=== PATIENT | female | born 1950 | race Caucasian/White ===

== ENCOUNTER 2016-11-28 19:47 | Emergency (ER) | payer MEDICARE, MEDICAID ==
[2016-11-28 20:58] VITALS: BP 163/77
--- NOTE | 2016-11-28 21:12 | ED ---
Throat Pain/Nasal Congestion - HPI Summary HPI Summary: 66 F presents with sore throat 3 days. She said this past month she had been diagnosed with bronchitis and sinusitis and just finished her last course of antibiotics three days ago. She states since then she develop a sore throat. She has been able to eat and drink okay. She denies any fever. She also admits to some chest pain but denies any SOB. She also admits to a chronic cough that is unchanged. She states the chest pain is a squeezing sensation. She says she also ran out of tramadol and is requesting one here for her sciatica. - History of Current Complaint Chief Complaint: EDThroatPain Time Seen by Provider: 11/28/16 21:04 - Allergies/Home Medications Allergies/Adverse Reactions: Allergies Allergy/AdvReac Type Severity Reaction Status Date / Time Ciprofloxacin [From Cipro] Allergy Mild Itching Verified 10/14/16 13:33 Sulfa Drugs Allergy Mild Itching Verified 10/14/16 13:33 PMH/Surg Hx/FS Hx/Imm Hx Endocrine/Hematology History: Reports: Hx Anemia - b12 shots Denies: Hx Diabetes, Hx Thyroid Disease Cardiovascular History: Reports: Hx Hypertension, Other Cardiovascular Problems/ Disorders - PT.STATES STROKE 2011 Denies: Hx Congestive Heart Failure, Hx Deep Vein Thrombosis, Hx Myocardial Infarction, Hx Pacemaker/ICD Respiratory History: Reports: Hx Asthma, Hx Chronic Obstructive Pulmonary Disease (COPD), Other Respiratory Problems/Disorders - COPD Denies: Hx Lung Cancer GI History: Reports: Other GI Disorders - DIVERTICULITIS Denies: Hx Gall Bladder Disease, Hx Gastrointestinal Bleed, Hx Ulcer, Hx Urosepsis History: Denies: Hx Kidney Stones, Hx Renal Disease Musculoskeletal History: Reports: Hx Arthritis, Hx Back Problems, Other Musculoskeletal History - L SHLDR REPAIR 12/2013 Sensory History: Reports: Hx Contacts or Glasses Opthamlomology History: Reports: Hx Contacts or Glasses Neurological History: Reports: Hx Seizures Psychiatric History: Reports: Hx Anxiety, Hx Depression, Hx Panic Disorder, Hx Inpatient Treatment, Hx Community Mental Health Tx, Hx Bipolar Disorder, Hx Suicide Attempt, Hx of Violent Episodes Against Others, Hx Substance Abuse - Cancer History Hx Chemotherapy: No Hx Radiation Therapy: No - Surgical History Surgery Procedure, Year, and Place: LT SHOULDER REPLACEMENT 12/2013, ABD EXPLORATORY SURGERY, APPENDECTOMY Hx Anesthesia Reactions: No - Immunization History Date of Tetanus Vaccine: 12/03/13 Date of Influenza Vaccine: 2012 Infectious Disease History: No Infectious Disease History: Denies: Hx Hepatitis, Hx Human Immunodeficiency Virus (HIV), History Other Infectious Disease, Traveled Outside the [place] in Last 30 Days - Family History Known Family History: Positive: Hypertension, Respiratory Disease Negative: Cardiac Disease, Diabetes - Social History Alcohol Use: None 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 Substance Use Type: Reports: None Substance Use Comment - Amount & Last Used: opiates Hx Tobacco Use: Yes Smoking Status (MU): Heavy Every Day Tobacco Smoker Type: Cigarettes Amount Used/How Often: 1 PPD Length of Time of Smoking/Using Tobacco: 30 years Have You Smoked in the Last Year: Yes Review of Systems Negative: Fever Positive: Sore Throat, Nasal Discharge. Negative: Ear Ache Positive: Chest Pain Positive: Cough - chronic cough. Negative: Shortness Of Breath All Other Systems Reviewed And Are Negative: Yes Physical Exam Triage Information Reviewed: Yes Vital Signs On Initial Exam: Initial Vitals Temp Pulse Resp BP Pulse Ox 98.3 F 87 18 163/77 98 11/28/16 20:56 11/28/16 20:56 11/28/16 20:56 11/28/16 20:56 11/28/16 20:56 Vital Signs Reviewed: Yes Appearance: Positive: Well-Appearing Skin: Positive: Warm, Dry Head/Face: Positive: Normal Head/Face Inspection Eyes: Positive: Normal, Conjunctiva Clear ENT: Positive: Normal ENT inspection, Pharyngeal erythema, TMs normal. Negative : Tonsillar swelling, Tonsillar exudate, Trismus, Muffled/hoarse voice Neck: Positive: Supple, Nontender, No Lymphadenopathy Respiratory/Lung Sounds: Positive: Clear to Auscultation, Breath Sounds Present , Other - reproducible chest pain on palpation Cardiovascular: Positive: Normal, RRR Diagnostics - Vital Signs Vital Signs Temp Pulse Resp BP Pulse Ox 11/28/16 20:56 98.3 F 87 18 163/77 98 - Laboratory Lab Statement: Any lab studies that have been ordered have been reviewed, and results considered in the medical decision making process. EENT Course/Dx - Course Course Of Treatment: 66 F presents with sore throat for 3 days. Recently finished over antibiotic three days ago and developed sore throat. on exam holding secretions well, uvula midline, no trismus or hot potato voice, She states she also has chest pain, this pain is reproducible, she states she would only like throat swap and some tramadol ask repeatedly and refused any lab work , chest xray or EKG or any evalation for chest pain or cough, patient then became agitated and stated that would like to leave before strept swap came back , stated would call if came back postivie, strept swap negative, will treat symptomatically patient agrees with plan. - Differential Diagnoses Differential Diagnoses: Pharyngitis, Sinusitis, Other - strept throat, chest pain - Diagnoses Provider Diagnoses: Pharyngitis Discharge - Discharge Plan Condition: Good Disposition: HOME Patient Education Materials: Pharyngitis (ED) Referrals: Aston Pierre NP [Primary Care Provider] - Additional Instructions: Take Tylenol or ibuprofen for pain Use saline spray in nose as much as needed Use humidifier in room or can use warm water in bowls Can gargle salt water Can use cough drops or products such as cloraseptic spray Follow up with primary Return to ED if develop fever does not respond to Tylenol or ibuprofen, inability to swallow, or difficulty breathing or any new or worsening symptoms
== END 2016-11-28 22:04 | disposition home or self-care (01) ==
LOC: ED 19:47
DX: J02.9 Acute pharyngitis, unspecified (principal); F17.210 Nicotine dependence, cigarettes, uncomplicated
CPT/HCPCS: 87651; 99282

== ENCOUNTER 2016-12-10 21:31 | Emergency (ER) | payer MEDICARE, MEDICAID ==
[2016-12-10 21:38] VITALS: BP 125/65
[2016-12-10 22:07] LABS: Hematocrit 44 % (35-47); Mean Corpuscular HGB Conc 34 g/dl (31-36); Mean Corpuscular Hemoglobin 31 pg (27-31); Mean Corpuscular Volume 91 fL (80-97); Mean Platelet Volume 7 um3 (7.4-10.4); Red Blood Count 4.87 10^6/ul (4.0-5.4); Red Cell Distribution Width 14 % (10.5-15); White Blood Count 14.7 10^3/ul (3.5-10.8)
[2016-12-10 22:21] LABS: ALT 15 U/L (7-52); AST 17 U/L (13-39); Albumin 4.4 g/dL (3.2-5.2); Alkaline Phosphatase 89 U/L (34-104); Anion Gap 12 mmol/L (2-11); BUN/Creatinine Ratio 19.7 (8-20); Blood Urea Nitrogen 14 mg/dL (6-24); CO2 Carbon Dioxide 20 mmol/L (22-32); Calcium 9.4 mg/dL (8.6-10.3); Chloride 103 mmol/L (101-111); EGFR African American 106.6 (>60); EGFR Non-African American 82.9 (>60); Globulin 3.1 g/dL (2-4); Glucose 90 mg/dL (70-100); Potassium 3.8 mmol/L (3.5-5.0); Sodium 135 mmol/L (133-145); Total Protein 7.5 g/dL (6.4-8.9)
[2016-12-10 22:37] LABS: Acetaminophen < 15 mcg/mL; Alcohol 179 mg/dL (<10); Salicylate < 2.50 mg/dL (<30)
[2016-12-10 22:48] LABS: TSH (Thyroid Stimulating Horm) 1.14 mcIU/mL (0.34-5.60)
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
== END 2016-12-11 07:51 | disposition home or self-care (01) ==
LOC: ED 21:31
DX: F10.20 Alcohol dependence, uncomplicated (principal); F32.9 Major depressive disorder, single episode, unspecified; R10.12 Left upper quadrant pain; F17.210 Nicotine dependence, cigarettes, uncomplicated; Y90.6 Blood alcohol level of 120-199 mg/100 ml
CPT/HCPCS: 36415; 80053; 80320; 80329; 84443; 85025; 99283; G0480

== ENCOUNTER 2016-12-12 18:40 | Emergency (ER) | payer MEDICARE, MEDICAID ==
[2016-12-12 18:50] VITALS: BP 168/75
[2016-12-12] MEDS ORDERED: Acetaminophen TAB* 325 MG PO ONE (19:19)
[2016-12-12 19:28] LABS: Urine Bacteria 1+ (Absent); Urine Bilirubin Negative (Negative); Urine Glucose Negative (Negative); Urine Nitrite Positive (Negative)
[2016-12-12] MEDS ORDERED: Nitrofurantoin Macrocrystals* 100 MG CAP PO ONE (19:29)
--- NOTE | 2016-12-12 19:45 | RAD ---
INDICATION: Knee pain COMPARISON: 10/05/2016 TECHNIQUE: AP, lateral, tunnel, and sunrise were obtained. FINDINGS: There is minor medial joint space narrowing. The bony structures, joint spaces, and soft tissues are otherwise unremarkable. IMPRESSION: MINOR MEDIAL JOINT SPACE NARROWING, OTHERWISE NEGATIVE.
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
--- NOTE | 2016-12-14 07:33 | PN ---
Progress Note - Progress Note Note: Preliminary shows E. coli. Patient placed on macrobid. Appropriate treatment. Nothing further is needed at this time.
== END 2016-12-12 20:42 | disposition home or self-care (01) ==
LOC: ED 18:40
DX: M25.561 Pain in right knee (principal); N39.0 Urinary tract infection, site not specified; W01.0XXA Fall on same level from slipping, tripping and stumbling without subsequent striking against object, initial encounter; Y92.9 Unspecified place or not applicable; F17.210 Nicotine dependence, cigarettes, uncomplicated; J44.9 Chronic obstructive pulmonary disease, unspecified; J45.909 Unspecified asthma, uncomplicated; Z86.73 Personal history of transient ischemic attack (TIA), and cerebral infarction without residual deficits; F41.9 Anxiety disorder, unspecified; F32.9 Major depressive disorder, single episode, unspecified; D64.9 Anemia, unspecified; I10 Essential (primary) hypertension; Z88.2 Allergy status to sulfonamides; Z88.1 Allergy status to other antibiotic agents
CPT/HCPCS: 81003; 81015; 87077; 87086; 87186; 99282; A9270-GY

== ENCOUNTER 2016-12-17 15:56 | Observation (INO) | payer MEDICARE, MEDICAID ==
[2016-12-17 16:22] LABS: Hematocrit 41 % (35-47); Mean Corpuscular HGB Conc 34 g/dl (31-36); Mean Corpuscular Hemoglobin 31 pg (27-31); Mean Corpuscular Volume 91 fL (80-97); Mean Platelet Volume 7 um3 (7.4-10.4); Red Blood Count 4.52 10^6/ul (4.0-5.4); Red Cell Distribution Width 14 % (10.5-15); White Blood Count 10.6 10^3/ul (3.5-10.8)
--- NOTE | 2016-12-17 16:31 | RAD ---
INDICATION: Slurred speech. CVA. COMPARISON: CT brain August 15, 2016 TECHNIQUE: Noncontrast axial source images were acquired from the skull base to the vertex. FINDINGS: Ventricles/sulci: There is cortical atrophy with compensatory dilatation of the CSF spaces. Brain parenchyma: There is periventricular and subcortical white matter change compatible with chronic ischemia. Intracranial hemorrhage:None. Extra-axial spaces: There are no abnormal extra axial fluid collections or evidence of extra-axial mass. Calvarium: There is no calvarial fracture or other calvarial abnormality. Scalp: There is no evidence of scalp or extracalvarial soft tissue abnormality. Paranasal sinuses/mastoid: The paranasal sinuses and mastoid air cells are clear. Other: None. IMPRESSION: CORTICAL ATROPHY WITH CHRONIC MICROVASCULAR ISCHEMIC CHANGES. NO ACUTE FINDINGS. Findings called to emergency department at 1623 hours
[2016-12-17 16:40] LABS: ALT 16 U/L (7-52); Albumin 4.1 g/dL (3.2-5.2); Alkaline Phosphatase 80 U/L (34-104); BUN/Creatinine Ratio 14.5 (8-20); Blood Urea Nitrogen 12 mg/dL (6-24); CO2 Carbon Dioxide 22 mmol/L (22-32); Calcium 9.2 mg/dL (8.6-10.3); Chloride 107 mmol/L (101-111); Cholesterol 206 mg/dL; EGFR Non-African American 69.2 (>60); Globulin 3.1 g/dL (2-4); Glucose 147 mg/dL (70-100); HDL Cholesterol 44.2 mg/dL; LDL Cholesterol 113 mg/dL; Sodium 138 mmol/L (133-145); Total Protein 7.2 g/dL (6.4-8.9); Triglycerides 243 mg/dL
[2016-12-17] MEDS ORDERED: Iohexol 350* (CONTRAST) 500 ML MDV IV ONE (16:51)
--- NOTE | 2016-12-17 17:00 | RAD ---
INDICATION: Code [place]. COMPARISON: Comparison is made with a prior chest x-ray study from August 06, 2016. TECHNIQUE: A portable view of the chest was obtained. FINDINGS: Cardiac and mediastinal contours appear to be within normal limits. The lungs are clear. No pleural effusion is seen. The patient is status post total left shoulder arthroplasty. IMPRESSION: NO EVIDENCE FOR ACUTE DISEASE.
[2016-12-17 17:19] LABS: Urine Bilirubin Negative (Negative); Urine Glucose Negative (Negative); Urine Nitrite Negative (Negative)
[2016-12-17 17:29] LABS: Benzodiazepine Urine Screen None Detected (None Detect)
[2016-12-17 18:08] LABS: Acetaminophen < 15 mcg/mL; Alcohol < 10 mg/dL (<10); Salicylate < 2.50 mg/dL (<30)
--- NOTE | 2016-12-17 18:14 | RAD ---
INDICATION: Acute onset speech abnormality. History of CVA with RIGHT-sided arm and leg deficits. COMPARISON: Noncontrast CT brain of the same date. December 27, 2015 CT angiogram TECHNIQUE: Multidetector CT images were obtained from the aortic arch to the vertex of the head with 80 mL Omnipaque 350 IV contrast. Arterial phase of enhancement. Multiplanar reformation including maximum intensity projection. 3-D arterial volume rendering. Stenosis estimations based on denominator of distal arterial diameter. NECK ANGIOGRAM REPORT: Motion artifact degrades image quality. Normal configuration of the branch vessels at the aortic arch. Mild atherosclerotic plaque without suggestion of branch vessel ostial stenosis. Mild calcific and noncalcific plaque at the RIGHT carotid bulb and proximal internal carotid artery with approximate 20% resulting stenosis. Calcific and noncalcific plaque at the LEFT proximal internal carotid artery results in approximate 50% short segment stenosis. Patent grossly codominant vertebral arteries both contribute to the basilar artery. NECK ANGIOGRAM IMPRESSION: Approximate 20% RIGHT internal carotid artery stenosis and 50% short segment LEFT internal carotid artery stenosis. HEAD ANGIOGRAM REPORT: Calcific plaque at the bilateral carotid siphons without suggestion of hemodynamic significant stenosis. Patent M1 and M2 middle cerebral artery segments. Patent bilateral A2 anterior cerebral artery segments are primarily supplied by a dominant LEFT A1 segment and patent anterior communicating artery. Hypoplastic RIGHT A1 segment. Unremarkable basilar artery and cerebellar artery origins. Patent RIGHT posterior cerebral artery supplied by the anterior circulation via a dominant posterior communicating artery. Patent LEFT posterior cerebral artery supplied by the posterior circulation P1 segment with hypoplastic LEFT posterior communicating artery. No intracranial aneurysms or vascular malformations evident. Encephalomalacia at the LEFT superior parietal lobule consistent with previous infarct. HEAD ANGIOGRAM IMPRESSION: Negative for central intracranial arterial stenosis or occlusion. CPT II: CPT II Codes: 3100F
--- NOTE | 2016-12-17 18:55 | ED ---
Reid Coyne Karl, scribed for Delvis Ramirez MD on 12/17/16 at 1611 . Neurological HPI - HPI Summary HPI Summary: Pt is a 66 y/o female BIBA that presents to the ED c/o what she believes to be a stroke since 13:30. Pt reported that she was walking home from a friend's house at approx 13:30 today when she began to feel right sided weakness in her arm/leg/face, difficulty seeing, difficulty speaking, and mild SOB. Pt also reported feeling dizziness, nausea, and mild abd and back pain for approx 1 month. Pt stated that she has recently been on abx for a URI. Hx: CVA (2010) - History of Current Complaint Stated Complaint: WEAKNESS Last Known Well Date: 12/17/16 at 13:00 Hx Obtained From: Patient Hx Last Menstrual Period: pt states age 30-40 yrs old Onset/Duration: Sudden Onset, Started hours ago, Still Present Timing: Constant Onset Severity: Moderate Current Severity: Moderate Neurological Deficit Location: Facial - right side, RUE, RLE - Additional Pertinent History Primary Care Physician: [id number] - Allergy/Home Medications Allergies/Adverse Reactions: Allergies Allergy/AdvReac Type Severity Reaction Status Date / Time Ciprofloxacin [From Cipro] Allergy Mild Itching Verified 12/10/16 21:35 Sulfa Drugs Allergy Mild Itching Verified 12/10/16 21:35 Home Medications: Home Medications Fluticasone Furoate-Vilanterol [Breo Ellipta 200-25 Mcg/INH] 1 inh INH DAILY [History Confirmed 12/17/16] Gabapentin TAB(NF) [Neurontin 600 mg TAB(NF)] 600 mg PO QID 12/17/16 [History Confirmed 12/17/16] QUEtiapine TAB* [SEROquel TAB*] 200 mg PO BEDTIME 12/17/16 [History Confirmed ] traMADol TAB* [Ultram*] 50 mg PO BID PRN MDD 100 mg 12/17/16 [History Confirmed 12/17/16] PMH/Surg Hx/FS Hx/Imm Hx Endocrine/Hematology History: Reports: Hx Anemia - b12 shots Denies: Hx Diabetes, Hx Thyroid Disease Cardiovascular History: Reports: Hx Hypertension, Other Cardiovascular Problems/ Disorders - PT.STATES STROKE 2011 Denies: Hx Congestive Heart Failure, Hx Deep Vein Thrombosis, Hx Myocardial Infarction, Hx Pacemaker/ICD Respiratory History: Reports: Hx Asthma, Hx Chronic Obstructive Pulmonary Disease (COPD), Other Respiratory Problems/Disorders - COPD Denies: Hx Lung Cancer GI History: Reports: Other GI Disorders - DIVERTICULITIS Denies: Hx Gall Bladder Disease, Hx Gastrointestinal Bleed, Hx Ulcer, Hx Urosepsis History: Denies: Hx Kidney Stones, Hx Renal Disease Musculoskeletal History: Reports: Hx Arthritis, Hx Back Problems, Other Musculoskeletal History - L SHLDR REPAIR 12/2013 Sensory History: Reports: Hx Contacts or Glasses Opthamlomology History: Reports: Hx Contacts or Glasses Neurological History: Reports: Hx CVA, Hx Seizures Psychiatric History: Reports: Hx Anxiety, Hx Depression, Hx Panic Disorder, Hx Inpatient Treatment, Hx Community Mental Health Tx, Hx Bipolar Disorder, Hx Suicide Attempt, Hx of Violent Episodes Against Others, Hx Substance Abuse - Cancer History Hx Chemotherapy: No Hx Radiation Therapy: No - Surgical History Surgery Procedure, Year, and Place: LT SHOULDER REPLACEMENT 12/2013, ABD EXPLORATORY SURGERY, APPENDECTOMY Hx Anesthesia Reactions: No - Immunization History Date of Tetanus Vaccine: 12/03/13 Date of Influenza Vaccine: 2012 Infectious Disease History: Denies: Hx Hepatitis, Hx Human Immunodeficiency Virus (HIV), History Other Infectious Disease - Family History Known Family History: Positive: Hypertension, Respiratory Disease, Other - bipolar disorder, depression, alcohol abuse Negative: Cardiac Disease, Diabetes - Social History Alcohol Use: Occasionally 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 Substance Use Type: Reports: None Substance Use Comment - Amount & Last Used: opiates Hx Tobacco Use: Yes Smoking Status (MU): Heavy Every Day Tobacco Smoker Type: Cigarettes Amount Used/How Often: 1 PPD Length of Time of Smoking/Using Tobacco: 30 years Have You Smoked in the Last Year: Yes Review of Systems Constitutional: Negative Positive: Blurred Vision ENT: Negative Cardiovascular: Negative Positive: Shortness Of Breath Positive: Abdominal Pain, Nausea Genitourinary: Negative Positive: Arthralgia - back pain Skin: Negative Neurological: Other - dizziness Positive: Weakness - right side arm/leg/face, Slurred Speech Psychological: Normal All Other Systems Reviewed And Are Negative: Yes Physical Exam Triage Information Reviewed: Yes Vital Signs On Initial Exam: Temp Pulse Resp BP Pulse Ox 98.1 F 98 16 139/74 98 12/17/16 16:35 12/17/16 16:35 12/17/16 16:35 12/17/16 16:35 12/17/16 16:35 Vital Signs Reviewed: Yes Appearance: Positive: Well-Appearing, No Pain Distress Skin: Positive: Warm, Skin Color Reflects Adequate Perfusion, Dry Head/Face: Positive: Normal Head/Face Inspection Eyes: Positive: EOMI, ISADORA ENT: Positive: Normal ENT inspection Neck: Positive: Supple, Nontender Respiratory/Lung Sounds: Positive: Breath Sounds Present, Rhonchi - bilaterally Cardiovascular: Positive: Tachycardia Abdomen Description: Positive: Nontender, Soft Bowel Sounds: Positive: Present Musculoskeletal: Positive: Normal, Strength/ROM Intact Neurological: Positive: Facial Droop - right sided, Slurred Speech, Other - right arm weakness, confusion. Negative: Speech Normal Psychiatric: Positive: Normal, Affect/Mood Appropriate Diagnostics - Vital Signs Vital Signs Temp Pulse Resp BP Pulse Ox 12/17/16 17:00 18 131/113 12/17/16 16:35 98.1 F 98 16 139/74 98 12/17/16 16:30 108 20 139/74 98 12/17/16 16:23 97 12/17/16 16:14 97.9 F 99 16 143/76 93 12/17/16 16:03 108 20 96 12/17/16 16:02 127/69 - Laboratory Lab Results: Lab Results 12/17/16 12/17/16 12/17/16 Range/Units 16:00 16:00 16:00 WBC 10.6 (3.5-10.8) 10^3/ul RBC 4.52 (4.0-5.4) 10^6/ul Hgb 14.0 (12.0-16.0) g/dl Hct 41 (35-47) % MCV 91 (80-97) fL MCH 31 (27-31) pg MCHC 34 (31-36) g/dl RDW 14 (10.5-15) % Plt Count 250 (150-450) 10^3/ul MPV 7 L (7.4-10.4) um3 Neut % (Auto) 65.1 (38-83) % Lymph % (Auto) 26.2 (25-47) % [place] % (Auto) 5.1 (1-9) % Eos % (Auto) 2.6 (0-6) % Baso % (Auto) 1.0 (0-2) % Absolute Neuts (auto) 6.9 (1.5-7.7) 10^3/ul Absolute Lymphs (auto) 2.8 (1.0-4.8) 10^3/ul Absolute Monos (auto) 0.5 (0-0.8) 10^3/ul Absolute Eos (auto) 0.3 (0-0.6) 10^3/ul Absolute Basos (auto) 0.1 (0-0.2) 10^3/ul Absolute Nucleated RBC 0 10^3/ul Nucleated RBC % 0 INR (Anticoag Therapy) 0.90 (0.89-1.11) APTT 28.2 (26.0-36.3) seconds Sodium 138 (133-145) mmol/L Potassium TNP Chloride 107 (101-111) mmol/L Carbon Dioxide 22 (22-32) mmol/L Anion Gap TNP BUN 12 (6-24) mg/dL Creatinine 0.83 (0.51-0.95) mg/dL Est GFR ( Amer) 89.0 (>60) Est GFR (Non-Af Amer) 69.2 (>60) BUN/Creatinine Ratio 14.5 (8-20) Glucose 147 H (70-100) mg/dL POC Glucose (mg/dL) (74-106) mg/dL Lactic Acid (0.5-2.0) mmol/L Calcium 9.2 (8.6-10.3) mg/dL Total Bilirubin 0.40 (0.2-1.0) mg/dL AST TNP ALT 16 (7-52) U/L Alkaline Phosphatase 80 (34-104) U/L Troponin I 0.00 (<0.04) ng/mL Total Protein 7.2 (6.4-8.9) g/dL Albumin 4.1 (3.2-5.2) g/dL Globulin 3.1 (2-4) g/dL Albumin/Globulin Ratio 1.3 (1-3) Triglycerides 243 mg/dL Cholesterol 206 mg/dL LDL Cholesterol 113 mg/dL HDL Cholesterol 44.2 mg/dL Urine Color Urine Appearance Urine pH (5-9) Ur Specific [place] (1.010-1.030) Urine Protein (Negative) Urine Ketones (Negative) Urine Blood (Negative) Urine Nitrate (Negative) Urine Bilirubin (Negative) Urine Urobilinogen (Negative) Ur Leukocyte Esterase (Negative) Urine Glucose (Negative) Salicylates Cancelled Urine Opiates Screen (None Detect) Acetaminophen Cancelled Ur Barbiturates Screen (None Detect) Ur Phencyclidine Scrn (None Detect) Ur Amphetamines Screen (None Detect) U Benzodiazepines Scrn (None Detect) Urine Cocaine Screen (None Detect) U Cannabinoids Screen (None Detect) Serum Alcohol Cancelled 12/17/16 12/17/16 12/17/16 Range/Units 16:00 16:11 17:00 WBC (3.5-10.8) 10^3/ul RBC (4.0-5.4) 10^6/ul Hgb (12.0-16.0) g/dl Hct (35-47) % MCV (80-97) fL MCH (27-31) pg MCHC (31-36) g/dl RDW (10.5-15) % Plt Count (150-450) 10^3/ul MPV (7.4-10.4) um3 Neut % (Auto) (38-83) % Lymph % (Auto) (25-47) % [place] % (Auto) (1-9) % Eos % (Auto) (0-6) % Baso % (Auto) (0-2) % Absolute Neuts (auto) (1.5-7.7) 10^3/ul Absolute Lymphs (auto) (1.0-4.8) 10^3/ul Absolute Monos (auto) (0-0.8) 10^3/ul Absolute Eos (auto) (0-0.6) 10^3/ul Absolute Basos (auto) (0-0.2) 10^3/ul Absolute Nucleated RBC 10^3/ul Nucleated RBC % INR (Anticoag Therapy) (0.89-1.11) APTT (26.0-36.3) seconds Sodium (133-145) mmol/L Potassium Chloride (101-111) mmol/L Carbon Dioxide (22-32) mmol/L Anion Gap BUN (6-24) mg/dL Creatinine (0.51-0.95) mg/dL Est GFR ( Amer) (>60) Est GFR (Non-Af Amer) (>60) BUN/Creatinine Ratio (8-20) Glucose (70-100) mg/dL POC Glucose (mg/dL) 147 H (74-106) mg/dL Lactic Acid 1.8 (0.5-2.0) mmol/L Calcium (8.6-10.3) mg/dL Total Bilirubin (0.2-1.0) mg/dL AST ALT (7-52) U/L Alkaline Phosphatase (34-104) U/L Troponin I (<0.04) ng/mL Total Protein (6.4-8.9) g/dL Albumin (3.2-5.2) g/dL Globulin (2-4) g/dL Albumin/Globulin Ratio (1-3) Triglycerides mg/dL Cholesterol mg/dL LDL Cholesterol mg/dL HDL Cholesterol mg/dL Urine Color Yellow Urine Appearance Clear Urine pH 6.0 (5-9) Ur Specific [place] 1.005 L (1.010-1.030) Urine Protein Negative (Negative) Urine Ketones Negative (Negative) Urine Blood Negative (Negative) Urine Nitrate Negative (Negative) Urine Bilirubin Negative (Negative) Urine Urobilinogen Negative (Negative) Ur Leukocyte Esterase Negative (Negative) Urine Glucose Negative (Negative) Salicylates Urine Opiates Screen (None Detect) Acetaminophen Ur Barbiturates Screen (None Detect) Ur Phencyclidine Scrn (None Detect) Ur Amphetamines Screen (None Detect) U Benzodiazepines Scrn (None Detect) Urine Cocaine Screen (None Detect) U Cannabinoids Screen (None Detect) Serum Alcohol 12/17/16 12/17/16 Range/Units 17:00 17:25 WBC (3.5-10.8) 10^3/ul RBC (4.0-5.4) 10^6/ul Hgb (12.0-16.0) g/dl Hct (35-47) % MCV (80-97) fL MCH (27-31) pg MCHC (31-36) g/dl RDW (10.5-15) % Plt Count (150-450) 10^3/ul MPV (7.4-10.4) um3 Neut % (Auto) (38-83) % Lymph % (Auto) (25-47) % [place] % (Auto) (1-9) % Eos % (Auto) (0-6) % Baso % (Auto) (0-2) % Absolute Neuts (auto) (1.5-7.7) 10^3/ul Absolute Lymphs (auto) (1.0-4.8) 10^3/ul Absolute Monos (auto) (0-0.8) 10^3/ul Absolute Eos (auto) (0-0.6) 10^3/ul Absolute Basos (auto) (0-0.2) 10^3/ul Absolute Nucleated RBC 10^3/ul Nucleated RBC % INR (Anticoag Therapy) (0.89-1.11) APTT (26.0-36.3) seconds Sodium (133-145) mmol/L Potassium 3.4 L Chloride (101-111) mmol/L Carbon Dioxide (22-32) mmol/L Anion Gap BUN (6-24) mg/dL Creatinine (0.51-0.95) mg/dL Est GFR ( Amer) (>60) Est GFR (Non-Af Amer) (>60) BUN/Creatinine Ratio (8-20) Glucose (70-100) mg/dL POC Glucose (mg/dL) (74-106) mg/dL Lactic Acid (0.5-2.0) mmol/L Calcium (8.6-10.3) mg/dL Total Bilirubin (0.2-1.0) mg/dL AST 14 ALT (7-52) U/L Alkaline Phosphatase (34-104) U/L Troponin I (<0.04) ng/mL Total Protein (6.4-8.9) g/dL Albumin (3.2-5.2) g/dL Globulin (2-4) g/dL Albumin/Globulin Ratio (1-3) Triglycerides mg/dL Cholesterol mg/dL LDL Cholesterol mg/dL HDL Cholesterol mg/dL Urine Color Urine Appearance Urine pH (5-9) Ur Specific [place] (1.010-1.030) Urine Protein (Negative) Urine Ketones (Negative) Urine Blood (Negative) Urine Nitrate (Negative) Urine Bilirubin (Negative) Urine Urobilinogen (Negative) Ur Leukocyte Esterase (Negative) Urine Glucose (Negative) Salicylates < 2.50 Urine Opiates Screen None detected (None Detect) Acetaminophen < 15 Ur Barbiturates Screen None detected (None Detect) Ur Phencyclidine Scrn None detected (None Detect) Ur Amphetamines Screen None detected (None Detect) U Benzodiazepines Scrn None detected (None Detect) Urine Cocaine Screen None detected (None Detect) U Cannabinoids Screen None detected (None Detect) Serum Alcohol < 10 Result Diagrams: 12/17/16 16:00 12/17/16 17:25 Lab Statement: Any lab studies that have been ordered have been reviewed, and results considered in the medical decision making process. - Radiology CXR Xray Interpretation: No Acute Changes Radiology Interpretation Completed By: Radiologist - IMPRESSION: NO EVIDENCE FOR ACUTE DISEASE. - CT CT Brain CT Interpretation: Positive (See Comments) CT Interpretation Completed By: Radiologist - IMPRESSION: CORTICAL ATROPHY WITH CHRONIC MICROVASCULAR ISCHEMIC CHANGES. NO ACUTE FINDINGS. Head CTA CT Interpretation: Positive (See Comments) CT Interpretation Completed By: Radiologist - NECK ANGIOGRAM IMPRESSION: Approximate 20% RIGHT internal carotid artery stenosis and 50% short segment LEFT internal carotid artery stenosis. HEAD ANGIOGRAM IMPRESSION: Negative for central intracranial arterial stenosis or occlusion. - EKG 16:17 Cardiac Rate: Tachycardia EKG Rhythm: Sinus Tachycardia - at [address] Segment: Normal Ectopy: PVCs Course/Dx - Course Course Of Treatment: Mila Morrissey called at 16:09. Assessment/Plan: DR RODGERS SAW PATIENT IN ED. ADMIT HOSPITALIST STABLE. - Diagnoses Provider Diagnoses: Altered mental status - Physician Notifications Discussed Care of Patient With: Dr. Rodgers (Neurologist) at 16:28 who came to see the pt. Dr. Sahni (Hospitalist) at 18:25 who agreed to admit the pt. Discharge - Discharge Plan Condition: Stable Disposition: ADMITTED TO [facility] Referrals: Aston Pierre NP [Primary Care Provider] - The documentation as recorded by the Reid plunkett Karl accurately reflects the service I personally performed and the decisions made by me, Delvis Ramirez MD.
[2016-12-17] MEDS ORDERED: Acetaminophen TAB* 325 MG PO PRN (19:16)
[2016-12-17] MEDS ORDERED: Naproxen TAB* 250 MG PO PRN (19:21)
--- NOTE | 2016-12-17 19:24 | CONS ---
NEUROLOGY CONSULTATION: DATE OF CONSULT: 12/17/16 LOCATION: The patient is in the emergency department. REASON FOR CONSULT: Code Morrissey. HISTORY OF PRESENT ILLNESS: Julia Dewey is a 66-year-old woman with a history of previous left frontoparietal stroke, resulting in some residual right -sided weakness, chronic low back pain, history of polysubstance abuse according to records as well as hypertension, hyperlipidemia, and psychiatric illness, who presented via EMS with weakness and altered mental status. The patient is not a reliable informant and is very sleepy throughout the interview. 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 She also mentions that she was at a friend's house earlier and was discussing some "bad things" that have happened to her before these symptoms began. She cannot provide an accurate time of onset and initially stated she thought she began having symptoms around 12:30, then later stated that it may have been 2:30, and says that there is no one else to call that could verify the last time she was known to be normal. She was questioned as to why she was appearing so tired and stated that it may have been from her gabapentin or possibly from her buspirone, but that she has never had a reaction like this to those medications before. She denies taking any opiates or other sedating medications today and states that she typically takes tramadol for pain, but is out of that medication. She denies using alcohol today. PAST MEDICAL HISTORY: 1. Small left MCA stroke. 2. Hypertension. 3. Chronic back pain. 4. Hyperlipidemia. 5. Bipolar disorder. 6. History of alcohol dependence, unclear if active. 7. History of benzodiazepine abuse, unclear if active. 8. History of opiate abuse, unclear if active. 9. COPD. MEDICATIONS: Home medications: 1. Tramadol 50 mg b.i.d. p.r.n. 2. BuSpar 30 mg p.o. b.i.d. 3. Amlodipine 5 mg daily. 4. Seroquel 10 mg at bedtime. 5. Macrodantin 100 mg twice daily. 6. Naproxen 250 mg q.8 p.r.n. 7. Gabapentin 600 mg 4 times daily. 8. Breo Ellipta 1 inhalation daily. 9. Zyrtec 10 mg daily. 10. Atorvastatin 20 mg daily. 11. Ventolin inhaler p.r.n. ALLERGIES: CIPROFLOXACIN causes itching. SULFA drugs cause itching. FAMILY HISTORY: She denies a history of stroke in the family. SOCIAL HISTORY: She reported that her son is schizophrenic and she has been afraid to sleep at home as a result of this. She also offered that as a possible reason why she may be so sleepy today. REVIEW OF SYSTEMS: She reports back pain. She also reports some foot pain due to a callus. Otherwise, as per HPI. PHYSICAL EXAM: Temperature 98.1, blood pressure 139/74, heart rate of 98, oxygen saturation 98% on 2 L. On general examination, she is in no acute distress. She appears lethargic. Heart is tachycardic, but there are no obvious murmurs. Lungs are clear. On neurologic examination, she requires repeated verbal stimuli in order to maintain wakefulness. She is oriented to place and time. Her speech is severely dysarthric and she is edentulous. There is no apparent aphasia. Her pupils are 3 mm and equally reactive to 2 mm bilaterally. Versions are full without nystagmus. Visual crawford are full to confrontation. There is no obvious facial asymmetry. There is no significant drift in her left arm or left leg or her right arm. She was unable to voluntarily lift the right leg off the bed, but later when the ER staff was trying to remove her pants, she was noted to boost herself up with the right leg and was able to mostly remove her own pants. Sensation was intact to light touch in the upper and lower extremities, though she endorsed that it was slightly decreased in the right arm and leg. [id number] is intact without ataxia and [id number] was intact on the left. She was not stood up in this acute setting. DIAGNOSTIC STUDIES/LAB DATA: Her CBC was largely unremarkable. CMP was notable for a nonfasting glucose of 147. Total cholesterol of 206, LDL of 113, HDL of 44.2, and triglycerides of 243. Urinalysis is pending. Urine drug screen and alcohol level are also pending. A noncontrast head CT was obtained and personally reviewed and this showed evidence of the old left MCA infarct as well as chronic microvascular ischemic changes, but no acute findings. IMPRESSION: Julia Dewey is a 66-year-old woman with a history of past stroke as well as past polysubstance abuse, who presents as a Code Morrissey for weakness and altered mental status. Her exam is overall nonfocal aside from deficits which could be attributed to her old stroke, but her exam is notable for lethargy and significant flaccid dysarthria. I question whether she is intoxicated on either medications or alcohol, but this could also be the presentation of a posterior circulation event. She cannot establish a clear time of onset of her symptoms and there is no one available to help establish last time known normal, so she is not a candidate for IV tPA. I have asked Dr. Ramirez to obtain a CT angiogram of the head and neck in order to evaluate the posterior circulation. If this shows any large vessel occlusion, then she should be most likely transferred to another center such as [facility]. Otherwise, she will be admitted to the hospitalist service and Dr. Stanford has received sign-out on the patient. Thank for you for this consultation. [id number]/[facility] #: [id number] JAMES
[2016-12-17] MEDS ORDERED: NS 0.9% 1000 ML* 1,000 ML IV SCH (19:30)
[2016-12-17] MEDS ORDERED: Aspirin SUPP* 300 MG PR ONE (19:51)
[2016-12-17] MEDS ORDERED: Aspirin EC Low Dose* 81 MG TAB.EC PO SCH (20:00)
[2016-12-17 20:07] LABS: TSH (Thyroid Stimulating Horm) 0.86 mcIU/mL (0.34-5.60)
[2016-12-17] MEDS ORDERED: Nitrofurantoin Macrocrystals* 100 MG CAP PO SCH (21:00)
--- NOTE | 2016-12-17 21:05 | HP ---
CC: Aston Pierre NP HISTORY AND PHYSICAL: DATE OF ADMISSION: 12/17/16 PRIMARY CARE PHYSICIAN: Aston Pierre NP CHIEF COMPLAINT: Weakness, dysarthria. HISTORY OF PRESENT ILLNESS: Ms. Dewey is a 66-year-old female with a past medical history of hypertension, hyperlipidemia, COPD, bipolar disorder, depression, chronic pain, previous stroke who presents to the hospital with dysarthria, lethargy, and reported weakness. History is unreliable at this time as the patient is frequently falling asleep and seemed aggravated when I ask her questions about why she presented to the hospital. What can be pieced together, the patient reports she noticed sometimes around 1 or 2 o'clock in the afternoon today where she felt lightheaded and dizzy. She was walking around the [facility] area. After she felt this way, she leaned against the wall outside of a gas station and then went inside. She states she felt some weakness in her right leg and right arm which is where she is still symptomatic from her previous stroke. When she went to the gas station, she asked to sit down and noticed that she was having some difficulty speaking at that time. Apparently at that point, the gas station called the EMS and she was taken to the hospital. She states that she also feels very fatigued and cannot keep her eyes open. She denies any illicit drug use, denies taking any extra medications, although the nursing note states that she took extra BuSpar, Neurontin because she is under a lot of stress. However, the patient denies this to me. She also denies being on any pain medications and narcotics. She denies any chest pain, has chronic shortness of breath that she feels like may be worse lately. She states that she saw her PCP, Dr. Pierre, about a week ago for an upper respiratory infection. He felt that it was viral at that time, did not prescribe any antibiotics, recommended that she quit smoking which she has not done. No fever or chills. She states that she has been having some incontinence lately. PAST MEDICAL HISTORY: COPD, hypertension, hyperlipidemia, depression, bipolar disorder, chronic back pain, CVA in 2012. PAST SURGICAL HISTORY: The patient cannot recall any surgeries, although I have noted that she has a left shoulder scar. HOME MEDICATIONS: 1. Tramadol 50 mg by mouth 2 times daily as needed for pain. 2. BuSpar 30 mg by mouth 2 times daily. 3. Amlodipine 5 mg by mouth daily. 4. Quetiapine 200 mg by mouth at bedtime. 5. Nitrofurantoin 100 mg by mouth 2 times daily. 6. Seroquel 200 mg by mouth nightly. 7. Gabapentin 600 mg by mouth 4 times daily. 8. Breo 1 inhalation daily. 9. Norvasc 5 mg by mouth daily. 10. Albuterol 2 puffs inhaled every 4 hours as needed for shortness of breath or wheezing. 11. Cetirizine 10 mg by mouth daily. 12. Naproxen 250 mg by mouth every 8 hours as needed for pain. 13. Atorvastatin 20 mg by mouth daily. SOCIAL HISTORY: The patient reports 1 pack per day smoking history since she was 15 years old. Denies any alcohol or illicit drug use. FAMILY HISTORY: Mother of blood clot. Father of a broken neck. REVIEW OF SYSTEMS: Difficult to obtain, but seemingly negative aside from the HPI. PHYSICAL EXAMINATION GENERAL: The patient is a middle-aged female, lying in bed, in no apparent distress; however, quite lethargic. VITAL SIGNS: On admission, temperature 97.9, heart rate of 99, respiratory rate of 16, O2 saturation 93% on 2 L, blood pressure 143/76. HEENT: Pupils equal, round and reactive to light and accommodation. Anicteric sclerae. Dry mucous membranes. NECK: No cervical adenopathy. LUNGS: Clear to auscultation bilaterally. No wheezes, rales or rhonchi. CARDIOVASCULAR: Regular rate and rhythm. S1, S2 present. No murmurs, gallops or rubs. ABDOMEN: Soft, nontender, nondistended. Bowel sounds positive. EXTREMITIES: No cyanosis, clubbing or edema. NEURO: The patient is lethargic, awakens to voice, is oriented to self, place, year and day of the week. However, felt that it was August. On cranial nerve exam, perhaps some left facial droop, although the patient is not entirely cooperative with exam. Sensation seems intact and symmetric bilaterally. 5/5 strength throughout bilateral upper extremities. The patient is unable to lift her right lower extremity from the bed. Good strength in the left lower extremity. She has notable dysarthria. DIAGNOSTICS AND IMAGING: White blood cell count of 10.6, hemoglobin of 14, hematocrit of 41, platelets of 250, INR 0.9. Sodium of 138, potassium 3.4, chloride of 107, carbon dioxide of 22, BUN of 12, creatinine 0.83, glucose of 147. LFTs within normal limits. Troponin of 0.00, LDL of 113. UA negative for signs of infection. U-tox negative. IMAGING: Chest x-ray, personally reviewed, shows no acute disease. EKG, personally reviewed, shows normal sinus rhythm. No ischemic changes. CT of the head shows chronic microvascular ischemic changes, but no acute findings. CTA of the head and neck shows a 20% right ICA lesion and a 50% left ICA lesion. No abnormalities within the circulation of the head. ASSESSMENT AND PLAN: Lethargy, possible worsening of the patient's chronic right- sided weakness, dysarthria in a 66-year-old female with a past medical history of hypertension, hyperlipidemia, chronic obstructive pulmonary disease, depression, bipolar disorder, chronic pain and stroke. 1. Lethargy, dysarthria, and right-sided weakness. I appreciate Neurology assistance. Unclear if this is transient ischemic attack or stroke, seems unlikely. The patient's CT head and CTA of the head and neck are relatively unremarkable. The patient states she is unable to get an MRI because she has an earring in her left ear that is unable to be taken out. This was noted on the previous admission as well. We will start the patient on aspirin and continue her home statin for now. I will obtain an ABG, also check a TSH and ammonia and a B12. For now, I will hold the patient's centrally acting medications as there is some concern this could be polypharmacy. As noted above , the patient's U-tox is negative. We will keep her n.p.o. for now until she wakes up more. 2. Chronic obstructive pulmonary disease. As noted above, we will check a gas. Continue the patient on 2 L oxygen for now. We will write for Dulera in place of the patient's home Breo and continue albuterol p.r.n. 3. Hypertension. Continue the patient's home amlodipine. 4. Hyperlipidemia. Continue home atorvastatin. 5. Chronic pain. We will hold the patient's tramadol for now. She can have Tylenol and home naproxen. 6. Depression and bipolar disorder. We will hold the patient's Seroquel, BuSpar for now. Can restart it tomorrow if she is more alert. 7. Urinary tract infection. The patient's UA here is clean, can stop the home nitrofurantoin. 8. DVT prophylaxis. Lovenox subcu. 9. Code status. The patient is a full code. 10. The patient designates healthcare proxy as her son, Elroy Dewey, whose phone number is [phone]. TIME SPENT: Total time spent on this admission 45 minutes with over half the time spent [id number] with the patient, counseling, and coordinating care. [id number]/CPS #: [id number] MTDD
[2016-12-17] MEDS ORDERED: Enoxaparin(*) 40 MG/0.4 ML SYR SUBCUT SCH (21:30)
[2016-12-18] MEDS: Mometasone/Formoter 200/5 MDI INH SCH ×2 (04:07→08:01)
[2016-12-18] MEDS: Albuterol HFA INHALER* 8 gm MDI INH PRN ×2 (06:47→11:02)
[2016-12-18 07:17] LABS: Hematocrit 37 % (35-47); Hemoglobin 12.5 g/dl (12.0-16.0); Mean Corpuscular HGB Conc 34 g/dl (31-36); Mean Corpuscular Hemoglobin 31 pg (27-31); Mean Corpuscular Volume 91 fL (80-97); Mean Platelet Volume 7 um3 (7.4-10.4); Red Blood Count 4.09 10^6/ul (4.0-5.4); Red Cell Distribution Width 14 % (10.5-15); White Blood Count 7.7 10^3/ul (3.5-10.8)
[2016-12-18 07:29] LABS: BUN/Creatinine Ratio 18.5 (8-20); Calcium 8.6 mg/dL (8.6-10.3); EGFR African American 91.6 (>60); EGFR Non-African American 71.2 (>60)
[2016-12-18 07:55] VITALS: BP 149/62
[2016-12-18] MEDS ORDERED: amLODIPine TAB* 5 MG PO SCH (09:00)
[2016-12-18] MEDS ORDERED: Aspirin EC Low Dose* 81 MG TAB.EC PO SCH (09:00)
[2016-12-18] MEDS ORDERED: Atorvastatin* 20 MG TAB PO SCH (09:00)
[2016-12-18] MEDS ORDERED: Atorvastatin* 20 MG TAB PO ONE (11:35)
[2016-12-18] MEDS ORDERED: traMADol TAB* 50 MG PO PRN (12:47)
--- NOTE | 2016-12-18 12:50 | DCNOTE ---
Patient seen this morning. Awake and alert. Says she feels back to baseline aside from an upset stomach. Has been on current medication regimen for a long time without changes. On exam, RRR, s1 and s2 present, no m/g/r, abd soft, NTND, BS+, AOX3, mild RLE deficits, otherwise strength 5/5 throughout ?polypharmacy vs stress vs additional medications at home. Seems to be back to baseline. Will increase statin. Patient states she is currently taking ASA 81 mg daily at home. Will continue. F/U with PCP.
[2016-12-18] MEDS ORDERED: Gabapentin TAB(NF) 600 MG PO SCH (13:00)
[2016-12-18] MEDS ORDERED: Gabapentin CAP(*) 300 MG PO SCH (13:00)
[2016-12-18] MEDS: busPIRone TAB* 30 MG PO SCH ×2 (13:50→13:58)
[2016-12-18] MEDS ORDERED: QUEtiapine TAB* 100 MG PO SCH (21:00)
--- NOTE | 2016-12-18 21:08 | CONS ---
NEUROLOGY FOLLOWUP NOTE: DATE OF FOLLOWUP: 12/18/16. LOCATION: She is an inpatient room 445. HOSPITALIST: Rylan Sahni MD. PRIMARY CARE PROVIDER: TESSY Muro. CHIEF COMPLAINT: Lethargy, right-sided weakness. INTERVAL HISTORY: Since yesterday, Mrs. Dewey feels that she is pretty much back to normal and want s to go home. She has a dull headache, which she states she usually does not get headaches very oft en, but feels that her symptoms are chronic and stable. She has chronic right-sided weakness, which she said since her stroke that she had a couple of years ago. She was left with right-sided weakne ss and used a cane since and her right leg gives out on her at times. She was at rehabilitation in a long term for about 6 months and ultimately was able to be discharged home and currently lives with her son. She recalls yesterday heading to the library and not feeling well and then valentine ng extremely tired. She remembers being in the emergency to some extent, but it is foggy and vague in her mind. I reviewed Dr. Rodarte's consultation note. MEDICATIONS: Reviewed and she is on: 1. Lipitor 40 mg p.o. daily. 2. Aspirin 81 mg p.o. daily. 3. Amlodipine 5 mg p.o. daily. 4. Lovenox 40 mg subcutaneous q.24 hours. 5. Several inhalers. PHYSICAL EXAMINATION: She is well nourished, well hydrated, eating lunch. She has been afebrile th roughout her hospital stay, last temperature 97.9 temporally. Blood pressure 142/76, heart rate 90 t o 100 and regular, respirations 18 to 20 and regular. Oxygen saturation is 98% on 2 L nasal cannul a. Lungs reveal a few scattered wheezes. Heart seems to be in regular rhythm and I do not hear mur murs. Neck is supple. Neurologically, pupils are equal and eye movements are normal. Visual crawford are full to confrontat ion. Facial musculature symmetric. Facial sensation diminished on the right cheek. Speech is armando r. Tongue protrudes in the midline. Motor exam reveals a mild right pronator drift. She has some break away weakness in the right leg p roximally and distally, but at least resistive strength in all limbs. She has intermittent tremor in the right hand, which goes away with distraction. Finger taps are slower and clumsy in the right hand than the left. Reflexes are brisk in the right arm relative to the left. The right plantar is equivocal and left is flexor. I did not attempt to ambulate her. She is alert and oriented and ab le to provide a reasonable history other than for certain hours from yesterday around the time of he r admission. Language is fluent. LABORATORY DATA: Other laboratory data reviewed includes a negative toxicology screen, negative alc ohol level, chemistry profile notable for glucose 147 yesterday, normal TSH, B12 level 288. Her cho lesterol 12/17/16 is 206, LDL 113. INR and PTT are within normal limits as is CBC. Additional studies include a CT of the brain from yesterday, which I reviewed and I agree with Dr. 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 A CT angiogram of the brain and neck does not reveal any significant stenotic disease. IMPRESSION: Episode of lethargy, which has resolved. There is no evident infection or acute metabo lic process. There was some thought that it might be related to medication misuse or overdose, but at this point, there is no clear evidence that is the case. There is no evidence of any ongoing inf ectious or metabolic process and no evidence that she has had a cerebral vascular event. So, I thin k she could be discharged home on her usual medications. [id number]/[facility] #: [id number]
--- NOTE | 2016-12-18 22:57 | DS ---
CC: Dr. Pierre DISCHARGE SUMMARY: DATE OF ADMISSION: 12/17/16 DATE OF DISCHARGE: 12/18/16 PRIMARY CARE PHYSICIAN: Dr. Pierre. PRINCIPAL DISCHARGE DIAGNOSES: 1. Altered mental status. 2. Lethargy. 3. Dysarthria. SECONDARY DIAGNOSES: 1. Hypertension. 2. Hyperlipidemia. 3. Chronic obstructive pulmonary disease. 4. Depression. 5. Bipolar disorder. 6. Chronic back pain. 7. Previous cerebrovascular accident. STUDIES DONE DURING HOSPITALIZATION: CT of the brain without contrast. Impression: Cortical atroph y with chronic microvascular ischemic changes. No acute findings. Chest x-ray. Impression: No evidence for acute disease. CTA of the head and neck, neck angiogram. Impression: Approximate 20% right internal carotid arter y stenosis and 50% short segment left internal carotid artery stenosis. Head angiogram. Impression: Negative for central intracranial arterial stenosis or occlusion. DISCHARGE MEDICATION REGIMEN: 1. Aspirin 81 mg by mouth daily. 2. Atorvastatin 40 mg by mouth daily. 3. BuSpar 30 mg by mouth 2 times daily. 4. Seroquel 200 mg by mouth at bedtime. 5. Gabapentin 600 mg by mouth 4 times daily. 6. Tramadol 50 mg by mouth 2 times daily as needed for pain. 7. Breo Ellipta 1 inhalation daily. 8. Amlodipine 5 mg by mouth daily. 9. Albuterol 2 puffs inhaled every 4 hours as needed for shortness of breath or wheezing. 10. Cetirizine 10 mg by mouth daily. 11. Naproxen 250 mg by mouth every 8 hours as needed for pain. CONSULTATION DURING HOSPITALIZATION: Ilene Rodarte MD, Neurology. HISTORY OF PRESENT ILLNESS AND HOSPITAL SUMMARY: Please see my full history and physical for full d etails. Briefly, Ms. Dewey is a 66-year-old female with past medical history as above who presented to the hospital with lethargy, altered mental status, and reported dizziness and weakness. The pat vladimirnt's symptoms occurred when she was downtown. She went to a gas station and sat down and apparent ly was having difficulty speaking, so she was brought to the hospital further evaluation. The patie nt was very lethargic in the emergency department and I was unable to obtain a very accurate history from her. She was seen by Neurology and imaging was done that was relatively unremarkable. The daniel potter is unable to get an MRI due to an earring that she is unable to remove. The patient underwent an extensive blood work that was largely unremarkable. An ABG was ordered; ho wever, the patient refused to have that done. The patient's central-acting medications were held ov ernight. There was a nursing note that stated the patient had reportedly taken an extra dose of BuS par and Neurontin; however, the patient did not admit to this later. The following day, the patient seemed to be back at her baseline. Dr. Stanford evaluated the patient again, did not feel that any further testing was needed. The patient will be discharged home on he r current medications; however, she has been instructed that if she feels overly sedated or lethargi c, to contact her PCP about possibly decreasing her medications; however, she states that she has be en on these doses for quite a long time. TIME SPENT: Total time spent on this discharge, 45 minutes. This is just a summary of the hospitalization. Please see the full medical record for further detai . [id number]/CPS #: [id number]
[2016-12-19] MEDS ORDERED: Atorvastatin* 40 MG TAB PO SCH (09:00)
== END 2016-12-18 15:00 | disposition home or self-care (01) ==
LOC: ED 15:56 → MEDTELE 19:22
PROVIDERS: ADMIT Hospitalist; ATTEND Hospitalist
DX: R53.83 Other fatigue (principal); R53.1 Weakness; R47.1 Dysarthria and anarthria; R41.82 Altered mental status, unspecified; I10 Essential (primary) hypertension; E78.5 Hyperlipidemia, unspecified; J44.9 Chronic obstructive pulmonary disease, unspecified; F31.9 Bipolar disorder, unspecified; M54.9 Dorsalgia, unspecified; G89.29 Other chronic pain; N39.0 Urinary tract infection, site not specified; R00.0 Tachycardia, unspecified; Z86.73 Personal history of transient ischemic attack (TIA), and cerebral infarction without residual deficits; Z79.899 Other long term (current) drug therapy; Z88.1 Allergy status to other antibiotic agents; Z88.2 Allergy status to sulfonamides; F17.210 Nicotine dependence, cigarettes, uncomplicated; F19.10 Other psychoactive substance abuse, uncomplicated; R42 Dizziness and giddiness; R06.02 Shortness of breath
CPT/HCPCS: 36415; 70450; 70496; 70498; 71010; 80048; 80053; 80061; 80307; 80320; 80329; 81003; 82140; 82607; 83605; 84443; 84484; 85025; 85610; 85730; 93005; 94640; 94760; 96360; 96361; 96372; 99283; 99406; A9270-GY; G0378; G0480; G8978-GP-CJ; G8979-GP-CI; J1650; Q9967

== ENCOUNTER 2016-12-20 20:52 | Emergency (ER) | payer MEDICARE, MEDICAID ==
[2016-12-20] MEDS ORDERED: Ibuprofen TAB* 600 MG PO ONE (21:17)
[2016-12-20 21:23] LABS: Hematocrit 42 % (35-47); Hemoglobin 14.4 g/dl (12.0-16.0); Mean Corpuscular HGB Conc 34 g/dl (31-36); Mean Corpuscular Hemoglobin 31 pg (27-31); Mean Corpuscular Volume 91 fL (80-97); Mean Platelet Volume 7 um3 (7.4-10.4); Red Blood Count 4.67 10^6/ul (4.0-5.4); Red Cell Distribution Width 14 % (10.5-15); White Blood Count 9.5 10^3/ul (3.5-10.8)
[2016-12-20 21:38] LABS: ALT 18 U/L (7-52); AST 17 U/L (13-39); Albumin 4.6 g/dL (3.2-5.2); Alkaline Phosphatase 100 U/L (34-104); Anion Gap 10 mmol/L (2-11); BUN/Creatinine Ratio 10.5 (8-20); Blood Urea Nitrogen 8 mg/dL (6-24); CO2 Carbon Dioxide 23 mmol/L (22-32); Calcium 9.3 mg/dL (8.6-10.3); Chloride 105 mmol/L (101-111); EGFR African American 98.5 (>60); EGFR Non-African American 76.6 (>60); Glucose 91 mg/dL (70-100); Potassium 3.8 mmol/L (3.5-5.0); Sodium 138 mmol/L (133-145); Total Protein 7.6 g/dL (6.4-8.9)
[2016-12-20 22:00] LABS: Acetaminophen < 15 mcg/mL; Alcohol 163 mg/dL (<10); Salicylate < 2.50 mg/dL (<30)
--- NOTE | 2016-12-20 22:05 | RAD ---
INDICATION: Left shoulder pain COMPARISON: Left shoulder March 17, 2016 TECHNIQUE: Portable AP and lateral views were obtained. FINDINGS: There is left shoulder arthroplasty. There is no evidence of hardware failure. There is no dislocation. The soft tissues are normal. IMPRESSION: LEFT SHOULDER ARTHROPLASTY. NO ACUTE FINDINGS.
[2016-12-20 22:09] LABS: TSH (Thyroid Stimulating Horm) 3.49 mcIU/mL (0.34-5.60)
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
[2016-12-21] MEDS ORDERED: traMADol TAB* 50 MG ONE (05:20)
[2016-12-21] MEDS ORDERED: traMADol TAB* 50 MG PO ONE (05:21)
[2016-12-21] MEDS ORDERED: amLODIPine TAB* 5 MG PO ONE (07:44)
[2016-12-21] MEDS ORDERED: Mouth Piece, Nicotine* 1 EACH CARTRIDGE ONE (09:52)
[2016-12-21] MEDS ORDERED: Nicotine Inhaler* 10 MG AMP ONE (09:52)
[2016-12-21 15:54] VITALS: BP 140/74
== END 2016-12-21 15:51 | disposition home or self-care (01) ==
LOC: ED 20:52
DX: F32.9 Major depressive disorder, single episode, unspecified (principal); F10.129 Alcohol abuse with intoxication, unspecified; R45.851 Suicidal ideations
CPT/HCPCS: 36415; 80053; 80320; 80329; 84443; 85025; 99285; A9270-GY; G0480

== ENCOUNTER 2017-01-16 16:01 | Emergency (ER) | payer MEDICARE, MEDICAID ==
[2017-01-16 16:16] VITALS: BP 147/70
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
[2017-01-16] MEDS ORDERED: Ketorolac INJ* 60 MG/2 ML VIAL IM ONE (16:33)
== END 2017-01-16 17:14 | disposition home or self-care (01) ==
LOC: UCEAST 16:01
DX: M25.512 Pain in left shoulder (principal); Z88.1 Allergy status to other antibiotic agents; Z88.2 Allergy status to sulfonamides; Z96.612 Presence of left artificial shoulder joint; F17.210 Nicotine dependence, cigarettes, uncomplicated
CPT/HCPCS: 99212; G0463; J1885

== ENCOUNTER 2017-01-20 23:53 | Emergency (ER) | payer MEDICARE, MEDICAID ==
[2017-01-21] MEDS ORDERED: LORazepam INJ* 2 MG/ML 1 ML VIAL IV PUSH ONE (00:59)
[2017-01-21] MEDS ORDERED: Ketorolac INJ* 30 MG/ML 1 ML VIAL IV PUSH ONE (00:59)
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
[2017-01-21 02:05] LABS: Hematocrit 41 % (35-47); Hemoglobin 13.8 g/dl (12.0-16.0); Mean Corpuscular HGB Conc 34 g/dl (31-36); Mean Corpuscular Hemoglobin 31 pg (27-31); Mean Corpuscular Volume 92 fL (80-97); Mean Platelet Volume 7 um3 (7.4-10.4); Red Blood Count 4.48 10^6/ul (4.0-5.4); Red Cell Distribution Width 14 % (10.5-15); White Blood Count 9.9 10^3/ul (3.5-10.8)
[2017-01-21 02:21] LABS: ALT 16 U/L (7-52); AST 17 U/L (13-39); Albumin 4.3 g/dL (3.2-5.2); Alkaline Phosphatase 114 U/L (34-104); Anion Gap 11 mmol/L (2-11); BUN/Creatinine Ratio 8.1 (8-20); Blood Urea Nitrogen 6 mg/dL (6-24); CO2 Carbon Dioxide 22 mmol/L (22-32); Calcium 9.4 mg/dL (8.6-10.3); Chloride 107 mmol/L (101-111); EGFR African American 101.6 (>60); Globulin 3.1 g/dL (2-4); Glucose 96 mg/dL (70-100); Potassium 3.5 mmol/L (3.5-5.0); Sodium 140 mmol/L (133-145); Total Protein 7.4 g/dL (6.4-8.9)
[2017-01-21 02:41] LABS: Acetaminophen < 15 mcg/mL; Alcohol 107 mg/dL (<10); Salicylate < 2.50 mg/dL (<30)
[2017-01-21 02:50] LABS: TSH (Thyroid Stimulating Horm) 0.72 mcIU/mL (0.34-5.60)
--- NOTE | 2017-01-21 06:12 | ED ---
Demetria Coyne Rebecca, scribed for Gio Crystal on 01/21/17 at 0601 . Progress - Results/Orders Results/Orders: Pt was signed out from Lydia Matamoros. Dx of alcohol intoxication and depression. Pt has been sleeping, awaiting MHE. Course/Dx - Diagnoses Provider Diagnoses: Alcohol intoxication, Depression The documentation as recorded by the enderibDemetria faustin Rebecca accurately reflects the service I personally performed and the decisions made by , Gio Crystal.
[2017-01-21] MEDS ORDERED: traMADol TAB* 50 MG PO ONE (11:10)
[2017-01-21] MEDS ORDERED: Nicotine Inhaler* 10 MG AMP INH ONE (11:10)
[2017-01-21] MEDS ORDERED: Mouth Piece, Nicotine* 1 EACH CARTRIDGE ONE (11:35)
[2017-01-21 11:57] VITALS: BP 140/70
== END 2017-01-21 11:56 | disposition home or self-care (01) ==
LOC: ED 23:53
DX: F10.129 Alcohol abuse with intoxication, unspecified (principal); F32.9 Major depressive disorder, single episode, unspecified
CPT/HCPCS: 36415; 80053; 80320; 80329; 84443; 85025; 96374; 96375; 99283; A9270-GY; G0480; J1885; J2060

== ENCOUNTER 2017-03-03 00:02 | Emergency (ER) | payer MEDICARE, MEDICAID ==
[2017-03-03 00:08] VITALS: BP 148/66
[2017-03-03] MEDS ORDERED: Ibuprofen TAB* 400 MG PO ONE (00:24)
[2017-03-03] MEDS ORDERED: oxyCODONE/Acetamin 5/325 MG* TAB PO ONE (00:47)
--- NOTE | 2017-03-03 00:55 | ED ---
Lower Extremity - HPI Summary HPI Summary: Patient presents with right great toe pain after "having something drop on it" three days ago. She has been walking on the foot and uses a cane at baseline to ambulate. She comes in tonight because her pain is unbearable and the toe is bruised and swollen. She denies previous injury to this toe or foot. She has tried over the counter medication with minimal relief. - History of Current Complaint Chief Complaint: EDExtremityLower Stated Complaint: RIGHT BIG TOE INJURY Time Seen by Provider: 03/03/17 00:12 Hx Obtained From: Patient Hx Last Menstrual Period: pt states age 30-42 yrs old Mechanism Of Injury: Blunt Trauma Onset of Pain: Immediate Onset/Duration: Still Present Severity Initially: Mild Severity Currently: Severe Pain Intensity: 9 Timing: Constant Location: Is Discrete @ - right great toe Character Of Pain: Sharp, Aching Associated Signs And Symptoms: Positive: Swelling, Bruising Aggravating Factor(s): Standing, Movement Alleviating Factor(s): Nothing Able to Bear Weight: Yes - Allergies/Home Medications Allergies/Adverse Reactions: Allergies Allergy/AdvReac Type Severity Reaction Status Date / Time Ciprofloxacin [From Cipro] Allergy Mild Itching Verified 01/21/17 00:24 Sulfa Drugs Allergy Mild Itching Verified 01/21/17 00:24 PMH/Surg Hx/FS Hx/Imm Hx Endocrine/Hematology History: Reports: Hx Anemia - b12 shots Denies: Hx Diabetes, Hx Thyroid Disease Cardiovascular History: Reports: Hx Hypertension, Other Cardiovascular Problems/ Disorders - PT.STATES STROKE 2011 Denies: Hx Congestive Heart Failure, Hx Deep Vein Thrombosis, Hx Myocardial Infarction, Hx Pacemaker/ICD Respiratory History: Reports: Hx Asthma, Hx Chronic Obstructive Pulmonary Disease (COPD), Other Respiratory Problems/Disorders - COPD Denies: Hx Lung Cancer GI History: Reports: Other GI Disorders - DIVERTICULITIS Denies: Hx Gall Bladder Disease, Hx Gastrointestinal Bleed, Hx Ulcer, Hx Urosepsis History: Denies: Hx Kidney Stones, Hx Renal Disease Musculoskeletal History: Reports: Hx Arthritis, Hx Back Problems, Other Musculoskeletal History - L SHLDR REPAIR 12/2013 Sensory History: Reports: Hx Contacts or Glasses Opthamlomology History: Reports: Hx Contacts or Glasses Neurological History: Reports: Hx CVA, Hx Seizures Psychiatric History: Reports: Hx Anxiety, Hx Depression, Hx Panic Disorder, Hx Inpatient Treatment, Hx Community Mental Health Tx, Hx Bipolar Disorder, Hx Suicide Attempt, Hx of Violent Episodes Against Others, Hx Substance Abuse Denies: Hx Eating Disorder - Cancer History Hx Chemotherapy: No Hx Radiation Therapy: No - Surgical History Surgery Procedure, Year, and Place: LT SHOULDER REPLACEMENT 12/2013, ABD EXPLORATORY SURGERY, APPENDECTOMY Hx Anesthesia Reactions: No - Immunization History Date of Tetanus Vaccine: 12/03/13 Date of Influenza Vaccine: 2012 Infectious Disease History: No Infectious Disease History: Denies: Hx Hepatitis, Hx Human Immunodeficiency Virus (HIV), History Other Infectious Disease, Traveled Outside the [place] in Last 30 Days - Family History Known Family History: Positive: Hypertension, Respiratory Disease, Other - bipolar disorder, depression, alcohol abuse Negative: Cardiac Disease, Diabetes - Social History Occupation: Unemployed Lives: With Family Alcohol Use: Weekly 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, replaced Hx Substance Use: Yes Substance Use Type: Reports: None Substance Use Comment - Amount & Last Used: opiates Hx Tobacco Use: Yes Smoking Status (MU): Current Every Day Smoker Type: Cigarettes Amount Used/How Often: 1 PPD Length of Time of Smoking/Using Tobacco: 30 years Have You Smoked in the Last Year: Yes Cessation Counseling: Patient Advised to Stop Review of Systems Positive: Myalgia, Decreased ROM, Edema Positive: Bruising All Other Systems Reviewed And Are Negative: Yes Physical Exam Triage Information Reviewed: Yes Vital Signs On Initial Exam: Initial Vitals Temp Pulse Resp BP Pulse Ox 97.6 F 100 18 148/66 98 03/03/17 00:06 03/03/17 00:06 03/03/17 00:06 03/03/17 00:06 03/03/17 00:06 Vital Signs Reviewed: Yes Appearance: Positive: Well-Appearing, Well-Nourished, Pain Distress Skin: Positive: Warm, Skin Color Reflects Adequate Perfusion, Dry, Soft Head/Face: Positive: Normal Head/Face Inspection Eyes: Positive: EOMI, ISADORA, Conjunctiva Clear ENT: Positive: Hearing grossly normal Respiratory/Lung Sounds: Positive: Breath Sounds Present Cardiovascular: Positive: RRR Musculoskeletal: Positive: Limited @ - any movement of 1-3 digits is painful, Pain @ - TTP right 1,2 and 3 digits and distal 1th metatarsal, Edema Right - great toe and distal metatarsal Neurological: Positive: Sensory/Motor Intact, Alert, Oriented to Person Place, Time, NV Bundle Intact Distally, Abnormal Gait Psychiatric: Positive: Affect/Mood Appropriate AVPU Assessment: Alert Diagnostics - Vital Signs Vital Signs Temp Pulse Resp BP Pulse Ox 03/03/17 00:26 97.6 F 95 18 148/66 98 03/03/17 00:06 97.6 F 100 18 148/66 98 - Laboratory Lab Statement: Any lab studies that have been ordered have been reviewed, and results considered in the medical decision making process. - Radiology No standard instances Xray Interpretation: Positive (See Comments) Radiology Interpretation Completed By: ED Physician - Comminuted fracture of the distal portion of the right 1st proximal phalanx. Lower Extremity Course/Dx - Course Course Of Treatment: Patient will be placed in a Cam walking boot and be NWB with her walker. She will be referred to an orthopedist for evaluation and treatment. - Diagnoses Differential Diagnosis/HQI/PQRI: Positive: Arthritis, Bursitis, Compartment Syndrome, Contusion, Fracture (Closed), Infection, Phlebitis, Sprain, Strain Provider Diagnoses: Displaced fracture of right great toe Discharge - Discharge Plan Condition: Stable Disposition: HOME Prescriptions: oxyCODONE/Acetamin 5/325 MG* [Percocet 5/325 TAB*] 1 tab PO Q4H PRN #20 tab MDD 6 PRN Reason: Pain Patient Education Materials: Toe Fracture (ED) Referrals: Ignacio CASPER,Salvador Arevalo [Primary Care Provider] - Justin Kam MD [Medical Doctor] - Additional Instructions: Please wear the shoe you have been given at all times to protect your broken toe. Elevate your foot above your heart and apply ice to decrease swelling and pain. Keep weight off the foot with your walker. Take 600mg of ibuprofen three times daily with meals and use Percocet for pain management. Call Dr. Kam's office today for an appointment for evaluation.
--- NOTE | 2017-03-03 07:36 | RAD ---
INDICATION: Right foot injury COMPARISON: March 21, 2016 TECHNIQUE: AP, lateral, and oblique views were obtained. FINDINGS: There is mild osteopenia. There is mild first MTP joint osteoarthritis with a hallux valgus deformity. There are hammertoe deformities mildly limiting evaluation of the toes. There is a plantar calcaneal spur. No acute fracture is seen. The bony structures and joint spaces are otherwise unremarkable IMPRESSION: DEGENERATIVE CHANGES. NO ACUTE FINDINGS.
== END 2017-03-03 01:38 | disposition home or self-care (01) ==
LOC: ED 00:02
DX: S92.401A Displaced unspecified fracture of right great toe, initial encounter for closed fracture (principal); M79.674 Pain in right toe(s); F17.210 Nicotine dependence, cigarettes, uncomplicated; X58.XXXA Exposure to other specified factors, initial encounter; Y93.9 Activity, unspecified; Y92.9 Unspecified place or not applicable
CPT/HCPCS: 99282; A9270-GY

== ENCOUNTER 2017-03-25 16:06 | Emergency (ER) | payer MEDICARE, MEDICAID ==
[2017-03-25 17:18] VITALS: BP 123/61
[2017-03-25] MEDS ORDERED: traMADol TAB* 50 MG PO ONE (17:40)
[2017-03-25] MEDS ORDERED: traMADol TAB* 50 MG PO SCH (18:00)
--- NOTE | 2017-03-25 21:06 | ED ---
Antoine Coyne Aidan, scribed for Michael Connors MD on 03/25/17 at 1745 . Back Pain - HPI Summary HPI Summary: 67 y/o female presents to the ED with a complaint of acute, constant, moderate- to-severe (8/10) back pain that began after a fall yesterday. Today, she had some SOB and chose to call EMS as a result. She is unable to bend over as a result of her back pain. Hx of sciatica for which she takes tramadol. Hx of COPD , asthma, and bronchitis. - History of Current Complaint Chief Complaint: EDShortnessOfBreath Stated Complaint: SOB Time Seen by Provider: 03/25/17 16:11 Hx Obtained From: Patient Hx Last Menstrual Period: pt states age 30-40 yrs old Onset/Duration: Sudden Onset, Lasting Days, Still Present Onset/Duration: Started Days Ago, Traumatic, Still Present Timing: Constant, Lasting Days Back Pain Location: Is Diffuse - back Severity Initially: Moderate Severity Currently: Moderate Pain Intensity: 8 Pain Scale Used: 0-10 Numeric Character: Sharp Aggravating Symptom(s): Bending - pt cannot bend over due to the pain Alleviating Symptom(s): Nothing Associated Signs And Symptoms: Positive: Other - SOB Related History: Similar Episode Dx As - sciatica - Risk Factors AAA Risk Factors: Smoking TAD Risk Factors: Smoking - Allergies/Home Medications Allergies/Adverse Reactions: Allergies Allergy/AdvReac Type Severity Reaction Status Date / Time Ciprofloxacin [From Cipro] Allergy Mild Itching Verified 01/21/17 00:24 Sulfa Drugs Allergy Mild Itching Verified 01/21/17 00:24 PMH/Surg Hx/FS Hx/Imm Hx Endocrine/Hematology History: Reports: Hx Anemia - b12 shots Denies: Hx Diabetes, Hx Thyroid Disease Cardiovascular History: Reports: Hx Hypertension, Other Cardiovascular Problems/ Disorders - PT.STATES STROKE 2011 Denies: Hx Congestive Heart Failure, Hx Deep Vein Thrombosis, Hx Myocardial Infarction, Hx Pacemaker/ICD Respiratory History: Reports: Hx Asthma, Hx Chronic Obstructive Pulmonary Disease (COPD), Other Respiratory Problems/Disorders - COPD Denies: Hx Lung Cancer GI History: Reports: Other GI Disorders - DIVERTICULITIS Denies: Hx Gall Bladder Disease, Hx Gastrointestinal Bleed, Hx Ulcer, Hx Urosepsis History: Denies: Hx Kidney Stones, Hx Renal Disease Musculoskeletal History: Reports: Hx Arthritis, Hx Back Problems, Other Musculoskeletal History - L SHLDR REPAIR 12/2013 Sensory History: Reports: Hx Contacts or Glasses Opthamlomology History: Reports: Hx Contacts or Glasses Neurological History: Reports: Hx CVA, Hx Seizures Psychiatric History: Reports: Hx Anxiety, Hx Depression, Hx Panic Disorder, Hx Inpatient Treatment, Hx Community Mental Health Tx, Hx Bipolar Disorder, Hx Suicide Attempt, Hx of Violent Episodes Against Others, Hx Substance Abuse Denies: Hx Eating Disorder - Cancer History Hx Chemotherapy: No Hx Radiation Therapy: No - Surgical History Surgery Procedure, Year, and Place: LT SHOULDER REPLACEMENT 12/2013, ABD EXPLORATORY SURGERY, APPENDECTOMY Hx Anesthesia Reactions: No - Immunization History Date of Tetanus Vaccine: 12/03/13 Date of Influenza Vaccine: 2012 Infectious Disease History: No Infectious Disease History: Denies: Hx Hepatitis, Hx Human Immunodeficiency Virus (HIV), History Other Infectious Disease, Traveled Outside the [place] in Last 30 Days - Family History Known Family History: Positive: Hypertension, Respiratory Disease, Other - bipolar disorder, depression, alcohol abuse Negative: Cardiac Disease, Diabetes - Social History Occupation: Retired Lives: Alone Alcohol Use: None 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, replaced Hx Substance Use: Yes Substance Use Type: Reports: None Substance Use Comment - Amount & Last Used: opiates Hx Tobacco Use: Yes Smoking Status (MU): Current Every Day Smoker Type: Cigarettes Amount Used/How Often: 1 PPD Length of Time of Smoking/Using Tobacco: 30 years Have You Smoked in the Last Year: Yes Review of Systems Constitutional: Negative Eyes: Negative ENT: Negative Cardiovascular: Negative Positive: Shortness Of Breath Gastrointestinal: Negative Genitourinary: Negative Positive: Arthralgia - back pain Skin: Negative Neurological: Negative Psychological: Normal All Other Systems Reviewed And Are Negative: Yes Physical Exam Triage Information Reviewed: Yes Vital Signs On Initial Exam: Initial Vitals Temp Pulse Resp BP Pulse Ox 98 F 87 18 110/61 96 03/25/17 16:10 03/25/17 16:10 03/25/17 16:10 03/25/17 16:10 03/25/17 16:10 Vital Signs Reviewed: Yes Appearance: Positive: Well-Appearing, No Pain Distress Skin: Positive: Warm, Skin Color Reflects Adequate Perfusion, Dry Head/Face: Positive: Normal Head/Face Inspection Eyes: Positive: Normal ENT: Positive: Normal ENT inspection Neck: Positive: Supple, Nontender Respiratory/Lung Sounds: Positive: Clear to Auscultation, Breath Sounds Present Cardiovascular: Positive: RRR Abdomen Description: Positive: Nontender, Soft Bowel Sounds: Positive: Present Musculoskeletal: Positive: Normal Neurological: Positive: Normal Psychiatric: Positive: Affect/Mood Appropriate - [place] Coma Scale Coma Scale Total: 15 Diagnostics - Vital Signs Vital Signs Temp Pulse Resp BP Pulse Ox 03/25/17 17:15 83 98 03/25/17 17:14 123/61 03/25/17 16:37 83 20 03/25/17 16:10 98 F 87 18 110/61 96 - Laboratory Lab Statement: Any lab studies that have been ordered have been reviewed, and results considered in the medical decision making process. - EKG EKG 1621 Cardiac Rate: NL - 82 BPM EKG Rhythm: Sinus Rhythm EKG Interpretation: NSR, ARTIFACT Back Pain Course/Dx - Course Course Of Treatment: Ms. Dewey had no further SOB while here in the ED and her exam was unremarkable except for some mild right paralumbar tenderness from falling two days ago. - Diagnoses Provider Diagnoses: Low back strain Discharge - Discharge Plan Condition: Stable Disposition: HOME Discharge Disposition Comment: Please follow up with your primary care physician within 2 days. Patient Education Materials: Low Back Strain (ED), Dyspnea (ED) Referrals: Ignacio CASPER,Salvador Arevalo [Primary Care Provider] - The documentation as recorded by the Antoine plunkett Aidan accurately reflects the service I personally performed and the decisions made by , Michael Connors MD.
== END 2017-03-25 18:15 | disposition home or self-care (01) ==
LOC: ED 16:06
DX: S39.012A Strain of muscle, fascia and tendon of lower back, initial encounter (principal); W19.XXXA Unspecified fall, initial encounter; Y93.9 Activity, unspecified; Y92.9 Unspecified place or not applicable; R06.02 Shortness of breath; F17.210 Nicotine dependence, cigarettes, uncomplicated
CPT/HCPCS: 93005; 99282; A9270-GY

== ENCOUNTER 2017-04-17 12:59 | Emergency (ER) | payer MEDICARE, MEDICAID ==
[2017-04-17 16:27] VITALS: BP 152/88
[2017-04-17] MEDS ORDERED: Fluconazole 100 MG TAB* TAB PO ONE (16:50)
[2017-04-17] MEDS ORDERED: Ketorolac INJ* 30 MG/ML 1 ML VIAL IM ONE (16:50)
--- NOTE | 2017-04-17 16:54 | UC ---
Complaint Female HPI - HPI Summary HPI Summary: vulva red and sore--recent antibiotics, pain with urination, also has left shoulder pain---states it hurts to move---has had this discomfort after her shoulder replacement surgery - History Of Current Complaint Chief Complaint: UCUpperExtremity Stated Complaint: SHOULDER PAIN & UTI TYPE SYMPTOMS Time Seen by Provider: 04/17/17 16:37 Hx Obtained From: Patient Hx Last Menstrual Period: pt states age 30-40 yrs old ?: No Onset/Duration: Worse Since - acute on chronic shoulder pain Timing: Constant Pain Intensity: 8 Pain Scale Used: 0-10 Numeric Aggravating Factor(s): Movement Alleviating Factor(s): Nothing - did not states she ws taking her ultram at all because it doesnot work--- Associated Signs And Symptoms: Positive: Negative - Allergies/Home Medications Allergies/Adverse Reactions: Allergies Allergy/AdvReac Type Severity Reaction Status Date / Time Ciprofloxacin [From Cipro] Allergy Mild Itching Verified 01/21/17 00:24 Sulfa Drugs Allergy Mild Itching Verified 01/21/17 00:24 PMH/Surg Hx/FS Hx/Imm Hx Previously Healthy: No Endocrine History Of: Reports: Dyslipidemia Denies: Diabetes, Thyroid Disease, Hyperthyroidism, Hypothyroidism Cardiovascular History Of: Reports: Hypertension Denies: Cardiac Disorders, Pacemaker/ICD, Myocardial Infarction, Congestive Heart Failure, Atrial Fibrillation, Deep Vein Thrombosis, Bleeding Disorders Respiratory History Of: Reports: COPD, Asthma, Bronchitis GI/ History Of: Reports: Gastroesophageal Reflux Denies: Ulcer, Gastrointestinal Bleed, Gall Bladder Disease, Kidney Stones, Diverticulitis, Renal Disease, Urosepsis Neurological History Of: Reports: 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., Seizures Psychological History Of: Reports: Anxiety, Depression, Bipolar Disorder Cancer History Of: Denies: Lung Cancer, Colorectal Cancer, Breast Cancer, Prostate Cancer, Cervical Cancer Other History Of: Negative For: HIV, Hepatitis B, Hepatitis C - Surgical History Surgical History: Yes Surgery Procedure, Year, and Place: LT SHOULDER REPLACEMENT 12/2013, ABD EXPLORATORY SURGERY, APPENDECTOMY - Family History Known Family History: Positive: Hypertension, Respiratory Disease, Other - bipolar disorder, depression, alcohol abuse Negative: Cardiac Disease, Diabetes - Social History Occupation: Disabled Lives: With Family Alcohol Use: None 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, replaced Substance Use Type: None Substance Use Comment - Amount & Last Used: opiates Smoking Status (MU): Current Every Day Smoker Type: Cigarettes Amount Used/How Often: 1 PPD Length of Time of Smoking/Using Tobacco: 30 years Have You Smoked in the Last Year: Yes Household Exposure Type: Cigarettes Cessation Counseling: Counseled 3+Min - 10 Min - Immunization History Most Recent Influenza Vaccination: none Most Recent Tetanus Shot: 2012 Most Recent Pneumonia Vaccination: 2012 Review of Systems Constitutional: Negative Skin: Negative Eyes: Negative ENT: Negative Respiratory: Negative Cardiovascular: Negative Gastrointestinal: Negative Genitourinary: Negative, Other - external burning with urination, acute on chronic left shoulder pain Motor: Negative Neurovascular: Negative Musculoskeletal: Negative Neurological: Negative Psychological: Negative All Other Systems Reviewed And Are Negative: Yes Physical Exam Triage Information Reviewed: Yes Appearance: Well-Appearing, No Pain Distress, Well-Nourished Vital Signs: Initial Vital Signs Temp 97.6 F 04/17/17 16:23 Pulse 82 04/17/17 16:23 Resp 18 04/17/17 16:23 BP 152/88 04/17/17 16:23 Pulse Ox 99 04/17/17 16:23 Vital Signs Reviewed: Yes Eye Exam: Normal Eyes: Positive: Conjunctiva Clear ENT Exam: Normal ENT: Positive: Normal ENT inspection, Hearing grossly normal, TMs normal. Negative: Nasal congestion, Nasal drainage, Tonsillar swelling, Tonsillar exudate, Trismus, Muffled/hoarse voice Dental Exam: Normal Neck exam: Normal Neck: Positive: Supple, Nontender, No Lymphadenopathy Respiratory Exam: Normal Respiratory: Positive: Chest non-tender, Lungs clear, Normal breath sounds, No respiratory distress, No accessory muscle use Cardiovascular Exam: Normal Cardiovascular: Positive: RRR, No Murmur, Pulses Normal, Brisk Capillary Refill Bowel Sounds: Positive: Present Musculoskeletal Exam: Normal Musculoskeletal: Positive: Strength Intact, No Edema, ROM Limited @ - left shoulder Neurological Exam: Normal Neurological: Positive: Alert, Muscle Tone Normal Psychological Exam: Normal Skin Exam: Normal Diagnostics - Laboratory Diagnostic Studies Completed/Ordered: TRAACE LEUKS IN URINE Complaint Female Dx - Course Course Of Treatment: Diflucan, IM TORADOL, CONTINUE WITH ULTRAM, FOLLOW WITH PCP - Differential Dx/Diagnosis Differential Diagnosis/HQI/PQRI: Renal Colic, Urinary Tract Infection Provider Diagnoses: Vulva Candidasis, Acute on chronic left shoulder pain Discharge - Discharge Plan Condition: Stable Disposition: HOME Prescriptions: Meloxicam(NF) [Mobic(NF)] 7.5 mg PO BID #30 tab Patient Education Materials: Meloxicam (By mouth), Chronic Pain (ED), Dysuria ( ED), DASH Eating Plan (ED), Hypertension (ED) Referrals: Aston Pierre, POULTRY HELPER [Primary Care Provider] - 4 Days
--- NOTE | 2017-04-20 20:08 | UC ---
Progress - Progress Note Progress Note: Urine culture shows staph epidemidis 50-75,000 organisms, sens to nitrofurantoin. Pt's allergies cipro and sulfa. Pt had red vulva, was given diflucan in UC, also had UTI sxs. Will treat with 5 days Macrobid 100mg po bid. Will also prescribe 2 more doses of diflucan 150mg that may be taken now, and then repeated in one week. Rxs sent to pharmacy.
== END 2017-04-17 17:17 | disposition home or self-care (01) ==
LOC: UCEAST 12:59
DX: B37.3 Candidiasis of vulva and vagina (principal); M25.512 Pain in left shoulder; G89.29 Other chronic pain; J44.9 Chronic obstructive pulmonary disease, unspecified; F17.210 Nicotine dependence, cigarettes, uncomplicated; E78.5 Hyperlipidemia, unspecified; Z88.2 Allergy status to sulfonamides; Z88.1 Allergy status to other antibiotic agents; F32.9 Major depressive disorder, single episode, unspecified; I10 Essential (primary) hypertension; K21.9 Gastro-esophageal reflux disease without esophagitis; I69.323 Fluency disorder following cerebral infarction; I69.351 Hemiplegia and hemiparesis following cerebral infarction affecting right dominant side
CPT/HCPCS: 81003; 87077; 87086; 87186; 96372; 99212; A9270-GY; G0463; J1885

== ENCOUNTER 2017-04-25 23:27 | Emergency (ER) | payer MEDICARE, MEDICAID ==
[2017-04-25 23:31] VITALS: BP 148/61
--- NOTE | 2017-04-26 01:42 | ED ---
Josemanuel Coyne Erika, scribed for Joao Hay MD on 04/26/17 at 0142 . Lower Extremity - HPI Summary HPI Summary: Patient is a 67-year-old female presenting to the ED with a CC of right knee pain. Patient reports a Hx stroke which causes occasional RLE numbness. This happened today, causing pt to fall onto her right knee today. She states pain in the knee which is alleviated by ice and aggravated by bending. Pt is able to ambulate. - History of Current Complaint Chief Complaint: EDExtremityLower Stated Complaint: FALL/RT KNEE INJURY Time Seen by Provider: 04/26/17 01:39 Hx Obtained From: Patient Hx Last Menstrual Period: pt states age 30-40 yrs old Mechanism Of Injury: Fall From A Standing Position Onset of Pain: Post Accident Onset/Duration: Still Present Severity Currently: Moderate Pain Intensity: 8 Pain Scale Used: 0-10 Numeric Timing: Constant Location: Is Discrete @ - R knee Associated Signs And Symptoms: Positive: Other - abrasion R knee Aggravating Factor(s): Ambulation, Other - Bending Alleviating Factor(s): Ice Able to Bear Weight: Yes - Allergies/Home Medications Allergies/Adverse Reactions: Allergies Allergy/AdvReac Type Severity Reaction Status Date / Time Ciprofloxacin [From Cipro] Allergy Mild Itching Verified 01/21/17 00:24 Sulfa Drugs Allergy Mild Itching Verified 01/21/17 00:24 PMH/Surg Hx/FS Hx/Imm Hx Endocrine/Hematology History: Reports: Hx Anemia - b12 shots Denies: Hx Diabetes, Hx Thyroid Disease Cardiovascular History: Reports: Hx Hypertension, Other Cardiovascular Problems/ Disorders - PT.STATES STROKE 2011 Denies: Hx Congestive Heart Failure, Hx Deep Vein Thrombosis, Hx Myocardial Infarction, Hx Pacemaker/ICD Respiratory History: Reports: Hx Asthma, Hx Chronic Obstructive Pulmonary Disease (COPD), Other Respiratory Problems/Disorders - COPD Denies: Hx Lung Cancer GI History: Reports: Other GI Disorders - DIVERTICULITIS Denies: Hx Gall Bladder Disease, Hx Gastrointestinal Bleed, Hx Ulcer, Hx Urosepsis History: Denies: Hx Kidney Stones, Hx Renal Disease Musculoskeletal History: Reports: Hx Arthritis, Hx Back Problems, Other Musculoskeletal History - L SHLDR REPAIR 12/2013 Sensory History: Reports: Hx Contacts or Glasses Opthamlomology History: Reports: Hx Contacts or Glasses Neurological History: Reports: Hx CVA, Hx Seizures Psychiatric History: Reports: Hx Anxiety, Hx Depression, Hx Panic Disorder, Hx Inpatient Treatment, Hx Community Mental Health Tx, Hx Bipolar Disorder, Hx Suicide Attempt, Hx of Violent Episodes Against Others, Hx Substance Abuse Denies: Hx Eating Disorder - Cancer History Hx Chemotherapy: No Hx Radiation Therapy: No - Surgical History Surgery Procedure, Year, and Place: LT SHOULDER REPLACEMENT 12/2013, ABD EXPLORATORY SURGERY, APPENDECTOMY Hx Anesthesia Reactions: No - Immunization History Date of Tetanus Vaccine: 12/03/13 Date of Influenza Vaccine: 2012 Infectious Disease History: No Infectious Disease History: Denies: Hx Hepatitis, Hx Human Immunodeficiency Virus (HIV), History Other Infectious Disease, Traveled Outside the [place] in Last 30 Days - Family History Known Family History: Positive: Hypertension, Respiratory Disease, Other - bipolar disorder, depression, alcohol abuse Negative: Cardiac Disease, Diabetes - Social History Alcohol Use: None 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, replaced Hx Tobacco Use: Yes Smoking Status (MU): Current Every Day Smoker Type: Cigarettes Amount Used/How Often: 1 PPD Length of Time of Smoking/Using Tobacco: 30 years Have You Smoked in the Last Year: Yes Review of Systems Positive: Arthralgia - R knee Skin: Other - R knee abrasion All Other Systems Reviewed And Are Negative: Yes Physical Exam Triage Information Reviewed: Yes Vital Signs On Initial Exam: Initial Vitals Temp Pulse Resp BP Pulse Ox 97.5 F 88 18 148/61 99 04/25/17 23:28 04/25/17 23:28 04/25/17 23:28 04/25/17 23:28 04/25/17 23:28 Vital Signs Reviewed: Yes Appearance: Positive: Well-Appearing, No Pain Distress Skin: Positive: Warm Head/Face: Positive: Normal Head/Face Inspection ENT: Positive: Hearing grossly normal Respiratory/Lung Sounds: Positive: Breath Sounds Present Musculoskeletal: Positive: Other - rt knee minimal diffuse swelling, from, nvi, no instability, anbulatory with cane Neurological: Positive: Sensory/Motor Intact, Alert, Oriented to Person Place, Time Psychiatric: Positive: Affect/Mood Appropriate Diagnostics - Vital Signs Vital Signs Temp Pulse Resp BP Pulse Ox 04/25/17 23:28 97.5 F 88 18 148/61 99 - Laboratory Lab Statement: Any lab studies that have been ordered have been reviewed, and results considered in the medical decision making process. Lower Extremity Course/Dx - Course Assessment/Plan: A 67 y/o F presents to the ED with a CC of right knee pain s/p fall. Patient is able to ambulate, and she reports pain is improved with ice. Patient is given ibuprofen in the ED and is sent home with a prescription for ibuprofen. She is recommended to follow up with her PCP. - Diagnoses Provider Diagnoses: Knee sprain Discharge - Discharge Plan Condition: Stable Disposition: HOME Prescriptions: Ibuprofen TAB* [Motrin TAB* 600 MG] 600 mg PO Q6H #30 tab Patient Education Materials: Knee Pain (ED) Referrals: Aston Pierre LUNCHROOM OPERATOR [Primary Care Provider] - 2 Days Additional Instructions: Please follow up with your PCP. The documentation as recorded by the Josemanuel plunkett Erika accurately reflects the service I personally performed and the decisions made by , Joao Hay MD.
[2017-04-26] MEDS ORDERED: Ibuprofen TAB* 600 MG PO ONE (01:43)
== END 2017-04-26 01:56 | disposition home or self-care (01) ==
LOC: ED 23:27
DX: S83.91XA Sprain of unspecified site of right knee, initial encounter (principal); M25.561 Pain in right knee; W19.XXXA Unspecified fall, initial encounter; Y93.9 Activity, unspecified; Y92.9 Unspecified place or not applicable; Y99.9 Unspecified external cause status
CPT/HCPCS: 99281; A9270-GY

== ENCOUNTER 2017-05-23 15:03 | Emergency (ER) | payer MEDICARE, MEDICAID ==
[2017-05-23 15:18] VITALS: BP 136/66
[2017-05-23] MEDS ORDERED: Ketorolac INJ* 60 MG/2 ML VIAL IM ONE (15:47)
[2017-05-23] MEDS ORDERED: Cyclobenzaprine TAB* 10 MG PO ONE (15:47)
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
[2017-05-23] MEDS ORDERED: Albuterol HFA INHALER* 8 gm MDI INH PRN (16:48)
--- NOTE | 2017-05-23 17:11 | RAD ---
Indication: Lumbar pain post fall. Pain radiates to the distal RIGHT leg. Comparison: April 12, 2016 CT. Technique: Noncontrast CT lumbar sacral spine. Multiplanar reformation. Report: Atherosclerotic calcification without aneurysm of the abdominal aorta or common iliac arteries. Slight LEFT convex curve centered at L3 without change. Grade 1 degenerative L2-L3 retrolisthesis without change. Negative for vertebral body or posterior element fracture. Negative for paravertebral hematoma. T12-L1: Unremarkable disc level for age without acquired spinal stenosis. L1-L2: Severe disc space narrowing at the RIGHT margin with advanced osteophytosis, subchondral sclerosis, and cystic change. Mild annular disc bulge and facet joint osteoarthritis. Negative for acquired spinal stenosis. L2-L3: Dorsal spondylitic ridging and retrolisthesis along with facet joint osteoarthritis results in moderate acquired central canal stenosis without significant change. Similar factors result in moderate RIGHT and mild LEFT foraminal stenosis without change. L3-L4: Large annular disc bulge and facet joint osteoarthritis results in severe acquired central canal stenosis and moderate bilateral foraminal stenosis without significant change. L4-L5: Annular disc bulge and posterior element hypertrophy results in moderately severe acquired central canal stenosis and moderately severe bilateral foraminal stenosis without significant change. L5-S1: Annular disc bulge and posterior element osteoarthritis results in mild acquired central canal stenosis, mild acquired RIGHT foraminal stenosis, and severe acquired LEFT foraminal stenosis without significant change. IMPRESSION: 1. Negative for lumbar sacral spine fracture or new malalignment compared with the April 12, 2016 exam. 2. Multilevel advanced degenerative spondylosis and posterior element osteoarthritis with resulting multilevel central canal and foraminal stenosis as described level by level without significant interval change compared with the 2015 exam.
== END 2017-05-23 17:50 | disposition home or self-care (01) ==
LOC: ED 15:03
DX: S39.012A Strain of muscle, fascia and tendon of lower back, initial encounter (principal); M54.5 Low back pain; F17.210 Nicotine dependence, cigarettes, uncomplicated; W19.XXXA Unspecified fall, initial encounter; Y93.9 Activity, unspecified; Y92.9 Unspecified place or not applicable
CPT/HCPCS: 72131; 96372; 99282; A9270-GY; J1885

== ENCOUNTER 2017-05-27 16:13 | Emergency (ER) | payer MEDICARE, MEDICAID ==
[2017-05-27] MEDS ORDERED: NS 0.9% 1000 ML* 2,000 ML IV ONE (16:54)
--- NOTE | 2017-05-27 17:41 | RAD ---
Indication: Shortness of breath, near syncope. Chest pain history of COPD. Question pneumonia or CHF. Comparison: June 13, 2016 Technique: Sitting AP and lateral chest views. Report: Elevated lung volumes and both diffuse mild prominence of the interstitial markings and patchy rarefaction of the mid to upper lung zone interstitial markings. No focal pulmonary lesion, compelling alveolar consolidation, pleural effusion, pneumothorax. Negative for cardiomegaly unremarkable central pulmonary vasculature. Mild RIGHT convex curve of the thoracic spine without change. Reversed prosthetic LEFT glenohumeral joint. IMPRESSION: Stigmata of obstructive lung disease. No acute pulmonary or cardiac process evident.
[2017-05-27 17:43] LABS: Hematocrit 39 % (35-47); Hemoglobin 13.3 g/dl (12.0-16.0); Mean Corpuscular HGB Conc 34 g/dl (31-36); Mean Corpuscular Hemoglobin 31 pg (27-31); Mean Corpuscular Volume 92 fL (80-97); Mean Platelet Volume 8 um3 (7.4-10.4); Red Blood Count 4.26 10^6/ul (4.0-5.4); Red Cell Distribution Width 16 % (10.5-15); White Blood Count 10.8 10^3/ul (3.5-10.8)
[2017-05-27] MEDS: Aspirin Low Dose CHEW TAB* 81 MG PO ONE ×2 (17:48)
[2017-05-27 18:03] LABS: ALT 13 U/L (7-52); Alkaline Phosphatase 69 U/L (34-104); BUN/Creatinine Ratio 13.5 (8-20); Blood Urea Nitrogen 13 mg/dL (6-24); CO2 Carbon Dioxide 23 mmol/L (22-32); Calcium 9.1 mg/dL (8.6-10.3); Chloride 105 mmol/L (101-111); Creatine Kinase 71 U/L (10-223); EGFR Non-African American 58.3 (>60); Glucose 86 mg/dL (70-100); Lipase 87 U/L (11.0-82.0); Magnesium 2.3 mg/dL (1.9-2.7); Sodium 136 mmol/L (133-145)
[2017-05-27 18:05] LABS: AST 18 U/L (13-39); Anion Gap 8 mmol/L (2-11); Potassium 4.2 mmol/L (3.5-5.0)
[2017-05-27 18:23] LABS: Alcohol < 10 mg/dL (<10)
[2017-05-27] MEDS ORDERED: LORazepam TAB(*) 1 MG PO ONE (18:42)
[2017-05-27] MEDS ORDERED: Albuterol/Ipratropium NEB.SOL* Albuterol 2.5 MG/Ipratropium 0.5 MG 3 ML INH ONE (18:43)
[2017-05-27 20:24] VITALS: BP 130/71
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
== END 2017-05-27 20:32 | disposition home or self-care (01) ==
LOC: ED 16:13
DX: R07.9 Chest pain, unspecified (principal); R53.1 Weakness; R11.0 Nausea; M54.9 Dorsalgia, unspecified; F17.210 Nicotine dependence, cigarettes, uncomplicated
CPT/HCPCS: 36415; 71020; 80053; 80320; 82550; 83605; 83690; 83735; 83880; 84484; 85025; 85610; 93005; 99283; A9270-GY; G0480

== ENCOUNTER → 2017-07-01 11:05 | Emergency (ER) | payer MEDICARE, MEDICAID ==
[~2017-07-01 11:05] MED LIST: Aspirin EC Low Dose* 81 MG TAB.EC PO ONE; NS 0.9% 1000 ML* 1,000 ML IV ONE; traMADol TAB* 50 MG PO ONE
[2017-07-01 11:29] LABS: Hematocrit 39 % (35-47); Mean Corpuscular HGB Conc 34 g/dl (31-36); Mean Corpuscular Hemoglobin 31 pg (27-31); Mean Corpuscular Volume 93 fL (80-97); Mean Platelet Volume 7 um3 (7.4-10.4); Red Blood Count 4.18 10^6/ul (4.0-5.4); Red Cell Distribution Width 15 % (10.5-15); White Blood Count 8.4 10^3/ul (3.5-10.8)
--- NOTE | 2017-07-01 11:36 | RAD ---
Indication: Slurred speech. CT of the brain was performed without IV contrast. Comparison is made with previous exam dated December 17, 2016 August 15, 2016. Ventricular structures are midline. No midline shift is noted. There is encephalomalacia involving the left posterior frontal lobe adjacent to the falx. Again noted is periventricular lucency consistent with chronic ischemic White matter change. Overall no changes noted since prior exams of 08/15/2016 and 12/17/2016. Mastoid air cells and paranasal sinuses are otherwise unremarkable. IMPRESSION: Prior encephalomalacia in the left posterior frontal lobe with no evidence of intracranial mass or hemorrhage. Chronic ischemic White matter change is noted. Dr. Thurston was notified of the results at 11:32 AM.
[2017-07-01 11:38] VITALS: BP 123/61
[2017-07-01 11:56] LABS: BUN/Creatinine Ratio 11.7 (8-20); EGFR Non-African American 75.2 (>60); Potassium 3.7 mmol/L (3.5-5.0)
[2017-07-01 11:57] LABS: Albumin 3.5 g/dL (3.2-5.2); Calcium 9.2 mg/dL (8.6-10.3); EGFR African American 96.8 (>60); Globulin 3.1 g/dL (2-4); HDL Cholesterol 44.3 mg/dL; Total Bilirubin 0.3 mg/dL (0.2-1.0); Total Protein 6.6 g/dL (6.4-8.9)
[2017-07-01 12:22] LABS: Urine Bilirubin Negative (Negative); Urine Glucose Negative (Negative); Urine Nitrite Negative (Negative)
--- NOTE | 2017-07-01 12:36 | RAD ---
Indication: Neurological changes. Code felton. COPD. Tobacco use. Comparison: May 27, 2017 Technique: Upright AP 1133 hours Report: Elevated lung volumes and both diffuse mild prominence of the interstitial markings and patchy rarefaction of the mid to upper lung zone interstitial markings. No focal pulmonary lesion, compelling alveolar consolidation, pleural effusion, pneumothorax. Accounting for mild leftward rotation and portable AP technique the heart is within normal size limits. Unremarkable central pulmonary vasculature. Prosthetic LEFT glenohumeral joint noted. IMPRESSION: Stigmata of obstructive lung disease. No acute pulmonary or cardiac process evident.
--- NOTE | 2017-07-01 15:53 | CONS ---
CONSULTATION REPORT: DATE OF CONSULT: 07/01/17 - EMERGENCY DEPT REQUESTING PHYSICIAN: Dr. Thurston in the emergency room. REASON FOR CONSULT: Code felton. HISTORY OF PRESENT ILLNESS: Julia Dewey is a 67-year-old woman with a history of hypertension, hyperlipidemia, previous stroke who has chronic right- sided weakness and numbness, which can fluctuate in intensity who was getting in the bus to come downtown, visit her daughter today when she felt that there was more numbness and weakness in her right leg. She also thought her speech had changed, which she thinks is still different in the emergency room; however , she indicates she thinks it may be because of her significant stress running out of pain medications and psychiatric medications. She indicated her primary care has discharged her and she cannot see her new primary care, Dr. Funez, until the . She is out of tramadol. She is running out of BuSpar. She did take BuSpar and a gabapentin this morning. PAST MEDICAL HISTORY: Includes: 1. History of left MCA stroke. 2. Hypertension. 3. Chronic back pain. 4. Hyperlipidemia. 5. Bipolar disorder. 6. History of alcohol dependence. 7. Benzodiazepine abuse. 8. Opioid abuse, which is all not active. 9. History of COPD. 10. Surgery in the left shoulder. MEDICATIONS: Current medication list in outpatient chart include: 1. Nicorette gum; however, she has resumed smoking. 2. Ondansetron 4 mg p.o. q.8 hours p.r.n. nausea. 3. Omeprazole 20 mg p.o. b.i.d. 4. Nasonex 2 sprays every nostril each day. 5. Cetirizine 10 mg p.o. daily. 6. Humidifier as needed. 7. Tramadol 50 mg 1 tablet p.o. b.i.d. p.r.n. back pain. 8. Breo Ellipta inhaled once per day. 9. Ventolin 2 puffs every 4 hours and every 2 hours as needed. 10. Centrum Silver 1 tablet p.o. daily. 11. Atorvastatin 40 mg p.o. daily. 12. Aspirin 81 mg p.o. daily. 13. Amlodipine 5 mg p.o. daily. 14. Gabapentin 600 mg p.o. t.i.d. 15. BuSpar 15 mg p.o. b.i.d. 16. Quetiapine 25 mg p.o. q.h.s., which she states she takes p.r.n. and she is not using the nicotine patches. Other p.r.n.'s in the chart included dextromethorphan, guaifenesin, naproxen, and lidocaine 3% cream, which she indicates she is not taking. ALLERGIES: Include CIPROFLOXACIN, which causes itching and SULFA drugs, which cause itching. FAMILY HISTORY: Noncontributory at this time. REVIEW OF SYSTEMS: There has been no change in vision. Numbness and weakness are as mentioned above. There has been no change in bowel or bladder habits. She has had chronic pain; not only her pain in her back and her leg is worse but also in her left shoulder where she had surgery. There has been no other new neurologic symptoms. Other positive findings on 10 review of systems, please see past medical history and HPI. PHYSICAL EXAMINATION: On examination, Ms. Dewey's most recent vitals include temperature of 98 degrees, pulse 67, respiratory rate 17, saturation 95%, blood pressure 123/61. She had a regular cardiac rhythm. Her lungs are clear to auscultation. Scar was noted on the left shoulder. She had no carotid bruit. She was awake, alert, articulate. Had normal language function. She indicated her speech was different; however, it was hard for me to perceive any evidence of dysarthria. Her facial expression, sensation, and hearing were equal. Palate was upgoing. Tongue was midline. Sternocleidomastoid and trapezius were 5/5 in strength. Her pupils were equal and responsive to light. Angelo were full to confrontation. Fundi were heard to visualize. There was no pronator drift; however, decreased supination with the right arm. She gave full strength in upper extremities. There was no drift in her lower extremities. There was slight give in hip flexion on the right and knee flexion ; otherwise, she was strong. There were no asymmetries to pinprick, cold, or light touch. Reflexes were 2+ and symmetric in the upper and lower extremities with the exception of the ankles that were absent. Toes were flexor response. LABORATORY DATA: Data includes CBC, complete metabolic panel, which showed no significant pathology. Her glucose is only slightly high at 103. Her AST was low at 12. Her lipid profile showed triglycerides of 194, cholesterol 163, LDL 80, HDL 44.3. In review of her previous workup in November for stroke, she had a CTA of the brain and neck, which showed a 20% right internal carotid artery stenosis and 50 % left internal carotid artery stenosis. Please see report for details. IMPRESSION: Julia Dewey is a 67-year-old woman with a history of stroke with residual right-sided symptoms, which transiently changed when she walks with a cane in the setting of marked stress and running out of medications. Her symptoms seemed to be worse today when getting on to a bus. At this point, I would provide medications and supportive care, observe, get up and walk and determine if at baseline. Based on what minimal findings I see at this time, she is not a candidate for TPA. Her findings are unlikely to represent a new stroke. It is important for her to reestablish with primary care to have regular visits. In addition to her medications, I would suggest that she is on aspirin a day for prevention of stroke given her history unless there is other known contraindications. [id number] #: [id number] JAMES
--- NOTE | 2017-07-01 23:25 | ED ---
Joao Coyne SooYoung, scribed for Melissa Thurston MD on 07/01/17 at 1114 . Neurological HPI - HPI Summary HPI Summary: A 67 y/o F GIANA presents to ED with c/o stroke-like sx HOG HANDLER. Last known normal was at 0900, pt knows the time because she was waiting for the bus at onset of sx. Per EMS, pt's sx include R leg shaking and numbness, mild confusion, dazed, mildly slurred speech. She states having mild SOB due to bronchitis. Pt was waiting for the bus, she got onto the bus, and met EMS [place]. PMHx: CVA in 2010. Denies being on a blood thinner, used to take a daily aspirin but did not today. She used to take Tramadol, last dose was 7-8 days ago. She takes BP medication, but did not take it today because she recently ran out. Nonsmoker, no ETOH, no drugs. - History of Current Complaint Stated Complaint: STROKE-LIKE SYMPTOMS Hx Obtained From: Patient, EMS Onset/Duration: Sudden Onset, Started hours ago - onset 0900, Still Present Timing: Constant Onset Severity: Moderate Current Severity: Moderate Neurological Deficit Location: Facial - speech, no facial droop Pain Intensity: 9 Pain Scale Used: 0-10 Numeric Character: Numbness/Tingling - RLE, Impaired Speech - mild, Confusion Aggravating: Position Change/Supine to Erect - movement worsen sciatic pain Alleviating: Nothing Associated Signs and Symptoms: Positive: Confusion - mild, dazed, Impaired Speech - mild slurred speech, Numbness - RLE, with shaking, Emotional Distress TPA Considered: Yes - per neuro consult, deficit not great enough. - Additional Pertinent History Primary Care Physician: [id number] - Allergy/Home Medications Allergies/Adverse Reactions: Allergies Allergy/AdvReac Type Severity Reaction Status Date / Time Ciprofloxacin [From Cipro] Allergy Mild Itching Verified 01/21/17 00:24 Sulfa Drugs Allergy Mild Itching Verified 01/21/17 00:24 PMH/Surg Hx/FS Hx/Imm Hx Previously Healthy: No Endocrine/Hematology History: Reports: Hx Anemia - b12 shots Denies: Hx Diabetes, Hx Thyroid Disease Cardiovascular History: Reports: Hx Hypertension Denies: Hx Congestive Heart Failure, Hx Deep Vein Thrombosis, Hx Myocardial Infarction, Hx Pacemaker/ICD Respiratory History: Reports: Hx Asthma, Hx Chronic Obstructive Pulmonary Disease (COPD), Other Respiratory Problems/Disorders - COPD Denies: Hx Lung Cancer GI History: Reports: Other GI Disorders - DIVERTICULITIS Denies: Hx Gall Bladder Disease, Hx Gastrointestinal Bleed, Hx Ulcer, Hx Urosepsis History: Denies: Hx Kidney Stones, Hx Renal Disease Musculoskeletal History: Reports: Hx Arthritis, Hx Back Problems, Other Musculoskeletal History - L SHLDR REPAIR 12/2013 Sensory History: Reports: Hx Contacts or Glasses Opthamlomology History: Reports: Hx Contacts or Glasses Neurological History: Reports: Hx CVA - 2011, Hx Seizures Psychiatric History: Reports: Hx Anxiety, Hx Depression, Hx Panic Disorder, Hx Inpatient Treatment, Hx Community Mental Health Tx, Hx Bipolar Disorder, Hx Suicide Attempt, Hx of Violent Episodes Against Others, Hx Substance Abuse Denies: Hx Eating Disorder - Cancer History Hx Chemotherapy: No Hx Radiation Therapy: No - Surgical History Surgery Procedure, Year, and Place: LT SHOULDER REPLACEMENT 12/2013, ABD EXPLORATORY SURGERY, APPENDECTOMY Hx Anesthesia Reactions: No - Immunization History Date of Tetanus Vaccine: 12/03/13 Date of Influenza Vaccine: 2012 Infectious Disease History: Denies: Hx Hepatitis, Hx Human Immunodeficiency Virus (HIV), History Other Infectious Disease - Family History Known Family History: Positive: Hypertension, Respiratory Disease, Other - bipolar disorder, depression, alcohol abuse Negative: Cardiac Disease, Diabetes - Social History Occupation: Retired Lives: Alone Alcohol Use: None 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, replaced Hx Substance Use: Yes Substance Use Type: Reports: Other Substance Use Comment - Amount & Last Used: opiates Hx Tobacco Use: Yes Smoking Status (MU): Heavy Every Day Tobacco Smoker Type: Cigarettes Amount Used/How Often: 1 PPD Length of Time of Smoking/Using Tobacco: 30 years Have You Smoked in the Last Year: Yes Review of Systems Negative: Fever Eyes: Negative Negative: Chest Pain Negative: Shortness Of Breath Neurological: Other - pos: confusion/dazed Positive: Numbness - and shaking of RLE, Slurred Speech - mild Psychological: Normal All Other Systems Reviewed And Are Negative: Yes Physical Exam Triage Information Reviewed: Yes Vital Signs On Initial Exam: Initial Vitals Temp Pulse Resp BP Pulse Ox 98 F 82 19 120/68 98 07/01/17 11:28 07/01/17 11:28 07/01/17 11:28 07/01/17 11:28 07/01/17 11:28 Vital Signs Reviewed: Yes Appearance: Positive: No Pain Distress, Well-Nourished, Ill-Appearing Skin: Positive: Warm, Skin Color Reflects Adequate Perfusion Head/Face: Positive: Normal Head/Face Inspection Eyes: Positive: EOMI, ISADORA, Conjunctiva Clear ENT: Positive: Normal ENT inspection, Hearing grossly normal. Negative: Muffled /hoarse voice Neck: Positive: Supple, Nontender, No Lymphadenopathy, Other: - no bruits Respiratory/Lung Sounds: Positive: Clear to Auscultation, Breath Sounds Present , Other - no respiratory distress Cardiovascular: Positive: RRR, Other - pulses normal, brisk capillary refill. Negative: Murmur, Leg Edema Left, Leg Edema Right Abdomen Description: Positive: Nontender, Soft. Negative: Distended, Guarding Musculoskeletal: Positive: Strength/ROM Intact. Negative: Allyson Sign Left, Allyson Sign Right, Edema Left, Edema Right Neurological: Positive: Sensory/Motor Intact, Alert, Oriented to Person Place, Time, CN Intact II-III, Slurred Speech, Facial Symmetry, Other - Ataxia present in one limb, right. Some loss of language. Psychiatric: Positive: Normal Diagnostics - Vital Signs Vital Signs Temp Pulse Resp BP Pulse Ox 07/01/17 12:07 98 F 67 17 123/61 95 07/01/17 11:32 97.8 F 80 17 123/61 98 07/01/17 11:29 97.8 F 80 17 123/68 98 07/01/17 11:28 98 F 82 19 120/68 98 - Laboratory Lab Results: Lab Results 07/01/17 07/01/17 07/01/17 Range/Units 11:16 11:16 11:16 WBC 8.4 (3.5-10.8) 10^3/ul RBC 4.18 (4.0-5.4) 10^6/ul Hgb 13.0 (12.0-16.0) g/dl Hct 39 (35-47) % MCV 93 (80-97) fL MCH 31 (27-31) pg MCHC 34 (31-36) g/dl RDW 15 (10.5-15) % Plt Count 215 (150-450) 10^3/ul MPV 7 L (7.4-10.4) um3 Neut % (Auto) 61.1 (38-83) % Lymph % (Auto) 28.5 (25-47) % Karnes % (Auto) 7.1 (1-9) % Eos % (Auto) 2.1 (0-6) % Baso % (Auto) 1.2 (0-2) % Absolute Neuts (auto) 5.1 (1.5-7.7) 10^3/ul Absolute Lymphs (auto) 2.4 (1.0-4.8) 10^3/ul Absolute Monos (auto) 0.6 (0-0.8) 10^3/ul Absolute Eos (auto) 0.2 (0-0.6) 10^3/ul Absolute Basos (auto) 0.1 (0-0.2) 10^3/ul Absolute Nucleated RBC 0 10^3/ul Nucleated RBC % 0 INR (Anticoag Therapy) 0.90 (0.89-1.11) APTT 28.9 (26.0-36.3) seconds Sodium 138 (133-145) mmol/L Potassium 3.7 (3.5-5.0) mmol/L Chloride 105 (101-111) mmol/L Carbon Dioxide 25 (22-32) mmol/L Anion Gap 8 (2-11) mmol/L BUN 9 (6-24) mg/dL Creatinine 0.77 (0.51-0.95) mg/dL Est GFR ( Amer) 96.8 (>60) Est GFR (Non-Af Amer) 75.2 (>60) BUN/Creatinine Ratio 11.7 (8-20) Glucose 103 H (70-100) mg/dL Lactic Acid (0.5-2.0) mmol/L Calcium 9.2 (8.6-10.3) mg/dL Total Bilirubin 0.30 (0.2-1.0) mg/dL AST 12 L (13-39) U/L ALT 12 (7-52) U/L Alkaline Phosphatase 70 (34-104) U/L Troponin I 0.00 (<0.04) ng/mL Total Protein 6.6 (6.4-8.9) g/dL Albumin 3.5 (3.2-5.2) g/dL Globulin 3.1 (2-4) g/dL Albumin/Globulin Ratio 1.1 (1-3) Triglycerides 194 mg/dL Cholesterol 163 mg/dL LDL Cholesterol 80 mg/dL HDL Cholesterol 44.3 mg/dL Urine Color Urine Appearance Urine pH (5-9) Ur Specific Motley (1.010-1.030) Urine Protein (Negative) Urine Ketones (Negative) Urine Blood (Negative) Urine Nitrate (Negative) Urine Bilirubin (Negative) Urine Urobilinogen (Negative) Ur Leukocyte Esterase (Negative) Urine Glucose (Negative) Blood Type Antibody Screen 07/01/17 07/01/17 07/01/17 Range/Units 11:16 11:16 12:15 WBC (3.5-10.8) 10^3/ul RBC (4.0-5.4) 10^6/ul Hgb (12.0-16.0) g/dl Hct (35-47) % MCV (80-97) fL MCH (27-31) pg MCHC (31-36) g/dl RDW (10.5-15) % Plt Count (150-450) 10^3/ul MPV (7.4-10.4) um3 Neut % (Auto) (38-83) % Lymph % (Auto) (25-47) % Karnes % (Auto) (1-9) % Eos % (Auto) (0-6) % Baso % (Auto) (0-2) % Absolute Neuts (auto) (1.5-7.7) 10^3/ul Absolute Lymphs (auto) (1.0-4.8) 10^3/ul Absolute Monos (auto) (0-0.8) 10^3/ul Absolute Eos (auto) (0-0.6) 10^3/ul Absolute Basos (auto) (0-0.2) 10^3/ul Absolute Nucleated RBC 10^3/ul Nucleated RBC % INR (Anticoag Therapy) (0.89-1.11) APTT (26.0-36.3) seconds Sodium (133-145) mmol/L Potassium (3.5-5.0) mmol/L Chloride (101-111) mmol/L Carbon Dioxide (22-32) mmol/L Anion Gap (2-11) mmol/L BUN (6-24) mg/dL Creatinine (0.51-0.95) mg/dL Est GFR ( Amer) (>60) Est GFR (Non-Af Amer) (>60) BUN/Creatinine Ratio (8-20) Glucose (70-100) mg/dL Lactic Acid 2.0 (0.5-2.0) mmol/L Calcium (8.6-10.3) mg/dL Total Bilirubin (0.2-1.0) mg/dL AST (13-39) U/L ALT (7-52) U/L Alkaline Phosphatase (34-104) U/L Troponin I (<0.04) ng/mL Total Protein (6.4-8.9) g/dL Albumin (3.2-5.2) g/dL Globulin (2-4) g/dL Albumin/Globulin Ratio (1-3) Triglycerides mg/dL Cholesterol mg/dL LDL Cholesterol mg/dL HDL Cholesterol mg/dL Urine Color Yellow Urine Appearance Clear Urine pH 6.0 (5-9) Ur Specific Motley 1.008 L (1.010-1.030) Urine Protein Negative (Negative) Urine Ketones Negative (Negative) Urine Blood Negative (Negative) Urine Nitrate Negative (Negative) Urine Bilirubin Negative (Negative) Urine Urobilinogen Negative (Negative) Ur Leukocyte Esterase Negative (Negative) Urine Glucose Negative (Negative) Blood Type A Positive Antibody Screen Negative Result Diagrams: 07/01/17 11:16 07/01/17 11:16 Lab Statement: Any lab studies that have been ordered have been reviewed, and results considered in the medical decision making process. - Radiology CXR Xray Interpretation: Positive (See Comments) - IMPRESSION: Stigmata of obstructive lung disease. No acute pulmonary or cardiac process evident. Radiology Interpretation Completed By: Radiologist - CT BRAIN CT CT Interpretation: Positive (See Comments) - IMPRESSION: Prior encephalomalacia in the left posterior frontal lobe with no evidence of intracranial mass or hemorrhage. Chronic ischemic White matter change is noted. Dr. Thurston was notified of the results at 11:[address] Interpretation Completed By: Radiologist - EKG 1312 Cardiac Rate: NL - 65 bpm EKG Rhythm: Sinus Rhythm EKG Interpretation: nml AVIVCD, nml QTC, nml QRS, axis 91 NIH Scale - NIH Scale Level of Consciousness: Alert/Keenly Responsive Ask Patient the Month and His/Her Age: Both Correct Ask Pt to Open/Close Eyes and [facility]/Release Non-Paretic Hand: Both Correctly Best Gaze (Only Horizontal Eye Movement): Normal Facial Paresis-Pt to Smile & Close Eyes or Grimace Symmetry: Normal/Symmetrical Motor Function - Right Arm: No Drift-Holds 10 Seconds Motor Function - Left Arm: No Drift-Holds 10 Seconds Motor Function - Right Leg: No Drift-Holds 10 Seconds Motor Function - Left Leg: No Drift-Holds 10 Seconds Limb Ataxia-Must be out of Proportion to Weakness Present: Present in One Limb - R Best Language (Describe Picture, Name Items): Some Loss Dysarthria (Read Several Words): Slurs Some Words Re-Evaluation - Re-Evaluation 1 Re-Evaluation Time: 12:51 Change: Improved Comment: Discussing results and neuro consult with pt. Pain is controlled. Pt is sitting up, conversing comfortably. She states has appt at [facility] on . Will provide pt with 10 days of prescriptions for her meds. Pt agreeable to D/ C. Will trial ambulate prior to D/C. Course/Dx - Course Course Of Treatment: Allergies noted. Medications reviewed. Normal BP reading and no follow-up instructions required. Pt is a 67 y/o F BIBA presenting with possible CVA or TIA HOG HANDLER. Last known normal was at 0900, pt was waiting for the bus at onset of sx. Per EMS, pt's sx include R leg shaking and numbness, mild confusion, dazed, mildly slurred speech. She states having mild SOB due to known bronchitis. PMHx: CVA in 2010. Denies being on a blood thinner, used to take a daily aspirin but did not today. She used to take Tramadol, last dose was 7-8 days ago. She takes BP medication, but did not take it today because she recently ran out. Nonsmoker, no ETOH, no drugs. 1130: Spoke with radiology , no bleed on CT, only chronic changes. UA results are nml except specific gravity is 1.008. EKG shows NSR of 65 bpm with nml AVIVCD, nml QTC, nml QRS, axis 91. CXR shows "Stigmata of obstructive lung disease. No acute pulmonary or cardiac process evident." Brain CT shows "Prior encephalomalacia in the left posterior frontal lobe with no evidence of intracranial mass or hemorrhage. Chronic ischemic White matter change is noted. Dr. Thurston was notified of the results at 11:32 AM.". Pt D/C home with medication list, see D/C, to f/u with Jerome as scheduled. Pt voiced understanding. - Differential Dx Differential Diagnoses Neuro: Positive: Alcohol Abuse, Anxiety, Cerebrovascular Accident, Transient Ischemic Attack - Diagnoses Provider Diagnoses: Slurred speech, Sciatica, Right leg pain During the Visit The Following Alert/Code Occurred: Code Wyatt - called at 1108 - Physician Notifications Discussed Care Of Patient With: Ruht Salas - neuro Time Discussed With Above Provider: 11:30 Instructed by Provider To: Other - States pt is not a candidate for TPA, deficit not great enough. Advises daily ASA and PCP follow up. - Critical Care Time Critical Care Time: 30-74 min - 30 mins Discharge - Discharge Plan Condition: Stable Disposition: HOME Prescriptions: Albuterol HFA INHALER* [Ventolin HFA Inhaler*] 2 puff INH Q4H PRN 30 Days PRN Reason: Wheezing Aspirin EC Low Dose* [Ecotrin EC Low Dose 81 MG*] 81 mg PO DAILY #30 tab.ec Atorvastatin* [Lipitor 40 MG*] 40 mg PO DAILY #30 tab Fluticasone Furoate-Vilanterol [Breo Ellipta 200-25 Mcg/INH] 1 inh INH DAILY #1 Gabapentin TAB(NF) [Neurontin 600 mg TAB(NF)] 600 mg PO QID #40 Ibuprofen TAB* [Motrin TAB* 600 MG] 600 mg PO Q6H PRN #40 PRN Reason: Fever/Pain QUEtiapine TAB* [Seroquel TAB*] 100 mg PO BEDTIME #10 busPIRone TAB* [Buspar TAB*] 30 mg PO BID #20 traMADol TAB* [Ultram*] 50 mg PO Q6HR PRN #12 tab MDD 4 PRN Reason: Pain Patient Education Materials: Transient Ischemic Attack (ED), Sciatica (ED) Referrals: Aston Pierre TISSUE COORDINATOR [Primary Care Provider] - (10 days as scheduled ) Consult Consult: 1159: Spoke to Dr. Salas, neuro Recommends 81mg daily aspirin, and trial ambulation prior to D/C. The documentation as recorded by the scribe, VanDeMark,SooYoung accurately reflects the service I personally performed and the decisions made by me, Melissa Thurston MD.
== END | disposition home or self-care (01) ==
LOC: ED 11:05
DX: R47.81 Slurred speech (principal); M79.604 Pain in right leg; M54.30 Sciatica, unspecified side
CPT/HCPCS: 36415; 70450; 71010; 80053; 80061; 81003; 83605; 84484; 85025; 85610; 85730; 86850; 86900; 86901; 93005; 99283; A9270-GY

== ENCOUNTER 2017-08-12 13:13 | Inpatient (IN) | payer MEDICARE, MEDICAID ==
[2017-08-12 14:06] LABS: Hematocrit 49 % (35-47); Hemoglobin 16.4 g/dl (12.0-16.0); Mean Corpuscular HGB Conc 34 g/dl (31-36); Mean Corpuscular Hemoglobin 31 pg (27-31); Mean Corpuscular Volume 92 fL (80-97); Mean Platelet Volume 7 um3 (7.4-10.4); Red Cell Distribution Width 13 % (10.5-15); White Blood Count 11.3 10^3/ul (3.5-10.8)
[2017-08-12 14:13] LABS: Urine Bacteria 1+ (Absent); Urine Bilirubin Negative (Negative); Urine Glucose Negative (Negative); Urine Nitrite Negative (Negative)
[2017-08-12] MEDS ORDERED: LORazepam TAB(*) 1 MG PO ONE (14:21)
[2017-08-12 14:22] LABS: Benzodiazepine Urine Screen None Detected (None Detect)
[2017-08-12 14:23] LABS: ALT 20 U/L (7-52); AST 17 U/L (13-39); Albumin 4.6 g/dL (3.2-5.2); Alkaline Phosphatase 87 U/L (34-104); Anion Gap 8 mmol/L (2-11); BUN/Creatinine Ratio 9.1 (8-20); Blood Urea Nitrogen 9 mg/dL (6-24); CO2 Carbon Dioxide 27 mmol/L (22-32); Calcium 9.8 mg/dL (8.6-10.3); Chloride 103 mmol/L (101-111); EGFR African American 72.4 (>60); EGFR Non-African American 56.3 (>60); Globulin 3.3 g/dL (2-4); Glucose 105 mg/dL (70-100); Potassium 3.3 mmol/L (3.5-5.0); Sodium 138 mmol/L (133-145); Total Protein 7.9 g/dL (6.4-8.9)
[2017-08-12 14:53] LABS: Acetaminophen < 15 mcg/mL; Alcohol < 10 mg/dL (<10); Salicylate < 2.50 mg/dL (<30)
[2017-08-12] MEDS ORDERED: Potassium Chlor TAB* 20 MEQ TAB.ER PO ONE (15:36)
[2017-08-12] MEDS ORDERED: Nicotine PATCH 21 MG/24 HR* PATCH TRANSDERM ONE (15:36)
[2017-08-12] MEDS ORDERED: Al Hydrox/Mg Hydrox/Simet LIQ* 30 ML UDC PO PRN (19:20)
[2017-08-12] MEDS ORDERED: Acetaminophen TAB* 325 MG PO PRN (19:20)
[2017-08-12] MEDS ORDERED: Mouth Piece, Nicotine* 1 EACH CARTRIDGE INH ONE (19:30)
[2017-08-12] MEDS: Nicotine Inhaler* 10 MG AMP INH PRN (19:45)
[2017-08-12] MEDS: Nicotine GUM* 2 MG PO PRN (19:45)
--- NOTE | 2017-08-12 19:52 | ED ---
Zac Coyne Benjamin, scribed for Sam Cota MD on 08/12/17 at 1401 . Psychiatric Complaint - HPI Summary HPI Summary: 67yo female states being very depressed and lacking motivation for anything. Pt states staying in beds for the past several days. Reports SI, but no plans or actions taken. PMHx of HTN and depression. - History Of Current Complaint Chief Complaint: EDPsychosocial Time Seen by Provider: 08/12/17 13:38 Hx Obtained From: Patient Hx Last Menstrual Period: pt states age 30-40 yrs old ?: No Onset/Duration: Gradual Onset, Lasting Days, Still Present Timing: Constant Severity Initially: Moderate Severity Currently: Moderate Character: Depressed Aggravating Factor(s): Recent Stress Alleviating Factor(s): Nothing Associated Signs And Symptoms: Positive: Negative Has Suicidal: Reports: Thoughts. Denies: With A Plan, Demonstrates Gesture, Has Prior Attempt(s) Has Homicidal: Denies: Thoughts, With A Plan, Has Prior Attempt(s) - Allergies/Home Medications Allergies/Adverse Reactions: Allergies Allergy/AdvReac Type Severity Reaction Status Date / Time Ciprofloxacin [From Cipro] Allergy Mild Itching Verified 01/21/17 00:24 Sulfa Drugs Allergy Mild Itching Verified 01/21/17 00:24 Home Medications: Home Medications Cetirizine* [ZyrTEC 10 MG TAB*] 10 mg PO DAILY 08/12/17 [History Confirmed 08/12] Mometasone NASAL (NF) [Nasonex (NF)] 2 spray BOTH NARES DAILY 08/12/17 [History Confirmed 08/12/17] Multivitamins/Minerals TAB* [Theragran/minerals TAB*] 1 tab PO DAILY 08/12/17 [ History Confirmed 08/12/17] Omeprazole CAP* [Prilosec CAP* 20 MG] 20 mg PO BID 08/12/17 [History Confirmed 08/12/17] traMADol TAB* [Ultram*] 50 mg PO BID PRN MDD 100 mg 08/12/17 [History Confirmed 08/12/17] PMH/Surg Hx/FS Hx/Imm Hx Endocrine/Hematology History: Reports: Hx Anemia - b12 shots Denies: Hx Diabetes, Hx Thyroid Disease Cardiovascular History: Reports: Hx Hypertension, Other Cardiovascular Problems/ Disorders - PT.STATES STROKE 2011 Denies: Hx Congestive Heart Failure, Hx Deep Vein Thrombosis, Hx Myocardial Infarction, Hx Pacemaker/ICD Respiratory History: Reports: Hx Asthma, Hx Chronic Obstructive Pulmonary Disease (COPD), Other Respiratory Problems/Disorders - COPD Denies: Hx Lung Cancer GI History: Reports: Other GI Disorders - DIVERTICULITIS Denies: Hx Gall Bladder Disease, Hx Gastrointestinal Bleed, Hx Ulcer, Hx Urosepsis History: Denies: Hx Kidney Stones, Hx Renal Disease Musculoskeletal History: Reports: Hx Arthritis, Hx Back Problems, Other Musculoskeletal History - L SHLDR REPAIR 12/2013 Sensory History: Reports: Hx Contacts or Glasses Opthamlomology History: Reports: Hx Contacts or Glasses Neurological History: Reports: Hx CVA - 2012, Hx Seizures Psychiatric History: Reports: Hx Anxiety, Hx Depression, Hx Panic Disorder, Hx Inpatient Treatment, Hx Community Mental Health Tx, Hx Bipolar Disorder, Hx Suicide Attempt, Hx of Violent Episodes Against Others, Hx Substance Abuse Denies: Hx Eating Disorder - Cancer History Hx Chemotherapy: No Hx Radiation Therapy: No - Surgical History Surgery Procedure, Year, and Place: LT SHOULDER REPLACEMENT 12/2013, ABD EXPLORATORY SURGERY, APPENDECTOMY Hx Anesthesia Reactions: No - Immunization History Date of Tetanus Vaccine: 12/03/13 Date of Influenza Vaccine: 2012 Infectious Disease History: Denies: Hx Hepatitis, Hx Human Immunodeficiency Virus (HIV), History Other Infectious Disease, Traveled Outside the [place] in Last 30 Days - Family History Known Family History: Positive: Hypertension, Respiratory Disease, Other - bipolar disorder, depression, alcohol abuse Negative: Cardiac Disease, Diabetes - Social History Occupation: Retired Lives: Alone Alcohol Use: None 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, replaced Hx Substance Use: Yes Substance Use Type: Reports: Other Substance Use Comment - Amount & Last Used: opiates Hx Tobacco Use: Yes Smoking Status (MU): Heavy Every Day Tobacco Smoker Type: Cigarettes Amount Used/How Often: 1 PPD Length of Time of Smoking/Using Tobacco: 30 years Have You Smoked in the Last Year: Yes Review of Systems Constitutional: Negative Eyes: Negative ENT: Negative Cardiovascular: Negative Respiratory: Negative Gastrointestinal: Negative Genitourinary: Negative Musculoskeletal: Negative Skin: Negative Neurological: Negative Positive: Depressed, Other - SI All Other Systems Reviewed And Are Negative: Yes Physical Exam Triage Information Reviewed: Yes Vital Signs On Initial Exam: Initial Vitals Temp Pulse Resp BP Pulse Ox 97.6 F 100 18 132/85 99 08/12/17 13:29 08/12/17 13:29 08/12/17 13:29 08/12/17 13:29 08/12/17 13:29 Vital Signs Reviewed: Yes Appearance: Positive: Well-Appearing, No Pain Distress Skin: Positive: Warm, Skin Color Reflects Adequate Perfusion Head/Face: Positive: Normal Head/Face Inspection Eyes: Positive: EOMI ENT: Positive: Hearing grossly normal, Pharynx normal Neck: Positive: Nontender Respiratory/Lung Sounds: Positive: Clear to Auscultation, Breath Sounds Present Cardiovascular: Positive: RRR. Negative: Murmur Abdomen Description: Positive: Nontender Musculoskeletal: Positive: Strength/ROM Intact Neurological: Positive: Sensory/Motor Intact, Alert, Oriented to Person Place, Time, CN Intact II-III Psychiatric: Positive: Anxious - Pillager Coma Scale Best Eye Response: 4 - Spontaneous Best Motor Response: 6 - Obeys Commands Best Verbal Response: 5 - Oriented Diagnostics - Vital Signs Vital Signs Temp Pulse Resp BP Pulse Ox 08/12/17 13:29 97.6 F 100 18 132/85 99 - Laboratory Result Diagrams: 08/12/17 13:57 08/12/17 13:57 Lab Statement: Any lab studies that have been ordered have been reviewed, and results considered in the medical decision making process. Course/Dx - Course Course Of Treatment: Reviewed pts medication and allergy lists. Blood pressure noted. Pt is medically cleared for [facility] at 1530 hour. - Differential Dx/Clinical Impression Provider Diagnosis: Suicidal ideation, Depression Discharge - Discharge Plan Condition: Good Disposition: ADMITTED TO [facility] The documentation as recorded by the Zac plunkett Benjamin accurately reflects the service I personally performed and the decisions made by Beata kelly Walter, MD.
[2017-08-12] MEDS: Gabapentin CAP(*) 300 MG PO SCH (21:59)
[2017-08-12] MEDS: traMADol TAB* 50 MG PO PRN (22:00)
[2017-08-12] MEDS ORDERED: QUEtiapine TAB* 100 MG PO SCH (22:00)
[2017-08-12] MEDS ORDERED: Ibuprofen TAB* 600 MG PO PRN (22:03)
[2017-08-12] MEDS: busPIRone TAB* 30 MG PO SCH (22:04)
[2017-08-13] MEDS: Vitamin THERAPEUTIC TAB PO SCH (09:52)
[2017-08-13] MEDS: Gabapentin CAP(*) 300 MG PO SCH ×4 (09:52→20:51)
[2017-08-13] MEDS: busPIRone TAB* 30 MG PO SCH ×2 (09:53→20:17)
[2017-08-13] MEDS: Cetirizine* 10 MG TAB PO SCH (09:53)
[2017-08-13] MEDS: amLODIPine TAB* 5 MG PO SCH (09:53)
[2017-08-13] MEDS: Aspirin EC Low Dose* 81 MG TAB.EC PO SCH (09:53)
[2017-08-13] MEDS: Atorvastatin* 40 MG TAB PO SCH (09:53)
[2017-08-13] MEDS: BREO ELLIPTA 200-25 MCG INH INH SCH (09:55)
[2017-08-13] MEDS: Fluticasone NASAL SPRAY 50MCG* 16 gm SPRAY BTL BOTH NARES SCH (09:55)
[2017-08-13] MEDS: Nicotine Inhaler* 10 MG AMP INH PRN ×2 (11:38→16:57)
[2017-08-13] MEDS: traMADol TAB* 50 MG PO PRN (14:15)
[2017-08-13] MEDS: LURASIDONE 40 MG PO SCH (20:17)
[2017-08-13] MEDS: Omeprazole CAP* 20 MG PO SCH (20:53)
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
[2017-08-14] MEDS: Cetirizine* 10 MG TAB PO SCH (09:06)
[2017-08-14] MEDS: Aspirin EC Low Dose* 81 MG TAB.EC PO SCH (09:06)
[2017-08-14] MEDS: amLODIPine TAB* 5 MG PO SCH (09:06)
[2017-08-14] MEDS: busPIRone TAB* 30 MG PO SCH ×2 (09:06→20:02)
[2017-08-14] MEDS: Gabapentin CAP(*) 300 MG PO SCH ×4 (09:06→20:02)
[2017-08-14] MEDS: Omeprazole CAP* 20 MG PO SCH ×2 (09:06→20:02)
[2017-08-14] MEDS: Fluticasone NASAL SPRAY 50MCG* 16 gm SPRAY BTL BOTH NARES SCH (09:07)
[2017-08-14] MEDS: Albuterol HFA INHALER* 8 gm MDI INH PRN (09:07)
[2017-08-14] MEDS: BREO ELLIPTA 200-25 MCG INH INH SCH (09:08)
[2017-08-14] MEDS: Vitamin THERAPEUTIC TAB PO SCH (09:08)
[2017-08-14] MEDS: Atorvastatin* 40 MG TAB PO SCH (09:09)
[2017-08-14] MEDS: Nicotine Inhaler* 10 MG AMP INH PRN ×3 (11:02→18:05)
[2017-08-14] MEDS: Nicotine GUM* 2 MG PO PRN ×3 (11:47→18:05)
[2017-08-14] MEDS: traMADol TAB* 50 MG PO PRN (18:26)
[2017-08-14] MEDS: LURASIDONE 40 MG PO SCH (20:02)
[2017-08-15] MEDS: Nicotine Inhaler* 10 MG AMP INH PRN ×2 (07:29→15:33)
[2017-08-15] MEDS: Nicotine GUM* 2 MG PO PRN ×3 (07:30→15:33)
[2017-08-15] MEDS: Fluticasone NASAL SPRAY 50MCG* 16 gm SPRAY BTL BOTH NARES SCH (08:57)
[2017-08-15] MEDS: Atorvastatin* 40 MG TAB PO SCH (08:58)
[2017-08-15] MEDS: Gabapentin CAP(*) 300 MG PO SCH ×4 (08:58→19:44)
[2017-08-15] MEDS: Vitamin THERAPEUTIC TAB PO SCH (08:58)
[2017-08-15] MEDS: Aspirin EC Low Dose* 81 MG TAB.EC PO SCH (08:58)
[2017-08-15] MEDS: Cetirizine* 10 MG TAB PO SCH (08:58)
[2017-08-15] MEDS: Omeprazole CAP* 20 MG PO SCH ×2 (08:58→19:44)
[2017-08-15] MEDS: busPIRone TAB* 30 MG PO SCH ×2 (08:58→19:44)
[2017-08-15] MEDS: amLODIPine TAB* 5 MG PO SCH (08:59)
[2017-08-15] MEDS: traMADol TAB* 50 MG PO PRN (09:00)
[2017-08-15] MEDS: BREO ELLIPTA 200-25 MCG INH INH SCH (09:15)
--- NOTE | 2017-08-15 11:29 | PN ---
MHU: Group Therapy Note - Service Type Service Type: [id number] Group Psychotherapy - Cognitive Behavioral Group Therapy ( CBT):Patient was attentive and participatory in CBT programming this morning, and remained in good behavioral control. Patient expressed positive insights regarding relevant treatment interventions and goals.
--- NOTE | 2017-08-15 11:46 | PN ---
Subjective - Subjective Service Type: [id number] Hosp care 15 min low complexity Subjective: Maciel is found in bed where she presents as isolative and depressed. She is tolerating the lurasidone well so far but continues to feel suicidal. Objective - Appearance Appearance: Well Developed/Nourished Dysmorphic Features: No Hygiene: Normal Grooming: Fairly Well Kept - Behavior Psychomotor Activities: Abnormal-Decreased Exhibits Abnormal Movement: No - Attitude and Relatedness Attitude and Relatedness: Withdrawn Eye Contact: Fair - Speech Quality: Unpressured Latencies: Normal Quantity: Appropriate - Mood Patient's Decription of Mood: "Sad" - Affect Observed Affect: Constricted Affect Consistent with: Dysphoria - Thought Process Patient's Thought Process: Coherent Thought Content: Yes Suicidal Planning, No Passive Wish, No Homicidal Ideation, No Paranoid Ideation - Sensorium Experiencing Hallucinations: No, Sensorium is Clear Type of Hallucinations: Visual: No, Auditory: No, Command: No - Level of Consciousness Level of Consciousness: Lethargic Orientation: Yes Intact, Yes Orientated to Time, Yes Orientated to Place, Yes Orientated to Person - Impulse Control Impulse Control: Tenuous - Insight and Judgement Insight and Judgement: Fair - Group Participation Particating in Group Activities: Yes - Medication Management Medication Management Adherence: Yes Assessment - Assessment Merits Inpatient Hospitalization: For Immediate Safety, For Stabilization Inpatient DSM-IV Dx: Bipolar Depressed, severe without psychotic features Clinical Impression: 67 y.o. , white female with a history of bipolar disorder brought in voluntarily by her son seeking hospitalization for depressed mood with suicidal ideations to overdose on medications. Plan - Plan Treatment Plan: Name: MACIEL SHEPARD Birthdate: 1950 [id number] The patient remains on gabapentin. Discontinued quetiapine in favor of a trial of lurasidone, which we will increase from 40 to 60mg PO qhs. Continue to treat on inpatient basis. Continued Medication Management: Different Medication Medications: Current Medications Acetaminophen (Tylenol Tab*) 650 mg PO Q4H PRN PRN Reason: PAIN or TEMP > 101 F Al Hydrox/Mg Hydrox/Simethicone (Maalox Plus*) 30 ml PO Q4H PRN PRN Reason: INDIGESTION Albuterol (Ventolin Hfa Inhaler*) 2 puff INH Q4H PRN PRN Reason: WHEEZING Last Admin: 08/14/17 09:07 Dose: 2 puff Amlodipine Besylate (Norvasc Tab*) 5 mg PO DAILY [facility] Last Admin: 08/15/17 08:59 Dose: 5 mg Aspirin (Aspirin Ec Low Dose*) 81 mg PO DAILY [facility] Last Admin: 08/15/17 08:58 Dose: 81 mg Atorvastatin Calcium (Lipitor*) 40 mg PO DAILY [facility] Last Admin: 08/15/17 08:58 Dose: 40 mg Buspirone HCl (Buspar Tab*) 30 mg PO BID [facility] Last Admin: 08/15/17 08:58 Dose: 30 mg Cetirizine HCl (Zyrtec*) 10 mg PO DAILY [facility] Last Admin: 08/15/17 08:58 Dose: 10 mg Fluticasone Propionate (Flonase Nasal [place] 50mcg*) 2 spray BOTH NARES DAILY [facility] Last Admin: 08/15/17 08:57 Dose: Not Given Gabapentin (Neurontin Cap(*)) 600 mg PO QID [facility] Last Admin: 08/15/17 08:58 Dose: 600 mg Ibuprofen (Motrin Tab*) 600 mg PO Q6H PRN PRN Reason: FEVER/PAIN Lurasidone HCl (Latuda (Nf)) 60 mg PO BEDTIME [facility] Multivitamins (Theragran Tab*) 1 tab PO DAILY [facility] Last Admin: 08/15/17 08:58 Dose: 1 tab Nicotine (Nicotine Inhaler*) 10 mg INH Q2H PRN PRN Reason: CRAVING Last Admin: 08/15/17 07:29 Dose: 10 mg Nicotine Polacrilex (Nicotine Gum*) 2 mg PO Q2H PRN PRN Reason: CRAVING Last Admin: 08/15/17 07:30 Dose: 2 mg Breo Ellipta 200-25 (Mcg Inh) 1 dose INH DAILY [facility] Last Admin: 08/15/17 09:15 Dose: Not Given Omeprazole (Prilosec Cap*) 20 mg PO BID [facility] Last Admin: 08/15/17 08:58 Dose: 20 mg Tramadol HCl (Ultram*) 50 mg PO BID PRN PRN Reason: PAIN Last Admin: 08/15/17 09:00 Dose: 50 mg - Discharge Plan Discharge Plan: Inpatient Hospitalization Lab Results - Lab Results Lab Results: 08/14/17 08/14/17 07:32 07:32 Hemoglobin A1c 5.5 Triglycerides 102 Cholesterol 211 LDL Cholesterol 148 HDL Cholesterol 43.0
[2017-08-15] MEDS ORDERED: Lurasidone(*) 20 MG TAB PO SCH (21:00)
[2017-08-16] MEDS: Gabapentin CAP(*) 300 MG PO SCH ×4 (09:09→20:08)
[2017-08-16] MEDS: Atorvastatin* 40 MG TAB PO SCH (09:09)
[2017-08-16] MEDS: Fluticasone NASAL SPRAY 50MCG* 16 gm SPRAY BTL BOTH NARES SCH (09:09)
[2017-08-16] MEDS: Cetirizine* 10 MG TAB PO SCH (09:09)
[2017-08-16] MEDS: amLODIPine TAB* 5 MG PO SCH (09:09)
[2017-08-16] MEDS: Vitamin THERAPEUTIC TAB PO SCH (09:10)
[2017-08-16] MEDS: traMADol TAB* 50 MG PO PRN ×2 (09:10→13:39)
[2017-08-16] MEDS: busPIRone TAB* 30 MG PO SCH ×2 (09:10→20:07)
[2017-08-16] MEDS: Aspirin EC Low Dose* 81 MG TAB.EC PO SCH (09:10)
[2017-08-16] MEDS: Omeprazole CAP* 20 MG PO SCH ×2 (09:10→20:07)
[2017-08-16] MEDS: BREO ELLIPTA 200-25 MCG INH INH SCH (09:14)
[2017-08-16] MEDS: Nicotine Inhaler* 10 MG AMP INH PRN ×2 (11:13→17:34)
--- NOTE | 2017-08-16 11:23 | PN ---
MHU: Group Therapy Note - Service Type Service Type: [id number] Group Psychotherapy - Cognitive Behavioral Group Therapy ( CBT):Patient was attentive and participatory in CBT programming this morning, and remained in good behavioral control. Patient expressed positive insights regarding relevant treatment interventions and goals.
--- NOTE | 2017-08-16 17:01 | PN ---
Subjective - Subjective Service Type: 54176 Hosp care 15 min low complexity Subjective: Patient still depressed with SI. Tolerating lurasidone well but has not experienced much benefit. Going to groups but states she has hard time focussing and getting anything out of them. Objective - Appearance Appearance: Obese Dysmorphic Features: No Hygiene: Normal Grooming: Well Kept - Behavior Psychomotor Activities: Abnormal-Decreased Exhibits Abnormal Movement: No - Attitude and Relatedness Attitude and Relatedness: Cooperative Eye Contact: Fair - Speech Quality: Unpressured Latencies: Normal Quantity: Appropriate - Mood Patient's Decription of Mood: "Sad" - Affect Observed Affect: Constricted Affect Consistent with: Dysphoria - Thought Process Patient's Thought Process: Coherent Thought Content: Yes Suicidal Planning, No Passive Wish, No Homicidal Ideation, No Paranoid Ideation - Sensorium Experiencing Hallucinations: No, Sensorium is Clear Type of Hallucinations: Visual: No, Auditory: No, Command: No - Level of Consciousness Level of Consciousness: Alert Orientation: Yes Intact, Yes Orientated to Time, Yes Orientated to Place, Yes Orientated to Person - Impulse Control Impulse Control: Tenuous - Insight and Judgement Insight and Judgement: Fair - Group Participation Particating in Group Activities: Yes - Medication Management Medication Management Adherence: Yes Assessment - Assessment Merits Inpatient Hospitalization: For Immediate Safety, For Stabilization Inpatient DSM-IV Dx: Bipolar Depressed, severe without psychotic features Clinical Impression: 67 y.o. , white female with a history of bipolar disorder brought in voluntarily by her son seeking hospitalization for depressed mood with suicidal ideations to asphyxiate herself with CO from her stove. Plan - Plan Treatment Plan: Name: MACIEL SHEPARD Birthdate: 1950 [id number] The patient remains on gabapentin. Discontinued quetiapine in favor of a trial of lurasidone, which we will increase from 60 to 80mg PO qhs. Continue to treat on inpatient basis. Continued Medication Management: Start Medication Medications: Current Medications Acetaminophen (Tylenol Tab*) 650 mg PO Q4H PRN PRN Reason: PAIN or TEMP > 101 F Al Hydrox/Mg Hydrox/Simethicone (Maalox Plus*) 30 ml PO Q4H PRN PRN Reason: INDIGESTION Albuterol (Ventolin Hfa Inhaler*) 2 puff INH Q4H PRN PRN Reason: WHEEZING Last Admin: 08/14/17 09:07 Dose: 2 puff Amlodipine Besylate (Norvasc Tab*) 5 mg PO DAILY [facility] Last Admin: 08/16/17 09:09 Dose: 5 mg Aspirin (Aspirin Ec Low Dose*) 81 mg PO DAILY [facility] Last Admin: 08/16/17 09:10 Dose: 81 mg Atorvastatin Calcium (Lipitor*) 40 mg PO DAILY [facility] Last Admin: 08/16/17 09:09 Dose: 40 mg Buspirone HCl (Buspar Tab*) 30 mg PO BID [facility] Last Admin: 08/16/17 09:10 Dose: 30 mg Cetirizine HCl (Zyrtec*) 10 mg PO DAILY [facility] Last Admin: 08/16/17 09:09 Dose: 10 mg Fluticasone Propionate (Flonase Nasal [place] 50mcg*) 2 spray BOTH NARES DAILY [facility] Last Admin: 08/16/17 09:09 Dose: Not Given Gabapentin (Neurontin Cap(*)) 600 mg PO QID [facility] Last Admin: 08/16/17 12:37 Dose: 600 mg Ibuprofen (Motrin Tab*) 600 mg PO Q6H PRN PRN Reason: FEVER/PAIN Lurasidone HCl (Latuda (Nf)) 80 mg PO BEDTIME [facility] Multivitamins (Theragran Tab*) 1 tab PO DAILY [facility] Last Admin: 08/16/17 09:10 Dose: 1 tab Nicotine (Nicotine Inhaler*) 10 mg INH Q2H PRN PRN Reason: CRAVING Last Admin: 08/16/17 11:13 Dose: 10 mg Nicotine Polacrilex (Nicotine Gum*) 2 mg PO Q2H PRN PRN Reason: CRAVING Last Admin: 08/15/17 15:33 Dose: 2 mg Breo Ellipta 200-25 (Mcg Inh) 1 dose INH DAILY [facility] Last Admin: 08/16/17 09:14 Dose: Not Given Omeprazole (Prilosec Cap*) 20 mg PO BID [facility] Last Admin: 08/16/17 09:10 Dose: 20 mg Tramadol HCl (Ultram*) 50 mg PO BID PRN PRN Reason: PAIN Last Admin: 08/16/17 13:39 Dose: 50 mg - Discharge Plan Discharge Plan: Inpatient Hospitalization
[2017-08-16] MEDS: CMCS:Lurasidone (NF) 40 MG TAB PO SCH (20:08)
[2017-08-17] MEDS: Omeprazole CAP* 20 MG PO SCH ×2 (08:58→20:15)
[2017-08-17] MEDS: Cetirizine* 10 MG TAB PO SCH (08:58)
[2017-08-17] MEDS: Gabapentin CAP(*) 300 MG PO SCH ×4 (08:59→20:16)
[2017-08-17] MEDS: amLODIPine TAB* 5 MG PO SCH (08:59)
[2017-08-17] MEDS: Aspirin EC Low Dose* 81 MG TAB.EC PO SCH (08:59)
[2017-08-17] MEDS: Vitamin THERAPEUTIC TAB PO SCH (08:59)
[2017-08-17] MEDS: busPIRone TAB* 30 MG PO SCH ×2 (08:59→20:16)
[2017-08-17] MEDS: Atorvastatin* 40 MG TAB PO SCH (08:59)
[2017-08-17] MEDS: traMADol TAB* 50 MG PO PRN ×2 (09:46→15:57)
--- NOTE | 2017-08-17 11:15 | PN ---
MHU: Group Therapy Note - Service Type Service Type: [id number] Group Psychotherapy - Cognitive Behavioral Group Therapy ( CBT):Patient was attentive and participatory in CBT programming this morning, and remained in good behavioral control. Patient expressed positive insights regarding relevant treatment interventions and goals.
[2017-08-17] MEDS: Nicotine Inhaler* 10 MG AMP INH PRN ×2 (11:48→18:33)
[2017-08-17] MEDS: Nicotine GUM* 2 MG PO PRN (11:48)
[2017-08-17] MEDS: Fluticasone NASAL SPRAY 50MCG* 16 gm SPRAY BTL BOTH NARES SCH (11:50)
[2017-08-17] MEDS: BREO ELLIPTA 200-25 MCG INH INH SCH (11:50)
--- NOTE | 2017-08-17 16:15 | PN ---
Subjective - Subjective Service Type: 58307 Hosp care 15 min low complexity Subjective: The patient is calm and cooperative but still quite depressed. She is tolerating the lurasidone well but denies feeling any benefit from this thus far. Although she attends groups she has some difficulty following what's going on in them. Objective - Appearance Appearance: Well Developed/Nourished Dysmorphic Features: No Hygiene: Normal Grooming: Well Kept - Behavior Psychomotor Activities: Normal Exhibits Abnormal Movement: No - Attitude and Relatedness Attitude and Relatedness: Cooperative Eye Contact: Fair - Speech Quality: Unpressured Latencies: Normal Quantity: Terse - Mood Patient's Decription of Mood: "Sad" - Affect Observed Affect: Constricted - Thought Process Patient's Thought Process: Coherent Thought Content: Yes Suicidal Planning, No Passive Wish, No Homicidal Ideation, No Paranoid Ideation - Sensorium Experiencing Hallucinations: No, Sensorium is Clear Type of Hallucinations: Visual: No, Auditory: No, Command: No - Level of Consciousness Level of Consciousness: Alert Orientation: Yes Intact, Yes Orientated to Time, Yes Orientated to Place, Yes Orientated to Person - Impulse Control Impulse Control: Poor - Insight and Judgement Insight and Judgement: Impaired - Group Participation Particating in Group Activities: Yes - Medication Management Medication Management Adherence: Yes Assessment - Assessment Merits Inpatient Hospitalization: For Immediate Safety, For Stabilization Inpatient DSM-IV Dx: Bipolar Depressed, severe without psychotic features Clinical Impression: 67 y.o. , white female with a history of bipolar disorder brought in voluntarily by her son seeking hospitalization for depressed mood with suicidal ideations to asphyxiate herself with CO from her stove. Plan - Plan Treatment Plan: Name: MACIEL SHEPARD Birthdate: 1950 [id number] The patient remains on gabapentin. Discontinued quetiapine in favor of a trial of lurasidone 80mg PO qhs. Continue to treat on inpatient basis. Continued Medication Management: Different Medication Medications: Current Medications Acetaminophen (Tylenol Tab*) 650 mg PO Q4H PRN PRN Reason: PAIN or TEMP > 101 F Al Hydrox/Mg Hydrox/Simethicone (Maalox Plus*) 30 ml PO Q4H PRN PRN Reason: INDIGESTION Albuterol (Ventolin Hfa Inhaler*) 2 puff INH Q4H PRN PRN Reason: WHEEZING Last Admin: 08/14/17 09:07 Dose: 2 puff Amlodipine Besylate (Norvasc Tab*) 5 mg PO DAILY [facility] Last Admin: 08/17/17 08:59 Dose: 5 mg Aspirin (Aspirin Ec Low Dose*) 81 mg PO DAILY [facility] Last Admin: 08/17/17 08:59 Dose: 81 mg Atorvastatin Calcium (Lipitor*) 40 mg PO DAILY [facility] Last Admin: 08/17/17 08:59 Dose: 40 mg Buspirone HCl (Buspar Tab*) 30 mg PO BID [facility] Last Admin: 08/17/17 08:59 Dose: 30 mg Cetirizine HCl (Zyrtec*) 10 mg PO DAILY [facility] Last Admin: 08/17/17 08:58 Dose: 10 mg Fluticasone Propionate (Flonase Nasal [place] 50mcg*) 2 spray BOTH NARES DAILY [facility] Last Admin: 08/17/17 11:50 Dose: Not Given Gabapentin (Neurontin Cap(*)) 600 mg PO QID [facility] Last Admin: 08/17/17 14:06 Dose: 600 mg Ibuprofen (Motrin Tab*) 600 mg PO Q6H PRN PRN Reason: FEVER/PAIN Lurasidone HCl (Latuda (Nf)) 80 mg PO BEDTIME [facility] Last Admin: 08/16/17 20:08 Dose: 80 mg Multivitamins (Theragran Tab*) 1 tab PO DAILY [facility] Last Admin: 08/17/17 08:59 Dose: 1 tab Nicotine (Nicotine Inhaler*) 10 mg INH Q2H PRN PRN Reason: CRAVING Last Admin: 08/17/17 11:48 Dose: 10 mg Nicotine Polacrilex (Nicotine Gum*) 2 mg PO Q2H PRN PRN Reason: CRAVING Last Admin: 08/17/17 11:48 Dose: 2 mg Breo Ellipta 200-25 (Mcg Inh) 1 dose INH DAILY [facility] Last Admin: 08/17/17 11:50 Dose: Not Given Omeprazole (Prilosec Cap*) 20 mg PO BID [facility] Last Admin: 08/17/17 08:58 Dose: 20 mg Tramadol HCl (Ultram*) 50 mg PO BID PRN PRN Reason: PAIN Last Admin: 08/17/17 15:57 Dose: 50 mg - Discharge Plan Discharge Plan: Inpatient Hospitalization
[2017-08-17] MEDS: Docusate CAP* 100 MG PO PRN (18:33)
[2017-08-17] MEDS: CMCS:Lurasidone (NF) 40 MG TAB PO SCH (20:16)
[2017-08-18] MEDS: Vitamin THERAPEUTIC TAB PO SCH (08:37)
[2017-08-18] MEDS: Aspirin EC Low Dose* 81 MG TAB.EC PO SCH (08:37)
[2017-08-18] MEDS: Gabapentin CAP(*) 300 MG PO SCH ×4 (08:37→19:56)
[2017-08-18] MEDS: amLODIPine TAB* 5 MG PO SCH (08:37)
[2017-08-18] MEDS: Omeprazole CAP* 20 MG PO SCH ×2 (08:38→19:56)
[2017-08-18] MEDS: Cetirizine* 10 MG TAB PO SCH (08:38)
[2017-08-18] MEDS: Atorvastatin* 40 MG TAB PO SCH (08:38)
[2017-08-18] MEDS: Nicotine Inhaler* 10 MG AMP INH PRN ×4 (08:38→19:26)
[2017-08-18] MEDS: busPIRone TAB* 30 MG PO SCH ×2 (09:11→19:56)
[2017-08-18] MEDS: Fluticasone NASAL SPRAY 50MCG* 16 gm SPRAY BTL BOTH NARES SCH (09:11)
[2017-08-18] MEDS: BREO ELLIPTA 200-25 MCG INH INH SCH (09:12)
[2017-08-18] MEDS: traMADol TAB* 50 MG PO PRN (10:59)
--- NOTE | 2017-08-18 11:25 | PN ---
Subjective - Subjective Service Type: 21536 Hosp care 15 min low complexity Subjective: Patient still appears depressed and endorses this as her subjective state of mood. She feels scared about the future and is unsure whether she'll ever feel better. We discuss the possibility of ECT and she states "I'm scared of that too!" She endorses continued thoughts of ending her life via carbon monoxide poisoning. Objective - Appearance Appearance: Obese Dysmorphic Features: No Hygiene: Normal Grooming: Fairly Well Kept - Behavior Psychomotor Activities: Normal Exhibits Abnormal Movement: No - Attitude and Relatedness Attitude and Relatedness: Cooperative Eye Contact: Fair - Speech Quality: Unpressured Latencies: Normal Quantity: Appropriate - Mood Patient's Decription of Mood: "Sad" - Affect Observed Affect: Constricted Affect Consistent with: Dysphoria - Thought Process Patient's Thought Process: Coherent Thought Content: Yes Suicidal Planning, No Passive Wish, No Homicidal Ideation, No Paranoid Ideation - Sensorium Experiencing Hallucinations: No, Sensorium is Clear Type of Hallucinations: Visual: No, Auditory: No, Command: No - Level of Consciousness Level of Consciousness: Alert Orientation: Yes Intact, Yes Orientated to Time, Yes Orientated to Place, Yes Orientated to Person - Impulse Control Impulse Control: Tenuous - Insight and Judgement Insight and Judgement: Fair - Group Participation Particating in Group Activities: Yes - Medication Management Medication Management Adherence: Yes Assessment - Assessment Merits Inpatient Hospitalization: For Immediate Safety, For Stabilization Inpatient DSM-IV Dx: Bipolar Depressed, severe without psychotic features Clinical Impression: 67 y.o. , white female with a history of bipolar disorder brought in voluntarily by her son seeking hospitalization for depressed mood with suicidal ideations to asphyxiate herself with CO from her stove. Plan - Plan Treatment Plan: Name: MACIEL SHEPARD Birthdate: 1950 [id number] The patient remains on gabapentin 600mg PO QID and busiparone 30mg PO BID. Discontinued quetiapine in favor of a trial of lurasidone 80mg PO qhs. Continue to treat on inpatient basis. May consider ECT if no improvement through weekend. Continued Medication Management: Different Medication Medications: Current Medications Acetaminophen (Tylenol Tab*) 650 mg PO Q4H PRN PRN Reason: PAIN or TEMP > 101 F Al Hydrox/Mg Hydrox/Simethicone (Maalox Plus*) 30 ml PO Q4H PRN PRN Reason: INDIGESTION Albuterol (Ventolin Hfa Inhaler*) 2 puff INH Q4H PRN PRN Reason: WHEEZING Last Admin: 08/14/17 09:07 Dose: 2 puff Amlodipine Besylate (Norvasc Tab*) 5 mg PO DAILY [facility] Last Admin: 08/18/17 08:37 Dose: 5 mg Aspirin (Aspirin Ec Low Dose*) 81 mg PO DAILY [facility] Last Admin: 08/18/17 08:37 Dose: 81 mg Atorvastatin Calcium (Lipitor*) 40 mg PO DAILY [facility] Last Admin: 08/18/17 08:38 Dose: 40 mg Buspirone HCl (Buspar Tab*) 30 mg PO BID [facility] Last Admin: 08/18/17 09:11 Dose: 30 mg Cetirizine HCl (Zyrtec*) 10 mg PO DAILY [facility] Last Admin: 08/18/17 08:38 Dose: 10 mg Docusate Sodium (Colace Cap*) 100 mg PO BID PRN PRN Reason: CONSTIPATION Last Admin: 08/17/17 18:33 Dose: 100 mg Fluticasone Propionate (Flonase Nasal [place] 50mcg*) 2 spray BOTH NARES DAILY [facility] Last Admin: 08/18/17 09:11 Dose: Not Given Gabapentin (Neurontin Cap(*)) 600 mg PO QID [facility] Last Admin: 08/18/17 08:37 Dose: 600 mg Ibuprofen (Motrin Tab*) 600 mg PO Q6H PRN PRN Reason: FEVER/PAIN Lurasidone HCl (Latuda (Nf)) 80 mg PO BEDTIME [facility] Last Admin: 08/17/17 20:16 Dose: 80 mg Multivitamins (Theragran Tab*) 1 tab PO DAILY [facility] Last Admin: 08/18/17 08:37 Dose: 1 tab Nicotine (Nicotine Inhaler*) 10 mg INH Q2H PRN PRN Reason: CRAVING Last Admin: 08/18/17 08:38 Dose: 10 mg Nicotine Polacrilex (Nicotine Gum*) 2 mg PO Q2H PRN PRN Reason: CRAVING Last Admin: 08/17/17 11:48 Dose: 2 mg Breo Ellipta 200-25 (Mcg Inh) 1 dose INH DAILY [facility] Last Admin: 08/18/17 09:12 Dose: Not Given Omeprazole (Prilosec Cap*) 20 mg PO BID [facility] Last Admin: 08/18/17 08:38 Dose: 20 mg Tramadol HCl (Ultram*) 50 mg PO BID PRN PRN Reason: PAIN Last Admin: 08/18/17 10:59 Dose: 50 mg - Discharge Plan Discharge Plan: Inpatient Hospitalization
[2017-08-18] MEDS: Nicotine GUM* 2 MG PO PRN (13:40)
[2017-08-18] MEDS: CMCS:Lurasidone (NF) 40 MG TAB PO SCH (19:56)
[2017-08-19] MEDS: traMADol TAB* 50 MG PO PRN ×2 (08:15→18:41)
[2017-08-19] MEDS: Docusate CAP* 100 MG PO PRN (08:16)
[2017-08-19] MEDS: busPIRone TAB* 30 MG PO SCH ×2 (08:16→20:21)
[2017-08-19] MEDS: Cetirizine* 10 MG TAB PO SCH (08:16)
[2017-08-19] MEDS: Omeprazole CAP* 20 MG PO SCH ×2 (08:16→20:21)
[2017-08-19] MEDS: Aspirin EC Low Dose* 81 MG TAB.EC PO SCH (08:16)
[2017-08-19] MEDS: amLODIPine TAB* 5 MG PO SCH (08:16)
[2017-08-19] MEDS: Atorvastatin* 40 MG TAB PO SCH (08:16)
[2017-08-19] MEDS: Gabapentin CAP(*) 300 MG PO SCH ×4 (08:17→20:21)
[2017-08-19] MEDS: Fluticasone NASAL SPRAY 50MCG* 16 gm SPRAY BTL BOTH NARES SCH (08:20)
[2017-08-19] MEDS: BREO ELLIPTA 200-25 MCG INH INH SCH (08:26)
[2017-08-19] MEDS: Vitamin THERAPEUTIC TAB PO SCH (10:02)
[2017-08-19] MEDS: Nicotine Inhaler* 10 MG AMP INH PRN (12:43)
[2017-08-19] MEDS: Nicotine GUM* 2 MG PO PRN (12:43)
--- NOTE | 2017-08-19 12:57 | PN ---
Subjective - Subjective Service Type: 40634 Hosp care 15 min low complexity Subjective: The patient continues to complain of depressed mood and vague SI to kill herself with her oven at home. She feels overmedicated by gabapentin and feels she cannot get much out of groups because she can't focus. The patient requests sodas with her meals. She is having frequent anxiety attacks, especially when thinking about her treatment. Objective - Appearance Appearance: Obese Dysmorphic Features: No Hygiene: Normal Grooming: Fairly Well Kept - Behavior Psychomotor Activities: Abnormal-Decreased Exhibits Abnormal Movement: No - Attitude and Relatedness Attitude and Relatedness: Cooperative Eye Contact: Fair - Speech Quality: Unpressured Latencies: Normal Quantity: Terse - Mood Patient's Decription of Mood: "Anxious" - Affect Observed Affect: Constricted Affect Consistent with: Dysphoria - Thought Process Patient's Thought Process: Coherent Thought Content: Yes Suicidal Planning, No Passive Wish, No Homicidal Ideation, No Paranoid Ideation - Sensorium Experiencing Hallucinations: No, Sensorium is Clear Type of Hallucinations: Visual: No, Auditory: No, Command: No - Level of Consciousness Level of Consciousness: Lethargic Orientation: Yes Intact, Yes Orientated to Time, Yes Orientated to Place, Yes Orientated to Person - Impulse Control Impulse Control: Tenuous - Insight and Judgement Insight and Judgement: Fair - Group Participation Particating in Group Activities: Yes - Medication Management Medication Management Adherence: Yes Assessment - Assessment Merits Inpatient Hospitalization: For Immediate Safety, For Stabilization Inpatient DSM-IV Dx: Bipolar Depressed, severe without psychotic features Clinical Impression: 67 y.o. , white female with a history of bipolar disorder brought in voluntarily by her son seeking hospitalization for depressed mood with suicidal ideations to asphyxiate herself with CO from her stove. Plan - Plan Treatment Plan: Name: MACIEL SHEPARD Birthdate: 1950 [id number] The patient remains on gabapentin 600mg PO QID and busiparone 30mg PO BID. Discontinued quetiapine in favor of a trial of lurasidone 80mg PO qhs. Will lower gabapentin to 600mg PO TID due to sedation. Can use lorazepam as prn for anxiety. Continue to treat on inpatient basis. May consider ECT or lithium augmentation if no improvement through weekend. Continued Medication Management: Different Medication Medications: Current Medications Acetaminophen (Tylenol Tab*) 650 mg PO Q4H PRN PRN Reason: PAIN or TEMP > 101 F Al Hydrox/Mg Hydrox/Simethicone (Maalox Plus*) 30 ml PO Q4H PRN PRN Reason: INDIGESTION Albuterol (Ventolin Hfa Inhaler*) 2 puff INH Q4H PRN PRN Reason: WHEEZING Last Admin: 08/14/17 09:07 Dose: 2 puff Amlodipine Besylate (Norvasc Tab*) 5 mg PO DAILY [facility] Last Admin: 08/19/17 08:16 Dose: 5 mg Aspirin (Aspirin Ec Low Dose*) 81 mg PO DAILY [facility] Last Admin: 08/19/17 08:16 Dose: 81 mg Atorvastatin Calcium (Lipitor*) 40 mg PO DAILY [facility] Last Admin: 08/19/17 08:16 Dose: 40 mg Buspirone HCl (Buspar Tab*) 30 mg PO BID [facility] Last Admin: 08/19/17 08:16 Dose: 30 mg Cetirizine HCl (Zyrtec*) 10 mg PO DAILY [facility] Last Admin: 08/19/17 08:16 Dose: 10 mg Docusate Sodium (Colace Cap*) 100 mg PO BID PRN PRN Reason: CONSTIPATION Last Admin: 08/19/17 08:16 Dose: 100 mg Fluticasone Propionate (Flonase Nasal [place] 50mcg*) 2 spray BOTH NARES DAILY [facility] Last Admin: 08/19/17 08:20 Dose: Not Given Gabapentin (Neurontin Cap(*)) 600 mg PO TID [facility] Ibuprofen (Motrin Tab*) 600 mg PO Q6H PRN PRN Reason: FEVER/PAIN Lorazepam (Ativan Tab(*)) 1 mg PO Q6H PRN PRN Reason: ANXIETY Lurasidone HCl (Latuda (Nf)) 80 mg PO BEDTIME [facility] Last Admin: 08/18/17 19:56 Dose: 80 mg Multivitamins (Theragran Tab*) 1 tab PO DAILY [facility] Last Admin: 08/19/17 10:02 Dose: Not Given Nicotine (Nicotine Inhaler*) 10 mg INH Q2H PRN PRN Reason: CRAVING Last Admin: 08/19/17 12:43 Dose: 10 mg Nicotine Polacrilex (Nicotine Gum*) 2 mg PO Q2H PRN PRN Reason: CRAVING Last Admin: 08/19/17 12:43 Dose: 2 mg Breo Ellipta 200-25 (Mcg Inh) 1 dose INH DAILY [facility] Last Admin: 08/19/17 08:26 Dose: Not Given Omeprazole (Prilosec Cap*) 20 mg PO BID [facility] Last Admin: 08/19/17 08:16 Dose: 20 mg Tramadol HCl (Ultram*) 50 mg PO BID PRN PRN Reason: PAIN Last Admin: 08/19/17 08:15 Dose: 50 mg - Discharge Plan Discharge Plan: Inpatient Hospitalization
--- NOTE | 2017-08-19 13:58 | PN ---
[facility]HU: Group Therapy Note - Service Type Service Type: 72330 Group Psychotherapy - Cognitive Behavioral Group Therapy ( CBT):Patient was attentive and participatory in CBT programming this morning, and remained in good behavioral control. Patient expressed positive insights regarding relevant treatment interventions and goals.
[2017-08-19] MEDS: LORazepam TAB(*) 1 MG PO PRN (15:29)
[2017-08-19] MEDS: CMCS:Lurasidone (NF) 40 MG TAB PO SCH (20:21)
[2017-08-20] MEDS: Aspirin EC Low Dose* 81 MG TAB.EC PO SCH (08:40)
[2017-08-20] MEDS: Gabapentin CAP(*) 300 MG PO SCH ×3 (08:40→21:01)
[2017-08-20] MEDS: Vitamin THERAPEUTIC TAB PO SCH (08:40)
[2017-08-20] MEDS: busPIRone TAB* 30 MG PO SCH ×2 (08:40→21:00)
[2017-08-20] MEDS: Omeprazole CAP* 20 MG PO SCH ×2 (08:40→21:00)
[2017-08-20] MEDS: Nicotine Inhaler* 10 MG AMP INH PRN ×2 (08:41→12:08)
[2017-08-20] MEDS: Nicotine GUM* 2 MG PO PRN (08:41)
[2017-08-20] MEDS: amLODIPine TAB* 5 MG PO SCH (08:41)
[2017-08-20] MEDS: Cetirizine* 10 MG TAB PO SCH (08:41)
[2017-08-20] MEDS: Fluticasone NASAL SPRAY 50MCG* 16 gm SPRAY BTL BOTH NARES SCH (08:42)
[2017-08-20] MEDS: BREO ELLIPTA 200-25 MCG INH INH SCH (08:42)
[2017-08-20] MEDS: Atorvastatin* 40 MG TAB PO SCH (08:42)
[2017-08-20] MEDS: traMADol TAB* 50 MG PO PRN ×2 (08:46→13:05)
[2017-08-20] MEDS: LORazepam TAB(*) 1 MG PO PRN (08:47)
[2017-08-20] MEDS: CMCS:Lurasidone (NF) 40 MG TAB PO SCH (21:01)
[2017-08-21] MEDS: Albuterol HFA INHALER* 8 gm MDI INH PRN (08:22)
[2017-08-21] MEDS: Aspirin EC Low Dose* 81 MG TAB.EC PO SCH (08:22)
[2017-08-21] MEDS: busPIRone TAB* 30 MG PO SCH ×2 (08:23→20:57)
[2017-08-21] MEDS: Cetirizine* 10 MG TAB PO SCH (08:23)
[2017-08-21] MEDS: Vitamin THERAPEUTIC TAB PO SCH (08:23)
[2017-08-21] MEDS: Fluticasone NASAL SPRAY 50MCG* 16 gm SPRAY BTL BOTH NARES SCH (08:23)
[2017-08-21] MEDS: Atorvastatin* 40 MG TAB PO SCH (08:24)
[2017-08-21] MEDS: traMADol TAB* 50 MG PO PRN (08:24)
[2017-08-21] MEDS: amLODIPine TAB* 5 MG PO SCH (08:24)
[2017-08-21] MEDS: LORazepam TAB(*) 1 MG PO PRN ×2 (08:24→16:12)
[2017-08-21] MEDS: Gabapentin CAP(*) 300 MG PO SCH ×3 (08:25→20:57)
[2017-08-21] MEDS: Omeprazole CAP* 20 MG PO SCH ×2 (08:25→20:57)
[2017-08-21] MEDS: BREO ELLIPTA 200-25 MCG INH INH SCH (08:26)
[2017-08-21 08:27] VITALS: BP 137/62
[2017-08-21] MEDS ORDERED: Mouth Piece, Nicotine* 1 EACH CARTRIDGE ONE (09:19)
[2017-08-21] MEDS: Nicotine Inhaler* 10 MG AMP INH PRN ×2 (09:19→16:11)
[2017-08-21] MEDS: CMCS:Lurasidone (NF) 40 MG TAB PO SCH (20:57)
--- NOTE | 2017-08-22 07:31 | CONSULT ---
Consult Consult: CAT summary, for further details see CAT record Upon arrival, Mrs Dewey is found on the floor in her restroom lying on her back with her head propped up on the shower stoop. She relates she became 'woozy' while getting up to use the restroom and fell backwards hitting her head. She had no chest pain, SOB, palpitations, nausea, or other symptoms. She denies spinning dizziness or LOC. She reports R infero-lateral rib pain, denies neck/ head pain. Vitals are reviewed, hypertensive, with stable pulse and saO2; POC glucose was 108. lungs: clear CV: RRR abd: SNTND ext: W&D Assessment: plan fall w/ head injury : transfer to ED for further evaluation : case referred to & discussed with Tammy Chance MD ED : CT brain WO, CT C-spine WO, & pCXR ordered
--- NOTE | 2017-08-22 08:01 | RAD ---
HISTORY: Fall with head injury COMPARISONS: July 01, 2017 TECHNIQUE: Multiple contiguous axial CT scans were obtained of the head without intravenous contrast. FINDINGS: HEMORRHAGE/INFARCT: There is no hemorrhage or acute infarct. MASSES/SHIFT: There is no mass or shift. EXTRA-AXIAL SPACES: There are no extra-axial fluid collections. SULCI AND VENTRICLES: The sulci and ventricles are normal in size and position for the patient's stated age. CEREBRUM: There is hypoattenuation of the periventricular and subcortical white matter. There is left posterior frontal encephalomalacia. BRAINSTEM: There are no focal parenchymal abnormalities. CEREBELLUM: There are no focal parenchymal abnormalities. VESSELS: The vessels are grossly normal. PARANASAL SINUSES: The paranasal sinuses are clear. ORBITS: The orbits are unremarkable. BONES AND SOFT TISSUE: No bone or soft tissue abnormalities are noted. OTHER: None IMPRESSION: 1. CHRONIC SMALL VESSEL ISCHEMIC CHANGES WITH EVIDENCE OF REMOTE INFARCT OF THE LEFT FRONTAL LOBE. 2. NO ACUTE INTRACRANIAL PATHOLOGY.
--- NOTE | 2017-08-22 08:06 | RAD ---
Indication: Fall with head injury. CT of the cervical spine was obtained in the axial plane. Sagittal and coronal reconstructed images were obtained. Skull base demonstrates no fracture. C1 ring is intact. Vertebral bodies appear normal in height. Disc space narrowing at C3-C4 is noted with osteophyte formation. Bilateral uncovertebral hypertrophy and bilateral foraminal stenosis is noted. Disc space narrowing at C4-C5 with no fracture. Bilateral uncovertebral joint hypertrophy with bilateral foraminal stenosis. C5-C6 spondylitic ridge with bilateral uncovertebral hypertrophy and bilateral foraminal stenosis. At C6-C7 degenerative disc disease is noted. Lung apices are unremarkable. IMPRESSION: Multilevel degenerative disc disease without evidence of fracture of the cervical spine.
--- NOTE | 2017-08-22 09:11 | RAD ---
Indication: Chest pain. Single frontal view of the chest performed at 0843 hours was reviewed. Comparison is made with previous exam dated July 01, 2017. No mediastinal shift is noted. Heart is of normal size and configuration. Lung crawford appear clear. IMPRESSION: NO ACTIVE CARDIOPULMONARY DISEASE IS NOTED.
[2017-08-22] MEDS: Gabapentin CAP(*) 300 MG PO SCH (09:21)
[2017-08-22] MEDS: amLODIPine TAB* 5 MG PO SCH (09:22)
[2017-08-22] MEDS: Aspirin EC Low Dose* 81 MG TAB.EC PO SCH (09:22)
[2017-08-22] MEDS: Atorvastatin* 40 MG TAB PO SCH (09:22)
[2017-08-22] MEDS: Cetirizine* 10 MG TAB PO SCH (09:22)
[2017-08-22] MEDS: busPIRone TAB* 30 MG PO SCH (09:22)
[2017-08-22] MEDS: Fluticasone NASAL SPRAY 50MCG* 16 gm SPRAY BTL BOTH NARES SCH (09:23)
[2017-08-22] MEDS: Omeprazole CAP* 20 MG PO SCH (09:23)
[2017-08-22] MEDS: Vitamin THERAPEUTIC TAB PO SCH (09:23)
[2017-08-22] MEDS: BREO ELLIPTA 200-25 MCG INH INH SCH (09:23)
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
== END 2017-09-01 14:45 | disposition short-term general hospital (02) | DRG 885 ==
LOC: ED 13:13 → UNDOADMIN 18:35 → BSU 18:35 → UNDODISIN 08-22 08:45
PROVIDERS: ADMIT Psychiatry & Neurology Psychiatry; ATTEND Psychiatry & Neurology Psychiatry
PROC: GZHZZZZ Group Psychotherapy (ICD-10-PCS; principal; 2017-08-16)
DX: F31.4 Bipolar disorder, current episode depressed, severe, without psychotic features (principal); S09.90XA Unspecified injury of head, initial encounter; R45.851 Suicidal ideations; J44.9 Chronic obstructive pulmonary disease, unspecified; I10 Essential (primary) hypertension; F10.21 Alcohol dependence, in remission; F11.21 Opioid dependence, in remission; F13.21 Sedative, hypnotic or anxiolytic dependence, in remission; F12.90 Cannabis use, unspecified, uncomplicated; K21.9 Gastro-esophageal reflux disease without esophagitis; G89.29 Other chronic pain; M54.9 Dorsalgia, unspecified; Z96.612 Presence of left artificial shoulder joint; F17.210 Nicotine dependence, cigarettes, uncomplicated; E78.5 Hyperlipidemia, unspecified; Z62.810 Personal history of physical and sexual abuse in childhood; M19.90 Unspecified osteoarthritis, unspecified site; F41.0 Panic disorder [episodic paroxysmal anxiety]; W17.89XA Other fall from one level to another, initial encounter; Y92.231 Patient bathroom in hospital as the place of occurrence of the external cause; Z86.73 Personal history of transient ischemic attack (TIA), and cerebral infarction without residual deficits; Z79.82 Long term (current) use of aspirin; Z88.1 Allergy status to other antibiotic agents; Z81.1 Family history of alcohol abuse and dependence; Z88.2 Allergy status to sulfonamides; Z81.8 Family history of other mental and behavioral disorders; Z82.49 Family history of ischemic heart disease and other diseases of the circulatory system; Z83.6 Family history of other diseases of the respiratory system
CPT/HCPCS: 36415; 70450; 71010; 72125; 80048; 80053; 80061; 80178; 80307; 80320; 80329; 81003; 81015; 83036; 84443; 85025; 87086; 90853; 97530; 99222; 99231; 99238; A9270-GY; G0480; J1885

== ENCOUNTER 2017-08-22 06:43 | Inpatient (IN) | payer MEDICARE, MEDICAID ==
[2017-08-22] MEDS ORDERED: Ketorolac INJ* 60 MG/2 ML VIAL IM ONE (07:25)
--- NOTE | 2017-08-22 09:12 | RAD ---
Indication: Right rib pain. 4 views of the right ribs demonstrates fractures of the right sixth seventh and eighth ribs laterally with displacement of the right sixth rib. The seventh and eighth ribs appear to be less displaced. IMPRESSION: Displaced fracture of the right sixth rib. Nondisplaced fractures of the right seventh and eighth ribs. No pneumothorax is noted.
[2017-08-22] MEDS ORDERED: oxyCODONE/Acetamin 5/325 MG* TAB PO ONE (09:23)
[2017-08-22] MEDS ORDERED: Al Hydrox/Mg Hydrox/Simet LIQ* 30 ML UDC PO PRN (14:10)
[2017-08-22] MEDS ORDERED: Docusate CAP* 100 MG PO PRN (14:17)
[2017-08-22] MEDS: oxyCODONE/Acetamin 5/325 MG* TAB PO PRN ×2 (15:33→21:57)
[2017-08-22] MEDS: Atorvastatin* 40 MG TAB PO SCH (17:19)
[2017-08-22] MEDS: Omeprazole CAP* 20 MG PO SCH (20:05)
[2017-08-22] MEDS: Gabapentin CAP(*) 300 MG PO SCH (20:05)
[2017-08-22] MEDS: busPIRone TAB* 30 MG PO SCH (20:05)
--- NOTE | 2017-08-22 20:58 | HP ---
PSYCHIATRIC HISTORY AND PHYSICAL: DATE OF ADMISSION: 08/22/17 JUSTIFICATION FOR ADMISSION: The patient is in need of 24-hour supervision and care secondary to white icidal ideations with a plan to asphyxiate herself with carbon monoxide poisoning. CHIEF COMPLAINT: "Well, I guess they brought me back here." HISTORY OF PRESENT ILLNESS: The patient is a 67-year-old white female with a history of bi polar disorder as well as polysubstance dependence which has been in relative remission for the past 10 years, who has now returned to our unit from the emergency room following a fall in her bathroom , which resulted in the displaced fracture of her right 6th rib. She also has nondisplaced fracture s of the right 7th and 8th ribs. Apparently this morning, the patient was overheard in her bathroom moaning and was discovered to be lying on her back with her neck raised on the curb of the shower. She was complaining of severe right flank pain stating that she felt woozy and that her legs had gi humaira out. A cat team was called and the patient was placed on a stretcher with a neck brace on and b rought to the emergency room for evaluation. There, her head CT was normal; however, x-ray of her c hest and ribs revealed the aforementioned fractures. At this time, she continues to be depressed an d suicidal and this is the justification for bringing her back on our unit. Prior to her discharge this morning, we had been discussing the possibility of ECT treatment for severe depression. She ashley d several neurovegetative symptoms of depression including poor sleep, lack of interest, guilt, ener gy disturbance, concentration problems, and psychomotor retardation. She is still having thoughts of committing suicide via carbon monoxide poisoning from the stove in her apartment. For the more com plete history, please refer to this clinician's psychiatric history and physical which was dated on 08/13/17. MENTAL STATUS EXAM: The patient is an ageing white female with dyed blonde hair, who is obese, fair ly well groomed. She is lying down in bed on her side appearing to be in some physical distress; al though, she is calm, well related, and easy to establish a rapport with. Speech has a normal rate, tone, and volume. Mood appears to be some dysthymic with constricted affect. Thought process is li near and goal directed. Thought content is mostly somatic due to right chest pain. She is also com plaining of some difficulty fully inspiring air. She is endorsing suicidal ideations with thoughts of asphyxiation via carbon monoxide poisoning. She denies homicidal ideations. The patient denies au ditory or visual hallucinations. Insight and judgment are fair given her willingness to come into [facility] on a voluntary status. Cognitively, she is awake and alert with what would appear to be an average intellect. DIAGNOSES: As follows: [place] I: Bipolar disorder, most recent episode depressed, severe with psychotic features; polysubst ance dependence in sustained remission (opioids, alcohol, benzodiazepines, cannabis use disorder). A xis II: Deferred. [place] III: Fracture of right 6th, 7th, and 8th ribs; chronic obstructive pulmonar y disease; gastroesophageal reflux disease; chronic back pain; hypertension; history of left-sided s troke in 2010; history of left shoulder replacement in 2013. [place] IV: Severe primary support and so cial environmental stressors. Lenox V: At this time is 40. IMPRESSION: The patient is a 67-year-old white female with a history of bipolar disorder a s well as polysubstance dependence, who has been recently sober with the exception of cannabis abuse , who was admitted on our unit since 08/12/17, who is just discharged this morning in order to go to the emergency room for workup following a fall. At this point, she has been diagnosed with fractur es in her right 6th, 7th, and 8th ribs, and she is quite uncomfortable. Prior to her leaving our [facility], we had been in discussions about perhaps referring her to ECT, although no formal plan has been made for this yet. PLAN: The patient is readmitted to the adult behavioral health unit where she was placed on q.15 mi nute checks for her own safety. We will resume all medications that she was on this morning with th e exception of replacing Tylenol with oxycodone 5/325 two tablets every 4 hours as needed for pain. Given her opioid abuse in the past, we need to be careful with this and make sure that she is not r eceiving too much of it. Prior to this, our switch from quetiapine to had led to limited bene fit and we should consider ECT. I will discuss this with the patient and refer to Tony davis if this is in line with what her desires are. [id number]/[facility] #: [id number]
[2017-08-23] MEDS: oxyCODONE/Acetamin 5/325 MG* TAB PO PRN ×3 (06:30→19:16)
[2017-08-23] MEDS: Albuterol HFA INHALER* 8 gm MDI INH PRN ×2 (06:40→18:34)
--- NOTE | 2017-08-23 07:17 | ED ---
Dasha Coyne Alfonso, scribed for Sam Pederson MD on 08/22/17 at 0723 . Adult Trauma - HPI Summary HPI Summary: This patient is a 67 year old F presenting to [facility] s/p a fall at approximately 0630 this morning. She reports falling backwards while getting dressed this morning. The patient rates the aching pain 10/10 in severity. Symptoms aggravated by nothing. Symptoms alleviated by nothing. Patient reports right rib pain and right low back pain. Patient denies neck pain, headache, head trauma, and LOC. She denies taking narcotics today. Tobacco abuse disorder. PMHx of polysubstance abuse and HTN. - History of Current Complaint Chief Complaint: EDGeneral Time Seen by Provider: 08/22/17 07:14 Hx Obtained From: Patient Mechanism of Injury: Fall Loss of Consciousness: no loss of consciousness Onset/Duration: Started Minutes Ago, Traumatic, Still Present Onset Severity: Moderate Current Severity: Severe Pain Intensity: 10 Pain Scale Used: 0-10 Numeric Location: Other - right low back and right ribs Aggravating Factor(s): Nothing Alleviating Factor(s): Nothing Associated Signs & Symptoms: Positive: Other: - right rib pain and right low back pain Related History: Substance Abuse - PMHx of polysubstance abuse. - Additional Pertinent History Primary Care Physician: [id number] - Allergy/Home Medications Allergies/Adverse Reactions: Allergies Allergy/AdvReac Type Severity Reaction Status Date / Time Ciprofloxacin [From Cipro] Allergy Mild Itching Verified 08/21/17 18:54 Sulfa Drugs Allergy Mild Itching Verified 08/21/17 18:54 PMH/Surg Hx/FS Hx/Imm Hx Endocrine/Hematology History: Reports: Hx Anemia - b12 shots Denies: Hx Diabetes, Hx Thyroid Disease Cardiovascular History: Reports: Hx Hypertension, Other Cardiovascular Problems/ Disorders - PT.STATES STROKE 2011 Denies: Hx Congestive Heart Failure, Hx Deep Vein Thrombosis, Hx Myocardial Infarction, Hx Pacemaker/ICD Respiratory History: Reports: Hx Asthma, Hx Chronic Obstructive Pulmonary Disease (COPD), Other Respiratory Problems/Disorders - COPD Denies: Hx Lung Cancer GI History: Reports: Other GI Disorders - DIVERTICULITIS Denies: Hx Gall Bladder Disease, Hx Gastrointestinal Bleed, Hx Ulcer, Hx Urosepsis History: Denies: Hx Kidney Stones, Hx Renal Disease Musculoskeletal History: Reports: Hx Arthritis, Hx Back Problems, Other Musculoskeletal History - L SHLDR REPAIR 12/2013 Sensory History: Reports: Hx Contacts or Glasses Denies: Hx Hearing Aid Opthamlomology History: Reports: Hx Contacts or Glasses Neurological History: Reports: Hx CVA - 2011, Hx Seizures Psychiatric History: Reports: Hx Anxiety, Hx Depression, Hx Panic Disorder, Hx Inpatient Treatment, Hx Community Mental Health Tx, Hx Bipolar Disorder, Hx Suicide Attempt, Hx of Violent Episodes Against Others, Hx Substance Abuse, Other Psychiatric Issues/Disorders - polysubstance abuse Denies: Hx Eating Disorder - Cancer History Hx Chemotherapy: No Hx Radiation Therapy: No - Surgical History Surgery Procedure, Year, and Place: LT SHOULDER REPLACEMENT 12/2013, ABD EXPLORATORY SURGERY, APPENDECTOMY Hx Anesthesia Reactions: No - Immunization History Date of Tetanus Vaccine: 12/03/13 Date of Influenza Vaccine: 2012 Infectious Disease History: No Infectious Disease History: Denies: Hx Hepatitis, Hx Human Immunodeficiency Virus (HIV), History Other Infectious Disease, Traveled Outside the [place] in Last 30 Days - Family History Known Family History: Positive: Hypertension, Respiratory Disease, Other - bipolar disorder, depression, alcohol abuse Negative: Cardiac Disease, Diabetes - Social History Alcohol Use: None 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, replaced Hx Substance Use: Yes Substance Use Type: Reports: None, Other Substance Use Comment - Amount & Last Used: opiates Hx Tobacco Use: Yes Smoking Status (MU): Heavy Every Day Tobacco Smoker Type: Cigarettes Amount Used/How Often: 1 PPD Length of Time of Smoking/Using Tobacco: 30 years Have You Smoked in the Last Year: Yes Review of Systems Negative: Fever Positive: Other - fall, right rib pain, and right low back pain; negative neck pain Neurological: Other - negative headache, head trauma, and LOC All Other Systems Reviewed And Are Negative: Yes Physical Exam - Summary Physical Exam Summary: VITAL SIGNS: Reviewed. GENERAL: Patient is a well-developed and nourished female who is lying comfortable in the stretcher. Patient is not in any acute respiratory distress. HEAD AND FACE: No signs of trauma. No ecchymosis, hematomas or skull depressions. No sinus tenderness. EYES: PERRLA, EOMI x 2, No injected conjunctiva, no nystagmus. EARS: Hearing grossly intact. Ear canals and tympanic membranes are within normal limits. MOUTH: Oropharynx within normal limits. NECK: Supple, trachea is midline, no adenopathy, no JVD, no carotid bruit, no c- spine tenderness, neck with full ROM. CHEST: Symmetric, no tenderness at palpation LUNGS: Clear to auscultation bilaterally. No wheezing or crackles. CVS: Regular rate and rhythm, S1 and S2 present, no murmurs or gallops appreciated. ABDOMEN: Soft, non-tender. No signs of distention. No rebound no guarding, and no masses palpated. Bowel sounds are normal. EXTREMITIES: FROM in all major joints, no edema, no cyanosis or clubbing. NEURO: Alert and oriented x 3. No acute neurological deficits. Speech is normal and follows commands. SKIN: Dry and warm. Obvious ecchymosis at posterior right rib cage at 10-11, where the patient is complaining of pain. Triage Information Reviewed: Yes Vital Signs On Initial Exam: Initial Vitals Temp Pulse Resp BP Pulse Ox 98.1 F 102 20 182/82 96 08/22/17 06:52 08/22/17 06:52 08/22/17 06:52 08/22/17 06:52 08/22/17 06:52 Vital Signs Reviewed: Yes - [place] Coma Scale Coma Scale Total: 15 Diagnostics - Vital Signs Vital Signs Temp Pulse Resp BP Pulse Ox 08/22/17 06:52 98.1 F 102 20 182/82 96 - Laboratory Lab Statement: Any lab studies that have been ordered have been reviewed, and results considered in the medical decision making process. - Radiology Ribs w/ Chest X-Ray Radiology Interpretation Completed By: Radiologist - Displaced fracture of the right sixth rib. Nondisplaced fractures of the right seventh and eighth ribs. No pneumothorax is noted. ED physician has reviewed this radiology report and agrees. - Additional Comments Diagnostic Additional Comments: CXR: ORDERED BY DR. VAZQUEZ: NO ACTIVE CARDIOPULMONARY DISEASE IS NOTED. CT Brain: ORDERED BY DR. VAZQUEZ: 1. CHRONIC SMALL VESSEL ISCHEMIC CHANGES WITH EVIDENCE OF REMOTE INFARCT OF THE LEFT FRONTAL LOBE. 2. NO ACUTE INTRACRANIAL PATHOLOGY. CT C-Spine: ORDERED BY DR. VAZQUEZ: Multilevel degenerative disc disease without evidence of fracture of the cervical spine. Adult Trauma Course/Dx - Course Assessment/Plan: This patient is a 67 year old F presenting to [facility] s/p a fall at approximately 0630 this morning. She reports falling backwards while getting dressed this morning. The patient rates the aching pain 10/10 in severity. Symptoms aggravated by nothing. Symptoms alleviated by nothing. Patient reports right rib pain and right low back pain. Patient denies neck pain, headache, head trauma, and LOC. She denies taking narcotics today. Tobacco abuse disorder. PMHx of polysubstance abuse and HTN. Ribs w/ Chest X-Ray reveals Displaced fracture of the right sixth rib. Nondisplaced fractures of the right seventh and eighth ribs. No pneumothorax is noted. ED physician has reviewed this radiology report and agrees. CXR: ORDERED BY DR. VAZQUEZ: NO ACTIVE CARDIOPULMONARY DISEASE IS NOTED. CT Brain: ORDERED BY DR. VAZQUEZ: 1. CHRONIC SMALL VESSEL ISCHEMIC CHANGES WITH EVIDENCE OF REMOTE INFARCT OF THE LEFT FRONTAL LOBE. 2. NO ACUTE INTRACRANIAL PATHOLOGY. CT C-Spine: ORDERED BY DR. VAZQUEZ: Multilevel degenerative disc disease without evidence of fracture of the cervical spine. In the ED course she was given Toradol and Percocet. She will admitted to Dr. Taylor (psychiatry) back to the mental health floor with consultation from hospitalist for medical management and pain control. The patient is hemodynamically stable, alert and oriented x3. The patient is agreeable with this plan. - Diagnoses Provider Diagnoses: Rib fractures - Physician Notifications Discussed Care Of Patient With: Cristhian Garcia Time Discussed With Above Provider: 09:25 Instructed by Provider To: Other - Consulted Dr. Garcia who agrees to admit. Discharge - Discharge Plan Condition: Stable Disposition: ADMITTED TO [facility] documentation as recorded by the Dasha plunkett Alfonso accurately reflects the service I personally performed and the decisions made by , Sam Pederson MD.
[2017-08-23] MEDS ORDERED: LURASIDONE 80 MG PO SCH (09:00)
[2017-08-23] MEDS: busPIRone TAB* 30 MG PO SCH ×2 (09:15→19:19)
[2017-08-23] MEDS: Omeprazole CAP* 20 MG PO SCH ×2 (09:15→19:19)
[2017-08-23] MEDS: Aspirin Low Dose CHEW TAB* 81 MG PO SCH (09:15)
[2017-08-23] MEDS: Vitamin THERAPEUTIC TAB PO SCH (09:15)
[2017-08-23] MEDS: amLODIPine TAB* 5 MG PO SCH (09:15)
[2017-08-23] MEDS: Gabapentin CAP(*) 300 MG PO SCH ×3 (09:22→19:17)
[2017-08-23] MEDS: Cetirizine* 10 MG TAB PO SCH (09:24)
[2017-08-23] MEDS: Fluticasone NASAL SPRAY 50MCG* 16 gm SPRAY BTL BOTH NARES SCH (09:29)
[2017-08-23] MEDS: NF:Fluticasone/Vilanterol MDI(NF) 100/25 MDI INH SCH (09:30)
[2017-08-23] MEDS: Nicotine GUM* 2 MG PO PRN (09:41)
[2017-08-23] MEDS: Nicotine Inhaler* 10 MG AMP INH PRN (09:41)
[2017-08-23] MEDS: hydrOXYzine HCL TAB* 50 MG PO PRN (09:42)
[2017-08-23] MEDS: LURASIDONE 40 MG PO SCH (09:46)
--- NOTE | 2017-08-23 13:22 | PN ---
Subjective - Subjective Service Type: 41708 Hosp care 15 min low complexity Subjective: Maciel continues to be depressed with SI. She doesn't feel the addition of lurasidone has been helpful. We discuss options, including ECT versus lithium augmentation and she opts for lithium. "I was on it decades ago. I really can' t remember anything about it." Patient still in great pain from rib fractures and it hurts to breathe. Patient expresses fear of her roommate and requests room change. Objective - Appearance Appearance: Obese Dysmorphic Features: No Hygiene: Normal Grooming: Fairly Well Kept - Behavior Psychomotor Activities: Abnormal-Decreased Exhibits Abnormal Movement: No - Attitude and Relatedness Attitude and Relatedness: Withdrawn Eye Contact: Fair - Speech Quality: Unpressured Latencies: Normal Quantity: Terse - Mood Patient's Decription of Mood: "Sad" - Affect Observed Affect: Constricted Affect Consistent with: Dysphoria - Thought Process Patient's Thought Process: Coherent Thought Content: Yes Suicidal Planning, No Passive Wish, No Homicidal Ideation, No Paranoid Ideation - Sensorium Experiencing Hallucinations: No, Sensorium is Clear Type of Hallucinations: Visual: No, Auditory: No, Command: No - Level of Consciousness Level of Consciousness: Lethargic Orientation: Yes Intact, Yes Orientated to Time, Yes Orientated to Place, Yes Orientated to Person - Impulse Control Impulse Control: Tenuous - Insight and Judgement Insight and Judgement: Fair - Group Participation Particating in Group Activities: Yes - Medication Management Medication Management Adherence: Yes Assessment - Assessment Merits Inpatient Hospitalization: For Immediate Safety, For Stabilization Inpatient DSM-IV Dx: Bipolar DO, MRE depressed without psychotic features Clinical Impression: 67 y.o. , white female with a history of bipolar disorder brought in voluntarily by her son seeking hospitalization for depressed mood with suicidal ideations to asphyxiate herself with CO from her stove. Plan - Plan Treatment Plan: Name: MACIEL SHEPARD Birthdate: 1950 [id number] The patient remains on busiparone 30mg PO BID while her gabapentin was decreased from 600mg PO QID to TID and her quetiapine was discontinued. Addition of lurasidone 80mg PO qday has been insufficient. Will initiate trial of lithium 300mg PO BID. Still considering ECT if patient fails to improve. Continue inpatient management. Continued Medication Management: Different Medication Medications: Current Medications Al Hydrox/Mg Hydrox/Simethicone (Maalox Plus*) 30 ml PO Q4H PRN PRN Reason: INDIGESTION Albuterol (Ventolin Hfa Inhaler*) 2 puff INH Q4H PRN PRN Reason: SOB/WHEEZING Last Admin: 08/23/17 06:40 Dose: 2 puff Amlodipine Besylate (Norvasc Tab*) 5 mg PO DAILY [facility] Last Admin: 08/23/17 09:15 Dose: 5 mg Aspirin (Aspirin Low Dose Tab*) 81 mg PO DAILY [facility] Last Admin: 08/23/17 09:15 Dose: 81 mg Atorvastatin Calcium (Lipitor*) 40 mg PO 1700 [facility] Last Admin: 08/22/17 17:19 Dose: 40 mg Buspirone HCl (Buspar Tab*) 30 mg PO BID [facility] Last Admin: 08/23/17 09:15 Dose: 30 mg Cetirizine HCl (Zyrtec*) 10 mg PO DAILY [facility] PRN Reason: Protocol Last Admin: 08/23/17 09:24 Dose: Not Given Docusate Sodium (Colace Cap*) 100 mg PO BID PRN PRN Reason: CONSTIPATION Fluticasone Propionate (Flonase Nasal [place] 50mcg*) 2 spray BOTH NARES DAILY [facility] Last Admin: 08/23/17 09:29 Dose: Not Given Fluticasone/Vilanterol (Breo Ellipta Mdi 100/25(Nf)) 1 puff INH DAILY [facility] Last Admin: 08/23/17 09:30 Dose: Not Given Gabapentin (Neurontin Cap(*)) 600 mg PO TID [facility] Last Admin: 08/23/17 09:22 Dose: 600 mg Hydroxyzine HCl (Atarax Tab*) 50 mg PO Q6H PRN PRN Reason: AGITATION/ANXIETY/INSOMNIA Last Admin: 08/23/17 09:42 Dose: 50 mg [place] Carbonate ([place] Carbonate Tab*) 300 mg PO BID [facility] Lurasidone HCl (Latuda (Nf)) 80 mg PO DAILY [facility] Last Admin: 08/23/17 09:46 Dose: 80 mg Multivitamins (Theragran Tab*) 1 tab PO DAILY [facility] Last Admin: 08/23/17 09:15 Dose: 1 tab Nicotine (Nicotine Inhaler*) 10 mg INH Q2H PRN PRN Reason: CRAVING Last Admin: 08/23/17 09:41 Dose: 10 mg Nicotine Polacrilex (Nicotine Gum*) 2 mg PO Q2H PRN PRN Reason: CRAVING Last Admin: 08/23/17 09:41 Dose: 2 mg Omeprazole (Prilosec Cap*) 20 mg PO BID [facility] Last Admin: 08/23/17 09:15 Dose: 20 mg Oxycodone/Acetaminophen (Percocet 5/325 Tab*) 2 tab PO Q6H PRN PRN Reason: PAIN Last Admin: 08/23/17 12:25 Dose: 2 tab - Discharge Plan Discharge Plan: Inpatient Hospitalization
[2017-08-23] MEDS: Naproxen TAB* 250 MG PO PRN (16:59)
[2017-08-23] MEDS: Atorvastatin* 40 MG TAB PO SCH (16:59)
[2017-08-23] MEDS: Lithium Carbonate TAB* 300 MG PO SCH (19:19)
[2017-08-24] MEDS: oxyCODONE/Acetamin 5/325 MG* TAB PO PRN ×3 (07:17→19:21)
[2017-08-24] MEDS: Fluticasone NASAL SPRAY 50MCG* 16 gm SPRAY BTL BOTH NARES SCH (08:58)
[2017-08-24] MEDS: NF:Fluticasone/Vilanterol MDI(NF) 100/25 MDI INH SCH (08:58)
[2017-08-24] MEDS: Vitamin THERAPEUTIC TAB PO SCH (08:59)
[2017-08-24] MEDS: Omeprazole CAP* 20 MG PO SCH ×2 (08:59→20:33)
[2017-08-24] MEDS: busPIRone TAB* 30 MG PO SCH ×2 (08:59→20:32)
[2017-08-24] MEDS: Cetirizine* 10 MG TAB PO SCH (09:00)
[2017-08-24] MEDS: Aspirin Low Dose CHEW TAB* 81 MG PO SCH (09:00)
[2017-08-24] MEDS: amLODIPine TAB* 5 MG PO SCH (09:00)
[2017-08-24] MEDS: Lithium Carbonate TAB* 300 MG PO SCH ×2 (09:01→20:33)
[2017-08-24] MEDS: Gabapentin CAP(*) 300 MG PO SCH ×3 (09:01→20:32)
[2017-08-24] MEDS: LURASIDONE 40 MG PO SCH (09:02)
[2017-08-24] MEDS: hydrOXYzine HCL TAB* 50 MG PO PRN (09:09)
[2017-08-24] MEDS: Albuterol HFA INHALER* 8 gm MDI INH PRN (09:09)
--- NOTE | 2017-08-24 11:47 | PN ---
Subjective - Subjective Service Type: 92560 Hosp care 15 min low complexity Subjective: Patient remains depressed. She is upset that she can't participate more on the unit, stuck in bed because of chest pain from her fractured ribs. She is utilizing her incentive spirometer appropriately. Still having SI and is pessimistic about her mental health improving. Very scared of ECT. Objective - Appearance Appearance: Well Developed/Nourished Dysmorphic Features: No Hygiene: Normal Grooming: Fairly Well Kept - Behavior Psychomotor Activities: Abnormal-Decreased Exhibits Abnormal Movement: No - Attitude and Relatedness Attitude and Relatedness: Cooperative Eye Contact: Fair - Speech Quality: Unpressured Latencies: Normal Quantity: Terse - Mood Patient's Decription of Mood: "Sad" - Affect Observed Affect: Constricted Affect Consistent with: Dysphoria - Thought Process Patient's Thought Process: Coherent Thought Content: Yes Suicidal Planning, No Passive Wish, No Homicidal Ideation, No Paranoid Ideation - Sensorium Experiencing Hallucinations: No, Sensorium is Clear Type of Hallucinations: Visual: No, Auditory: No, Command: No - Level of Consciousness Level of Consciousness: Alert Orientation: Yes Intact, Yes Orientated to Time, Yes Orientated to Place, Yes Orientated to Person - Impulse Control Impulse Control: Tenuous - Insight and Judgement Insight and Judgement: Fair - Group Participation Particating in Group Activities: No - Medication Management Medication Management Adherence: Yes Assessment - Assessment Merits Inpatient Hospitalization: For Immediate Safety, For Stabilization Inpatient DSM-IV Dx: Bipolar DO, MRE depressed without psychotic features Clinical Impression: 67 y.o. , white female with a history of bipolar disorder brought in voluntarily by her son seeking hospitalization for depressed mood with suicidal ideations to asphyxiate herself with CO from her stove. Plan - Plan Treatment Plan: Name: MACIEL SHEPARD Birthdate: 1950 [id number] The patient remains on busiparone 30mg PO BID while her gabapentin was decreased from 600mg PO QID to TID and her quetiapine was discontinued. Addition of lurasidone 80mg PO qday has been insufficient. Patient now on a trial of lithium 300mg PO BID. Still considering ECT if patient fails to improve. Continue inpatient management. Continued Medication Management: Start Medication Medications: Current Medications Al Hydrox/Mg Hydrox/Simethicone (Maalox Plus*) 30 ml PO Q4H PRN PRN Reason: INDIGESTION Albuterol (Ventolin Hfa Inhaler*) 2 puff INH Q4H PRN PRN Reason: SOB/WHEEZING Last Admin: 08/24/17 09:09 Dose: 2 puff Amlodipine Besylate (Norvasc Tab*) 5 mg PO DAILY [facility] Last Admin: 08/24/17 09:00 Dose: 5 mg Aspirin (Aspirin Low Dose Tab*) 81 mg PO DAILY [facility] Last Admin: 08/24/17 09:00 Dose: 81 mg Atorvastatin Calcium (Lipitor*) 40 mg PO 1700 [facility] Last Admin: 08/23/17 16:59 Dose: 40 mg Buspirone HCl (Buspar Tab*) 30 mg PO BID [facility] Last Admin: 08/24/17 08:59 Dose: Not Given Cetirizine HCl (Zyrtec*) 10 mg PO DAILY [facility] PRN Reason: Protocol Last Admin: 08/24/17 09:00 Dose: 10 mg Docusate Sodium (Colace Cap*) 100 mg PO BID PRN PRN Reason: CONSTIPATION Fluticasone Propionate (Flonase Nasal [place] 50mcg*) 2 spray BOTH NARES DAILY [facility] Last Admin: 08/24/17 08:58 Dose: Not Given Fluticasone/Vilanterol (Breo Ellipta Mdi 100/25(Nf)) 1 puff INH DAILY [facility] Last Admin: 08/24/17 08:58 Dose: Not Given Gabapentin (Neurontin Cap(*)) 600 mg PO TID [facility] Last Admin: 08/24/17 09:01 Dose: 600 mg Hydroxyzine HCl (Atarax Tab*) 50 mg PO Q6H PRN PRN Reason: AGITATION/ANXIETY/INSOMNIA Last Admin: 08/24/17 09:09 Dose: 50 mg [place] Carbonate ([place] Carbonate Tab*) 300 mg PO BID [facility] Last Admin: 08/24/17 09:01 Dose: 300 mg Lurasidone HCl (Latuda (Nf)) 80 mg PO DAILY [facility] Last Admin: 08/24/17 09:02 Dose: 80 mg Multivitamins (Theragran Tab*) 1 tab PO DAILY [facility] Last Admin: 08/24/17 08:59 Dose: 1 tab Naproxen (Naprosyn Tab*) 500 mg PO Q12H PRN PRN Reason: PAIN - BREAKTHROUGH Last Admin: 08/23/17 16:59 Dose: 500 mg Nicotine (Nicotine Inhaler*) 10 mg INH Q2H PRN PRN Reason: CRAVING Last Admin: 08/23/17 09:41 Dose: 10 mg Nicotine Polacrilex (Nicotine Gum*) 2 mg PO Q2H PRN PRN Reason: CRAVING Last Admin: 08/23/17 09:41 Dose: 2 mg Omeprazole (Prilosec Cap*) 20 mg PO BID [facility] Last Admin: 08/24/17 08:59 Dose: 20 mg Oxycodone/Acetaminophen (Percocet 5/325 Tab*) 2 tab PO Q6H PRN PRN Reason: PAIN Last Admin: 08/24/17 07:17 Dose: 2 tab - Discharge Plan Discharge Plan: Inpatient Hospitalization
[2017-08-24] MEDS: Naproxen TAB* 250 MG PO PRN (12:20)
[2017-08-24] MEDS: Atorvastatin* 40 MG TAB PO SCH (16:54)
[2017-08-25] MEDS: Albuterol HFA INHALER* 8 gm MDI INH PRN ×3 (04:20→16:03)
[2017-08-25] MEDS: oxyCODONE/Acetamin 5/325 MG* TAB PO PRN ×3 (04:20→17:57)
[2017-08-25] MEDS: Naproxen TAB* 250 MG PO PRN (08:16)
[2017-08-25] MEDS: Omeprazole CAP* 20 MG PO SCH ×3 (08:17→22:48)
[2017-08-25] MEDS: Gabapentin CAP(*) 300 MG PO SCH ×3 (08:17→20:35)
[2017-08-25] MEDS: amLODIPine TAB* 5 MG PO SCH (08:17)
[2017-08-25] MEDS: Lithium Carbonate TAB* 300 MG PO SCH ×2 (08:18→20:35)
[2017-08-25] MEDS: Cetirizine* 10 MG TAB PO SCH (08:18)
[2017-08-25] MEDS: busPIRone TAB* 30 MG PO SCH ×2 (08:19→20:35)
[2017-08-25] MEDS: LURASIDONE 40 MG PO SCH (08:19)
[2017-08-25] MEDS: NF:Fluticasone/Vilanterol MDI(NF) 100/25 MDI INH SCH (08:24)
[2017-08-25] MEDS: Vitamin THERAPEUTIC TAB PO SCH (08:24)
[2017-08-25] MEDS: Fluticasone NASAL SPRAY 50MCG* 16 gm SPRAY BTL BOTH NARES SCH (11:17)
[2017-08-25] MEDS: Aspirin Low Dose CHEW TAB* 81 MG PO SCH (11:17)
--- NOTE | 2017-08-25 14:05 | PN ---
Subjective - Subjective Service Type: [id number] Hosp care 15 min low complexity Subjective: The patient remains depressed but has not had any SI today. She is tolerating the introduction of lithium well so far with no complaints. Patient still in pain from broken ribs. Objective - Appearance Appearance: Obese Dysmorphic Features: No Hygiene: Normal Grooming: Well Kept - Behavior Psychomotor Activities: Normal Exhibits Abnormal Movement: No - Attitude and Relatedness Attitude and Relatedness: Cooperative Eye Contact: Fair - Speech Quality: Unpressured Latencies: Normal Quantity: Appropriate - Mood Patient's Decription of Mood: "Sad" - Affect Observed Affect: Constricted Affect Consistent with: Dysphoria - Thought Process Patient's Thought Process: Coherent Thought Content: No Passive Wish, No Suicidal Planning, No Homicidal Ideation, No Paranoid Ideation - Sensorium Experiencing Hallucinations: No, Sensorium is Clear Type of Hallucinations: Visual: No, Auditory: No, Command: No - Level of Consciousness Level of Consciousness: Alert Orientation: No Intact, No Orientated to Time, No Orientated to Place, No Orientated to Person - Impulse Control Impulse Control: Tenuous - Insight and Judgement Insight and Judgement: Fair - Group Participation Particating in Group Activities: Yes - Medication Management Medication Management Adherence: Yes Assessment - Assessment Merits Inpatient Hospitalization: For Immediate Safety, For Stabilization Inpatient DSM-IV Dx: Bipolar DO, MRE depressed without psychotic features Clinical Impression: 67 y.o. , white female with a history of bipolar disorder brought in voluntarily by her son seeking hospitalization for depressed mood with suicidal ideations to asphyxiate herself with CO from her stove. Plan - Plan Treatment Plan: Name: MACIEL SHEPARD Birthdate: 1950 [id number] The patient remains on busiparone 30mg PO BID while her gabapentin was decreased from 600mg PO QID to TID and her quetiapine was discontinued. Addition of lurasidone 80mg PO qday has been insufficient. Patient now on a trial of lithium 300mg PO BID. Check Li+ level in AM. Still considering ECT if patient fails to improve. Continue inpatient management. Continued Medication Management: Different Medication Medications: Current Medications Al Hydrox/Mg Hydrox/Simethicone (Maalox Plus*) 30 ml PO Q4H PRN PRN Reason: INDIGESTION Albuterol (Ventolin Hfa Inhaler*) 2 puff INH Q4H PRN PRN Reason: SOB/WHEEZING Last Admin: 08/25/17 13:03 Dose: 2 puff Amlodipine Besylate (Norvasc Tab*) 5 mg PO DAILY [facility] Last Admin: 08/25/17 08:17 Dose: 5 mg Aspirin (Aspirin Low Dose Tab*) 81 mg PO DAILY [facility] Last Admin: 08/25/17 11:17 Dose: 81 mg Atorvastatin Calcium (Lipitor*) 40 mg PO 1700 [facility] Last Admin: 08/24/17 16:54 Dose: 40 mg Buspirone HCl (Buspar Tab*) 30 mg PO BID [facility] Last Admin: 08/25/17 08:19 Dose: 30 mg Cetirizine HCl (Zyrtec*) 10 mg PO DAILY [facility] PRN Reason: Protocol Last Admin: 08/25/17 08:18 Dose: 10 mg Docusate Sodium (Colace Cap*) 100 mg PO BID PRN PRN Reason: CONSTIPATION Fluticasone Propionate (Flonase Nasal [place] 50mcg*) 2 spray BOTH NARES DAILY [facility] Last Admin: 08/25/17 11:17 Dose: Not Given Fluticasone/Vilanterol (Breo Ellipta Mdi 100/25(Nf)) 1 puff INH DAILY [facility] Last Admin: 08/25/17 08:24 Dose: Not Given Gabapentin (Neurontin Cap(*)) 600 mg PO TID [facility] Last Admin: 08/25/17 08:17 Dose: 600 mg Hydroxyzine HCl (Atarax Tab*) 50 mg PO Q6H PRN PRN Reason: AGITATION/ANXIETY/INSOMNIA Last Admin: 08/24/17 09:09 Dose: 50 mg [place] Carbonate ([place] Carbonate Tab*) 300 mg PO BID [facility] Last Admin: 08/25/17 08:18 Dose: 300 mg Lurasidone HCl (Latuda (Nf)) 80 mg PO DAILY [facility] Last Admin: 08/25/17 08:19 Dose: 80 mg Multivitamins (Theragran Tab*) 1 tab PO DAILY [facility] Last Admin: 08/25/17 08:24 Dose: Not Given Naproxen (Naprosyn Tab*) 500 mg PO Q12H PRN PRN Reason: PAIN - BREAKTHROUGH Last Admin: 08/25/17 08:16 Dose: 500 mg Nicotine (Nicotine Inhaler*) 10 mg INH Q2H PRN PRN Reason: CRAVING Last Admin: 08/23/17 09:41 Dose: 10 mg Nicotine Polacrilex (Nicotine Gum*) 2 mg PO Q2H PRN PRN Reason: CRAVING Last Admin: 08/23/17 09:41 Dose: 2 mg Omeprazole (Prilosec Cap*) 20 mg PO BID [facility] Last Admin: 08/25/17 08:17 Dose: 20 mg Oxycodone/Acetaminophen (Percocet 5/325 Tab*) 2 tab PO Q6H PRN PRN Reason: PAIN Last Admin: 08/25/17 11:17 Dose: 2 tab - Discharge Plan Discharge Plan: Inpatient Hospitalization
[2017-08-25] MEDS: Nicotine GUM* 2 MG PO PRN (17:35)
[2017-08-25] MEDS: Nicotine Inhaler* 10 MG AMP INH PRN (17:35)
[2017-08-25] MEDS: Atorvastatin* 40 MG TAB PO SCH (17:57)
[2017-08-26] MEDS: oxyCODONE/Acetamin 5/325 MG* TAB PO PRN ×3 (04:27→18:53)
[2017-08-26] MEDS: Cetirizine* 10 MG TAB PO SCH (08:54)
[2017-08-26] MEDS: Aspirin Low Dose CHEW TAB* 81 MG PO SCH (08:54)
[2017-08-26] MEDS: Gabapentin CAP(*) 300 MG PO SCH ×3 (08:54→21:09)
[2017-08-26] MEDS: Vitamin THERAPEUTIC TAB PO SCH (08:54)
[2017-08-26] MEDS: Omeprazole CAP* 20 MG PO SCH ×2 (08:54→21:08)
[2017-08-26] MEDS: Lithium Carbonate TAB* 300 MG PO SCH ×2 (08:55→21:08)
[2017-08-26] MEDS: Naproxen TAB* 250 MG PO PRN ×2 (08:55→21:29)
[2017-08-26] MEDS: LURASIDONE 40 MG PO SCH (08:55)
[2017-08-26] MEDS: busPIRone TAB* 30 MG PO SCH ×2 (08:55→21:08)
[2017-08-26] MEDS: amLODIPine TAB* 5 MG PO SCH (08:55)
[2017-08-26] MEDS: NF:Fluticasone/Vilanterol MDI(NF) 100/25 MDI INH SCH (09:45)
[2017-08-26] MEDS: Fluticasone NASAL SPRAY 50MCG* 16 gm SPRAY BTL BOTH NARES SCH (09:45)
--- NOTE | 2017-08-26 10:43 | PN ---
Subjective - Subjective Service Type: [id number] Hosp care 15 min low complexity Subjective: The patient is feeling slightly better but drowsy and wonders if this might be from the lithium. It is suggested by this clinician that this effect might be secondary to the oxycodone tablets she's receiving for pain control and she agrees to a lowering of the dose. She continues to deny SI but is still a little depressed. She is agreeable to PT/OT consultation for physical needs assessment. Patient more social on unit. Objective - Appearance Appearance: Obese Dysmorphic Features: No Hygiene: Normal Grooming: Fairly Well Kept - Behavior Psychomotor Activities: Abnormal-Decreased Exhibits Abnormal Movement: No - Attitude and Relatedness Attitude and Relatedness: Cooperative Eye Contact: Fair - Speech Quality: Unpressured Latencies: Normal Quantity: Appropriate - Mood Patient's Decription of Mood: "Sad" - Affect Observed Affect: Constricted Affect Consistent with: Dysphoria - Thought Process Patient's Thought Process: Coherent Thought Content: No Passive Wish, No Suicidal Planning, No Homicidal Ideation, No Paranoid Ideation - Sensorium Experiencing Hallucinations: No, Sensorium is Clear Type of Hallucinations: Visual: No, Auditory: No, Command: No - Level of Consciousness Level of Consciousness: Alert Orientation: Yes Intact, Yes Orientated to Time, Yes Orientated to Place, Yes Orientated to Person - Impulse Control Impulse Control: Intact - Insight and Judgement Insight and Judgement: Good - Group Participation Particating in Group Activities: Yes - Medication Management Medication Management Adherence: Yes Assessment - Assessment Merits Inpatient Hospitalization: For Immediate Safety, For Stabilization Inpatient DSM-IV Dx: Bipolar DO, MRE depressed without psychotic features Clinical Impression: 67 y.o. , white female with a history of bipolar disorder brought in voluntarily by her son seeking hospitalization for depressed mood with suicidal ideations to asphyxiate herself with CO from her stove. Plan - Plan Treatment Plan: Name: MACIEL SHEPARD Birthdate: 1950 [id number] The patient remains on busiparone 30mg PO BID while her gabapentin was decreased from 600mg PO QID to TID and her quetiapine was discontinued. Addition of lurasidone 80mg PO qday and lithium 300mg PO BID seem to be helping. Li+ level basically low-therapeutic at 0.57. Will order PT/OT evals and consider referral to subacute rehab. Continue inpatient management. Continued Medication Management: Different Medication Medications: Current Medications Al Hydrox/Mg Hydrox/Simethicone (Maalox Plus*) 30 ml PO Q4H PRN PRN Reason: INDIGESTION Albuterol (Ventolin Hfa Inhaler*) 2 puff INH Q4H PRN PRN Reason: SOB/WHEEZING Last Admin: 08/25/17 16:03 Dose: 2 puff Amlodipine Besylate (Norvasc Tab*) 5 mg PO DAILY [facility] Last Admin: 08/26/17 08:55 Dose: 5 mg Aspirin (Aspirin Low Dose Tab*) 81 mg PO DAILY [facility] Last Admin: 08/26/17 08:54 Dose: 81 mg Atorvastatin Calcium (Lipitor*) 40 mg PO 1700 [facility] Last Admin: 08/25/17 17:57 Dose: 40 mg Buspirone HCl (Buspar Tab*) 30 mg PO BID [facility] Last Admin: 08/26/17 08:55 Dose: 30 mg Cetirizine HCl (Zyrtec*) 10 mg PO DAILY [facility] PRN Reason: Protocol Last Admin: 08/26/17 08:54 Dose: 10 mg Docusate Sodium (Colace Cap*) 100 mg PO BID PRN PRN Reason: CONSTIPATION Fluticasone Propionate (Flonase Nasal [place] 50mcg*) 2 spray BOTH NARES DAILY [facility] Last Admin: 08/26/17 09:45 Dose: Not Given Fluticasone/Vilanterol (Breo Ellipta Mdi 100/25(Nf)) 1 puff INH DAILY [facility] Last Admin: 08/26/17 09:45 Dose: Not Given Gabapentin (Neurontin Cap(*)) 600 mg PO TID [facility] Last Admin: 08/26/17 08:54 Dose: 600 mg Hydroxyzine HCl (Atarax Tab*) 50 mg PO Q6H PRN PRN Reason: AGITATION/ANXIETY/INSOMNIA Last Admin: 08/24/17 09:09 Dose: 50 mg [place] Carbonate ([place] Carbonate Tab*) 300 mg PO BID [facility] Last Admin: 08/26/17 08:55 Dose: 300 mg Lurasidone HCl (Latuda (Nf)) 80 mg PO DAILY [facility] Last Admin: 08/26/17 08:55 Dose: 80 mg Multivitamins (Theragran Tab*) 1 tab PO DAILY [facility] Last Admin: 08/26/17 08:54 Dose: 1 tab Naproxen (Naprosyn Tab*) 500 mg PO Q12H PRN PRN Reason: PAIN - BREAKTHROUGH Last Admin: 08/26/17 08:55 Dose: 500 mg Nicotine (Nicotine Inhaler*) 10 mg INH Q2H PRN PRN Reason: CRAVING Last Admin: 08/25/17 17:35 Dose: 10 mg Nicotine Polacrilex (Nicotine Gum*) 2 mg PO Q2H PRN PRN Reason: CRAVING Last Admin: 08/25/17 17:35 Dose: 2 mg Omeprazole (Prilosec Cap*) 20 mg PO BID [facility] Last Admin: 08/26/17 08:54 Dose: 20 mg - Discharge Plan Discharge Plan: Inpatient Hospitalization Lab Results - Lab Results Lab Results: 08/26/17 07:25 [place] 0.57 L
[2017-08-26] MEDS: Atorvastatin* 40 MG TAB PO SCH (18:01)
[2017-08-27] MEDS: oxyCODONE/Acetamin 5/325 MG* TAB PO PRN ×2 (07:48→16:35)
[2017-08-27] MEDS: Fluticasone NASAL SPRAY 50MCG* 16 gm SPRAY BTL BOTH NARES SCH (09:16)
[2017-08-27] MEDS: NF:Fluticasone/Vilanterol MDI(NF) 100/25 MDI INH SCH (09:17)
[2017-08-27] MEDS: Aspirin Low Dose CHEW TAB* 81 MG PO SCH (09:18)
[2017-08-27] MEDS: Omeprazole CAP* 20 MG PO SCH ×2 (09:18→21:05)
[2017-08-27] MEDS: Gabapentin CAP(*) 300 MG PO SCH ×3 (09:18→21:06)
[2017-08-27] MEDS: Lithium Carbonate TAB* 300 MG PO SCH ×2 (09:18→21:06)
[2017-08-27] MEDS: amLODIPine TAB* 5 MG PO SCH (09:18)
[2017-08-27] MEDS: Vitamin THERAPEUTIC TAB PO SCH (09:18)
[2017-08-27] MEDS: Naproxen TAB* 250 MG PO PRN (09:20)
[2017-08-27] MEDS: busPIRone TAB* 30 MG PO SCH ×2 (09:20→21:05)
[2017-08-27] MEDS: Cetirizine* 10 MG TAB PO SCH (09:20)
[2017-08-27] MEDS: LURASIDONE 40 MG PO SCH (09:20)
[2017-08-27 09:38] LABS: BUN/Creatinine Ratio 22.1 (8-20); Calcium 9.3 mg/dL (8.6-10.3); EGFR African American 85.2 (>60); EGFR Non-African American 66.2 (>60); Potassium 4.2 mmol/L (3.5-5.0)
[2017-08-27 09:39] LABS: Lithium 0.73 mmol/L (0.6-1.2)
[2017-08-27] MEDS ORDERED: Mouth Piece, Nicotine* 1 EACH CARTRIDGE ONE (11:30)
[2017-08-27] MEDS: Nicotine Inhaler* 10 MG AMP INH PRN (11:32)
[2017-08-27] MEDS: Atorvastatin* 40 MG TAB PO SCH (16:07)
[2017-08-28] MEDS: oxyCODONE/Acetamin 5/325 MG* TAB PO PRN ×2 (04:15→16:56)
[2017-08-28] MEDS: Vitamin THERAPEUTIC TAB PO SCH (08:39)
[2017-08-28] MEDS: Gabapentin CAP(*) 300 MG PO SCH ×3 (08:39→20:04)
[2017-08-28] MEDS: Cetirizine* 10 MG TAB PO SCH (08:39)
[2017-08-28] MEDS: NF:Fluticasone/Vilanterol MDI(NF) 100/25 MDI INH SCH (09:44)
[2017-08-28] MEDS: Fluticasone NASAL SPRAY 50MCG* 16 gm SPRAY BTL BOTH NARES SCH (09:47)
[2017-08-28] MEDS: LURASIDONE 40 MG PO SCH (09:50)
[2017-08-28] MEDS: Lithium Carbonate TAB* 300 MG PO SCH ×2 (09:51→20:04)
[2017-08-28] MEDS: amLODIPine TAB* 5 MG PO SCH (09:52)
[2017-08-28] MEDS: busPIRone TAB* 30 MG PO SCH ×2 (09:52→20:04)
[2017-08-28] MEDS: Aspirin Low Dose CHEW TAB* 81 MG PO SCH (09:52)
[2017-08-28] MEDS: Omeprazole CAP* 20 MG PO SCH ×2 (09:52→20:04)
[2017-08-28] MEDS: Naproxen TAB* 250 MG PO PRN (10:45)
[2017-08-28] MEDS: Atorvastatin* 40 MG TAB PO SCH (16:52)
[2017-08-28] MEDS: Albuterol HFA INHALER* 8 gm MDI INH PRN (17:03)
[2017-08-29] MEDS: oxyCODONE/Acetamin 5/325 MG* TAB PO PRN ×2 (02:25→10:12)
[2017-08-29] MEDS: Albuterol HFA INHALER* 8 gm MDI INH PRN ×2 (06:10→10:00)
[2017-08-29] MEDS: Naproxen TAB* 250 MG PO PRN (06:10)
[2017-08-29] MEDS: Aspirin Low Dose CHEW TAB* 81 MG PO SCH (09:57)
[2017-08-29] MEDS: LURASIDONE 40 MG PO SCH (09:58)
[2017-08-29] MEDS: amLODIPine TAB* 5 MG PO SCH (09:58)
[2017-08-29] MEDS: Cetirizine* 10 MG TAB PO SCH (09:58)
[2017-08-29] MEDS: Gabapentin CAP(*) 300 MG PO SCH ×3 (09:58→21:22)
[2017-08-29] MEDS: Vitamin THERAPEUTIC TAB PO SCH (09:58)
[2017-08-29] MEDS: Lithium Carbonate TAB* 300 MG PO SCH ×2 (09:58→21:22)
[2017-08-29] MEDS: busPIRone TAB* 30 MG PO SCH ×2 (09:58→21:23)
[2017-08-29] MEDS: Fluticasone NASAL SPRAY 50MCG* 16 gm SPRAY BTL BOTH NARES SCH (09:59)
[2017-08-29] MEDS: Omeprazole CAP* 20 MG PO SCH ×2 (09:59→21:23)
[2017-08-29] MEDS: NF:Fluticasone/Vilanterol MDI(NF) 100/25 MDI INH SCH (10:09)
--- NOTE | 2017-08-29 12:02 | PN ---
Subjective - Subjective Service Type: [id number] Hosp care 15 min low complexity Subjective: Patient more upbeat. Denies SI and feels like she is improving, although she's anxious about having to go to a rehab facility before returning home. She feels somewhat drowsy on her medications and PT/OT evaluators noted that she appeared to have slurred speech. Patient asks me if I think she's had another stroke. I respond that this is likely a med-effect from her opioid pain relief , following fractured ribs last week. She does indicate that her pain is somewhat improved. Objective - Appearance Appearance: Obese Dysmorphic Features: No Hygiene: Normal Grooming: Fairly Well Kept - Behavior Psychomotor Activities: Abnormal-Decreased Exhibits Abnormal Movement: No - Attitude and Relatedness Attitude and Relatedness: Cooperative Eye Contact: Fair - Speech Quality: Unpressured Latencies: Normal Quantity: Terse - Mood Patient's Decription of Mood: "Okay" - Affect Observed Affect: Fair Affect Consistent with: Euthymia - Thought Process Patient's Thought Process: Coherent Thought Content: No Passive Wish, No Suicidal Planning, No Homicidal Ideation, No Paranoid Ideation - Sensorium Experiencing Hallucinations: No, Sensorium is Clear Type of Hallucinations: Visual: No, Auditory: No, Command: No - Level of Consciousness Level of Consciousness: Alert Orientation: Yes Intact, Yes Orientated to Time, Yes Orientated to Place, Yes Orientated to Person - Impulse Control Impulse Control: Tenuous - Insight and Judgement Insight and Judgement: Fair - Group Participation Particating in Group Activities: Yes - Medication Management Medication Management Adherence: Yes Assessment - Assessment Merits Inpatient Hospitalization: Consolidate Improvements, Pending Safe DC Plan Inpatient DSM-IV Dx: Bipolar DO, MRE depressed without psychotic features Clinical Impression: 67 y.o. , white female with a history of bipolar disorder brought in voluntarily by her son seeking hospitalization for depressed mood with suicidal ideations to asphyxiate herself with CO from her stove. Plan - Plan Treatment Plan: Name: MACIEL SHEPARD Birthdate: 1950 [id number] The patient is improving on the new regimen of busiparone 30mg PO BID, gabapentin 600mg PO QID to TID, lurasidone 80mg PO qday and lithium 300mg PO BID. Li+ level is now therapeutic at 0.73. Will pursue referral to subacute rehab. Patient is somewhat dysarthric. Will order head MRI and discontinue percocet, replacing this with prn tramadol. Continue inpatient management. Continued Medication Management: Different Medication Medications: Current Medications Al Hydrox/Mg Hydrox/Simethicone (Maalox Plus*) 30 ml PO Q4H PRN PRN Reason: INDIGESTION Albuterol (Ventolin Hfa Inhaler*) 2 puff INH Q4H PRN PRN Reason: SOB/WHEEZING Last Admin: 08/29/17 10:00 Dose: 2 puff Amlodipine Besylate (Norvasc Tab*) 5 mg PO DAILY [facility] Last Admin: 08/29/17 09:58 Dose: 5 mg Aspirin (Aspirin Low Dose Tab*) 81 mg PO DAILY [facility] Last Admin: 08/29/17 09:57 Dose: 81 mg Atorvastatin Calcium (Lipitor*) 40 mg PO 1700 [facility] Last Admin: 08/28/17 16:52 Dose: 40 mg Buspirone HCl (Buspar Tab*) 30 mg PO BID [facility] Last Admin: 08/29/17 09:58 Dose: 30 mg Cetirizine HCl (Zyrtec*) 10 mg PO DAILY [facility] PRN Reason: Protocol Last Admin: 08/29/17 09:58 Dose: Not Given Docusate Sodium (Colace Cap*) 100 mg PO BID PRN PRN Reason: CONSTIPATION Last Admin: 08/29/17 09:58 Dose: 100 mg Fluticasone Propionate (Flonase Nasal [place] 50mcg*) 2 spray BOTH NARES DAILY [facility] Last Admin: 08/29/17 09:59 Dose: 2 spray Fluticasone/Vilanterol (Breo Ellipta Mdi 100/25(Nf)) 1 puff INH DAILY [facility] Last Admin: 08/29/17 10:09 Dose: Not Given Gabapentin (Neurontin Cap(*)) 600 mg PO TID [facility] Last Admin: 08/29/17 09:58 Dose: 600 mg Hydroxyzine HCl (Atarax Tab*) 50 mg PO Q6H PRN PRN Reason: AGITATION/ANXIETY/INSOMNIA Last Admin: 08/24/17 09:09 Dose: 50 mg [place] Carbonate ([place] Carbonate Tab*) 300 mg PO BID [facility] Last Admin: 08/29/17 09:58 Dose: 300 mg Lurasidone HCl (Latuda (Nf)) 80 mg PO DAILY [facility] Last Admin: 08/29/17 09:58 Dose: 80 mg Multivitamins (Theragran Tab*) 1 tab PO DAILY [facility] Last Admin: 08/29/17 09:58 Dose: 1 tab Naproxen (Naprosyn Tab*) 500 mg PO Q12H PRN PRN Reason: PAIN - BREAKTHROUGH Last Admin: 08/29/17 06:10 Dose: 500 mg Nicotine (Nicotine Inhaler*) 10 mg INH Q2H PRN PRN Reason: CRAVING Last Admin: 08/27/17 11:32 Dose: 10 mg Nicotine Polacrilex (Nicotine Gum*) 2 mg PO Q2H PRN PRN Reason: CRAVING Last Admin: 08/25/17 17:35 Dose: 2 mg Omeprazole (Prilosec Cap*) 20 mg PO BID [facility] Last Admin: 08/29/17 09:59 Dose: Not Given Tramadol HCl (Ultram*) 50 mg PO Q12H PRN PRN Reason: PAIN - Discharge Plan Discharge Plan: Inpatient Hospitalization
[2017-08-29] MEDS: Atorvastatin* 40 MG TAB PO SCH (16:51)
[2017-08-29] MEDS: traMADol TAB* 50 MG PO PRN (16:51)
[2017-08-30] MEDS: traMADol TAB* 50 MG PO PRN ×2 (06:40→18:43)
[2017-08-30] MEDS: Albuterol HFA INHALER* 8 gm MDI INH PRN ×2 (07:48→20:21)
[2017-08-30] MEDS: busPIRone TAB* 30 MG PO SCH ×2 (07:49→20:11)
[2017-08-30] MEDS: Fluticasone NASAL SPRAY 50MCG* 16 gm SPRAY BTL BOTH NARES SCH (07:49)
[2017-08-30] MEDS: NF:Fluticasone/Vilanterol MDI(NF) 100/25 MDI INH SCH (07:49)
[2017-08-30] MEDS: Omeprazole CAP* 20 MG PO SCH ×2 (07:50→20:10)
[2017-08-30] MEDS: Aspirin Low Dose CHEW TAB* 81 MG PO SCH (07:50)
[2017-08-30] MEDS: LURASIDONE 40 MG PO SCH (07:51)
[2017-08-30] MEDS: Gabapentin CAP(*) 300 MG PO SCH ×3 (07:51→20:10)
[2017-08-30] MEDS: Lithium Carbonate TAB* 300 MG PO SCH ×2 (07:52→20:11)
[2017-08-30] MEDS: Vitamin THERAPEUTIC TAB PO SCH (07:52)
[2017-08-30] MEDS: amLODIPine TAB* 5 MG PO SCH (07:52)
[2017-08-30] MEDS: Cetirizine* 10 MG TAB PO SCH (07:52)
[2017-08-30] MEDS: Naproxen TAB* 250 MG PO PRN (07:53)
[2017-08-30] MEDS: hydrOXYzine HCL TAB* 50 MG PO PRN ×2 (10:45→17:45)
--- NOTE | 2017-08-30 11:13 | PN ---
Subjective - Subjective Service Type: [id number] Hosp care 15 min low complexity Subjective: Patient continues to endorse improving mood and absence of SI, however, she is somewhat lethargic with slurred speech despite discontinuation of opioid pain relievers. Patient still wonders if she has had another stroke but states that she cannot tolerate an MRI of her head because she has a metal earring that cannot come out, as well as metal in her shoulder from an orthopedic surgery. She is cooperative on the unit and states that she's "excited about rehab." Objective - Appearance Appearance: Obese Dysmorphic Features: No Hygiene: Normal Grooming: Fairly Well Kept - Behavior Psychomotor Activities: Abnormal-Decreased Exhibits Abnormal Movement: No - Attitude and Relatedness Attitude and Relatedness: Cooperative Eye Contact: Fair - Speech Quality: Unpressured Latencies: Normal Quantity: Appropriate - Mood Patient's Decription of Mood: "Good" - Affect Observed Affect: Good Affect Consistent with: Euthymia - Thought Process Patient's Thought Process: Coherent Thought Content: No Passive Wish, No Suicidal Planning, No Homicidal Ideation, No Paranoid Ideation - Sensorium Experiencing Hallucinations: No, Sensorium is Clear Type of Hallucinations: Visual: No, Auditory: No, Command: No - Level of Consciousness Level of Consciousness: Lethargic Orientation: Yes Intact, Yes Orientated to Time, Yes Orientated to Place, Yes Orientated to Person - Impulse Control Impulse Control: Intact - Insight and Judgement Insight and Judgement: Good - Group Participation Particating in Group Activities: Yes - Medication Management Medication Management Adherence: Yes Assessment - Assessment Merits Inpatient Hospitalization: Consolidate Improvements, Pending Safe DC Plan Inpatient DSM-IV Dx: Bipolar DO, MRE depressed without psychotic features Clinical Impression: 67 y.o. , white female with a history of bipolar disorder brought in voluntarily by her son seeking hospitalization for depressed mood with suicidal ideations to asphyxiate herself with CO from her stove. Plan - Plan Treatment Plan: Name: MACIEL SHEPARD Birthdate: 1950 [id number] The patient is improving on the new regimen of busiparone 30mg PO BID, gabapentin 600mg PO QID to TID, lurasidone 80mg PO qday and lithium 300mg PO BID. I will reduce lurasidone to 60mg PO qday to improve sedation. Will pursue referral to subacute rehab. Will change order for head MRI and get a CT scan instead to rule out stroke. Continued Medication Management: Different Medication Medications: Current Medications Al Hydrox/Mg Hydrox/Simethicone (Maalox Plus*) 30 ml PO Q4H PRN PRN Reason: INDIGESTION Albuterol (Ventolin Hfa Inhaler*) 2 puff INH Q4H PRN PRN Reason: SOB/WHEEZING Last Admin: 08/30/17 07:48 Dose: 2 puff Amlodipine Besylate (Norvasc Tab*) 5 mg PO DAILY [facility] Last Admin: 08/30/17 07:52 Dose: 5 mg Aspirin (Aspirin Low Dose Tab*) 81 mg PO DAILY [facility] Last Admin: 08/30/17 07:50 Dose: 81 mg Atorvastatin Calcium (Lipitor*) 40 mg PO 1700 [facility] Last Admin: 08/29/17 16:51 Dose: 40 mg Buspirone HCl (Buspar Tab*) 30 mg PO BID [facility] Last Admin: 08/30/17 07:49 Dose: 30 mg Cetirizine HCl (Zyrtec*) 10 mg PO DAILY [facility] PRN Reason: Protocol Last Admin: 08/30/17 07:52 Dose: Not Given Docusate Sodium (Colace Cap*) 100 mg PO BID PRN PRN Reason: CONSTIPATION Last Admin: 08/29/17 09:58 Dose: 100 mg Fluticasone Propionate (Flonase Nasal [place] 50mcg*) 2 spray BOTH NARES DAILY [facility] Last Admin: 08/30/17 07:49 Dose: Not Given Fluticasone/Vilanterol (Breo Ellipta Mdi 100/25(Nf)) 1 puff INH DAILY [facility] Last Admin: 08/30/17 07:49 Dose: Not Given Gabapentin (Neurontin Cap(*)) 600 mg PO TID [facility] Last Admin: 08/30/17 07:51 Dose: 600 mg Hydroxyzine HCl (Atarax Tab*) 50 mg PO Q6H PRN PRN Reason: AGITATION/ANXIETY/INSOMNIA Last Admin: 08/24/17 09:09 Dose: 50 mg [place] Carbonate ([place] Carbonate Tab*) 300 mg PO BID [facility] Last Admin: 08/30/17 07:52 Dose: 300 mg Lurasidone HCl (Latuda) 60 mg PO DAILY [facility] Multivitamins (Theragran Tab*) 1 tab PO DAILY [facility] Last Admin: 08/30/17 07:52 Dose: 1 tab Naproxen (Naprosyn Tab*) 500 mg PO Q12H PRN PRN Reason: PAIN - BREAKTHROUGH Last Admin: 08/30/17 07:53 Dose: 500 mg Nicotine (Nicotine Inhaler*) 10 mg INH Q2H PRN PRN Reason: CRAVING Last Admin: 08/27/17 11:32 Dose: 10 mg Nicotine Polacrilex (Nicotine Gum*) 2 mg PO Q2H PRN PRN Reason: CRAVING Last Admin: 08/25/17 17:35 Dose: 2 mg Omeprazole (Prilosec Cap*) 20 mg PO BID [facility] Last Admin: 08/30/17 07:50 Dose: Not Given Tramadol HCl (Ultram*) 50 mg PO Q12H PRN PRN Reason: PAIN Last Admin: 08/30/17 06:40 Dose: 50 mg - Discharge Plan Discharge Plan: Outpatient Follow Up
--- NOTE | 2017-08-30 12:04 | RAD ---
INDICATION: Altered mental status COMPARISON: CT brain August 22, 2017 TECHNIQUE: Noncontrast axial source images were acquired from the skull base to the vertex. FINDINGS: Ventricles/sulci: The ventricles and cisterns are normal in size and configuration for age. There is mild cortical involution. Brain parenchyma: There is periventricular and subcortical white matter change compatible with chronic ischemia. Intracranial hemorrhage:None. Extra-axial spaces: There are no abnormal extra axial fluid collections or evidence of extra-axial mass. Calvarium: There is no calvarial fracture or other calvarial abnormality. Scalp: There is no evidence of scalp or extracalvarial soft tissue abnormality. Paranasal sinuses/mastoid: The paranasal sinuses and mastoid air cells are clear. Other: None. IMPRESSION: Age-related involutional change and findings of chronic microvascular ischemia. No acute findings.
[2017-08-30] MEDS: Atorvastatin* 40 MG TAB PO SCH (17:02)
[2017-08-31] MEDS: Vitamin THERAPEUTIC TAB PO SCH (07:42)
[2017-08-31] MEDS: traMADol TAB* 50 MG PO PRN ×2 (07:42→20:06)
[2017-08-31] MEDS: Lithium Carbonate TAB* 300 MG PO SCH ×2 (07:42→20:07)
[2017-08-31] MEDS: busPIRone TAB* 30 MG PO SCH ×3 (07:42→20:12)
[2017-08-31] MEDS: Cetirizine* 10 MG TAB PO SCH (07:43)
[2017-08-31] MEDS: Omeprazole CAP* 20 MG PO SCH ×3 (07:43→20:12)
[2017-08-31] MEDS: amLODIPine TAB* 5 MG PO SCH (07:43)
[2017-08-31] MEDS: Gabapentin CAP(*) 300 MG PO SCH ×3 (07:43→20:07)
[2017-08-31] MEDS: Aspirin Low Dose CHEW TAB* 81 MG PO SCH (07:43)
[2017-08-31] MEDS: NF:Fluticasone/Vilanterol MDI(NF) 100/25 MDI INH SCH (08:44)
[2017-08-31] MEDS: Fluticasone NASAL SPRAY 50MCG* 16 gm SPRAY BTL BOTH NARES SCH (08:44)
--- NOTE | 2017-08-31 11:03 | PN ---
[facility]: Group Therapy Note - Service Type Service Type: [id number] Group Psychotherapy - Cognitive Behavioral Group Therapy ( CBT):Patient was attentive and participatory in CBT programming this morning, and remained in good behavioral control. Patient expressed positive insights regarding relevant treatment interventions and goals.
[2017-08-31] MEDS: Naproxen TAB* 250 MG PO PRN (12:24)
--- NOTE | 2017-08-31 13:30 | PN ---
Subjective - Subjective Service Type: 18626 Hosp care 15 min low complexity Subjective: The patient is relieved that her CT did not show any evidence of new stroke activity. Her slurred speech and sedation are improved since decreasing lurasidone. She continues to endorse improving mood and absence of SI. She has been accepted at [facility] for subacute rehab and plans on transferring to their care tomorrow. She expresses gratitude for her treatment here. Objective - Appearance Appearance: Obese Dysmorphic Features: No Hygiene: Normal Grooming: Fairly Well Kept - Behavior Psychomotor Activities: Abnormal-Decreased Exhibits Abnormal Movement: No - Attitude and Relatedness Attitude and Relatedness: Cooperative Eye Contact: Fair - Speech Quality: Unpressured Latencies: Normal Quantity: Appropriate - Mood Patient's Decription of Mood: "Good" - Affect Observed Affect: Fair Affect Consistent with: Euthymia - Thought Process Patient's Thought Process: Coherent Thought Content: No Passive Wish, No Suicidal Planning, No Homicidal Ideation, No Paranoid Ideation - Sensorium Experiencing Hallucinations: No, Sensorium is Clear Type of Hallucinations: Visual: No, Auditory: No, Command: No - Level of Consciousness Level of Consciousness: Alert Orientation: Yes Intact, Yes Orientated to Time, Yes Orientated to Place, Yes Orientated to Person - Impulse Control Impulse Control: Intact - Insight and Judgement Insight and Judgement: Good - Group Participation Particating in Group Activities: Yes - Medication Management Medication Management Adherence: Yes Assessment - Assessment Merits Inpatient Hospitalization: Pending Safe DC Plan Inpatient DSM-IV Dx: Bipolar DO, MRE depressed without psychotic features Clinical Impression: 67 y.o. , white female with a history of bipolar disorder brought in voluntarily by her son seeking hospitalization for depressed mood with suicidal ideations to asphyxiate herself with CO from her stove. Plan - Plan Treatment Plan: Name: MACIEL SHEPARD Birthdate: 1950 [id number] The patient continues to improve on the new regimen of busiparone 30mg PO BID, gabapentin 600mg PO QID to TID, lurasidone 60mg PO qday and lithium 300mg PO BID. Head CT negative for new pathology. Probable discharge to [facility] for subacute rehab tomorrow (09/01). Continued Medication Management: Different Medication Medications: Current Medications Al Hydrox/Mg Hydrox/Simethicone (Maalox Plus*) 30 ml PO Q4H PRN PRN Reason: INDIGESTION Albuterol (Ventolin Hfa Inhaler*) 2 puff INH Q4H PRN PRN Reason: SOB/WHEEZING Last Admin: 08/30/17 20:21 Dose: 2 puff Amlodipine Besylate (Norvasc Tab*) 5 mg PO DAILY [facility] Last Admin: 08/31/17 07:43 Dose: 5 mg Aspirin (Aspirin Low Dose Tab*) 81 mg PO DAILY [facility] Last Admin: 08/31/17 07:43 Dose: 81 mg Atorvastatin Calcium (Lipitor*) 40 mg PO 1700 [facility] Last Admin: 08/30/17 17:02 Dose: 40 mg Buspirone HCl (Buspar Tab*) 30 mg PO BID [facility] Last Admin: 08/31/17 07:42 Dose: 30 mg Cetirizine HCl (Zyrtec*) 10 mg PO DAILY [facility] PRN Reason: Protocol Last Admin: 08/31/17 07:43 Dose: 10 mg Docusate Sodium (Colace Cap*) 100 mg PO BID PRN PRN Reason: CONSTIPATION Last Admin: 08/29/17 09:58 Dose: 100 mg Fluticasone Propionate (Flonase Nasal [place] 50mcg*) 2 spray BOTH NARES DAILY [facility] Last Admin: 08/31/17 08:44 Dose: Not Given Fluticasone/Vilanterol (Breo Ellipta Mdi 100/25(Nf)) 1 puff INH DAILY [facility] Last Admin: 08/31/17 08:44 Dose: Not Given Gabapentin (Neurontin Cap(*)) 600 mg PO TID [facility] Last Admin: 08/31/17 07:43 Dose: 600 mg Hydroxyzine HCl (Atarax Tab*) 50 mg PO Q6H PRN PRN Reason: AGITATION/ANXIETY/INSOMNIA Last Admin: 08/30/17 17:45 Dose: 50 mg [place] Carbonate ([place] Carbonate Tab*) 300 mg PO BID [facility] Last Admin: 08/31/17 07:42 Dose: 300 mg Lurasidone HCl (Latuda) 60 mg PO DAILY [facility] Last Admin: 08/31/17 07:48 Dose: 60 mg Multivitamins (Theragran Tab*) 1 tab PO DAILY [facility] Last Admin: 08/31/17 07:42 Dose: 1 tab Naproxen (Naprosyn Tab*) 500 mg PO Q12H PRN PRN Reason: PAIN - BREAKTHROUGH Last Admin: 08/31/17 12:24 Dose: 500 mg Nicotine (Nicotine Inhaler*) 10 mg INH Q2H PRN PRN Reason: CRAVING Last Admin: 08/27/17 11:32 Dose: 10 mg Nicotine Polacrilex (Nicotine Gum*) 2 mg PO Q2H PRN PRN Reason: CRAVING Last Admin: 08/25/17 17:35 Dose: 2 mg Omeprazole (Prilosec Cap*) 20 mg PO BID [facility] Last Admin: 08/31/17 07:43 Dose: 20 mg Tramadol HCl (Ultram*) 50 mg PO Q12H PRN PRN Reason: PAIN Last Admin: 08/31/17 07:42 Dose: 50 mg - Discharge Plan Discharge Plan: Outpatient Follow Up Outpatient Program: [facility]
[2017-08-31] MEDS: Nicotine Inhaler* 10 MG AMP INH PRN ×2 (13:55→18:56)
[2017-08-31] MEDS: hydrOXYzine HCL TAB* 50 MG PO PRN (13:59)
[2017-08-31] MEDS: Atorvastatin* 40 MG TAB PO SCH (17:03)
[2017-08-31] MEDS: Nicotine GUM* 2 MG PO PRN (18:56)
[2017-09-01] MEDS: Naproxen TAB* 250 MG PO PRN (06:53)
[2017-09-01 07:35] VITALS: BP 139/61
[2017-09-01] MEDS: NF:Fluticasone/Vilanterol MDI(NF) 100/25 MDI INH SCH (09:06)
[2017-09-01] MEDS: Fluticasone NASAL SPRAY 50MCG* 16 gm SPRAY BTL BOTH NARES SCH (09:15)
[2017-09-01] MEDS: traMADol TAB* 50 MG PO PRN (09:15)
[2017-09-01] MEDS: amLODIPine TAB* 5 MG PO SCH (09:16)
[2017-09-01] MEDS: Lithium Carbonate TAB* 300 MG PO SCH (09:16)
[2017-09-01] MEDS: busPIRone TAB* 30 MG PO SCH (09:17)
[2017-09-01] MEDS: Aspirin Low Dose CHEW TAB* 81 MG PO SCH (09:21)
[2017-09-01] MEDS: Gabapentin CAP(*) 300 MG PO SCH ×2 (09:22→14:56)
[2017-09-01] MEDS: Cetirizine* 10 MG TAB PO SCH (09:37)
[2017-09-01] MEDS: Vitamin THERAPEUTIC TAB PO SCH (09:37)
[2017-09-01] MEDS: Omeprazole CAP* 20 MG PO SCH (09:37)
--- NOTE | 2017-09-01 12:36 | DS ---
DATE OF ADMISSION: 08/22/2017. DATE OF DISCHARGE: 09/01/2017. DISCHARGE DIAGNOSES: AXIS I: Bipolar disorder, most recent episode depressed, severe without psychotic features; polysub stance dependence in sustained remission, including opioids, alcohol, benzodiazepines, and cannabis. AXIS II: Deferred. AXIS III: Fracture of right sixth, seventh and eighth ribs, chronic obstructive pulmonary disease, gastroesophageal reflux disease, chronic back pain, hypertension, history of left-sided stroke in 17 10, history of left shoulder replacement in 2013. AXIS IV: Severe, primary support and social environmental stressors. AXIS V: At the time of admission was 40 and at the time of discharge is 60. CONDITION AT THE TIME OF DISCHARGE: Stable. The patient is denying suicidal ideations and has done so for over a [id number]-half. She has been safe on all checks. Her affect is much brighter and h er mood is euthymic. The patient is tolerating her medications quite well, including the initiation of Cibec[place] therapy. Her [place] level is therapeutic at 0.73. The patient is having some difficult ies getting up and ambulating following a recent fall in which she fractured her sixth, seventh and eighth right ribs and she has had some deconditioning secondary to this. She has been seen by both PT and OT who are recommending subacute rehabilitation in the community. The patient has been accep joshua for further care at the [facility] subacute rehab and she is very much agreeable with following u p with this. Thereafter, the plan will be to return to her apartment in the community where she is agreeable with outpatient mental health follow-ups at [facility]. The pat pearl understands that she can return to the hospital in the event of resumption of suicidal thinking . MENTAL STATUS EXAM: The patient is an ageing white female with dyed blonde hair who is somewhat obe se, fairly well-groomed, sitting up in a chair. She presents as calm, well-related, and easy to est ablish a rapport with. Speech has a normal rate, tone, and volume. Mood appears to be euthymic wit h full affect. Thought process is linear and goal-directed. Thought content is significant for her desire to be discharged to a rehab so that she can regain her strength in order to return to her ho ma in the community. She denies suicidal or homicidal ideations. She denies auditory or visual cam lucinations. Insight and judgment are fair given her willingness to follow-up with outpatient treat ment in the community. Cognitively, she is awake and alert with what would appear to be an average intellect. DISCHARGE INSTRUCTIONS TO THE PATIENT: A. Medications: She is taking Albuterol inhaler, two puffs inhaled every 4 hours as needed for whe ezing; aspirin 81 mg p.o. daily; Lipitor 40 mg p.o. q.p.m.; Zyrtec 10 mg p.o. daily; Colace 100 mg p .o. b.i.d. as a prn for constipation; Flonase two sprays to both nares once daily; Gabapentin 600 mg p.o. t.i.d.; [place] Carbonate 300 mg p.o. b.i.d.; Lurasidone 60 mg p.o. daily; Naprosyn 500 mg meghan ry 12 hours as needed for pain; she is on nicotine gum 2 mg every 2 hours as a prn for smoking cravi ngs; nicotine inhaler 10 mg inhaled every 2 hour as a prn for smoking cravings; Omeprazole 20 mg p.o . b.i.d.; therapeutic multivitamin once daily; Amlodipine 5 mg p.o. daily; BuSpar 30 mg p.o. b.i.d.; Hydroxyzine 50 mg every 6 hours as needed for anxiety; Tramadol 50 mg p.o. q.12 hours as a prn for pain. B. Diet: Regular. C. Activities: As per [facility] subacute rehab protocols. The patient is agreeable to continuing her nicotine replacement therapy, although she indicates that she will likely return to smoking ciga rettes after being discharged from [facility]. There are no laboratory or diagnostic studies pending at the time of discharge. D. Follow-up care: The patient will be a direct transfer to the [facility] inpatient subacute rehab facility here in [place], [place]. She will have follow- ups at the [facility] thereafter with psychiatric services by Dr. Felicia Mathews and psychotherapy by Justin Summers. HOSPITAL COURSE - PART A: Reason for admission: The patient is a 67-year-old, , white female with a history of bipola r disorder as well as polysubstance dependence which has been in relative remission for the past ten years, who now returns to our unit from the emergency room following a fall this morning in her bat hroom which resulted in the displaced fracture of her right sixth rib. She also has nondisplaced fr actures of the right seventh and eighth ribs. Apparently the morning of remission, the patient was overheard in her bathroom of her room on the U moaning and was discovered to be lying on her back with her neck raised over the curb of the shower. She was complaining of severe right flank pain st ating that she felt woozy and that her legs had given out. A CAT team was called and the patient wa s placed on a stretcher with a neck brace on and brought to the emergency room for evaluation. Ther e, her head CT was normal; however, x-ray of her chest and ribs revealed the aforementioned fracture s. At this time, she continues to be depressed and suicidal and this is the justification for readm itting her to our unit. Prior to her discharge on the very same morning, we had been discussing the possibility of ECT treatment for severe depression. She had several neurovegetative symptoms of de pression including poor sleep, lack of interest, guilt, energy disturbance, concentration problems, and psychomotor retardation. She was still having thoughts of committing suicide via carbon monoxid e poisoning from placing her head in the stove in her apartment. For a more complete history, hector faustin refer to this clinician's psychiatric history and physical which was dated on 08/13/2017. HOSPITAL COURSE - PART B: Psychiatric treatment rendered: The patient was readmitted to the Adult Behavioral Health Unit and placed on q.15 minute checks for her own safety secondary to the risks of further falls. We were ab le to treat her pain with Percocet, initially two tablets every six hours, but then reduced to one tablet every six hours, and ultimately discontinued. We monitored her closely for over utilization o f this medication due to her history of opioid dependence, but it never appeared that she was misusi ng it. At any rate, we were ultimately able to discontinue opioids and place her on low dose Tramad ol as well as Naprosyn for breakthrough pain. The patient was maintained on Cibecue therapy at the dose of 300 mg twice daily. Ultimately her serum Cibecue levels were found to be therapeutic at 0.73 . She did experience some slurring speech and appearing overly sedated. The patient herself was co ncerned that she may have had a stroke. We were unable to do an MRI of her brain given the fact julito t she has metal in her left shoulder from a shoulder surgery, but we were able to do a head CT which showed no evidence of acute intracranial pathology. Other than that, we reduced her Lurasidone fro m 80 mg daily to 60 mg daily and that seemed to improve her slurred speech and sedation. In terms of psychiatric meds which she is being discharged on, includes Gabapentin 600 mg p.o. t.i.d., [place] Carbonate 300 mg twice daily, Lurasidone 60 mg daily, BuSpar 30 mg twice daily, and then as needed H ydroxyzine for breakthrough anxiety. Given the patient's improvement in mood and the resolution of s uicidal ideations, we did not pursue any plans for ECT any further. Because she is having difficult y ambulating and has had some deconditioning, we have determined that she would benefit from leonorama nt at the [facility] subacute rehab facility which she is agreeable with. Follow-ups will be daniel sharma at the [facility]. At this time, the patient is safe for a [facility] of care and she is requesting discharge. We wish her the best for a safe and healthy future. [id number]/[facility] #: [id number]
== END 2017-09-01 14:45 | disposition home or self-care (01) | DRG 885 ==
LOC: ED 06:43 → BSU 11:08
PROVIDERS: ADMIT Psychiatry & Neurology Psychiatry; ATTEND Psychiatry & Neurology Psychiatry
PROC: GZHZZZZ Group Psychotherapy (ICD-10-PCS; principal; 2017-08-31)
DX: F31.4 Bipolar disorder, current episode depressed, severe, without psychotic features (principal); R45.851 Suicidal ideations; J44.9 Chronic obstructive pulmonary disease, unspecified; S22.41XA Multiple fractures of ribs, right side, initial encounter for closed fracture; I10 Essential (primary) hypertension; F10.21 Alcohol dependence, in remission; F12.21 Cannabis dependence, in remission; F13.21 Sedative, hypnotic or anxiolytic dependence, in remission; F11.21 Opioid dependence, in remission; K21.9 Gastro-esophageal reflux disease without esophagitis; G89.29 Other chronic pain; M54.9 Dorsalgia, unspecified; Z96.612 Presence of left artificial shoulder joint; E66.9 Obesity, unspecified; W18.30XA Fall on same level, unspecified, initial encounter; Y92.231 Patient bathroom in hospital as the place of occurrence of the external cause; M19.90 Unspecified osteoarthritis, unspecified site; F41.9 Anxiety disorder, unspecified; F17.210 Nicotine dependence, cigarettes, uncomplicated; R40.2412 Glasgow coma scale score 13-15, at arrival to emergency department; Z68.25 Body mass index [BMI] 25.0-25.9, adult; Z79.82 Long term (current) use of aspirin; Z88.1 Allergy status to other antibiotic agents; Z88.2 Allergy status to sulfonamides; Z86.73 Personal history of transient ischemic attack (TIA), and cerebral infarction without residual deficits; Z82.49 Family history of ischemic heart disease and other diseases of the circulatory system; Z91.5 Personal history of self-harm; Z81.8 Family history of other mental and behavioral disorders
CPT/HCPCS: 36415; 70450; 80048; 80178; 90853; 97530; 99222; 99231; 99238; A9270-GY; J1885

== ENCOUNTER 2017-11-09 17:56 | Emergency (ER) | payer MEDICARE, MEDICAID ==
[2017-11-09] MEDS ORDERED: HYDROcodone/ACETAMIN 5-325 MG* 1 TAB PO ONE (18:05)
--- NOTE | 2017-11-09 19:27 | RAD ---
HISTORY: Fall, lateral pain COMPARISONS: February 22, 2012 VIEWS: 4, Frontal view of the pelvis with frontal and frog-leg views of the left hip FINDINGS: BONE DENSITY: Normal. BONES: There is no displaced fracture. JOINTS: There is no arthropathy. ALIGNMENT: There is no dislocation. SOFT TISSUES: Unremarkable. OTHER FINDINGS: None. IMPRESSION: NO RADIOGRAPHIC EVIDENCE FOR HIP FRACTURE. X-RAYS MAY BE NEGATIVE WITH NONDISPLACED HIP FRACTURE, IF THERE IS PERSISTENT CLINICAL CONCERN, RECOMMEND CONSIDERATION OF MRI. IN THE SETTING OF CONTRAINDICATION TO MRI OR LIMITATION IN EMERGENT ACCESS TO MRI, CT WOULD BE SUGGESTED.
[2017-11-09] MEDS ORDERED: Albuterol HFA INHALER* 8 gm MDI INH ONE (19:28)
--- NOTE | 2017-11-09 20:05 | RAD ---
HISTORY: Left hip pain, trauma COMPARISONS: April 12, 2016 TECHNIQUE: Multiple contiguous axial CT images are obtained of the pelvis, with coronal and sagittal multiplanar reconstructions, without intravenous contrast administration. FINDINGS: BONE DENSITY: Normal. BONES: There is no displaced fracture. JOINTS: There is mild osteoarthritis of the left hip. MUSCULATURE: Unremarkable ALIGNMENT: There is no dislocation. SOFT TISSUES: Unremarkable. OTHER FINDINGS: There is atherosclerosis of the abdominal aorta and the iliac arteries bilaterally. Degenerative changes are noted of the lower lumbar spine IMPRESSION: 1. DEGENERATIVE CHANGES. 2. ATHEROSCLEROSIS. 3. NO ACUTE OSSEOUS INJURY. IF SYMPTOMS PERSIST, RECOMMEND REPEAT IMAGING
--- NOTE | 2017-11-09 22:53 | ED ---
Matthew Coyne Gabriel, scribed for Surinder Jauregui MD on 11/09/17 at 1809 . Adult Trauma - HPI Summary HPI Summary: This patient is a 67 year old F BIBA to [facility] with a s/p fall since [employer]. The patient rates the pain 8/10 in severity. Patient was in her kitchen when her fight leg gave out causing her to fall. Patient reports neck pain (chronic), lower back pain, and right sided hip pain. She states she did not hit her head when she fell. She previously had a stroke in her right side and some weakness has never resolved. - History of Current Complaint Chief Complaint: EDHipPelvisInjury Stated Complaint: FALL Hx Obtained From: Patient Hx Last Menstrual Period: pt states age 30-40 yrs old Mechanism of Injury: Fall Loss of Consciousness: no loss of consciousness Onset/Duration: Traumatic, Resolved Onset Severity: Moderate Current Severity: Moderate Pain Intensity: 8 Pain Scale Used: 0-10 Numeric Associated Signs & Symptoms: Positive: Other: - neck pain and hip pain - Additional Pertinent History Primary Care Physician: [id number] - Allergy/Home Medications Allergies/Adverse Reactions: Allergies Allergy/AdvReac Type Severity Reaction Status Date / Time Ciprofloxacin [From Cipro] Allergy Mild Itching Verified 11/09/17 18:06 Sulfa Drugs Allergy Mild Itching Verified 11/09/17 18:06 PMH/Surg Hx/FS Hx/Imm Hx Previously Healthy: No Endocrine/Hematology History: Reports: Hx Anemia - b12 shots Denies: Hx Diabetes, Hx Thyroid Disease Cardiovascular History: Reports: Hx Hypertension, Other Cardiovascular Problems/ Disorders - PT.STATES STROKE 2011 Denies: Hx Congestive Heart Failure, Hx Deep Vein Thrombosis, Hx Myocardial Infarction, Hx Pacemaker/ICD Respiratory History: Reports: Hx Asthma, Hx Chronic Obstructive Pulmonary Disease (COPD), Other Respiratory Problems/Disorders - COPD Denies: Hx Lung Cancer GI History: Reports: Other GI Disorders - DIVERTICULITIS Denies: Hx Gall Bladder Disease, Hx Gastrointestinal Bleed, Hx Ulcer, Hx Urosepsis History: Denies: Hx Kidney Stones, Hx Renal Disease Musculoskeletal History: Reports: Hx Arthritis, Hx Back Problems, Other Musculoskeletal History - L SHLDR REPAIR 12/2013 Sensory History: Reports: Hx Contacts or Glasses Denies: Hx Hearing Aid Opthamlomology History: Reports: Hx Contacts or Glasses Neurological History: Reports: Hx CVA - 2011, Hx Seizures Psychiatric History: Reports: Hx Anxiety, Hx Depression, Hx Panic Disorder, Hx Inpatient Treatment, Hx Community Mental Health Tx, Hx Bipolar Disorder, Hx Suicide Attempt, Hx of Violent Episodes Against Others, Hx Substance Abuse, Other Psychiatric Issues/Disorders - polysubstance abuse Denies: Hx Eating Disorder - Cancer History Hx Chemotherapy: No Hx Radiation Therapy: No - Surgical History Surgery Procedure, Year, and Place: LT SHOULDER REPLACEMENT 12/2013, ABD EXPLORATORY SURGERY, APPENDECTOMY Hx Anesthesia Reactions: No - Immunization History Date of Tetanus Vaccine: 12/03/13 Date of Influenza Vaccine: 2012 Infectious Disease History: No Infectious Disease History: Denies: Hx Hepatitis, Hx Human Immunodeficiency Virus (HIV), History Other Infectious Disease, Traveled Outside the [place] in Last 30 Days - Family History Known Family History: Positive: Hypertension, Respiratory Disease, Other - bipolar disorder, depression, alcohol abuse Negative: Cardiac Disease, Diabetes - Social History Alcohol Use: None 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, replaced Hx Substance Use: Yes Substance Use Type: Reports: None, Other Substance Use Comment - Amount & Last Used: opiates Hx Tobacco Use: Yes Smoking Status (MU): Heavy Every Day Tobacco Smoker Type: Cigarettes Amount Used/How Often: 1 PPD Length of Time of Smoking/Using Tobacco: 30 years Have You Smoked in the Last Year: Yes Review of Systems Negative: Fever, Chills Negative: Erythema Negative: Sore Throat Negative: Chest Pain Negative: Shortness Of Breath, Cough Negative: Abdominal Pain, Vomiting, Diarrhea Negative: dysuria, hematuria Positive: Other - pain in neck and left hip. . Negative: Edema Negative: Rash All Other Systems Reviewed And Are Negative: Yes Physical Exam - Summary Physical Exam Summary: Constitutional: Well-developed, Well-nourished, Alert, Cooperative Skin: Warm, Dry HENT: Normocephalic; No Racoons eyes; No battles sign; No abrasion; No contusion ; No hemotympanum; No maxilla facial tenderness or instability; Dentition are smooth; No dental trauma; No trismus Eyes: EOM normal, PERRL Neck: Trachea is midline. No stridor; No JVD; No step off; No posterior cervical spine tenderness Cardio: Rhythm regular, rate normal Heart sounds normal; Intact distal pulses; The pedal pulses are 2+ and symmetric. Radial pulses are 2+ and symmetric. Pulmonary/Chest wall: Effort normal; Breath sounds normal; Equal chest rise; No flail segment; No rib tenderness; No sternal tenderness Abd: Soft, Appearance normal. No distension; No tenderness; No palpable pulsatile mass; No Cullens sign; No Schneider-Turners sign Musculoskeletal: Full ROM with tenderness at left lateral and posterior hip, no pain at ankles, shoulders, elbows and knees; No joint swelling; No vertebral body tenderness; No paraspinal tenderness; No step off or deformity of the spine ; Pelvis is stable to lateral compression and rock Neuro: Alert, Oriented x3, Strength 5/5 all extremities. : No blood at urethral meatus Psych: Mood and affect Normal Vital Signs On Initial Exam: Initial Vitals Temp Pulse Resp BP Pulse Ox 97.9 F 77 18 161/71 96 11/09/17 18:00 11/09/17 18:00 11/09/17 18:00 11/09/17 18:00 11/09/17 18:00 Diagnostics - Vital Signs Vital Signs Temp Pulse Resp BP Pulse Ox 11/09/17 18:00 97.9 F 77 18 161/71 96 - Laboratory Lab Statement: Any lab studies that have been ordered have been reviewed, and results considered in the medical decision making process. - Radiology Pelvis Xray Radiology Interpretation Completed By: Radiologist - NO RADIOGRAPHIC EVIDENCE FOR HIP FRACTURE. X-RAYS MAY BE NEGATIVE WITH NONDISPLACED HIP FRACTURE, IF THERE IS PERSISTENT CLINICAL CONCERN, RECOMMEND CONSIDERATION OF MRI. IN THE SETTING OF CONTRAINDICATION TO MRI OR LIMITATION IN EMERGENT ACCESS TO MRI, CT WOULD BE SUGGESTED. ED physician has reviewed this radiology report. - CT CT Pelvis CT Interpretation Completed By: Radiologist - 1. DEGENERATIVE CHANGES. 2. ATHEROSCLEROSIS. 3. NO ACUTE OSSEOUS INJURY. IF SYMPTOMS PERSIST, RECOMMEND REPEAT IMAGING ED physician has reviewed this report. - EKG 1845 Cardiac Rate: NL EKG Rhythm: Sinus Rhythm - at 75 BPM EKG Interpretation: No STEMI Adult Trauma Course/Dx - Course Assessment/Plan: This patient is a 67 year old F BIBA to [facility] with a s/p fall since [employer]. The patient rates the pain 8/10 in severity. Patient was in her kitchen when her fight leg gave out causing her to fall. Patient reports neck pain (chronic), lower back pain, and right sided hip pain. She states she did not hit her head when she fell. She previously had a stroke in her right side and some weakness has never resolved. Pelvis Xray reveals, per radiologist, NO RADIOGRAPHIC EVIDENCE FOR HIP FRACTURE. X-RAYS MAY BE NEGATIVE WITH NONDISPLACED HIP. FRACTURE, IF THERE IS PERSISTENT CLINICAL CONCERN, RECOMMEND CONSIDERATION OF MRI. IN THE. SETTING OF CONTRAINDICATION TO MRI OR LIMITATION IN EMERGENT ACCESS TO MRI, CT WOULD BE. SUGGESTED. CT Pelvis reveals, per radiologist, 1. DEGENERATIVE CHANGES. 2. ATHEROSCLEROSIS. 3. NO ACUTE OSSEOUS INJURY. IF SYMPTOMS PERSIST, RECOMMEND REPEAT IMAGING. ED physician has reviewed this report. In the ED course the patient was given [place] and Albuterol. Patient will be discharged with prescription for Hydrocodone and follow up from PCP. The patient is agreeable with this plan. - Diagnoses Provider Diagnoses: Contusion, hip Discharge - Discharge Plan Condition: Stable Disposition: HOME Prescriptions: HYDROcodone/ACETAMIN 5-325 MG* [[place] 5-325 TAB*] 1 tab PO Q6H PRN #8 tab MDD 4 PRN Reason: Pain - Moderate To Severe Patient Education Materials: Hydrocodone/Acetaminophen (By mouth) Referrals: Polly Durham MD [Primary Care Provider] - 3 Days Additional Instructions: RETURN TO THE EMERGENCY DEPARTMENT FOR CHANGING OR WORSENING SYMPTOMS. The documentation as recorded by the Matthew plunkett Gabriel accurately reflects the service I personally performed and the decisions made by , Surinder Jauregui MD.
[2017-11-10 00:16] VITALS: BP 132/78
== END 2017-11-09 20:40 | disposition home or self-care (01) ==
LOC: ED 17:56
DX: S70.02XA Contusion of left hip, initial encounter (principal); M54.2 Cervicalgia; F17.210 Nicotine dependence, cigarettes, uncomplicated; M25.551 Pain in right hip; W19.XXXA Unspecified fall, initial encounter; Y93.9 Activity, unspecified; Y99.9 Unspecified external cause status
CPT/HCPCS: 72192; 99282; A9270-GY

== ENCOUNTER 2017-12-01 02:26 | Emergency (ER) | payer MEDICARE, MEDICAID ==
[2017-12-01] MEDS ORDERED: traMADol TAB* 50 MG PO ONE (02:44)
[2017-12-01] MEDS ORDERED: ALPRAZolam TAB* 0.5 MG PO ONE (02:44)
[2017-12-01 03:54] LABS: Urine Appearance Clear; Urine Blood Negative (Negative); Urine Color Straw; Urine Ketones Negative (Negative); Urine Protein Negative (Negative); Urine Specific Gravity 1.004 (1.010-1.030); Urine Urobilinogen Negative (Negative)
--- NOTE | 2017-12-01 04:09 | ED ---
Matthew Coyne Gabriel, scribed for Rut Real MD on 12/01/17 at 0249 . Back Pain - HPI Summary HPI Summary: This patient is a 67 year old F BIBA to [facility] with a chief complaint of chronic pain back pain exacerbation. The patient rates the pain 9/10 in severity. Patient reports anxiety, dysuria, odorous urine, and recent depression. Patient denies SI and HI. She states she has a new doctor who has not sent her prescriptions in for her daily medications so she has run out. She is requesting tramadol for her back pain. - History of Current Complaint Chief Complaint: EDPsychosocial Stated Complaint: FLANK PAIN Time Seen by Provider: 12/01/17 02:32 Hx Obtained From: Patient Hx Last Menstrual Period: pt states age 30-40 yrs old Onset/Duration: Still Present Onset/Duration: Still Present Timing: Constant Back Pain Location: Is Diffuse Severity Initially: Moderate Severity Currently: Moderate Pain Intensity: 9 Pain Scale Used: 0-10 Numeric Associated Signs And Symptoms: Positive: Other - anxiety, dysuria, odorous urine , and recent depression - Allergies/Home Medications Allergies/Adverse Reactions: Allergies Allergy/AdvReac Type Severity Reaction Status Date / Time Ciprofloxacin [From Cipro] Allergy Mild Itching Verified 11/09/17 18:06 Sulfa Drugs Allergy Mild Itching Verified 11/09/17 18:06 PMH/Surg Hx/FS Hx/Imm Hx Endocrine/Hematology History: Reports: Hx Anemia - b12 shots Denies: Hx Diabetes, Hx Thyroid Disease Cardiovascular History: Reports: Hx Hypertension, Other Cardiovascular Problems/ Disorders - PT.STATES STROKE 2011 Denies: Hx Congestive Heart Failure, Hx Deep Vein Thrombosis, Hx Myocardial Infarction, Hx Pacemaker/ICD Respiratory History: Reports: Hx Asthma, Hx Chronic Obstructive Pulmonary Disease (COPD), Other Respiratory Problems/Disorders - COPD Denies: Hx Lung Cancer GI History: Reports: Other GI Disorders - DIVERTICULITIS Denies: Hx Gall Bladder Disease, Hx Gastrointestinal Bleed, Hx Ulcer, Hx Urosepsis History: Denies: Hx Kidney Stones, Hx Renal Disease Musculoskeletal History: Reports: Hx Arthritis, Hx Back Problems, Other Musculoskeletal History - L SHLDR REPAIR 12/2013 Sensory History: Reports: Hx Contacts or Glasses Denies: Hx Hearing Aid Opthamlomology History: Reports: Hx Contacts or Glasses Neurological History: Reports: Hx CVA - 2011, Hx Seizures Psychiatric History: Reports: Hx Anxiety, Hx Depression, Hx Panic Disorder, Hx Inpatient Treatment, Hx Community Mental Health Tx, Hx Bipolar Disorder, Hx Suicide Attempt, Hx of Violent Episodes Against Others, Hx Substance Abuse, Other Psychiatric Issues/Disorders - polysubstance abuse Denies: Hx Eating Disorder - Cancer History Hx Chemotherapy: No Hx Radiation Therapy: No - Surgical History Surgery Procedure, Year, and Place: LT SHOULDER REPLACEMENT 12/2013, ABD EXPLORATORY SURGERY, APPENDECTOMY Hx Anesthesia Reactions: No - Immunization History Date of Tetanus Vaccine: 12/03/13 Date of Influenza Vaccine: 2012 Infectious Disease History: No Infectious Disease History: Denies: Hx Hepatitis, Hx Human Immunodeficiency Virus (HIV), History Other Infectious Disease, Traveled Outside the US in Last 30 Days - Family History Known Family History: Positive: Hypertension, Respiratory Disease, Other - bipolar disorder, depression, alcohol abuse Negative: Cardiac Disease, Diabetes - Social History Alcohol Use: None 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, replaced Hx Substance Use: Yes Substance Use Type: Reports: None, Other Substance Use Comment - Amount & Last Used: opiates Hx Tobacco Use: Yes Smoking Status (MU): Heavy Every Day Tobacco Smoker Type: Cigarettes Amount Used/How Often: 1 PPD Length of Time of Smoking/Using Tobacco: 30 years Have You Smoked in the Last Year: Yes Review of Systems Positive: dysuria, other - odorous urine Positive: Other - low back pain Psychological: Other - NEGATIVE SI and HI Positive: Anxious, Depressed All Other Systems Reviewed And Are Negative: Yes Physical Exam - Summary Physical Exam Summary: VITAL SIGNS: Reviewed. GENERAL: Patient is a well-developed and nourished female who is lying comfortable in the stretcher. Patient is not in any acute respiratory distress. HEAD AND FACE: No signs of trauma. No ecchymosis, hematomas or skull depressions. No sinus tenderness. EYES: PERRLA, EOMI x 2, No injected conjunctiva, no nystagmus. EARS: Hearing grossly intact. Ear canals and tympanic membranes are within normal limits. MOUTH: Oropharynx within normal limits. NECK: Supple, trachea is midline, no adenopathy, no JVD, no carotid bruit, no c- spine tenderness, neck with full ROM. CHEST: Symmetric, no tenderness at palpation LUNGS: Clear to auscultation bilaterally. No wheezing or crackles. CVS: Regular rate and rhythm, S1 and S2 present, no murmurs or gallops appreciated. ABDOMEN: Soft, non-tender. No signs of distention. No rebound no guarding, and no masses palpated. Bowel sounds are normal. Mild low back tenderness EXTREMITIES: FROM in all major joints, no edema, no cyanosis or clubbing. NEURO: Alert and oriented x 3. No acute neurological deficits. Speech is normal and follows commands. SKIN: Dry and warm Triage Information Reviewed: Yes Vital Signs On Initial Exam: Initial Vitals Temp Pulse Resp BP Pulse Ox 97.4 F 83 20 143/76 98 12/01/17 02:30 12/01/17 02:30 12/01/17 02:30 12/01/17 02:30 12/01/17 02:30 Vital Signs Reviewed: Yes - [place] Coma Scale Coma Scale Total: 15 Diagnostics - Vital Signs Vital Signs Temp Pulse Resp BP Pulse Ox 12/01/17 02:30 97.4 F 83 20 143/76 98 - Laboratory Lab Statement: Any lab studies that have been ordered have been reviewed, and results considered in the medical decision making process. Re-Evaluation - Re-Evaluation First Eval Re-Evaluation Time: 04:03 Change: Unchanged - Patient is requesting a prescription for HTN medication and Ultram. Back Pain Course/Dx - Course Assessment/Plan: This patient is a 67 year old F BIBA to [facility] with a chief complaint of chronic pain back pain exacerbation. The patient rates the pain 9/ 10 in severity. Patient reports anxiety, dysuria, odorous urine, and recent depression. Patient denies SI and HI. She states she has a new doctor who has not sent her prescriptions in for her daily medications so she has run out. She is requesting tramadol for her back pain. Test results with no significant abnormalities. In the ED course the patient was given Xanax and ultram. Patient will be discharged and follow up from PCP. The patient is agreeable with this plan. - Diagnoses Provider Diagnoses: Back pain Discharge - Discharge Plan Condition: Stable Disposition: HOME Referrals: Polly Durham MD [Medical Doctor] - Additional Instructions: RETURN TO EMERGENCY DEPARTMENT FOR ANY NEW OR WORSENING SYMPTOMS The documentation as recorded by the Matthew plunkett Gabriel accurately reflects the service I personally performed and the decisions made by , Rut Real MD.
[2017-12-01 04:31] VITALS: BP 139/84
== END 2017-12-01 04:20 | disposition home or self-care (01) ==
LOC: ED 02:26
DX: M54.9 Dorsalgia, unspecified (principal); R30.0 Dysuria; I10 Essential (primary) hypertension; F41.9 Anxiety disorder, unspecified; D64.9 Anemia, unspecified; Z86.73 Personal history of transient ischemic attack (TIA), and cerebral infarction without residual deficits; J44.9 Chronic obstructive pulmonary disease, unspecified; K57.92 Diverticulitis of intestine, part unspecified, without perforation or abscess without bleeding; Z96.612 Presence of left artificial shoulder joint; Z88.1 Allergy status to other antibiotic agents; Z88.2 Allergy status to sulfonamides; F11.90 Opioid use, unspecified, uncomplicated; F17.210 Nicotine dependence, cigarettes, uncomplicated
CPT/HCPCS: 81003; 99283; A9270-GY

== ENCOUNTER 2018-01-10 13:15 | Inpatient (IN) | payer MEDICARE, MEDICAID ==
[2018-01-10] MEDS ORDERED: ALPRAZolam TAB* 0.25 MG PO ONE (13:31)
[2018-01-10 14:22] LABS: ABS Basophils 0.1 10^3/ul (0-0.2); ABS Eosinophils 0.1 10^3/ul (0-0.6); ABS Lymphocytes 2.4 10^3/ul (1.0-4.8); ABS Monocytes 0.5 10^3/ul (0-0.8); ABS Neutrophils 5.1 10^3/ul (1.5-7.7); ABS Nucleated RBC 0 10^3/ul; Eosinophil % 1.6 % (0-6); Hematocrit 39 % (35-47); Hemoglobin 13.9 g/dl (12.0-16.0); Lymphocyte % 29.3 % (25-47); Mean Corpuscular HGB Conc 36 g/dl (31-36); Mean Corpuscular Hemoglobin 32 pg (27-31); Mean Corpuscular Volume 89 fL (80-97); Mean Platelet Volume 7 um3 (7.4-10.4); Nucleated Red Blood Cells % 0; Platelet Count 197 10^3/ul (150-450); Red Blood Count 4.37 10^6/ul (4.0-5.4); Red Cell Distribution Width 14 % (10.5-15); White Blood Count 8.2 10^3/ul (3.5-10.8)
[2018-01-10] MEDS ORDERED: Al Hydrox/Mg Hydrox/Simet LIQ* 30 ML UDC PO PRN (16:03)
[2018-01-10] MEDS ORDERED: Docusate CAP* 100 MG PO PRN (16:06)
[2018-01-10] MEDS: busPIRone TAB* 30 MG PO SCH (20:59)
[2018-01-10] MEDS: QUEtiapine TAB* 100 MG PO SCH (20:59)
[2018-01-10] MEDS: Omeprazole CAP* 20 MG PO SCH (21:00)
[2018-01-10] MEDS: Gabapentin CAP(*) 300 MG PO SCH (21:00)
[2018-01-10] MEDS: traMADol TAB* 50 MG PO PRN (21:00)
[2018-01-10] MEDS: Atorvastatin* 40 MG TAB PO SCH (21:01)
[2018-01-10] MEDS: Nicotine Patch Removal NOTE PATCH OFF SCH (21:02)
[2018-01-11] MEDS: Gabapentin CAP(*) 300 MG PO SCH ×3 (09:20→20:11)
[2018-01-11] MEDS: busPIRone TAB* 30 MG PO SCH ×2 (09:20→20:12)
[2018-01-11] MEDS: Omeprazole CAP* 20 MG PO SCH ×2 (09:21→20:11)
[2018-01-11] MEDS: amLODIPine TAB* 5 MG PO SCH (09:21)
[2018-01-11] MEDS: Aspirin Low Dose CHEW TAB* 81 MG PO SCH (09:21)
[2018-01-11] MEDS: Nicotine PATCH 21 MG/24 HR* PATCH TRANSDERM SCH (09:23)
[2018-01-11] MEDS: Fluticasone NASAL SPRAY 50MCG* 16 gm SPRAY BTL BOTH NARES SCH (09:23)
[2018-01-11] MEDS: BuPROPion XL* 150 MG TAB.XL PO SCH (14:36)
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
[2018-01-11] MEDS: Nicotine Inhaler* 10 MG AMP INH PRN (15:58)
[2018-01-11] MEDS ORDERED: Mouth Piece, Nicotine* 1 EACH CARTRIDGE ONE (16:00)
[2018-01-11] MEDS: Atorvastatin* 40 MG TAB PO SCH (16:24)
[2018-01-11] MEDS: QUEtiapine TAB* 100 MG PO SCH (20:11)
[2018-01-11] MEDS: Nicotine Patch Removal NOTE PATCH OFF SCH (20:12)
[2018-01-12] MEDS: Omeprazole CAP* 20 MG PO SCH ×2 (08:53→21:14)
[2018-01-12] MEDS: Aspirin Low Dose CHEW TAB* 81 MG PO SCH (08:54)
[2018-01-12] MEDS: amLODIPine TAB* 5 MG PO SCH (08:54)
[2018-01-12] MEDS: busPIRone TAB* 30 MG PO SCH ×2 (08:54→21:16)
[2018-01-12] MEDS: BuPROPion XL* 150 MG TAB.XL PO SCH (08:54)
[2018-01-12] MEDS: Gabapentin CAP(*) 300 MG PO SCH ×4 (08:55→21:15)
[2018-01-12] MEDS: Fluticasone NASAL SPRAY 50MCG* 16 gm SPRAY BTL BOTH NARES SCH (09:00)
[2018-01-12] MEDS: Nicotine PATCH 21 MG/24 HR* PATCH TRANSDERM SCH (09:00)
--- NOTE | 2018-01-12 11:09 | ED ---
Richard Coyne Stephanie, scribed for Surinder Jauregui MD on 01/10/18 at 1915 . Psychiatric Complaint - HPI Summary HPI Summary: The pt is a 67 y/o F presenting to the ED with c/o depression that began in November. Symptoms include decreased appetite and diarrhea. The pt denies CP, SI , and fever. The pt denies drug use and ETOH consumption. - History Of Current Complaint Chief Complaint: EDMentalHealth Time Seen by Provider: 01/10/18 13:25 Hx Obtained From: Patient Hx Last Menstrual Period: pt states age 30-40 yrs old Onset/Duration: Lasting Weeks - 5, Still Present Timing: Constant Character: Depressed Aggravating Factor(s): Nothing Alleviating Factor(s): Nothing Associated Signs And Symptoms: Positive: Appetite Change Has Suicidal: Denies: Thoughts - Allergies/Home Medications Allergies/Adverse Reactions: Allergies Allergy/AdvReac Type Severity Reaction Status Date / Time MS Ciprofloxacin [From Cipro] Allergy Mild Itching Verified 01/10/18 13:24 MS Sulfa Drugs [Sulfa Drugs] Allergy Mild Itching Verified 01/10/18 13:24 PMH/Surg Hx/FS Hx/Imm Hx Endocrine/Hematology History: Reports: Hx Anemia - b12 shots Denies: Hx Diabetes, Hx Thyroid Disease Cardiovascular History: Reports: Hx Hypertension, Other Cardiovascular Problems/ Disorders - PT.STATES STROKE 2011 Denies: Hx Congestive Heart Failure, Hx Deep Vein Thrombosis, Hx Myocardial Infarction, Hx Pacemaker/ICD Respiratory History: Reports: Hx Asthma, Hx Chronic Obstructive Pulmonary Disease (COPD), Other Respiratory Problems/Disorders - COPD Denies: Hx Lung Cancer GI History: Reports: Other GI Disorders - DIVERTICULITIS Denies: Hx Gall Bladder Disease, Hx Gastrointestinal Bleed, Hx Ulcer, Hx Urosepsis History: Denies: Hx Kidney Stones, Hx Renal Disease Musculoskeletal History: Reports: Hx Arthritis, Hx Back Problems, Other Musculoskeletal History - L SHLDR REPAIR 12/2013 Sensory History: Reports: Hx Contacts or Glasses Denies: Hx Hearing Aid Opthamlomology History: Reports: Hx Contacts or Glasses Neurological History: Reports: Hx CVA - 2011, Hx Seizures Psychiatric History: Reports: Hx Anxiety, Hx Depression, Hx Panic Disorder, Hx Inpatient Treatment, Hx Community Mental Health Tx, Hx Bipolar Disorder, Hx Suicide Attempt, Hx of Violent Episodes Against Others, Hx Substance Abuse, Other Psychiatric Issues/Disorders - polysubstance abuse Denies: Hx Eating Disorder - Cancer History Hx Chemotherapy: No Hx Radiation Therapy: No - Surgical History Surgery Procedure, Year, and Place: LT SHOULDER REPLACEMENT 12/2013, ABD EXPLORATORY SURGERY, APPENDECTOMY Hx Anesthesia Reactions: No - Immunization History Date of Tetanus Vaccine: 12/03/13 Date of Influenza Vaccine: 2012 Infectious Disease History: No Infectious Disease History: Denies: Hx Hepatitis, Hx Human Immunodeficiency Virus (HIV), History Other Infectious Disease, Traveled Outside the [place] in Last 30 Days - Family History Known Family History: Positive: Hypertension, Respiratory Disease, Other - bipolar disorder, depression, alcohol abuse Negative: Cardiac Disease, Diabetes - Social History Occupation: Retired Lives: Alone Alcohol Use: None 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, replaced Hx Substance Use: Yes Substance Use Type: Reports: None, Other Substance Use Comment - Amount & Last Used: opiates Hx Tobacco Use: Yes Smoking Status (MU): Heavy Every Day Tobacco Smoker Type: Cigarettes Amount Used/How Often: 1 PPD Length of Time of Smoking/Using Tobacco: 30 years Have You Smoked in the Last Year: Yes Review of Systems Positive: Other - decreased appetite. Negative: Fever, Chills Negative: Erythema Negative: Sore Throat Negative: Chest Pain Negative: Shortness Of Breath, Cough Negative: Abdominal Pain, Vomiting, Nausea Negative: dysuria, hematuria Negative: Myalgia, Edema Negative: Rash Neurological: Other - Negarive: dizziness Positive: Depressed All Other Systems Reviewed And Are Negative: Yes Physical Exam - Summary Physical Exam Summary: Constitutional: Well-developed, Well-nourished, Alert. (-) Distressed Skin: Warm, Dry HENT: Normocephalic; Atraumatic Eyes: Conjunctiva normal Neck: Musculoskeletal ROM normal neck. (-) JVD, (-) Stridor, (-) Tracheal deviation Cardio: Rhythm regular, rate normal, Heart sounds normal; Intact distal pulses; The pedal pulses are 2+ and symmetric. Radial pulses are 2+ and symmetric. (-) Murmur Pulmonary/Chest wall: Effort normal. (-) Respiratory distress, (-) Wheezes, (-) Rales Abd: Soft, (-) Tenderness, (-) Distension, (-) Guarding, (-) Rebound Musculoskeletal: (-) Edema Lymph: (-) Cervical adenopathy Neuro: Alert, Oriented x3 Psych: Flat affect Triage Information Reviewed: Yes Vital Signs On Initial Exam: Initial Vitals Temp Pulse Resp BP Pulse Ox 98 F 91 20 137/76 97 01/10/18 13:21 01/10/18 13:21 01/10/18 13:21 01/10/18 13:21 01/10/18 13:21 Vital Signs Reviewed: Yes Diagnostics - Vital Signs Vital Signs Temp Pulse Resp BP Pulse Ox 01/10/18 13:21 98 F 91 20 137/76 97 - Laboratory Result Diagrams: 01/10/18 14:15 01/10/18 14:15 Lab Statement: Any lab studies that have been ordered have been reviewed, and results considered in the medical decision making process. Course/Dx - Course Course Of Treatment: [facility] suggests for the pt to be admitted into the hospital. - Differential Dx/Clinical Impression Provider Diagnosis: Depression, Suicidal ideation Discharge - Discharge Plan Condition: Stable Disposition[place] [place] The documentation as recorded by the Richard plunkett Stephanie accurately reflects the service I personally performed and the decisions made by , Surinder Jauregui MD.
--- NOTE | 2018-01-12 15:05 | PN ---
Subjective - Subjective Date of Service: 01/12/18 Service Type: 48951 Hosp care 15 min low complexity Subjective: Maciel has been in bed most of the day. She continues to endorse depressed mood, although she denies SI. She is tolerating bupropion therapy well. The patient is having extreme difficulties ambulating and is requesting PT consultation. Objective - Appearance Appearance: Well Developed/Nourished Dysmorphic Features: No Hygiene: Normal Grooming: Disheveled - Behavior Psychomotor Activities: Abnormal-Decreased Exhibits Abnormal Movement: No - Attitude and Relatedness Attitude and Relatedness: Cooperative Eye Contact: Fair - Speech Quality: Unpressured Latencies: Normal Quantity: Terse - Mood Patient's Decription of Mood: "Sad" - Affect Observed Affect: Constricted Affect Consistent with: Dysphoria - Thought Process Patient's Thought Process: Coherent Thought Content: No Passive Wish, No Suicidal Planning, No Homicidal Ideation, No Paranoid Ideation - Sensorium Experiencing Hallucinations: No, Sensorium is Clear Type of Hallucinations: Visual: No, Auditory: No, Command: No - Level of Consciousness Level of Consciousness: Lethargic Orientation: Yes Intact, Yes Orientated to Time, Yes Orientated to Place, Yes Orientated to Person - Impulse Control Impulse Control: Tenuous - Insight and Judgement Insight and Judgement: Fair - Group Participation Particating in Group Activities: Yes - Medication Management Medication Management Adherence: Yes Assessment - Assessment Merits Inpatient Hospitalization: For Immediate Safety, For Stabilization Inpatient DSM-V Dx: F31.4 Clinical Impression: 67 y.o. , white female with a history of bipolar disorder comes in via ambulance seeking voluntary admission for depressed mood and suicidal ideations with plan to OD on meds. Plan - Plan Treatment Plan: Name: MACIEL SHEPARD Birthdate: 1950 [id number] We have left the patient on gabapentin, quetiapine and buspar and added Wellbutrin XL 150mg PO qam. Continue to treat on the inpatient service. Will consult PT for ambulatory difficulties. Continued Medication Management: Different Medication Medications: Current Medications Acetaminophen (Tylenol Tab*) 650 mg PO Q4H PRN PRN Reason: for pain; or Temp >101 F Al Hydrox/Mg Hydrox/Simethicone (Maalox Plus*) 30 ml PO Q4H PRN PRN Reason: INDIGESTION Amlodipine Besylate (Norvasc Tab*) 5 mg PO DAILY [facility] Last Admin: 01/12/18 08:54 Dose: 5 mg Aspirin (Aspirin Low Dose Tab*) 81 mg PO DAILY [facility] Last Admin: 01/12/18 08:54 Dose: 81 mg Atorvastatin Calcium (Lipitor*) 40 mg PO 1700 [facility] Last Admin: 01/11/18 16:24 Dose: 40 mg Bupropion HCl (Wellbutrin Xl *) 150 mg PO DAILY [facility] PRN Reason: Protocol Last Admin: 01/12/18 08:54 Dose: 150 mg Buspirone HCl (Buspar Tab*) 30 mg PO BID [facility] Last Admin: 01/12/18 08:54 Dose: 30 mg Docusate Sodium (Colace Cap*) 100 mg PO BID PRN PRN Reason: CONSTIPATION Last Admin: 01/10/18 20:59 Dose: 100 mg Fluticasone Propionate (Flonase Nasal [place] 50mcg*) 2 spray BOTH NARES DAILY [facility] Last Admin: 01/12/18 09:00 Dose: Not Given Gabapentin (Neurontin Cap(*)) 600 mg PO TID [facility] Last Admin: 01/12/18 14:24 Dose: 600 mg Hydroxyzine HCl (Atarax Tab*) 50 mg PO Q6H PRN PRN Reason: AGITATION/ANXIETY/INSOMNIA Nicotine (Nicotine Inhaler*) 10 mg INH Q2H PRN PRN Reason: CRAVING Last Admin: 01/11/18 15:58 Dose: 10 mg Nicotine (Nicotine Patch 21 Mg/24 Hr*) 1 patch TRANSDERM DAILY@0800 [facility] Last Admin: 01/12/18 09:00 Dose: Not Given Omeprazole (Prilosec Cap*) 20 mg PO BID [facility] Last Admin: 01/12/18 08:53 Dose: 20 mg Pharmacy Profile Note (Nicotine Patch Removal Note*) 1 note PATCH OFF 2100 [facility] Last Admin: 01/11/18 20:12 Dose: Not Given Quetiapine Fumarate (Seroquel Tab*) 200 mg PO BEDTIME [facility] Last Admin: 01/11/18 20:11 Dose: 200 mg Tramadol HCl (Ultram*) 50 mg PO Q6HR PRN PRN Reason: PAIN Last Admin: 01/10/18 21:00 Dose: 50 mg - Discharge Plan Discharge Plan: Inpatient Hospitalization Lab Results - Lab Results Lab Results: 01/11/18 01/11/18 07:26 07:26 Hemoglobin A1c 5.5 Triglycerides 182 Cholesterol 234 LDL Cholesterol 166 HDL Cholesterol 31.4
[2018-01-12] MEDS: Atorvastatin* 40 MG TAB PO SCH (16:53)
[2018-01-12] MEDS: QUEtiapine TAB* 100 MG PO SCH (21:15)
[2018-01-12] MEDS: Nicotine Patch Removal NOTE PATCH OFF SCH (21:16)
[2018-01-13] MEDS: Aspirin Low Dose CHEW TAB* 81 MG PO SCH (07:47)
[2018-01-13] MEDS: amLODIPine TAB* 5 MG PO SCH (07:47)
[2018-01-13] MEDS: busPIRone TAB* 30 MG PO SCH ×2 (07:47→19:57)
[2018-01-13] MEDS: BuPROPion XL* 150 MG TAB.XL PO SCH (07:47)
[2018-01-13] MEDS: Omeprazole CAP* 20 MG PO SCH ×2 (07:48→19:56)
[2018-01-13] MEDS: Gabapentin CAP(*) 300 MG PO SCH ×3 (07:48→19:57)
[2018-01-13] MEDS: Nicotine PATCH 21 MG/24 HR* PATCH TRANSDERM SCH (08:00)
[2018-01-13] MEDS: Fluticasone NASAL SPRAY 50MCG* 16 gm SPRAY BTL BOTH NARES SCH (08:00)
--- NOTE | 2018-01-13 09:07 | CONSULT ---
Consult Consult: HOSPITALIST CONSULT: Date of Consultation: 01/13/18 Reason for Consult: AMS Requesting Provider: Dr. Garcia HPI: Ms Dewey is a 67 yo F who has a h/o HTN, HLD, COPD, bipolar disorder, depression and past CVA who presented to the ER with c/o depressed mood and was admitted to the [facility] on 01/10/18. This AM nursing noted that the patient was interactive with intermittently garbled speech. As the morning progressed she was noted to have a paucity of speech and has had a difficult time getting out of a chair. The patient c/o weakness in both legs. She states she does not feel well because of the weakness. I was asked to see the patient in consultation for evaluation of these symptoms. PMHx: HTN, HLD, COPD, bipolar disorder, depression, past CVA, chronic back pain All: Cipro, sulfa drugs Meds: Reviewed FamHx: Mom of "blood clot", dad from a broken SocHx: She smokes daily, past h/o alcohol, benzodiazepine and opiate abuse. ROS: not obtainable as the patient does not readily answer my questions PE: BP132/89 P108 RR16 T98.5 O2 sat 100% on RA gen: awake sitting in the mileu eating breakfast with her R hand without any clumsiness HEENT: pupils are round, EOMI, oropharynx is moist Card: nl S1 S2 RRR, no murmurs, no LE edema Lungs: diminshed breath sounds in all lung crawford Abd: BS + soft, NT, ND Neuro: CN II-XII grossly intact (maybe slight droop of R corner of the mouth), UE strength 5/5 bilaterally, LE strength 4+/5 bilaterally, sensation intact, finger to nose testing smooth and without clumsiness with the R hand, L hand pt was able to complete the task but touched my hand and not finger but there was no wavering in getting her finger from her nose to my hand Psych: pt acting odd Labs: pending A/P: Ms Dewey is a 67 yo F who has a past h/o CVA, HTN, HLD, COPD and bipolar disorder who over the course of this AM was found to be altered in that her quantity of speech decreased and she became too weak to get herself out of a chair. 1. Decreased speech and weakness: the patient has a non-focal exam. She does have a past h/o CVA with residual dysarthric speech and this was noted this AM. I question infection vs medication vs metabolic cause to her new symptoms. CVA seems unlikely. My recommendation is for CT without contrast to start however Dr Garcia would like to proceed with MRI of the brain-this has been ordered by the [facility] in the [facility]. Will check CBC, BMP and ammonia levels. If she fails to improve may consider EEG to r/o subclinical status epilepticus. Will await results of the MRI. 2. HTN: BP is under good control on amlodipine 5mg daily. Continue to monitor. 3. HLD: continue lipitor- lipid profile from 01/11/18 is not favorable however I am suspicious the patient may not take her lipitor as prescribed. Continue 40mg daily for now but if she is able to clearly state she takes her medications as prescribed and has been taking the lipitor will increase the dose to 80mg daily. 4. Bipolar disorder/depression: management per psychiatry. 5. Will follow along
[2018-01-13 10:26] LABS: Hematocrit 39 % (35-47); Hemoglobin 13.2 g/dl (12.0-16.0); Mean Corpuscular HGB Conc 34 g/dl (31-36); Mean Corpuscular Hemoglobin 31 pg (27-31); Mean Corpuscular Volume 92 fL (80-97); Mean Platelet Volume 7 um3 (7.4-10.4); Platelet Count 176 10^3/ul (150-450); Red Blood Count 4.23 10^6/ul (4.0-5.4); Red Cell Distribution Width 14 % (10.5-15); White Blood Count 6.8 10^3/ul (3.5-10.8)
[2018-01-13] MEDS ORDERED: LORazepam TAB(*) 1 MG PO ONE (10:30)
[2018-01-13 10:39] LABS: EGFR Non-African American 74.1 (>60)
--- NOTE | 2018-01-13 11:27 | PN ---
Subjective - Subjective Date of Service: 01/13/18 Service Type: 05000 Hosp care 15 min low complexity Subjective: Maciel has improved spirits this AM and continues to deny SI. She had an episode of slurred speech, confusion and inability to ambulate this AM after taking morning meds. Hospitalist service was consulted and their note is appreciated. Given her history of ischemic stroke, we opted for MRI of brain, which the patient is agreeable with. She seems to sense that her morning meds are what made her symptomatic, although none of them would be notable for delirium as prominent side effects. Objective - Appearance Appearance: Obese Dysmorphic Features: No Hygiene: Normal Grooming: Fairly Well Kept - Behavior Psychomotor Activities: Abnormal-Decreased Exhibits Abnormal Movement: No - Attitude and Relatedness Attitude and Relatedness: Cooperative Eye Contact: Fair - Speech Quality: Unpressured Latencies: Normal Quantity: Appropriate - Mood Patient's Decription of Mood: "Okay" - Affect Observed Affect: Fair Affect Consistent with: Euthymia - Thought Process Patient's Thought Process: Coherent Thought Content: No Passive Wish, No Suicidal Planning, No Homicidal Ideation, No Paranoid Ideation - Sensorium Experiencing Hallucinations: No, Sensorium is Clear Type of Hallucinations: Visual: No, Auditory: No, Command: No - Level of Consciousness Level of Consciousness: Alert Orientation: Yes Intact, Yes Orientated to Time, Yes Orientated to Place, Yes Orientated to Person - Impulse Control Impulse Control: Tenuous - Insight and Judgement Insight and Judgement: Fair - Group Participation Particating in Group Activities: Yes - Medication Management Medication Management Adherence: Yes Assessment - Assessment Merits Inpatient Hospitalization: For Immediate Safety, For Stabilization Inpatient DSM-V Dx: F31.4 Clinical Impression: 67 y.o. , white female with a history of bipolar disorder comes in via ambulance seeking voluntary admission for depressed mood and suicidal ideations with plan to OD on meds. Plan - Plan Treatment Plan: Name: MACIEL SHEPARD Birthdate: 1950 [id number] We have left the patient on gabapentin, quetiapine and buspar and added Wellbutrin XL 150mg PO qam for bipolar depression treatment, per her wishes. Continue to treat on the inpatient service. Will consult PT for ambulatory difficulties. Pending MRI of brain due to confusion and movement episode. Hospitalist input appreciated. Continued Medication Management: Different Medication Medications: Current Medications Acetaminophen (Tylenol Tab*) 650 mg PO Q4H PRN PRN Reason: for pain; or Temp >101 F Al Hydrox/Mg Hydrox/Simethicone (Maalox Plus*) 30 ml PO Q4H PRN PRN Reason: INDIGESTION Amlodipine Besylate (Norvasc Tab*) 5 mg PO DAILY [facility] Last Admin: 01/13/18 07:47 Dose: 5 mg Aspirin (Aspirin Low Dose Tab*) 81 mg PO DAILY [facility] Last Admin: 01/13/18 07:47 Dose: 81 mg Atorvastatin Calcium (Lipitor*) 40 mg PO 1700 [facility] Last Admin: 01/12/18 16:53 Dose: 40 mg Bupropion HCl (Wellbutrin Xl *) 150 mg PO DAILY [facility] PRN Reason: Protocol Last Admin: 01/13/18 07:47 Dose: 150 mg Buspirone HCl (Buspar Tab*) 30 mg PO BID [facility] Last Admin: 01/13/18 07:47 Dose: 30 mg Docusate Sodium (Colace Cap*) 100 mg PO BID PRN PRN Reason: CONSTIPATION Last Admin: 01/10/18 20:59 Dose: 100 mg Fluticasone Propionate (Flonase Nasal [place] 50mcg*) 2 spray BOTH NARES DAILY [facility] Last Admin: 01/13/18 08:00 Dose: Not Given Gabapentin (Neurontin Cap(*)) 600 mg PO TID [facility] Last Admin: 01/13/18 07:48 Dose: 600 mg Hydroxyzine HCl (Atarax Tab*) 50 mg PO Q6H PRN PRN Reason: AGITATION/ANXIETY/INSOMNIA Nicotine (Nicotine Inhaler*) 10 mg INH Q2H PRN PRN Reason: CRAVING Last Admin: 01/11/18 15:58 Dose: 10 mg Nicotine (Nicotine Patch 21 Mg/24 Hr*) 1 patch TRANSDERM DAILY@0800 [facility] Last Admin: 01/13/18 08:00 Dose: 1 patch Omeprazole (Prilosec Cap*) 20 mg PO BID [facility] Last Admin: 01/13/18 07:48 Dose: 20 mg Pharmacy Profile Note (Nicotine Patch Removal Note*) 1 note PATCH OFF 2100 [facility] Last Admin: 01/12/18 21:16 Dose: Not Given Quetiapine Fumarate (Seroquel Tab*) 200 mg PO BEDTIME [facility] Last Admin: 01/12/18 21:15 Dose: 200 mg Tramadol HCl (Ultram*) 50 mg PO Q6HR PRN PRN Reason: PAIN Last Admin: 01/10/18 21:00 Dose: 50 mg - Discharge Plan Discharge Plan: Inpatient Hospitalization Lab Results - Lab Results Lab Results: 01/11/18 01/11/18 01/13/18 07:26 07:26 08:50 WBC RBC Hgb Hct MCV MCH MCHC RDW Plt Count MPV Sodium Potassium Chloride Carbon Dioxide Anion Gap BUN Creatinine Est GFR ( Amer) Est GFR (Non-Af Amer) BUN/Creatinine Ratio Glucose POC Glucose (mg/dL) 127 H Hemoglobin A1c 5.5 Calcium Total Bilirubin AST ALT Alkaline Phosphatase Ammonia Total Protein Albumin Globulin Albumin/Globulin Ratio Triglycerides 182 Cholesterol 234 LDL Cholesterol 166 HDL Cholesterol 31.4 01/13/18 01/13/18 01/13/18 09:56 09:56 09:56 WBC 6.8 RBC 4.23 Hgb 13.2 Hct 39 MCV 92 MCH 31 MCHC 34 RDW 14 Plt Count 176 MPV 7 L Sodium 142 Potassium 3.8 Chloride 111 Carbon Dioxide 25 Anion Gap 6 BUN 18 Creatinine 0.78 Est GFR ( Amer) 95.3 Est GFR (Non-Af Amer) 74.1 BUN/Creatinine Ratio 23.1 H Glucose 107 H POC Glucose (mg/dL) Hemoglobin A1c Calcium 9.0 Total Bilirubin 0.40 AST 12 L ALT 15 Alkaline Phosphatase 83 Ammonia 37 Total Protein 6.8 Albumin 4.0 Globulin 2.8 Albumin/Globulin Ratio 1.4 Triglycerides Cholesterol LDL Cholesterol HDL Cholesterol
--- NOTE | 2018-01-13 11:28 | RAD ---
HISTORY: Altered mental status COMPARISONS: Head CT dated August 30, 2017 TECHNIQUE: The following sequences were obtained of the head: Sagittal T1-weighted images, axial T2-weighted images, axial FLAIR images, axial susceptibility weighted images, axial T1-weighted images. Additionally, axial diffusion-weighted images were obtained with calculated apparent diffusion coefficients. FINDINGS: HEMORRHAGE/INFARCT: There is no hemorrhage or acute infarct. MASSES/SHIFT: There is no mass or shift. EXTRA-AXIAL SPACES/MENINGES: There are no extra-axial fluid collections. SULCI AND VENTRICLES: The sulci and ventricles are normal in size and position for the patient's stated age. CEREBRUM: There is elevated T2/FLAIR signal in the periventricular and cortical white matter. There is stable left anterior parietal encephalomalacia. BRAINSTEM: There are no focal parenchymal abnormalities. CEREBELLUM: There are no focal parenchymal abnormalities. The cerebellar tonsils are normal in size and position. SELLA: The sella is normal. PINEAL: The pineal region is clear. CP ANGLE/TEMPORAL BONES: The labyrinthine structures are grossly normal. VESSELS: Normal flow-voids are noted within the visualized vertebral vasculature. DIFFUSION ABNORMALITIES: There are no diffusion abnormalities. PARANASAL SINUSES/MASTOIDS: There is mucosal thickening of ethmoid air cells on the left. ORBITS: The orbits are unremarkable. BONES AND SOFT TISSUE: No bone or soft tissue abnormalities are noted. OTHER: None IMPRESSION: CHRONIC SMALL VESSEL ISCHEMIC CHANGES WITH STABLE ENCEPHALOMALACIA OF THE LEFT PARIETAL LOBE CONSISTENT WITH REMOTE INFARCT. NO RESTRICTED DIFFUSION TO SUGGEST ACUTE INFARCT.
[2018-01-13] MEDS: Nicotine Inhaler* 10 MG AMP INH PRN (12:46)
[2018-01-13] MEDS: Mouth Piece, Nicotine* 1 EACH CARTRIDGE ONE (12:46)
[2018-01-13] MEDS: traMADol TAB* 50 MG PO PRN ×2 (12:47→20:01)
[2018-01-13] MEDS: hydrOXYzine HCL TAB* 50 MG PO PRN (14:15)
[2018-01-13] MEDS: Acetaminophen TAB* 325 MG PO PRN (15:09)
[2018-01-13] MEDS: Atorvastatin* 40 MG TAB PO SCH (17:33)
[2018-01-13] MEDS: QUEtiapine TAB* 100 MG PO SCH (19:57)
[2018-01-14] MEDS: Nicotine Patch Removal NOTE PATCH OFF SCH ×2 (08:28→22:11)
[2018-01-14] MEDS: Omeprazole CAP* 20 MG PO SCH ×2 (09:15→22:10)
[2018-01-14] MEDS: Aspirin Low Dose CHEW TAB* 81 MG PO SCH (09:16)
[2018-01-14] MEDS: BuPROPion XL* 150 MG TAB.XL PO SCH (09:16)
[2018-01-14] MEDS: Gabapentin CAP(*) 300 MG PO SCH ×3 (09:16→22:09)
[2018-01-14] MEDS: busPIRone TAB* 30 MG PO SCH ×2 (09:16→22:10)
[2018-01-14] MEDS: amLODIPine TAB* 5 MG PO SCH (09:16)
[2018-01-14] MEDS: Nicotine PATCH 21 MG/24 HR* PATCH TRANSDERM SCH (09:17)
[2018-01-14] MEDS: Fluticasone NASAL SPRAY 50MCG* 16 gm SPRAY BTL BOTH NARES SCH (09:19)
[2018-01-14 12:35] LABS: Urine Appearance Clear; Urine Blood Negative (Negative); Urine Color Yellow; Urine Ketones Negative (Negative); Urine Protein Negative (Negative); Urine Specific Gravity 1.023 (1.010-1.030); Urine Urobilinogen Negative (Negative)
--- NOTE | 2018-01-14 12:50 | PN ---
Subjective - Subjective Date of Service: 01/14/18 Service Type: 97829 Hosp care 15 min low complexity Subjective: Maciel is up and on the milieu, drinking coffee and enjoying conversation with peers. She did not have any similar episodes of confusion or gait instability this AM and says that PT came and cleared her, stating she had no custodial needs. She denies SI and states that her depression is improving. Yesterday she alerted me to a dynamic, occurring with some regularity in the outpatient setting, in which local law enforcement agencies will bring her alcoholic daughter, Katina, to stay with her when she's intoxicated and gotten into trouble. Maciel feels sorry for her and wants to support her, but Katina has stolen things such as pills, money and items to be sold for alcohol. Yesterday, Maciel had expressed a willingness to pursue an Order of Protection, however, she has reversed course today, stating "I don't think I could do that to her. She's my daughter. It would kill me." We discussed the concept of enabling and Maciel states she will think more about the issue. Objective - Appearance Appearance: Obese Dysmorphic Features: No Hygiene: Normal Grooming: Fairly Well Kept - Behavior Psychomotor Activities: Normal Exhibits Abnormal Movement: No - Attitude and Relatedness Attitude and Relatedness: Cooperative Eye Contact: Fair - Speech Quality: Unpressured Latencies: Normal Quantity: Appropriate - Mood Patient's Decription of Mood: "Good" - Affect Observed Affect: Good Affect Consistent with: Euthymia - Thought Process Patient's Thought Process: Coherent Thought Content: No Passive Wish, No Suicidal Planning, No Homicidal Ideation, No Paranoid Ideation - Sensorium Experiencing Hallucinations: No, Sensorium is Clear Type of Hallucinations: Visual: No, Auditory: No, Command: No - Level of Consciousness Level of Consciousness: Alert Orientation: Yes Intact, Yes Orientated to Time, Yes Orientated to Place, Yes Orientated to Person - Impulse Control Impulse Control: Tenuous - Insight and Judgement Insight and Judgement: Fair - Group Participation Particating in Group Activities: Yes - Medication Management Medication Management Adherence: Yes Assessment - Assessment Merits Inpatient Hospitalization: Consolidate Improvements, Pending Safe DC Plan Inpatient DSM-V Dx: F31.4 Clinical Impression: 67 y.o. , white female with a history of bipolar disorder comes in via ambulance seeking voluntary admission for depressed mood and suicidal ideations with plan to OD on meds. Plan - Plan Treatment Plan: Name: MACIEL SHEPARD Birthdate: 1950 [id number] We have left the patient on gabapentin, quetiapine and buspar and added Wellbutrin XL 150mg PO qam for bipolar depression treatment, per her wishes. Continue to treat on the inpatient service. Appreciate PT consult for ambulatory difficulties. MRI of brain shows no acute changes. Confusion and movement episode has not recurred. Hospitalist input appreciated. Will push for OOP for disruptive, impaired daughter. Continued Medication Management: Different Medication Medications: Current Medications Acetaminophen (Tylenol Tab*) 650 mg PO Q4H PRN PRN Reason: for pain; or Temp >101 F Last Admin: 01/13/18 15:09 Dose: 650 mg Al Hydrox/Mg Hydrox/Simethicone (Maalox Plus*) 30 ml PO Q4H PRN PRN Reason: INDIGESTION Amlodipine Besylate (Norvasc Tab*) 5 mg PO DAILY [facility] Last Admin: 01/14/18 09:16 Dose: 5 mg Aspirin (Aspirin Low Dose Tab*) 81 mg PO DAILY [facility] Last Admin: 01/14/18 09:16 Dose: 81 mg Atorvastatin Calcium (Lipitor*) 40 mg PO 1700 [facility] Last Admin: 01/13/18 17:33 Dose: 40 mg Bupropion HCl (Wellbutrin Xl *) 150 mg PO DAILY [facility] PRN Reason: Protocol Last Admin: 01/14/18 09:16 Dose: 150 mg Buspirone HCl (Buspar Tab*) 30 mg PO BID [facility] Last Admin: 01/14/18 09:16 Dose: 30 mg Docusate Sodium (Colace Cap*) 100 mg PO BID PRN PRN Reason: CONSTIPATION Last Admin: 01/10/18 20:59 Dose: 100 mg Fluticasone Propionate (Flonase Nasal [place] 50mcg*) 2 spray BOTH NARES DAILY [facility] Last Admin: 01/14/18 09:19 Dose: Not Given Gabapentin (Neurontin Cap(*)) 600 mg PO TID [facility] Last Admin: 01/14/18 09:16 Dose: 600 mg Hydroxyzine HCl (Atarax Tab*) 50 mg PO Q6H PRN PRN Reason: AGITATION/ANXIETY/INSOMNIA Last Admin: 01/13/18 14:15 Dose: 50 mg Nicotine (Nicotine Inhaler*) 10 mg INH Q2H PRN PRN Reason: CRAVING Last Admin: 01/13/18 12:46 Dose: 10 mg Nicotine (Nicotine Patch 21 Mg/24 Hr*) 1 patch TRANSDERM DAILY@0800 [facility] Last Admin: 01/14/18 09:17 Dose: 1 patch Nicotine Polacrilex (Nicotine Gum*) 2 mg PO Q2H PRN PRN Reason: CRAVING Omeprazole (Prilosec Cap*) 20 mg PO BID [facility] Last Admin: 01/14/18 09:15 Dose: 20 mg Pharmacy Profile Note (Nicotine Patch Removal Note*) 1 note PATCH OFF 2100 [facility] Last Admin: 01/14/18 08:28 Dose: Not Given Quetiapine Fumarate (Seroquel Tab*) 200 mg PO BEDTIME [facility] Last Admin: 01/13/18 19:57 Dose: 200 mg Tramadol HCl (Ultram*) 50 mg PO Q6HR PRN PRN Reason: PAIN Last Admin: 01/13/18 20:01 Dose: 50 mg - Discharge Plan Discharge Plan: Inpatient Hospitalization Lab Results - Lab Results Lab Results: 01/13/18 01/13/18 01/13/18 08:50 09:56 09:56 WBC 6.8 RBC 4.23 Hgb 13.2 Hct 39 MCV 92 MCH 31 MCHC 34 RDW 14 Plt Count 176 MPV 7 L Sodium 142 Potassium 3.8 Chloride 111 Carbon Dioxide 25 Anion Gap 6 BUN 18 Creatinine 0.78 Est GFR ( Amer) 95.3 Est GFR (Non-Af Amer) 74.1 BUN/Creatinine Ratio 23.1 H Glucose 107 H POC Glucose (mg/dL) 127 H Calcium 9.0 Total Bilirubin 0.40 AST 12 L ALT 15 Alkaline Phosphatase 83 Ammonia Total Protein 6.8 Albumin 4.0 Globulin 2.8 Albumin/Globulin Ratio 1.4 Urine Color Urine Appearance Urine pH Ur Specific [place] Urine Protein Urine Ketones Urine Blood Urine Nitrate Urine Bilirubin Urine Urobilinogen Ur Leukocyte Esterase Urine WBC (Auto) Urine RBC (Auto) Ur Squamous Epith Cells Urine Bacteria Urine Glucose 01/13/18 01/14/18 09:56 11:45 WBC RBC Hgb Hct MCV MCH MCHC RDW Plt Count MPV Sodium Potassium Chloride Carbon Dioxide Anion Gap BUN Creatinine Est GFR ( Amer) Est GFR (Non-Af Amer) BUN/Creatinine Ratio Glucose POC Glucose (mg/dL) Calcium Total Bilirubin AST ALT Alkaline Phosphatase Ammonia 37 Total Protein Albumin Globulin Albumin/Globulin Ratio Urine Color Yellow Urine Appearance Clear Urine pH 5.0 Ur Specific [place] 1.023 Urine Protein Negative Urine Ketones Negative Urine Blood Negative Urine Nitrate Negative Urine Bilirubin Negative Urine Urobilinogen Negative Ur Leukocyte Esterase Trace H Urine WBC (Auto) Absent Urine RBC (Auto) Absent Ur Squamous Epith Cells Present H Urine Bacteria Absent Urine Glucose Negative
[2018-01-14] MEDS: Nicotine Inhaler* 10 MG AMP INH PRN (13:29)
[2018-01-14] MEDS: traMADol TAB* 50 MG PO PRN (13:31)
[2018-01-14] MEDS: Atorvastatin* 40 MG TAB PO SCH (16:58)
[2018-01-14] MEDS: QUEtiapine TAB* 100 MG PO SCH (22:10)
[2018-01-15] MEDS: Nicotine PATCH 21 MG/24 HR* PATCH TRANSDERM SCH (09:13)
[2018-01-15] MEDS: busPIRone TAB* 30 MG PO SCH ×2 (09:14→20:34)
[2018-01-15] MEDS: Omeprazole CAP* 20 MG PO SCH ×2 (09:14→20:34)
[2018-01-15] MEDS: amLODIPine TAB* 5 MG PO SCH (09:15)
[2018-01-15] MEDS: Gabapentin CAP(*) 300 MG PO SCH ×3 (09:15→20:33)
[2018-01-15] MEDS: Fluticasone NASAL SPRAY 50MCG* 16 gm SPRAY BTL BOTH NARES SCH (09:15)
[2018-01-15] MEDS: BuPROPion XL* 150 MG TAB.XL PO SCH (09:16)
[2018-01-15] MEDS: Aspirin Low Dose CHEW TAB* 81 MG PO SCH (09:16)
[2018-01-15] MEDS: hydrOXYzine HCL TAB* 50 MG PO PRN (13:07)
[2018-01-15] MEDS: Nicotine Inhaler* 10 MG AMP INH PRN (13:07)
[2018-01-15] MEDS: Atorvastatin* 40 MG TAB PO SCH (16:52)
[2018-01-15] MEDS: traMADol TAB* 50 MG PO PRN (16:54)
[2018-01-15] MEDS: QUEtiapine TAB* 100 MG PO SCH (20:34)
[2018-01-15] MEDS: Nicotine Patch Removal NOTE PATCH OFF SCH (21:01)
[2018-01-16] MEDS: Nicotine PATCH 21 MG/24 HR* PATCH TRANSDERM SCH (09:15)
[2018-01-16] MEDS: busPIRone TAB* 30 MG PO SCH ×2 (09:16→20:46)
[2018-01-16] MEDS: Gabapentin CAP(*) 300 MG PO SCH ×3 (09:16→20:45)
[2018-01-16] MEDS: BuPROPion XL* 150 MG TAB.XL PO SCH (09:16)
[2018-01-16] MEDS: Omeprazole CAP* 20 MG PO SCH ×2 (09:17→20:46)
[2018-01-16] MEDS: amLODIPine TAB* 5 MG PO SCH (09:17)
[2018-01-16] MEDS: Aspirin Low Dose CHEW TAB* 81 MG PO SCH (09:17)
[2018-01-16] MEDS: Fluticasone NASAL SPRAY 50MCG* 16 gm SPRAY BTL BOTH NARES SCH (09:17)
[2018-01-16] MEDS: traMADol TAB* 50 MG PO PRN ×2 (09:17→16:53)
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
[2018-01-16] MEDS: hydrOXYzine HCL TAB* 50 MG PO PRN (12:35)
[2018-01-16] MEDS ORDERED: Mouth Piece, Nicotine* 1 EACH CARTRIDGE ONE (12:58)
[2018-01-16] MEDS: Nicotine Inhaler* 10 MG AMP INH PRN (12:59)
[2018-01-16] MEDS: Mouth Piece, Nicotine* 1 EACH CARTRIDGE ONE (13:01)
[2018-01-16] MEDS: Atorvastatin* 40 MG TAB PO SCH (16:53)
[2018-01-16] MEDS: QUEtiapine TAB* 100 MG PO SCH (20:47)
[2018-01-16] MEDS: Nicotine Patch Removal NOTE PATCH OFF SCH (21:02)
[2018-01-17] MEDS: Nicotine PATCH 21 MG/24 HR* PATCH TRANSDERM SCH (09:09)
[2018-01-17] MEDS: Gabapentin CAP(*) 300 MG PO SCH ×3 (09:10→20:24)
[2018-01-17] MEDS: busPIRone TAB* 30 MG PO SCH ×2 (09:10→20:24)
[2018-01-17] MEDS: amLODIPine TAB* 5 MG PO SCH (09:11)
[2018-01-17] MEDS: Omeprazole CAP* 20 MG PO SCH ×2 (09:11→20:24)
[2018-01-17] MEDS: BuPROPion XL* 300 MG TAB.XL PO SCH (09:11)
[2018-01-17] MEDS: Aspirin Low Dose CHEW TAB* 81 MG PO SCH (09:11)
--- NOTE | 2018-01-17 11:13 | PN ---
MHU: Group Therapy Note - Service Type Service Type: 10008 Group Psychotherapy - Cognitive Behavioral Group Therapy ( CBT):Patient was attentive and participatory in CBT programming this morning, and remained in good behavioral control. Patient expressed positive insights regarding relevant treatment interventions and goals.
[2018-01-17] MEDS: traMADol TAB* 50 MG PO PRN (11:57)
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
[2018-01-17] MEDS: hydrOXYzine HCL TAB* 50 MG PO PRN (15:09)
[2018-01-17] MEDS: Fluticasone NASAL SPRAY 50MCG* 16 gm SPRAY BTL BOTH NARES SCH (15:56)
[2018-01-17] MEDS: Atorvastatin* 40 MG TAB PO SCH (17:40)
[2018-01-17] MEDS: QUEtiapine TAB* 100 MG PO SCH (20:24)
[2018-01-17] MEDS: Nicotine Patch Removal NOTE PATCH OFF SCH (20:35)
[2018-01-18] MEDS: Gabapentin CAP(*) 300 MG PO SCH ×3 (07:44→20:22)
[2018-01-18] MEDS: Aspirin Low Dose CHEW TAB* 81 MG PO SCH (07:44)
[2018-01-18] MEDS: BuPROPion XL* 300 MG TAB.XL PO SCH (07:44)
[2018-01-18] MEDS: amLODIPine TAB* 5 MG PO SCH ×2 (07:44→08:40)
[2018-01-18] MEDS: Omeprazole CAP* 20 MG PO SCH ×2 (07:44→20:23)
[2018-01-18] MEDS: busPIRone TAB* 30 MG PO SCH ×2 (07:45→20:23)
[2018-01-18] MEDS: Nicotine PATCH 21 MG/24 HR* PATCH TRANSDERM SCH (07:45)
[2018-01-18] MEDS: Fluticasone NASAL SPRAY 50MCG* 16 gm SPRAY BTL BOTH NARES SCH (07:47)
[2018-01-18] MEDS: Nicotine GUM* 2 MG PO PRN ×2 (09:14→14:50)
[2018-01-18] MEDS: Nicotine Inhaler* 10 MG AMP INH PRN ×3 (09:14→18:56)
[2018-01-18] MEDS: traMADol TAB* 50 MG PO PRN ×2 (11:15→18:56)
--- NOTE | 2018-01-18 11:42 | PN ---
Subjective - Subjective Date of Service: 01/18/18 Service Type: 21401 Hosp care 15 min low complexity Subjective: Maciel is doing better today. She appears less depressed and withdrawn and is attending groups. She feels a little "dizzy" this morning but no confusion or gait disturbances. "I want my cane back. They took it away from me." She denies SI or HI and is tolerating her medicines well. The patient admits that a more supportive residential situation might be better for her after discharge and is even willing to contemplate returning to [place]. Objective - Appearance Appearance: Obese Dysmorphic Features: No Hygiene: Normal Grooming: Fairly Well Kept - Behavior Psychomotor Activities: Normal Exhibits Abnormal Movement: No - Attitude and Relatedness Attitude and Relatedness: Cooperative Eye Contact: Fair - Speech Quality: Unpressured Latencies: Normal Quantity: Appropriate - Mood Patient's Decription of Mood: "Okay" - Affect Observed Affect: Fair Affect Consistent with: Dysphoria - Thought Process Patient's Thought Process: Coherent Thought Content: No Passive Wish, No Suicidal Planning, No Homicidal Ideation, No Paranoid Ideation - Sensorium Experiencing Hallucinations: No, Sensorium is Clear Type of Hallucinations: Visual: No, Auditory: No, Command: No - Level of Consciousness Level of Consciousness: Alert Orientation: Yes Intact, Yes Orientated to Time, Yes Orientated to Place, Yes Orientated to Person - Impulse Control Impulse Control: Tenuous - Insight and Judgement Insight and Judgement: Fair - Group Participation Particating in Group Activities: Yes - Medication Management Medication Management Adherence: Yes Assessment - Assessment Merits Inpatient Hospitalization: For Immediate Safety, For Stabilization Inpatient DSM-V Dx: F31.4 Clinical Impression: 67 y.o. , white female with a history of bipolar disorder comes in via ambulance seeking voluntary admission for depressed mood and suicidal ideations with plan to OD on meds. Plan - Plan Treatment Plan: Name: MACIEL SHEPARD Birthdate: 1950 [id number] We have left the patient on gabapentin, quetiapine and buspar and added Wellbutrin XL 300mg PO qam for bipolar depression treatment, per her wishes. Continue to treat on the inpatient service. Appreciate PT consult for ambulatory difficulties. MRI of brain shows no acute changes. Confusion and movement episode has not recurred. Hospitalist input appreciated. Pursue APS referral and clarity about housing placement. Continued Medication Management: Different Medication Medications: Current Medications Acetaminophen (Tylenol Tab*) 650 mg PO Q4H PRN PRN Reason: for pain; or Temp >101 F Last Admin: 01/13/18 15:09 Dose: 650 mg Al Hydrox/Mg Hydrox/Simethicone (Maalox Plus*) 30 ml PO Q4H PRN PRN Reason: INDIGESTION Amlodipine Besylate (Norvasc Tab*) 5 mg PO DAILY [facility] Last Admin: 01/18/18 08:40 Dose: 5 mg Aspirin (Aspirin Low Dose Tab*) 81 mg PO DAILY [facility] Last Admin: 01/18/18 07:44 Dose: 81 mg Atorvastatin Calcium (Lipitor*) 40 mg PO 1700 [facility] Last Admin: 01/17/18 17:40 Dose: 40 mg Bupropion HCl (Bupropion Xl*) 300 mg PO DAILY [facility] PRN Reason: Protocol Last Admin: 01/18/18 07:44 Dose: 300 mg Buspirone HCl (Buspar Tab*) 30 mg PO BID [facility] Last Admin: 01/18/18 07:45 Dose: 30 mg Docusate Sodium (Colace Cap*) 100 mg PO BID PRN PRN Reason: CONSTIPATION Last Admin: 01/10/18 20:59 Dose: 100 mg Fluticasone Propionate (Flonase Nasal [place] 50mcg*) 2 spray BOTH NARES DAILY [facility] Last Admin: 01/18/18 07:47 Dose: Not Given Gabapentin (Neurontin Cap(*)) 600 mg PO TID [facility] Last Admin: 01/18/18 07:44 Dose: 600 mg Hydroxyzine HCl (Atarax Tab*) 50 mg PO Q6H PRN PRN Reason: AGITATION/ANXIETY/INSOMNIA Last Admin: 01/17/18 15:09 Dose: 50 mg Nicotine (Nicotine Inhaler*) 10 mg INH Q2H PRN PRN Reason: CRAVING Last Admin: 01/18/18 09:14 Dose: 10 mg Nicotine (Nicotine Patch 21 Mg/24 Hr*) 1 patch TRANSDERM DAILY@0800 [facility] Last Admin: 01/18/18 07:45 Dose: 1 patch Nicotine Polacrilex (Nicotine Gum*) 2 mg PO Q2H PRN PRN Reason: CRAVING Last Admin: 01/18/18 09:14 Dose: 2 mg Omeprazole (Prilosec Cap*) 20 mg PO BID [facility] Last Admin: 01/18/18 07:44 Dose: 20 mg Pharmacy Profile Note (Nicotine Patch Removal Note*) 1 note PATCH OFF 2099 [facility] Last Admin: 01/17/18 20:35 Dose: 1 note Quetiapine Fumarate (Seroquel Tab*) 200 mg PO BEDTIME [facility] Last Admin: 01/17/18 20:24 Dose: 200 mg Tramadol HCl (Ultram*) 50 mg PO Q6HR PRN PRN Reason: PAIN Last Admin: 01/18/18 11:15 Dose: 50 mg - Discharge Plan Discharge Plan: Inpatient Hospitalization
--- NOTE | 2018-01-18 13:30 | PN ---
MHU: Group Therapy Note - Service Type Service Type: [id number] Group Psychotherapy - Cognitive Behavioral Group Therapy ( CBT):Patient was attentive and participatory in CBT programming this morning, and remained in good behavioral control. Patient expressed positive insights regarding relevant treatment interventions and goals.
[2018-01-18] MEDS: hydrOXYzine HCL TAB* 50 MG PO PRN (16:41)
[2018-01-18] MEDS: Atorvastatin* 40 MG TAB PO SCH (16:41)
[2018-01-18] MEDS: QUEtiapine TAB* 100 MG PO SCH (20:23)
[2018-01-18] MEDS: Nicotine Patch Removal NOTE PATCH OFF SCH (20:26)
[2018-01-19] MEDS: Nicotine PATCH 21 MG/24 HR* PATCH TRANSDERM SCH (09:34)
[2018-01-19] MEDS: Aspirin Low Dose CHEW TAB* 81 MG PO SCH (09:35)
[2018-01-19] MEDS: busPIRone TAB* 30 MG PO SCH ×2 (09:35→20:29)
[2018-01-19] MEDS: Omeprazole CAP* 20 MG PO SCH ×2 (09:35→20:28)
[2018-01-19] MEDS: amLODIPine TAB* 5 MG PO SCH (09:35)
[2018-01-19] MEDS: BuPROPion XL* 300 MG TAB.XL PO SCH (09:36)
[2018-01-19] MEDS: Gabapentin CAP(*) 300 MG PO SCH ×3 (09:36→20:28)
[2018-01-19] MEDS: Fluticasone NASAL SPRAY 50MCG* 16 gm SPRAY BTL BOTH NARES SCH (09:37)
[2018-01-19] MEDS: traMADol TAB* 50 MG PO PRN ×2 (09:39→19:18)
[2018-01-19] MEDS: Nicotine Inhaler* 10 MG AMP INH PRN (10:54)
[2018-01-19] MEDS: hydrOXYzine HCL TAB* 50 MG PO PRN (14:02)
--- NOTE | 2018-01-19 14:05 | PN ---
MHU: Group Therapy Note - Service Type Service Type: [id number] Group Psychotherapy - Cognitive Behavioral Group Therapy ( CBT):Patient was attentive and participatory in CBT programming this morning, and remained in good behavioral control. Patient expressed positive insights regarding relevant treatment interventions and goals.
--- NOTE | 2018-01-19 16:22 | PN ---
MHU: Group Therapy Note - Service Type Service Type: [id number] Group Psychotherapy - Medication Education Group: Patient was attentive and participatory in group, and remained in good behavioral control. Patient expressed positive insights regarding relevant treatment interventions. Patient stated understanding of material discussed and had appropriate questions.
[2018-01-19] MEDS: Atorvastatin* 40 MG TAB PO SCH (16:57)
[2018-01-19] MEDS: QUEtiapine TAB* 100 MG PO SCH (20:29)
[2018-01-20] MEDS: Nicotine Patch Removal NOTE PATCH OFF SCH ×2 (01:27→20:32)
[2018-01-20] MEDS: busPIRone TAB* 30 MG PO SCH ×2 (08:29→20:29)
[2018-01-20] MEDS: Aspirin Low Dose CHEW TAB* 81 MG PO SCH (08:29)
[2018-01-20] MEDS: amLODIPine TAB* 5 MG PO SCH (08:29)
[2018-01-20] MEDS: Gabapentin CAP(*) 300 MG PO SCH ×3 (08:29→20:28)
[2018-01-20] MEDS: Omeprazole CAP* 20 MG PO SCH ×2 (08:29→20:30)
[2018-01-20] MEDS: BuPROPion XL* 300 MG TAB.XL PO SCH (08:29)
[2018-01-20] MEDS: Nicotine PATCH 21 MG/24 HR* PATCH TRANSDERM SCH (08:30)
[2018-01-20] MEDS: Nicotine Inhaler* 10 MG AMP INH PRN ×3 (08:34→17:48)
[2018-01-20] MEDS: traMADol TAB* 50 MG PO PRN ×2 (08:35→17:47)
[2018-01-20] MEDS: Fluticasone NASAL SPRAY 50MCG* 16 gm SPRAY BTL BOTH NARES SCH (10:52)
[2018-01-20] MEDS: hydrOXYzine HCL TAB* 50 MG PO PRN (14:14)
--- NOTE | 2018-01-20 16:00 | PN ---
Subjective - Subjective Date of Service: 01/20/18 Subjective: Mood is improving, sleep remains disrupted, denies SI or urges for sib or side effects from prescribed medications. She reports taking in stride the possibility of relocation after discharge. Per staff, she remains adherent to unit's routines. Objective - Appearance Appearance: Healthy Appearing Dysmorphic Features: No Hygiene: Normal Grooming: Well Kept - Behavior Psychomotor Activities: Abnormal-Decreased - Attitude and Relatedness Attitude and Relatedness: Cooperative Eye Contact: Fair - Speech Quality: Unpressured Latencies: Normal Quantity: Appropriate - Mood Patient's Decription of Mood: better - Affect Observed Affect: Constricted Affect Consistent with: Dysphoria - Thought Process Patient's Thought Process: Coherent, Impoverished Thought Content: No Passive Wish, No Suicidal Planning, No Homicidal Ideation, No Paranoid Ideation - Sensorium Experiencing Hallucinations: No, Sensorium is Clear - Level of Consciousness Level of Consciousness: Alert Orientation: Yes Intact - Impulse Control Impulse Control: Intact - Insight and Judgement Insight and Judgement: Poor - Group Participation Particating in Group Activities: Yes - Medication Management Medication Management Adherence: Yes Assessment - Assessment Merits Inpatient Hospitalization: For Ongoing Evaluation, Consolidate Improvements, For Discharge Planning Inpatient DSM-V Dx: F31.4 Clinical Impression: Stabilizing in this structured setting with improvement in presenting symptoms. She needs continued inpatient level of care for consolidation. Plan - Plan Treatment Plan: Name: MACIEL SHEPARD Birthdate: 1950 [id number] Medications: Current Medications Acetaminophen (Tylenol Tab*) 650 mg PO Q4H PRN PRN Reason: for pain; or Temp >101 F Last Admin: 01/13/18 15:09 Dose: 650 mg Al Hydrox/Mg Hydrox/Simethicone (Maalox Plus*) 30 ml PO Q4H PRN PRN Reason: INDIGESTION Amlodipine Besylate (Norvasc Tab*) 5 mg PO DAILY [facility] Last Admin: 01/20/18 08:29 Dose: 5 mg Aspirin (Aspirin Low Dose Tab*) 81 mg PO DAILY [facility] Last Admin: 01/20/18 08:29 Dose: 81 mg Atorvastatin Calcium (Lipitor*) 40 mg PO 1700 [facility] Last Admin: 01/19/18 16:57 Dose: 40 mg Bupropion HCl (Bupropion Xl*) 300 mg PO DAILY [facility] PRN Reason: Protocol Last Admin: 01/20/18 08:29 Dose: 300 mg Buspirone HCl (Buspar Tab*) 30 mg PO BID [facility] Last Admin: 01/20/18 08:29 Dose: 30 mg Docusate Sodium (Colace Cap*) 100 mg PO BID PRN PRN Reason: CONSTIPATION Last Admin: 01/10/18 20:59 Dose: 100 mg Fluticasone Propionate (Flonase Nasal [place] 50mcg*) 2 spray BOTH NARES DAILY [facility] Last Admin: 01/20/18 10:52 Dose: Not Given Gabapentin (Neurontin Cap(*)) 600 mg PO TID [facility] Last Admin: 01/20/18 14:12 Dose: 600 mg Hydroxyzine HCl (Atarax Tab*) 50 mg PO Q6H PRN PRN Reason: AGITATION/ANXIETY/INSOMNIA Last Admin: 01/20/18 14:14 Dose: 50 mg Nicotine (Nicotine Inhaler*) 10 mg INH Q2H PRN PRN Reason: CRAVING Last Admin: 01/20/18 14:14 Dose: 10 mg Nicotine (Nicotine Patch 21 Mg/24 Hr*) 1 patch TRANSDERM DAILY@0800 [facility] Last Admin: 01/20/18 08:30 Dose: 1 patch Nicotine Polacrilex (Nicotine Gum*) 2 mg PO Q2H PRN PRN Reason: CRAVING Last Admin: 01/18/18 14:50 Dose: 2 mg Omeprazole (Prilosec Cap*) 20 mg PO BID [facility] Last Admin: 01/20/18 08:29 Dose: 20 mg Pharmacy Profile Note (Nicotine Patch Removal Note*) 1 note PATCH OFF 2100 [facility] Last Admin: 01/20/18 01:27 Dose: Not Given Quetiapine Fumarate (Seroquel Tab*) 200 mg PO BEDTIME [facility] Last Admin: 01/19/18 20:29 Dose: 200 mg Tramadol HCl (Ultram*) 50 mg PO Q6HR PRN PRN Reason: PAIN Last Admin: 01/20/18 08:35 Dose: 50 mg - Discharge Plan Discharge Plan: Outpatient Follow Up Outpatient Program: [facility]
[2018-01-20] MEDS: Atorvastatin* 40 MG TAB PO SCH (17:30)
[2018-01-20] MEDS: QUEtiapine TAB* 100 MG PO SCH (20:29)
[2018-01-21] MEDS: Omeprazole CAP* 20 MG PO SCH ×2 (08:40→20:33)
[2018-01-21] MEDS: BuPROPion XL* 300 MG TAB.XL PO SCH (08:40)
[2018-01-21] MEDS: Gabapentin CAP(*) 300 MG PO SCH ×3 (08:41→20:33)
[2018-01-21] MEDS: Aspirin Low Dose CHEW TAB* 81 MG PO SCH (08:41)
[2018-01-21] MEDS: amLODIPine TAB* 5 MG PO SCH (08:41)
[2018-01-21] MEDS: busPIRone TAB* 30 MG PO SCH ×2 (08:41→20:32)
[2018-01-21] MEDS: Nicotine PATCH 21 MG/24 HR* PATCH TRANSDERM SCH (08:43)
[2018-01-21] MEDS: traMADol TAB* 50 MG PO PRN ×2 (08:47→16:22)
[2018-01-21] MEDS: Fluticasone NASAL SPRAY 50MCG* 16 gm SPRAY BTL BOTH NARES SCH (08:49)
[2018-01-21] MEDS: hydrOXYzine HCL TAB* 50 MG PO PRN (10:56)
[2018-01-21] MEDS: Nicotine Inhaler* 10 MG AMP INH PRN ×4 (10:56→18:56)
[2018-01-21] MEDS: Atorvastatin* 40 MG TAB PO SCH (16:21)
[2018-01-21] MEDS: Nicotine Patch Removal NOTE PATCH OFF SCH (20:33)
[2018-01-21] MEDS: QUEtiapine TAB* 100 MG PO SCH (20:33)
[2018-01-22] MEDS: Nicotine Inhaler* 10 MG AMP INH PRN ×4 (07:41→18:23)
[2018-01-22] MEDS: Nicotine PATCH 21 MG/24 HR* PATCH TRANSDERM SCH (08:53)
[2018-01-22] MEDS: Gabapentin CAP(*) 300 MG PO SCH ×3 (08:54→20:29)
[2018-01-22] MEDS: amLODIPine TAB* 5 MG PO SCH (08:55)
[2018-01-22] MEDS: BuPROPion XL* 300 MG TAB.XL PO SCH (08:55)
[2018-01-22] MEDS: Omeprazole CAP* 20 MG PO SCH ×2 (08:55→20:30)
[2018-01-22] MEDS: Aspirin Low Dose CHEW TAB* 81 MG PO SCH (08:55)
[2018-01-22] MEDS: busPIRone TAB* 30 MG PO SCH ×2 (08:55→20:29)
[2018-01-22] MEDS: traMADol TAB* 50 MG PO PRN ×2 (08:58→18:23)
[2018-01-22] MEDS: Fluticasone NASAL SPRAY 50MCG* 16 gm SPRAY BTL BOTH NARES SCH (09:06)
[2018-01-22] MEDS ORDERED: Mouth Piece, Nicotine* 1 EACH CARTRIDGE ONE (09:53)
[2018-01-22] MEDS: Acetaminophen TAB* 325 MG PO PRN (11:58)
[2018-01-22] MEDS: hydrOXYzine HCL TAB* 50 MG PO PRN (13:55)
[2018-01-22] MEDS: Atorvastatin* 40 MG TAB PO SCH (16:17)
[2018-01-22] MEDS: QUEtiapine TAB* 100 MG PO SCH (20:29)
[2018-01-22] MEDS: Nicotine Patch Removal NOTE PATCH OFF SCH (20:31)
[2018-01-23] MEDS: Omeprazole CAP* 20 MG PO SCH ×2 (09:06→20:30)
[2018-01-23] MEDS: Gabapentin CAP(*) 300 MG PO SCH ×3 (09:06→20:29)
[2018-01-23] MEDS: BuPROPion XL* 300 MG TAB.XL PO SCH (09:06)
[2018-01-23] MEDS: Aspirin Low Dose CHEW TAB* 81 MG PO SCH (09:06)
[2018-01-23] MEDS: amLODIPine TAB* 5 MG PO SCH (09:06)
[2018-01-23] MEDS: busPIRone TAB* 30 MG PO SCH ×2 (09:06→20:30)
[2018-01-23] MEDS: traMADol TAB* 50 MG PO PRN ×2 (09:09→15:27)
[2018-01-23] MEDS: Nicotine PATCH 21 MG/24 HR* PATCH TRANSDERM SCH (09:10)
[2018-01-23] MEDS: Nicotine Inhaler* 10 MG AMP INH PRN ×3 (09:11→15:29)
[2018-01-23] MEDS: Fluticasone NASAL SPRAY 50MCG* 16 gm SPRAY BTL BOTH NARES SCH (09:28)
--- NOTE | 2018-01-23 11:45 | PN ---
Subjective - Subjective Date of Service: 01/23/18 Service Type: [id number] Hosp care 15 min low complexity Subjective: Maciel continues to deny SI and has been active and present in the milieu setting. Her ambulation is fair with assistance from a walker. Her plan is to return to her apartment in [place] and visit some other properties owned by her landlord, since her current place is being demolished for new construction. The patient is tolerating her meds well and has had no further instances of dizziness or confusion. She is agreeable with being discharged tomorrow, agreeing to follow up at [facility] Objective - Appearance Appearance: Obese Dysmorphic Features: No Hygiene: Normal Grooming: Well Kept - Behavior Psychomotor Activities: Normal Exhibits Abnormal Movement: No - Attitude and Relatedness Attitude and Relatedness: Cooperative Eye Contact: Good - Speech Quality: Unpressured Latencies: Normal Quantity: Appropriate - Mood Patient's Decription of Mood: "Good" - Affect Observed Affect: Fair Affect Consistent with: Euthymia - Thought Process Patient's Thought Process: Coherent Thought Content: No Passive Wish, No Suicidal Planning, No Homicidal Ideation, No Paranoid Ideation - Sensorium Experiencing Hallucinations: No, Sensorium is Clear Type of Hallucinations: Visual: No, Auditory: No, Command: No - Level of Consciousness Level of Consciousness: Alert Orientation: Yes Intact, Yes Orientated to Time, Yes Orientated to Place, Yes Orientated to Person - Impulse Control Impulse Control: Intact - Insight and Judgement Insight and Judgement: Good - Group Participation Particating in Group Activities: Yes - Medication Management Medication Management Adherence: Yes Assessment - Assessment Merits Inpatient Hospitalization: Consolidate Improvements, Pending Safe DC Plan Inpatient DSM-V Dx: F31.4 Clinical Impression: 67 y.o. , white female with a history of bipolar disorder comes in via ambulance seeking voluntary admission for depressed mood and suicidal ideations with plan to OD on meds. Plan - Plan Treatment Plan: Name: MACIEL SHEPARD Birthdate: 1950 [id number] We have left the patient on gabapentin, quetiapine and buspar and added Wellbutrin XL 300mg PO qam for bipolar depression treatment, per her wishes. Continue to treat on the inpatient service. Appreciate PT consult for ambulatory difficulties. MRI of brain shows no acute changes. Confusion and movement episode has not recurred. Hospitalist input appreciated. [facility] d/c to home tomorrow with f/u at [facility]. Patient to find own housing with assistance of current landlord and family. Continued Medication Management: Different Medication Medications: Current Medications Acetaminophen (Tylenol Tab*) 650 mg PO Q4H PRN PRN Reason: for pain; or Temp >101 F Last Admin: 01/22/18 11:58 Dose: 650 mg Al Hydrox/Mg Hydrox/Simethicone (Maalox Plus*) 30 ml PO Q4H PRN PRN Reason: INDIGESTION Amlodipine Besylate (Norvasc Tab*) 5 mg PO DAILY [facility] Last Admin: 01/23/18 09:06 Dose: 5 mg Aspirin (Aspirin Low Dose Tab*) 81 mg PO DAILY [facility] Last Admin: 01/23/18 09:06 Dose: 81 mg Atorvastatin Calcium (Lipitor*) 40 mg PO 1700 [facility] Last Admin: 01/22/18 16:17 Dose: 40 mg Bupropion HCl (Bupropion Xl*) 300 mg PO DAILY [facility] PRN Reason: Protocol Last Admin: 01/23/18 09:06 Dose: 300 mg Buspirone HCl (Buspar Tab*) 30 mg PO BID [facility] Last Admin: 01/23/18 09:06 Dose: 30 mg Docusate Sodium (Colace Cap*) 100 mg PO BID PRN PRN Reason: CONSTIPATION Last Admin: 01/10/18 20:59 Dose: 100 mg Fluticasone Propionate (Flonase Nasal [place] 50mcg*) 2 spray BOTH NARES DAILY [facility] Last Admin: 01/23/18 09:28 Dose: Not Given Gabapentin (Neurontin Cap(*)) 600 mg PO TID [facility] Last Admin: 01/23/18 09:06 Dose: 600 mg Hydroxyzine HCl (Atarax Tab*) 50 mg PO Q6H PRN PRN Reason: AGITATION/ANXIETY/INSOMNIA Last Admin: 01/22/18 13:55 Dose: 50 mg Nicotine (Nicotine Inhaler*) 10 mg INH Q2H PRN PRN Reason: CRAVING Last Admin: 01/23/18 09:11 Dose: 10 mg Nicotine (Nicotine Patch 21 Mg/24 Hr*) 1 patch TRANSDERM DAILY@0800 [facility] Last Admin: 01/23/18 09:10 Dose: 1 patch Nicotine Polacrilex (Nicotine Gum*) 2 mg PO Q2H PRN PRN Reason: CRAVING Last Admin: 01/18/18 14:50 Dose: 2 mg Omeprazole (Prilosec Cap*) 20 mg PO BID [facility] Last Admin: 01/23/18 09:06 Dose: 20 mg Pharmacy Profile Note (Nicotine Patch Removal Note*) 1 note PATCH OFF 2100 [facility] Last Admin: 01/22/18 20:31 Dose: Not Given Quetiapine Fumarate (Seroquel Tab*) 200 mg PO BEDTIME [facility] Last Admin: 01/22/18 20:29 Dose: 200 mg Tramadol HCl (Ultram*) 50 mg PO Q6HR PRN PRN Reason: PAIN Last Admin: 01/23/18 09:09 Dose: 50 mg - Discharge Plan Discharge Plan: Outpatient Follow Up Outpatient Program: [facility] Pappas [facility]
[2018-01-23] MEDS: hydrOXYzine HCL TAB* 50 MG PO PRN ×2 (13:09→19:13)
[2018-01-23] MEDS: Atorvastatin* 40 MG TAB PO SCH (18:00)
[2018-01-23] MEDS: QUEtiapine TAB* 100 MG PO SCH (20:28)
[2018-01-24 08:04] VITALS: BP 147/69
[2018-01-24] MEDS: amLODIPine TAB* 5 MG PO SCH (08:51)
[2018-01-24] MEDS: Aspirin Low Dose CHEW TAB* 81 MG PO SCH (08:51)
[2018-01-24] MEDS: Omeprazole CAP* 20 MG PO SCH (08:52)
[2018-01-24] MEDS: BuPROPion XL* 300 MG TAB.XL PO SCH (08:52)
[2018-01-24] MEDS: busPIRone TAB* 30 MG PO SCH (08:52)
[2018-01-24] MEDS: Gabapentin CAP(*) 300 MG PO SCH (08:53)
[2018-01-24] MEDS: traMADol TAB* 50 MG PO PRN (08:54)
[2018-01-24] MEDS: Fluticasone NASAL SPRAY 50MCG* 16 gm SPRAY BTL BOTH NARES SCH (08:55)
[2018-01-24] MEDS: Nicotine PATCH 21 MG/24 HR* PATCH TRANSDERM SCH (08:55)
[2018-01-24] MEDS: hydrOXYzine HCL TAB* 50 MG PO PRN (11:31)
--- NOTE | 2018-01-24 11:48 | PN ---
MHU: Group Therapy Note - Service Type Service Type: [id number] Group Psychotherapy - Cognitive Behavioral Group Therapy ( CBT):Patient was attentive and participatory in CBT programming this morning, and remained in good behavioral control. Patient expressed positive insights regarding relevant treatment interventions and goals.
[2018-01-24] MEDS ORDERED: QUEtiapine TAB* 100 MG PO SCH (21:00)
--- NOTE | 2018-01-25 02:04 | DS ---
DISCHARGE SUMMARY: DATE OF ADMISSION: 01/10/18 DATE OF DISCHARGE: 01/24/18 DISCHARGE DIAGNOSES: [place] I: Bipolar disorder type 1, most recent episode depressed, severe without psychotic features, polysubstance dependence in sustained remission (opioids, benzodiazepine, and cannabis). [place] II: Deferred. [place] III: Chronic obstructive pulmonary disease, gastroesophageal reflux disease, chronic back pain, hypertension, history of left-sided stroke in 2010, history of shoulder replacement surgery in 2013, fractured ribs in August 2017. [place] IV: Severe primary support and housing stressors. [place] V: At the time of admission was 40 and at the time of discharge was 60. CONDITION AT THE TIME OF DISCHARGE: Stable. The patient is calm, cooperative. She has been denying suicidal ideations for several weeks now and her affect and gait have progressively improved. She is tolerating her psychiatric medications well and agreeable to continuing outpatient med management and psychotherapy through the [facility]. We have been in touch with the patient's son, Fran, who is in agreement with the discharge plan. In fact, he is coming to belt picker [place] at noon to transport her home. One issue that has come up during the hospitalization has been her housing status given the fact that her current apartment is set for demolition in early Spring of this year. She has been in communication with her landlord, who is agreeable to show her other apartments that he has available. Julia and her son are agreeable with this course of action to meet her residential needs. The patient has been safe on all checks. She has been participating in groups. She is appropriately requesting discharge. We feel that Julia has done well in this setting and that it is appropriate for her to receive continuing treatment in a less restrictive setting. MENTAL STATUS EXAM: At the time of discharge, the patient is an aging white female with dyed blonde hair who is somewhat obese, well groomed. She is walking with a walker. She is calm, well related, easy to establish a rapport with. Speech has normal rate, tone, and volume. Mood is euthymic with a full affect. Thought process is linear and goal-directed. Thought content is significant for her desire to be discharged from the hospital. She denies suicidal or homicidal ideation. She denies auditory or visual hallucinations. There is no evidence of psychotic thinking. Insight and judgment are fair given her willingness to follow up with outpatient treatment. Cognitively, she is awake and alert with what would appear to be an average intellect. LABORATORY DATA: The patient's metabolic studies were completed on 01/11/18. Her hemoglobin A1c at that time was 5.5%. Triglycerides 182, total cholesterol 234, LDL cholesterol 166, HDL cholesterol 31.4. DISCHARGE INSTRUCTIONS: To the patient are as follows: A. Medications: The patient is takin. Norvasc 5 mg p.o. daily. 2. Aspirin 81 mg p.o. daily. 3. Lipitor 40 mg p.o. q.p.m. 4. Bupropion XL 300 mg p.o. daily. 5. BuSpar 30 mg p.o. b.i.d. 6. Colace 100 mg p.o. b.i.d. as a p.r.n. for constipation. 7. Flonase 50 mcg 2 sprays to both nares daily. 8. Gabapentin 6 mg t.i.d. 9. Atarax 50 mg every 6 hours as needed for anxiety. 10. Prilosec 20 mg p.o. b.i.d. 11. Seroquel 100 mg p.o. q.h.s. 12. Tramadol 50 mg every 6 hours as needed for pain. B. Diet: Regular. C. Activities: As tolerated. It is notable that the patient is a smoker; however, she is declining the offer of continued nicotine replacement therapy at this time expressing her interest in continuing smoking. We did, however, offer her the [facility] Smokers Quitline, which is the toll free number at [phone]. There are no laboratory or diagnostic studies pending at the time of discharge. D. Followup care: The patient has an appointment this , 01/26/18, at the [facility] here in [place]. This coming Tuesday, she has her initial appointment by visiting nurse services at her apartment in [place], [place]. Next week 01/30/18, she has an appointment with her therapist, Jackson Summers , at [facility] and then , 02/02/18, she has an appointment with Dr. Felicia Mathews, the psychiatrist at [facility]. E. Substance abuse followup: Given the fact that the patient's substance abuse is in long-term remission. This is nonapplicable. HOSPITAL COURSE: Part A. Reason for admission: The patient is a 67-year-old white female with the history of bipolar disorder as well as polysubstance dependence in long- term remission who was brought to the emergency room via ambulance after pressing her MedicAlert bracelet in her trailer in [place], [place] complaining of severe depression and suicidal ideations. When the patient came in, she indicated that she had not been able to get out of bed for 5 days except to use the bathroom and had been depressed since roughly November of this year. She did indicate that she had transient suicidal ideations with thoughts of overdosing on pills. She denies prior suicide attempts. In the ER, we were able to speak with her son, Fran, who was quoted as stating "she needs her medications straightened out. She has been depressed for a while." Apparently, Ms. Dewey was a long-term patient of Dr. Audie Hennessy in the [facility]. However, that clinician is no longer a provider there. She was transferred to the care of Dr. Felicia Mathews, but did not have an intake appointment with that provider until February of this year. I did note that when I last discharged her from my service in the [facility], she was taking lurasidone and lithium therapy. During that hospitalization in the fall of 2017, she suffered a fall which resulted in several broken ribs necessitating discharge to a subacute rehab. She states that when she went to [facility], the providers there took her off lurasidone and lithium because she was having difficulty ambulating. Since then, she has been put back on Seroquel, but feels this was not adequate and was requesting use of an antidepressant. I did discuss with her the risks of switching her into a bipolar rogelio, which she has a history of but she minimized this risk and would like to proceed with an antidepressant any ways. I did offer her referral to the inpatient ECT clinic at [facility]; however, she declined this stating that she was scared of this particular treatment. Symptomatically, she does have multiple symptoms of depressive illness such as hypersomnolence, anhedonia, decreased energy, poor concentration, psychomotor retardation, and thoughts of . Part B. Psychiatric treatment rendered: The patient was admitted to the adult behavioral health unit where she was placed on q.15-minute checks for her own safety and also placed on fall precautions given the fall that she had experienced on our unit back in August,. The patient was placed back on all of her outpatient medications including Seroquel 200 mg p.o. nightly. We did per her preference start her on an antidepressant, which happened to be Wellbutrin XL initially at 150 mg daily, but then increased to 300 mg daily. The patient did appear to be somnolent and confused. At one point, she required a stat Hospitalist consultation after an event in which she could not respond to questions. We did an MRI of her brain, which showed no acute findings. It was felt that perhaps the Seroquel was too sedating and she did admit that although 200 mg was her outpatient dose, she often cut it into fourth because she felt that it was too strong. For this reason, Seroquel was decreased to 100 mg nightly. The patient tolerated her medications quite well and thereafter we did not have any problems with her becoming confused or with an unsteady gait. She was evaluated by the PT service in consultation and they felt that she did not have any active skill nursing needs, although they did switch her from a cane to a walker. She states that she has both a cane and walker in her home sitting and is comfortably using either one. We were able to reach her son, Fran, who was supportive of the discharge plan. It did become apparent that she is losing her housing as her trailer is being demolished. However, she states that her landlord has other properties and he is willing to show her to see that she gets moved into a safe place. Nonetheless, we did feel that a SPOA referral was wanted and the patient was agreeable with this. Currently, she is on the waiting list for more supportive apartment setting. In addition, we felt that she would benefit at home nursing services and so a [facility] referral was made. We also signed her up for adult protective services. At one point, the patient complained that her alcoholic daughter, Katina, was often coming to her house being brought by the police when she needed to place to stay after getting in trouble. This was problematic as Katina would often steal from Julia. We brought up the topic of Julia putting together an order of protection, but ultimately she did not agree with this. At this time, her daughter is incarcerated and it is uncertain whether this will be an issue in the future. At any rate, we were also able to gain collateral information from her outpatient therapist, Jackson Summers, who indicated that she had missed several appointments in the months leading up to her hospitalization. Julia was confronted about this and stated that this was because of transportation issues. We went over her transportation resources with her son and she does qualify for [employer], which she does run between [facility] which is where the mental health clinic is located. At this time, the patient has been safe on all checks and denying suicidal ideation for well over a week. We feel that she is safe for discharge to a less restrictive setting. [id number]/[facility] #: [id number] JAMES
== END 2018-01-24 12:15 | disposition home or self-care (01) | DRG 885 ==
LOC: ED 13:15 → BSU 17:18
PROVIDERS: ADMIT Psychiatry & Neurology Psychiatry; ATTEND Psychiatry & Neurology Psychiatry
DX: F31.4 Bipolar disorder, current episode depressed, severe, without psychotic features (principal); R45.851 Suicidal ideations; I69.322 Dysarthria following cerebral infarction; J44.9 Chronic obstructive pulmonary disease, unspecified; F11.21 Opioid dependence, in remission; F19.21 Other psychoactive substance dependence, in remission; F12.20 Cannabis dependence, uncomplicated; F13.21 Sedative, hypnotic or anxiolytic dependence, in remission; K21.9 Gastro-esophageal reflux disease without esophagitis; M54.9 Dorsalgia, unspecified; I10 Essential (primary) hypertension; F17.210 Nicotine dependence, cigarettes, uncomplicated; Z96.612 Presence of left artificial shoulder joint; F10.21 Alcohol dependence, in remission; E78.5 Hyperlipidemia, unspecified; Z79.82 Long term (current) use of aspirin; Z79.899 Other long term (current) drug therapy; Z88.1 Allergy status to other antibiotic agents; Z88.2 Allergy status to sulfonamides; Z81.1 Family history of alcohol abuse and dependence; Z81.8 Family history of other mental and behavioral disorders
CPT/HCPCS: 36415; 70551; 80053; 80061; 80320; 80329; 81003; 81015; 82140; 83036; 84443; 85025; 85027; 87086; 90853; 99222; 99231; 99284; A9270-GY; G0480

== ENCOUNTER 2018-02-12 03:32 | Emergency (ER) | payer MEDICARE, MEDICAID ==
[2018-02-12] MEDS ORDERED: traMADol TAB* 50 MG PO ONE (04:03)
[2018-02-12] MEDS ORDERED: Ondansetron ODT TAB* 4 MG SL ONE (04:03)
[2018-02-12] MEDS ORDERED: ALPRAZolam TAB* 0.25 MG PO ONE (04:03)
[2018-02-12 04:51] LABS: Urine Appearance Cloudy; Urine Blood Negative (Negative); Urine Color Yellow; Urine Ketones Negative (Negative); Urine Protein 1+(30 mg/dL) (Negative); Urine Specific Gravity 1.012 (1.010-1.030); Urine Urobilinogen Negative (Negative)
[2018-02-12 05:44] VITALS: BP 112/91
--- NOTE | 2018-02-12 12:56 | ED ---
Radha Coyne Emily, scribed for Sathish Linares MD on 02/12/18 at 0406 . Complex/Multi-Sys Presentation - HPI Summary HPI Summary: This patient is a 67 year old F BIBA to [facility] with a chief complaint of vomiting that began at 0000. The patient . Patient reports nausea, weakness, decreased appetite, abd pain, urinary pressure, and increased urinary frequency. Patient denies diarrhea. Pt reports recently running out of tramadol prescription. Pt states after eating chicken salad her symptoms began. Pt states after vomiting x 2, her abdominal pain has resolved. Pt states now mild nausea, however symptoms have mostly resolved. Pt states she is also feeling anxious. - History Of Current Complaint Chief Complaint: EDNauseaVomitDiarrh Time Seen by Provider: 02/12/18 03:43 Hx Obtained From: Patient Onset/Duration: Sudden Onset, Lasting Hours, Still Present Timing: Constant Severity Currently: Mild Severity Initially: Mild Aggravating Factor(s): Nothing Alleviating Factor(s): Nothing Associated Signs And Symptoms: Positive: Other - Positive nausea, weakness, decreased appetite, abd pain, urinary pressure, and increased urinary frequency. Negative diarrhea - Allergies/Home Medications Allergies/Adverse Reactions: Allergies Allergy/AdvReac Type Severity Reaction Status Date / Time ciprofloxacin Allergy Mild Itching Verified 01/11/18 09:08 Sulfa (Sulfonamide Allergy Mild Itching Verified 01/11/18 09:08 Antibiotics) PMH/Surg Hx/FS Hx/Imm Hx Previously Healthy: No Endocrine/Hematology History: Reports: Hx Anemia - b12 shots Denies: Hx Diabetes, Hx Thyroid Disease Cardiovascular History: Reports: Hx Hypertension, Other Cardiovascular Problems/ Disorders - PT.STATES STROKE 2011 Denies: Hx Congestive Heart Failure, Hx Deep Vein Thrombosis, Hx Myocardial Infarction, Hx Pacemaker/ICD Respiratory History: Reports: Hx Asthma, Hx Chronic Obstructive Pulmonary Disease (COPD), Other Respiratory Problems/Disorders - COPD Denies: Hx Lung Cancer GI History: Reports: Other GI Disorders - DIVERTICULITIS Denies: Hx Gall Bladder Disease, Hx Gastrointestinal Bleed, Hx Ulcer, Hx Urosepsis History: Denies: Hx Kidney Stones, Hx Renal Disease Musculoskeletal History: Reports: Hx Arthritis, Hx Back Problems, Other Musculoskeletal History - L SHLDR REPAIR 12/2013 Sensory History: Reports: Hx Contacts or Glasses Denies: Hx Hearing Aid Opthamlomology History: Reports: Hx Contacts or Glasses Neurological History: Reports: Hx CVA - 2012, Hx Seizures Psychiatric History: Reports: Hx Anxiety, Hx Depression, Hx Panic Disorder, Hx Post Traumatic Stress Disorder, Hx Inpatient Treatment, Hx Community Mental Health Tx, Hx Bipolar Disorder, Hx Suicide Attempt, Hx of Violent Episodes Against Others, Hx Substance Abuse, Other Psychiatric Issues/Disorders - polysubstance abuse Denies: Hx Eating Disorder - Cancer History Hx Chemotherapy: No Hx Radiation Therapy: No - Surgical History Surgery Procedure, Year, and Place: LT SHOULDER REPLACEMENT 12/2013, ABD EXPLORATORY SURGERY, APPENDECTOMY Hx Anesthesia Reactions: No - Immunization History Date of Tetanus Vaccine: 12/03/13 Date of Influenza Vaccine: 2012 Infectious Disease History: No Infectious Disease History: Denies: Hx Hepatitis, Hx Human Immunodeficiency Virus (HIV), History Other Infectious Disease, Traveled Outside the in Last 30 Days - Family History Known Family History: Positive: Hypertension, Respiratory Disease, Other - bipolar disorder, depression, alcohol abuse Negative: Cardiac Disease, Diabetes - Social History Occupation: Retired Lives: Alone Alcohol Use: None 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, replaced Hx Substance Use: Yes Substance Use Type: Reports: None, Other Substance Use Comment - Amount & Last Used: opiates Hx Tobacco Use: Yes Smoking Status (MU): Heavy Every Day Tobacco Smoker Type: Cigarettes Amount Used/How Often: 1 PPD Length of Time of Smoking/Using Tobacco: 30 years Have You Smoked in the Last Year: Yes Review of Systems Constitutional: Negative Positive: Abdominal Pain, Vomiting, Nausea, Other - Positive decreased appetite. Negative: Diarrhea Positive: frequency, other - Positive urinary pressure Positive: Anxious All Other Systems Reviewed And Are Negative: Yes Physical Exam - Summary Physical Exam Summary: Appearance: Well-appearing, no distress, Well-nourished Skin: Warm, color reflects adequate perfusion Head: Normal Head/Face inspection Eyes: Conjunctiva clear, EOMI ENT: Normal inspection Neck: Supple, no adenopathy Respiratory: Lungs clear, Normal breath sounds, no respiratory distress Cardio: RRR, No murmur, pulses normal, brisk capillary refill Abdomen: soft, no guarding, no rebound, mild suprapubic tenderness Bowel sounds: present Musculoskeletal: Strength Intact/ ROM intact. No calf tenderness. No edema. Neuro: Alert, muscle tone normal, facial symmetry, speech normal, sensory/motor intact Psychological: anxious Triage Information Reviewed: Yes Vital Signs On Initial Exam: Initial Vitals Temp Pulse Resp BP Pulse Ox 98.6 F 94 20 182/81 95 02/12/18 03:35 02/12/18 03:35 02/12/18 03:35 02/12/18 03:35 02/12/18 03:35 Vital Signs Reviewed: Yes Diagnostics - Vital Signs Vital Signs Temp Pulse Resp BP Pulse Ox 02/12/18 03:35 98.6 F 94 20 182/81 95 - Laboratory Lab Results: Lab Results 02/12/18 Range/Units 04:10 Urine Color Yellow Urine Appearance Cloudy Urine pH 5.0 (5-9) Ur Specific [place] 1.012 (1.010-1.030) Urine Protein 1+(30 mg/dl) A (Negative) Urine Ketones Negative (Negative) Urine Blood Negative (Negative) Urine Nitrate Negative (Negative) Urine Bilirubin Negative (Negative) Urine Urobilinogen Negative (Negative) Ur Leukocyte Esterase 2+ A (Negative) Urine WBC (Auto) 2+(11-20/hpf) A (Absent) Urine RBC (Auto) Trace(0-2/hpf) (Absent) Ur Squamous Epith Cells Present A (Absent) Urine Bacteria Absent (Absent) Urine Glucose Negative (Negative) Lab Statement: Any lab studies that have been ordered have been reviewed, and results considered in the medical decision making process. Re-Evaluation - Re-Evaluation First Eval Re-Evaluation Time: 05:20 Change: Improved - Pt nausea and anxiety resolved. pt tolerating po without difficulty. pt symptomatically improved. Complex Multi-Symp Course/Dx - Diagnoses Differential Diagnoses/HQI/PQRI: Metabolic Abnormality, Urinary Tract Infection , Other - dehyhdration, gastritis, gastroenterology Provider Diagnoses: UTI (urinary tract infection), Vomiting, Anxiety, Chronic pain syndrome Discharge - Discharge Plan Condition: Improved Disposition: HOME Prescriptions: Ondansetron ODT TAB* [Zofran 4 MG Odt TAB*] 4 mg PO Q6H PRN 4 Days #4 tab.odt PRN Reason: Nausea Sulfamethox/Trimethoprim DS* [Bactrim DS 800/160 TAB*] 1 tab PO DAILY #6 tab traMADol TAB* [Ultram*] 50 mg PO Q6HR PRN 3 Days #10 tab MDD 200mg PRN Reason: Pain Patient Education Materials: Urinary Tract Infection in Women (ED), Gastroenteritis (ED), Anxiety (ED) Referrals: No Primary Care Phys,NOPCP [Primary Care Provider] - 2 Days The documentation as recorded by the Radha plunkett Emily accurately reflects the service I personally performed and the decisions made by me, Sathish Linares MD.
== END 2018-02-12 05:44 | disposition home or self-care (01) ==
LOC: ED 03:32
DX: N39.0 Urinary tract infection, site not specified (principal); R11.10 Vomiting, unspecified; F41.9 Anxiety disorder, unspecified; G89.4 Chronic pain syndrome; F17.210 Nicotine dependence, cigarettes, uncomplicated; Z88.3 Allergy status to other anti-infective agents; Z88.2 Allergy status to sulfonamides
CPT/HCPCS: 81003; 81015; 87086; 99283; A9270-GY

== ENCOUNTER 2018-04-22 22:26 | Emergency (ER) | payer MEDICARE, MEDICAID ==
[2018-04-22] MEDS ORDERED: Nicotine GUM* 2 MG PO PRN (23:10)
[2018-04-22] MEDS ORDERED: Albuterol HFA INHALER* 8 gm MDI INH PRN (23:11)
[2018-04-22] MEDS ORDERED: Nicotine GUM* 2 MG ONE (23:21)
[2018-04-22] MEDS ORDERED: ALPRAZolam TAB* 0.5 MG PO ONE (23:26)
[2018-04-22 23:29] LABS: ABS Basophils 0.1 10^3/ul (0-0.2); ABS Eosinophils 0.2 10^3/ul (0-0.6); ABS Lymphocytes 2.1 10^3/ul (1.0-4.8); ABS Monocytes 0.5 10^3/ul (0-0.8); ABS Nucleated RBC 0 10^3/ul; Eosinophil % 2.8 % (0-6); Hematocrit 38 % (35-47); Lymphocyte % 30.3 % (25-47); Mean Corpuscular HGB Conc 34 g/dl (31-36); Mean Corpuscular Hemoglobin 31 pg (27-31); Mean Corpuscular Volume 92 fL (80-97); Mean Platelet Volume 6.9 um3 (7.4-10.4); Nucleated Red Blood Cells % 0.1; Platelet Count 187 10^3/ul (150-450); Red Blood Count 4.13 10^6/ul (4.0-5.4); Red Cell Distribution Width 14 % (10.5-15); White Blood Count 6.9 10^3/ul (3.5-10.8)
[2018-04-22 23:45] LABS: EGFR Non-African American 65.1 (>60)
[2018-04-23 00:57] VITALS: BP 174/89
--- NOTE | 2018-04-23 01:08 | ED ---
Demetria Coyne Rebecca, scribed for Rut Real MD on 04/22/18 at 2312 . Complex/Multi-Sys Presentation - HPI Summary HPI Summary: Pt is a 68 y/o F BIBA who presents to ED c/o generalized weakness and SOB with a mechanical fall. Pt reports at tonight she was walking when her legs became weak and she fell onto the right side. Additionally c/o R hip pain that is currently moderate, ranked 7/10 on triage. Sx aggravated and alleviated by nothing. Uses a cane to ambulate and lives alone. - History Of Current Complaint Chief Complaint: EDAltMentalStatus Time Seen by Provider: 04/22/18 22:58 Hx Obtained From: Patient Onset/Duration: Lasting Hours, Still Present Severity Currently: Moderate - 710 Location: Pain At: - R hip Aggravating Factor(s): Nothing Alleviating Factor(s): Nothing Associated Signs And Symptoms: Positive: Weakness - Generalized weakness - Allergies/Home Medications Allergies/Adverse Reactions: Allergies Allergy/AdvReac Type Severity Reaction Status Date / Time ciprofloxacin Allergy Mild Itching Verified 01/11/18 09:08 Sulfa (Sulfonamide Allergy Mild Itching Verified 01/11/18 09:08 Antibiotics) PMH/Surg Hx/FS Hx/Imm Hx Endocrine/Hematology History: Reports: Hx Anemia - b12 shots Denies: Hx Diabetes, Hx Thyroid Disease Cardiovascular History: Reports: Hx Hypertension, Other Cardiovascular Problems/ Disorders - PT.STATES STROKE 2011 Denies: Hx Congestive Heart Failure, Hx Deep Vein Thrombosis, Hx Myocardial Infarction, Hx Pacemaker/ICD Respiratory History: Reports: Hx Asthma, Hx Chronic Obstructive Pulmonary Disease (COPD), Other Respiratory Problems/Disorders - COPD Denies: Hx Lung Cancer GI History: Reports: Other GI Disorders - DIVERTICULITIS Denies: Hx Gall Bladder Disease, Hx Gastrointestinal Bleed, Hx Ulcer, Hx Urosepsis History: Denies: Hx Kidney Stones, Hx Renal Disease Musculoskeletal History: Reports: Hx Arthritis, Hx Back Problems, Other Musculoskeletal History - L SHLDR REPAIR 12/2013 Sensory History: Reports: Hx Contacts or Glasses Denies: Hx Hearing Aid Opthamlomology History: Reports: Hx Contacts or Glasses Neurological History: Reports: Hx CVA - 2011, Hx Seizures Psychiatric History: Reports: Hx Anxiety, Hx Depression, Hx Panic Disorder, Hx Post Traumatic Stress Disorder, Hx Inpatient Treatment, Hx Community Mental Health Tx, Hx Bipolar Disorder, Hx Suicide Attempt, Hx of Violent Episodes Against Others, Hx Substance Abuse, Other Psychiatric Issues/Disorders - polysubstance abuse Denies: Hx Eating Disorder - Cancer History Hx Chemotherapy: No Hx Radiation Therapy: No - Surgical History Surgery Procedure, Year, and Place: LT SHOULDER REPLACEMENT 12/2013, ABD EXPLORATORY SURGERY, APPENDECTOMY Hx Anesthesia Reactions: No - Immunization History Date of Tetanus Vaccine: 12/03/13 Date of Influenza Vaccine: 2012 Infectious Disease History: No Infectious Disease History: Denies: Hx Hepatitis, Hx Human Immunodeficiency Virus (HIV), History Other Infectious Disease, Traveled Outside the [place] in Last 30 Days - Family History Known Family History: Positive: Hypertension, Respiratory Disease, Other - bipolar disorder, depression, alcohol abuse Negative: Cardiac Disease, Diabetes - Social History Alcohol Use: None 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, replaced Hx Substance Use: Yes Substance Use Type: Reports: None Substance Use Comment - Amount & Last Used: opiates Hx Tobacco Use: Yes Smoking Status (MU): Heavy Every Day Tobacco Smoker Type: Cigarettes Amount Used/How Often: 1 PPD Length of Time of Smoking/Using Tobacco: 30 years Have You Smoked in the Last Year: Yes Review of Systems Positive: Shortness Of Breath Positive: Arthralgia - R hip pain Positive: Weakness - Generalized weakness All Other Systems Reviewed And Are Negative: Yes Physical Exam - Summary Physical Exam Summary: VITAL SIGNS: Reviewed. GENERAL: ~Patient is a well-developed and nourished female who is lying comfortable in the stretcher. Patient is not in any acute respiratory distress. HEAD AND FACE: No signs of trauma. No ecchymosis, hematomas or skull depressions. No sinus tenderness. EYES: PERRLA, EOMI x 2, No injected conjunctiva, no nystagmus. EARS: Hearing grossly intact. Ear canals and tympanic membranes are within normal limits. MOUTH: Oropharynx within normal limits. NECK: Supple, trachea is midline, no adenopathy, no JVD, no carotid bruit, no c- spine tenderness, neck with full ROM. CHEST: Symmetric, no tenderness at palpation LUNGS: Clear to auscultation bilaterally. No wheezing or crackles. CVS: Regular rate and rhythm, S1 and S2 present, no murmurs or gallops appreciated. ABDOMEN: Soft, non-tender. No signs of distention. No rebound no guarding, and no masses palpated. Bowel sounds are normal. EXTREMITIES: FROM in all major joints, no edema, no cyanosis or clubbing. NEURO: Alert and oriented x 3. No acute neurological deficits. Speech is normal and follows commands. SKIN: Dry and warm Triage Information Reviewed: Yes Vital Signs On Initial Exam: Initial Vitals Temp Pulse Resp BP Pulse Ox 98.2 F 90 18 170/121 95 04/22/18 22:48 04/22/18 22:48 04/22/18 22:48 04/22/18 22:48 04/22/18 22:48 Vital Signs Reviewed: Yes Diagnostics - Vital Signs Vital Signs Temp Pulse Resp BP Pulse Ox 04/22/18 22:48 98.2 F 90 18 170/121 95 - Laboratory Result Diagrams: 04/22/18 23:23 04/22/18 23:23 Lab Statement: Any lab studies that have been ordered have been reviewed, and results considered in the medical decision making process. Re-Evaluation - Re-Evaluation First Eval Re-Evaluation Time: 00:43 Change: Improved Complex Multi-Symp Course/Dx Assessment/Plan: Pt is a 68 y/o F BIBA who presents to ED c/o generalized weakness and SOB as well as mechanical fall. Pt reports at tonight she was walking when her legs became weak and she fell onto the right side. Additionally notes moderate R hip pain. Uses a cane to ambulate and lives alone. In the ED course, pt received ventolin, Xanax and nicotine gum which improved sx. Pt will be D/C to home with Dx of anxiety. Allergies noted. - Diagnoses Provider Diagnoses: Anxiety Discharge - Sign-Out/Discharge Documenting (check all that apply): Discharge/Admit/Transfer - Discharge - Discharge Plan Condition: Stable Disposition: HOME Patient Education Materials: Anxiety (ED) Referrals: No Primary Care Phys,NOPCP [Primary Care Provider] [place] [facility] [place]] - 3 Days Additional Instructions: RETURN TO ED FOR ANY NEW OR WORSENING SYMPTOMS. The documentation as recorded by the Demetria plunkett Rebecca accurately reflects the service I personally performed and the decisions made by me, Rut Real MD.
== END 2018-04-23 00:57 | disposition home or self-care (01) ==
LOC: ED 22:26
DX: F41.9 Anxiety disorder, unspecified (principal); M25.551 Pain in right hip; W19.XXXA Unspecified fall, initial encounter; Y92.9 Unspecified place or not applicable; Z86.73 Personal history of transient ischemic attack (TIA), and cerebral infarction without residual deficits; D64.9 Anemia, unspecified; I10 Essential (primary) hypertension; J45.909 Unspecified asthma, uncomplicated; J44.9 Chronic obstructive pulmonary disease, unspecified; Z88.1 Allergy status to other antibiotic agents; Z88.2 Allergy status to sulfonamides; F17.210 Nicotine dependence, cigarettes, uncomplicated
CPT/HCPCS: 36415; 80053; 83735; 84443; 85025; 99282; A9270-GY

== ENCOUNTER 2018-05-12 14:32 | Inpatient (IN) | payer MEDICAID, MEDICARE ==
[2018-05-12 15:21] LABS: ABS Basophils 0.1 10^3/ul (0-0.2); ABS Eosinophils 0.2 10^3/ul (0-0.6); ABS Lymphocytes 1.9 10^3/ul (1.0-4.8); ABS Monocytes 0.7 10^3/ul (0-0.8); ABS Neutrophils 5.7 10^3/ul (1.5-7.7); ABS Nucleated RBC 0 10^3/ul; Eosinophil % 2.3 % (0-6); Hematocrit 40 % (35-47); Hemoglobin 14.3 g/dl (12.0-16.0); Lymphocyte % 21.9 % (25-47); Mean Corpuscular HGB Conc 35 g/dl (31-36); Mean Corpuscular Hemoglobin 32 pg (27-31); Mean Corpuscular Volume 90 fL (80-97); Mean Platelet Volume 7.1 um3 (7.4-10.4); Nucleated Red Blood Cells % 0.1; Platelet Count 245 10^3/ul (150-450); Red Blood Count 4.47 10^6/ul (4.00-5.40); Red Cell Distribution Width 14 % (10.5-15); White Blood Count 8.6 10^3/ul (3.5-10.8)
[2018-05-12 15:44] LABS: EGFR Non-African American 56.8 (>60)
--- NOTE | 2018-05-12 16:01 | RAD ---
INDICATION: Left elbow injury. TECHNIQUE: 6 views of the left elbow were obtained. FINDINGS: The bones are in normal alignment. No joint effusion or fracture is seen. There are hypertrophic bony changes adjacent to the lateral epicondyle. IMPRESSION: NO EVIDENCE FOR FRACTURE.
--- NOTE | 2018-05-12 16:03 | RAD ---
Indication: LEFT elbow and hip pain post fall. Comparison: November 09, 2017 CT and radiographs. Technique: AP pelvis and AP and frog-leg lateral views LEFT hip. Report: Normally located LEFT hip. No radiographic evidence for LEFT proximal femur or pelvis fracture. Negative for pelvic joint diastases. Very mild LEFT hip osteophytic lipping. Negative for significant joint space narrowing. Peripheral vascular calcifications. Unremarkable soft tissue contours accounting for body habitus. IMPRESSION: No radiographic evidence for LEFT hip fracture. The LEFT hip appears similar to the November 09, 2017 exam without concern. If there is persistent high clinical index of suspicion for potential occult fracture consider MRI or in setting of contraindication or restricted access to MRI consider CT for further assessment as deemed appropriate.
[2018-05-12 16:30] LABS: Urine Appearance Cloudy; Urine Blood Negative (Negative); Urine Color Amber; Urine Ketones Trace (Negative); Urine Protein 1+(30 mg/dL) (Negative); Urine Red Blood Cell Trace(0-2/hpf) (Absent); Urine Specific Gravity 1.023 (1.010-1.030); Urine Urobilinogen Negative (Negative); Urine White Blood Cell 1+(6-10/hpf) (Absent)
[2018-05-12] MEDS ORDERED: Potassium Chlor TAB* 20 MEQ TAB.ER PO ONE (20:32)
[2018-05-12] MEDS ORDERED: Acetaminophen TAB* 325 MG PO PRN (21:42)
[2018-05-12] MEDS ORDERED: Docusate CAP* 100 MG PO PRN (21:48)
[2018-05-12] MEDS ORDERED: Ondansetron ODT TAB* 4 MG PO PRN (21:48)
[2018-05-12] MEDS ORDERED: Thiamine IV* 100 MG/ML 2 ML VIAL IM ONE (21:52)
[2018-05-12] MEDS ORDERED: LORazepam TAB(*) 1 MG PO SCH (22:00)
[2018-05-13] MEDS: traMADol TAB* 50 MG PO PRN ×4 (00:28→20:20)
--- NOTE | 2018-05-13 01:30 | HP ---
HISTORY AND PHYSICAL: DATE OF ADMISSION: 05/12/18. PRIMARY CARE PROVIDER: None. ATTENDING PHYSICIAN WHILE IN THE HOSPITAL: Dr. Jarvis Yin * (dictated by Richelle Ohara, ERICKSON). CHIEF COMPLAINT: Weakness. HISTORY OF PRESENT ILLNESS: Ms. Dewey is a 68-year-old female with a past medical history significant for depression, anxiety, CVA, COPD, hypertension, hyperlipidemia, bipolar, chronic back pain. CVA was in 2011. The patient presented to the emergency room for further evaluation of bilateral lower leg shaking x1 month. The patient states she has been having difficulty walking due to deconditioning and not moving a lot. She does report that she needs physical therapy. The patient reports that she fell yesterday landing on her butt, denied any head or back injury. She reports that she fell due to weakness and that her legs were so weak, they were shaking. She denies any nausea, vomiting or diarrhea. Denies any fever or chills. Denies any loss of appetite. Denies any chest pain or edema. She does report a cough x3 days. Denies any hemoptysis or shortness of breath. She denies any gross hematuria or dysuria. Denies any focal weakness or sensory loss. She denies any difficulty swallowing. She does report chronic joint aches. She denies any rashes. She does report operations to bilateral knees. She does report anxiety and depression, but denies any suicidal ideations or homicidal ideations at this time. The patient feels she is too weak to go home. She will be placed on the social admission for weakness. PAST MEDICAL HISTORY: Significant for, 1. COPD. 2. Hypertension. 3. Hyperlipidemia. 4. Depression. 5. Bipolar disorder. 6. Chronic back pain. 7. CVA in 2011. 8. GERD. PAST SURGICAL HISTORY: She reports ; 1. Appendectomy. 2. Exploratory laparotomy. MEDICATIONS: Home medications include; 1. Tramadol 50 mg p.o. q.6 hours as needed for pain. 2. Hydroxyzine 50 mg p.o. q.6 hours p.r.n. 3. BuSpar 30 mg p.o. b.i.d. 4. Amlodipine 5 mg p.o. daily. 5. Seroquel 100 mg p.o. at bedtime. 6. Zofran 4 mg p.o. q.6 hours as needed. 7. Omeprazole 20 mg p.o. b.i.d. 8. Gabapentin 600 mg t.i.d. 9. Fluticasone two sprays to both nares daily. 10. Docusate 100 mg p.o. b.i.d. 11. Bupropion XL 300 mg p.o. daily. 12. Atorvastatin 40 mg p.o. daily. 13. Aspirin 81 mg p.o. daily. 14. Sertraline unknown dose. She takes daily. ALLERGIES: 1. CIPROFLOXACIN. 2. SULFA. FAMILY HISTORY: Denied any history of coronary artery disease, denies any diabetes, denies any cancer within the family. SOCIAL HISTORY: The patient does smoke one pack per day. Denies any illicit drug use. She does have a history of alcohol abuse. She is single. Her surrogate decision maker in the event she is unable to make her own decision is her son, Elroy, his phone number is [phone]. She is a full code. REVIEW OF SYSTEMS: There was no documented fever. No significant weight change. There was no double vision. No ear discharge. Denies any rhinorrhea. Denies sore throat. No chest pain. Denies orthopnea or nocturnal dyspnea. There was no abdominal pain. No nausea, vomiting, or diarrhea. She denies any seizures or loss of consciousness. She does report a cough x3 days. She denies shortness of breath, hemoptysis. She denies any dysuria or urinary frequency. A review of 14 systems was completed and all others were negative. PHYSICAL EXAMINATION GENERAL: At this time, Ms. Dewey is a 68-year-old female, who appears well, sitting on the stretcher in the emergency room. She does not appear to be in any acute distress. VITAL SIGNS: Blood pressure was 148/81, heart rate was 74, respirations 16, temperature was 97.7, O2 saturation 99%. HEENT: Head is atraumatic, normocephalic. Eyes: EOMs are intact. Sclerae anicteric and not pale. Oral mucosa appears to be moist. There is no oropharyngeal erythema. NECK: Supple. There is no C spine tenderness. LUNGS: Clear to auscultation bilaterally. No wheezes, rales or rhonchi. CARDIAC: S1, S2. Regular rate and rhythm, no murmurs, rubs, or gallops. ABDOMEN: Soft and nontender. Bowel sounds are present x4. EXTREMITIES: Pulses are +2 throughout. She is able to move all 4 extremities with 4/5 strength. NEUROLOGIC: She is alert and oriented x4. Tongue is midline. Speech is clear. There are no focal deficits. SKIN: Intact. DIAGNOSTIC STUDIES AND LABORATORY DATA: WBCs were 8.6, RBCs 4.47. Hemoglobin was 14.3, hematocrit was 40, platelet count was 245. Sodium 141, potassium 3.4 , chloride 103, carbon dioxide was 27, anion gap was 11, BUN was 17, creatinine 0.98, lactic acid was 1.4, glucose was 107, C-reactive protein 32.28. Urine; pH was 5, specific gravity 1.023, urine protein was 1+, urine ketones were trace. Urine blood, nitrites, bilirubin and urobilinogen were all negative. Urine leukocyte esterase was 1+, urine wbc's were 1+, urine rbc's were trace, urine squamous epithelial cells were present, urine bacteria 3+. Urine hyaline casts were present. Urine glucose was negative. She had an elbow x-ray on 05/12/18, radiologist's impression, no evidence for fracture. She had a hip and pelvis x-ray on 05/12/18, radiologist's impression, no radiographic evidence for left hip fracture. The left hip appears similar to October 2017 exam without concern. If there is persistent high clinical index of suspicion for potential occult fracture or in setting of contraindication or restricted access to MRI, consider CT for further assessment as deemed appropriate. She had an electrocardiogram on 05/12/18, which showed sinus rhythm at a rate of 80. ASSESSMENT AND PLAN: Ms. Dewey is a 68-year-old female, who presented to the emergency room today for evaluation of weakness x1 month. The patient feels unsafe to go home and she is a [facility] admission. She has signed paperwork understanding that her admission may not be covered by insurance. She will be admitted, observation for; 1. Weakness. I suspect this is related to deconditioning as she reports leg shaking with weakness when ambulating. She does report that she needs to start physical therapy. I will put in a PT and OT consultation and evaluation. I also have put in for social work and consult for the morning. The patient has no other concerns. She has no other symptoms that would be causing her weakness. She denies any recent illnesses, any nausea, vomiting or diarrhea. She denies any fever or chills. 2. Hypokalemia. Potassium level was 3.4 today. She did receive 40 mEq of potassium p.o. in the emergency room. 3. Abnormal urinalysis. I suspect this was a contaminated sample. She has no fever or chills. She denies any dysuria or urinary frequency, urgency or blood in the urine. In the event, she does develop a fever, we will consider placing her on antibiotic therapy. 4. Depression and anxiety, she should continue her home medications of Zoloft, Wellbutrin, BuSpar. 5. Neuropathy. She should continue on Neurontin. 6. History of cerebrovascular accident, she should continue aspirin. 7. Fluid, electrolytes and nutrition. She will be placed on her heart healthy , caffeine okay diet. 8. DVT prophylaxis, I will place her on SCDs. 9. Code status, she is a full code. TIME SPENT: Time spent on this admission was 60 minutes, greater than half that time was spent [id number] with the patient obtaining my history and physical and the other half the time was spent going over my plan of care and implementing my plan of care. I have discussed this with my attending, Dr. Jarvis Yin; he is in agreement with my plan. RICHELLE OHARA, ERICKSON [id number]/[facility] #: [id number] JAMES
[2018-05-13] MEDS: Gabapentin CAP(*) 300 MG PO SCH ×3 (08:50→20:19)
[2018-05-13] MEDS: busPIRone TAB* 30 MG PO SCH ×2 (08:50→20:19)
[2018-05-13] MEDS: Omeprazole CAP* 20 MG PO SCH ×2 (08:51→20:20)
[2018-05-13] MEDS: Multivitamins/Minerals TAB PO SCH (08:51)
[2018-05-13] MEDS: BuPROPion XL* 300 MG TAB.XL PO SCH (08:51)
[2018-05-13] MEDS: amLODIPine TAB* 5 MG PO SCH (08:51)
[2018-05-13] MEDS: Thiamine TAB* 100 MG TAB PO SCH (08:51)
[2018-05-13] MEDS: Fluticasone NASAL SPRAY 50MCG* 16 gm SPRAY BTL BOTH NARES SCH (08:51)
[2018-05-13] MEDS: Aspirin 81 mg CHEW TAB* 81 MG TAB.CHEW PO SCH (08:51)
[2018-05-13] MEDS: Folic Acid TAB* 1 MG PO SCH (08:51)
[2018-05-13 10:54] LABS: ABS Basophils 0.1 10^3/ul (0-0.2); ABS Eosinophils 0.3 10^3/ul (0-0.6); ABS Lymphocytes 2.5 10^3/ul (1.0-4.8); ABS Monocytes 0.8 10^3/ul (0-0.8); ABS Neutrophils 5.8 10^3/ul (1.5-7.7); ABS Nucleated RBC 0 10^3/ul; Eosinophil % 2.8 % (0-6); Hematocrit 41 % (35-47); Hemoglobin 14.2 g/dl (12.0-16.0); Lymphocyte % 26.3 % (25-47); Mean Corpuscular HGB Conc 35 g/dl (31-36); Mean Corpuscular Hemoglobin 32 pg (27-31); Mean Corpuscular Volume 91 fL (80-97); Mean Platelet Volume 7.2 um3 (7.4-10.4); Nucleated Red Blood Cells % 0.1; Platelet Count 281 10^3/ul (150-450); Red Blood Count 4.51 10^6/ul (4.00-5.40); Red Cell Distribution Width 15 % (10.5-15); White Blood Count 9.5 10^3/ul (3.5-10.8)
[2018-05-13 11:53] LABS: EGFR Non-African American 56.8 (>60)
[2018-05-13] MEDS: Mouth Piece, Nicotine* 1 EACH CARTRIDGE INH PRN (13:17)
[2018-05-13] MEDS: Nicotine Inhaler* 10 MG AMP INH PRN ×2 (13:17→18:51)
[2018-05-13] MEDS: Lactobacillus Acidophilus* 1 TAB PO SCH (13:17)
[2018-05-13] MEDS: cefTRIAXone(*) 1 GM in NS 0.9% 50 ML* 50 ML IVPB SCH (13:46)
--- NOTE | 2018-05-13 16:04 | PN ---
Subjective Date of Service: 05/13/18 Interval History: Pt seen and examined. Meds and labs reviewed. ROS: Denied SEURO/dizziness, F/C, N/V, CP, SOB, increased cough, sputum production , abd pain, diarrhea, constipation, dysuria, myalgias, arthralgias, throat pain , and new skin lesions. The rest of the 14 point ROS are unremarkable. PHYSICAL EXAM: GEN APPEARANCE: Awake, not in acute distress HEENT: NC/AT, PERRLA, moist oral mucosa, (-) throat erythema NECK: Soft, supple, (-) cervical LAD, (-)JVD HEART: S1S2 WNL, RRR, No MRG CHEST: CTA, BL, GAE, No W/R/R ABD: Soft, ND/(+) suprapubic tenderness, NABS 4x Q EXT: No C/C/E SKIN: Warm to touch PSYCH: No active psychosis, hallucinations, depression, SI/HI Objective Active Medications: Acetaminophen (Tylenol Tab*) 650 mg PO Q4H PRN PRN Reason: FEVER/PAIN Amlodipine Besylate (Norvasc Tab*) 5 mg PO DAILY [facility] Last Admin: 05/13/18 08:51 Dose: 5 mg Aspirin (Aspirin 81 Mg Chew Tab*) 81 mg PO DAILY [facility] Last Admin: 05/13/18 08:51 Dose: 81 mg Atorvastatin Calcium (Lipitor*) 40 mg PO 1700 [facility] Bupropion HCl (Bupropion Xl*) 300 mg PO DAILY [facility] Last Admin: 05/13/18 08:51 Dose: 300 mg Buspirone HCl (Buspar Tab*) 30 mg PO BID [facility] Last Admin: 05/13/18 08:50 Dose: 30 mg Device (Nicotine Mouth Piece*) 1 each INH .USE WITH NICOTROL PRN PRN Reason: CRAVING Last Admin: 05/13/18 13:17 Dose: 1 each Docusate Sodium (Colace Cap*) 100 mg PO BID PRN PRN Reason: CONSTIPATION Enoxaparin Sodium (Lovenox(*)) 40 mg SUBCUT Q24H [facility] Fluticasone Propionate (Flonase Nasal Fallon 50mcg*) 2 spray BOTH NARES DAILY [facility] Last Admin: 05/13/18 08:51 Dose: 2 spray Folic Acid (Folvite Tab*) 1 mg PO DAILY [facility] Last Admin: 05/13/18 08:51 Dose: 1 mg Gabapentin (Neurontin Cap(*)) 600 mg PO TID [facility] Last Admin: 05/13/18 13:17 Dose: 600 mg Ceftriaxone Sodium 1 gm/ (Sodium Chloride) 50 mls @ 200 mls/hr IVPB Q24H [facility] Last Admin: 05/13/18 13:46 Dose: 200 mls/hr Lactobacillus Rhamnosus (Lactobacillus Acidophilus*) 1 tab PO DAILY [facility] Stop: 05/18/18 12:59 Last Admin: 05/13/18 13:17 Dose: 1 tab Lorazepam (Ativan Tab(*)) 0 - 6 mg PO .PER [facility] PROTOCOL [facility] PRN Reason: Protocol Multivitamins/Minerals (Theragran/Minerals Tab*) 1 tab PO DAILY [facility] Last Admin: 05/13/18 08:51 Dose: 1 tab Nicotine (Nicotine Inhaler*) 10 mg INH Q2H PRN PRN Reason: CRAVING Last Admin: 05/13/18 13:17 Dose: 10 mg Omeprazole (Prilosec Cap*) 20 mg PO BID [facility] Last Admin: 05/13/18 08:51 Dose: 20 mg Ondansetron HCl (Zofran Odt Tab*) 4 mg PO Q6H PRN PRN Reason: NAUSEA Quetiapine Fumarate (Seroquel Tab*) 100 mg PO BEDTIME [facility] Thiamine HCl (Vitamin B-1 Tab*) 100 mg PO DAILY [facility] Last Admin: 05/13/18 08:51 Dose: 100 mg Tramadol HCl (Ultram*) 50 mg PO Q6HR PRN PRN Reason: PAIN Last Admin: 05/13/18 13:17 Dose: 50 mg Vital Signs - 8 hr 05/13/1818 05/13/18 13:17 14:10 15:40 Temperature 99.1 F Pulse Rate 74 74 Respiratory 16 20 22 Rate Blood Pressure 135/53 147/70 (mmHg) O2 Sat by Pulse 100 98 Oximetry Oxygen Devices in Use Now: None Result Diagrams: 05/13/18 10:40 05/13/18 10:40 Assess/Plan/Problems-Billing Assessment: - Patient Problems (1) Generalized weakness Current Visit: Yes Status: Acute Code(s): R53.1 - WEAKNESS SNOMED Code(s) : 17961340 Comment: -Likely due to UTI causing diarrhea vs. UTI concomitant with viral gastroenteritis -Pt mentions that she has had at least 2-3 bouts of loose bowel movements 2 days SPOT REMOVER accompanied by nausea---mentions no longer have loose stools -U/A likely indicative of prema wilma UTI given suprapubic tenderness and pt history -Will place pt on Rocephin and will continue to follow cultures (2) Hypokalemia Current Visit: Yes Status: Acute Code(s): E87.6 - HYPOKALEMIA SNOMED Code( s): 64274077 Comment: -Mild -Corrected -Continue watchful waiting (3) Bipolar depression Current Visit: No Status: Acute Code(s): F31.30 - BIPOLAR DISORD, CRNT EPSD DEPRESS, MILD OR MOD SEVERT, UNSP SNOMED Code(s): 15200088 Comment: #Depression and anxiety: -Continue Buspirone, Lorazepam, Quetiapine, and Bupropion (4) Neuropathy Current Visit: Yes Status: Acute Code(s): G62.9 - POLYNEUROPATHY, UNSPECIFIED SNOMED Code(s): 236899119 Comment: -Continue Gabapentin (5) DVT prophylaxis Current Visit: Yes Status: Acute Code(s): XDY9037 - SNOMED Code(s): 514693590 Comment: -Will place on SQ Lovenox Status and Disposition: -Appreciate PT reccs -For STR placement
[2018-05-13] MEDS: Atorvastatin* 40 MG TAB PO SCH (16:47)
[2018-05-13] MEDS: Enoxaparin(*) 40 MG/0.4 ML SYR SUBCUT SCH (16:47)
[2018-05-13] MEDS: QUEtiapine TAB* 100 MG PO SCH (20:20)
[2018-05-14 07:07] LABS: Hematocrit 36 % (35-47); Hemoglobin 12.6 g/dl (12.0-16.0); Mean Corpuscular HGB Conc 35 g/dl (31-36); Mean Corpuscular Hemoglobin 32 pg (27-31); Mean Corpuscular Volume 91 fL (80-97); Mean Platelet Volume 7.3 um3 (7.4-10.4); Platelet Count 209 10^3/ul (150-450); Red Blood Count 3.92 10^6/ul (4.00-5.40); Red Cell Distribution Width 14 % (10.5-15); White Blood Count 6.4 10^3/ul (3.5-10.8)
[2018-05-14] MEDS: Gabapentin CAP(*) 300 MG PO SCH ×3 (08:20→20:15)
[2018-05-14] MEDS: Omeprazole CAP* 20 MG PO SCH ×2 (08:20→20:15)
[2018-05-14] MEDS: Lactobacillus Acidophilus* 1 TAB PO SCH (08:21)
[2018-05-14] MEDS: Thiamine TAB* 100 MG TAB PO SCH (08:21)
[2018-05-14] MEDS: Multivitamins/Minerals TAB PO SCH (08:21)
[2018-05-14] MEDS: Folic Acid TAB* 1 MG PO SCH (08:22)
[2018-05-14] MEDS: amLODIPine TAB* 5 MG PO SCH (08:22)
[2018-05-14] MEDS: Aspirin 81 mg CHEW TAB* 81 MG TAB.CHEW PO SCH (08:23)
[2018-05-14] MEDS: BuPROPion XL* 300 MG TAB.XL PO SCH (08:23)
[2018-05-14] MEDS: Fluticasone NASAL SPRAY 50MCG* 16 gm SPRAY BTL BOTH NARES SCH (08:23)
[2018-05-14] MEDS: busPIRone TAB* 30 MG PO SCH ×2 (08:23→20:14)
[2018-05-14] MEDS ORDERED: Potassium Chlor TAB* 20 MEQ TAB.ER PO ONE (09:09)
[2018-05-14] MEDS: cefTRIAXone(*) 1 GM in NS 0.9% 50 ML* 50 ML IVPB SCH (12:18)
[2018-05-14] MEDS: traMADol TAB* 50 MG PO PRN ×2 (13:30→20:14)
[2018-05-14] MEDS: Enoxaparin(*) 40 MG/0.4 ML SYR SUBCUT SCH (15:56)
[2018-05-14] MEDS: Atorvastatin* 40 MG TAB PO SCH (15:56)
--- NOTE | 2018-05-14 16:07 | PN ---
Subjective Date of Service: 05/14/18 Interval History: Pt seen and examined. Meds and labs reviewed. Pt mentions she feels better today, although still unsteady in her gait. ROS: Denied SUERO/dizziness, F/C, N/V, CP, SOB, increased cough, sputum production , abd pain, diarrhea, constipation, dysuria, myalgias, arthralgias, throat pain , and new skin lesions. The rest of the 14 point ROS are unremarkable. PHYSICAL EXAM: GEN APPEARANCE: Awake, not in acute distress HEENT: NC/AT, PERRLA, moist oral mucosa, (-) throat erythema NECK: Soft, supple, (-) cervical LAD, (-)JVD HEART: S1S2 WNL, RRR, No MRG CHEST: CTA, BL, GAE, No W/R/R ABD: Soft, ND/NT, NABS 4x Q EXT: No C/C/E SKIN: Warm to touch PSYCH: No active psychosis, hallucinations, depression, SI/HI Objective Active Medications: Acetaminophen (Tylenol Tab*) 650 mg PO Q4H PRN PRN Reason: FEVER/PAIN Amlodipine Besylate (Norvasc Tab*) 5 mg PO DAILY [facility] Last Admin: 05/14/18 08:22 Dose: 5 mg Aspirin (Aspirin 81 Mg Chew Tab*) 81 mg PO DAILY [facility] Last Admin: 05/14/18 08:23 Dose: 81 mg Atorvastatin Calcium (Lipitor*) 40 mg PO 1700 [facility] Last Admin: 05/14/18 15:56 Dose: 40 mg Bupropion HCl (Bupropion Xl*) 300 mg PO DAILY [facility] Last Admin: 05/14/18 08:23 Dose: 300 mg Buspirone HCl (Buspar Tab*) 30 mg PO BID [facility] Last Admin: 05/14/18 08:23 Dose: 30 mg Device (Nicotine Mouth Piece*) 1 each INH .USE WITH NICOTROL PRN PRN Reason: CRAVING Last Admin: 05/13/18 13:17 Dose: 1 each Docusate Sodium (Colace Cap*) 100 mg PO BID PRN PRN Reason: CONSTIPATION Enoxaparin Sodium (Lovenox(*)) 40 mg SUBCUT Q24H [facility] Last Admin: 05/14/18 15:56 Dose: 40 mg Fluticasone Propionate (Flonase Nasal [place] 50mcg*) 2 spray BOTH NARES DAILY [facility] Last Admin: 05/14/18 08:23 Dose: 2 spray Folic Acid (Folvite Tab*) 1 mg PO DAILY [facility] Last Admin: 05/14/18 08:22 Dose: 1 mg Gabapentin (Neurontin Cap(*)) 600 mg PO TID [facility] Last Admin: 05/14/18 13:30 Dose: 600 mg Ceftriaxone Sodium 1 gm/ (Sodium Chloride) 50 mls @ 200 mls/hr IVPB Q24H [facility] Last Admin: 05/14/18 12:18 Dose: 200 mls/hr Lactobacillus Rhamnosus (Lactobacillus Acidophilus*) 1 tab PO DAILY [facility] Stop: 05/18/18 12:59 Last Admin: 05/14/18 08:21 Dose: 1 tab Lorazepam (Ativan Tab(*)) 0 - 6 mg PO .PER [facility] PROTOCOL [facility] PRN Reason: Protocol Multivitamins/Minerals (Theragran/Minerals Tab*) 1 tab PO DAILY [facility] Last Admin: 05/14/18 08:21 Dose: 1 tab Nicotine (Nicotine Inhaler*) 10 mg INH Q2H PRN PRN Reason: CRAVING Last Admin: 05/13/18 18:51 Dose: 10 mg Omeprazole (Prilosec Cap*) 20 mg PO BID [facility] Last Admin: 05/14/18 08:20 Dose: 20 mg Ondansetron HCl (Zofran Odt Tab*) 4 mg PO Q6H PRN PRN Reason: NAUSEA Quetiapine Fumarate (Seroquel Tab*) 100 mg PO BEDTIME [facility] Last Admin: 05/13/18 20:20 Dose: 100 mg Thiamine HCl (Vitamin B-1 Tab*) 100 mg PO DAILY [facility] Last Admin: 05/14/18 08:21 Dose: 100 mg Tramadol HCl (Ultram*) 50 mg PO Q6HR PRN PRN Reason: PAIN Last Admin: 05/14/18 13:30 Dose: 50 mg Vital Signs - 8 hr 05/14/18 05/14/18 05/14/18 08:11 08:20 10:10 Temperature 97.9 F Pulse Rate 67 Respiratory 18 18 14 Rate Blood Pressure 133/61 (mmHg) O2 Sat by Pulse 98 Oximetry 05/14/18 05/14/18 05/14/18 10:21 11:18 13:30 Temperature 98.0 F 97.4 F Pulse Rate 74 77 Respiratory 20 20 18 Rate Blood Pressure 112/55 100/64 (mmHg) O2 Sat by Pulse 100 100 Oximetry 05/14/18 15:57 Temperature Pulse Rate Respiratory 18 Rate Blood Pressure (mmHg) O2 Sat by Pulse Oximetry Oxygen Devices in Use Now: None Result Diagrams: 05/14/18 06:06 05/14/18 06:06 Assess/Plan/Problems-Billing Assessment: - Patient Problems (1) Generalized weakness Current Visit: Yes Status: Acute Code(s): R53.1 - WEAKNESS SNOMED Code(s) : 20066434 Comment: -Likely due to UTI causing diarrhea vs. 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[employer] accompanied by nausea---mentions no longer have loose stools -U/A likely indicative of prema wilma UTI given suprapubic tenderness and pt history described from yesterdays note, accompanied by pts clinical improvement both by objective and subjective data when treated with antibiotic -Urine culture being negative is not necessarily evidence that UTI is not present given it is not as sensitive as U/A, although U/A is not as specific -Suprapubic tenderness present yesterday no longer appreciated -Continue Rocephin and will continue to follow cultures (2) Hypokalemia Current Visit: Yes Status: Acute Code(s): E87.6 - HYPOKALEMIA SNOMED Code( s): 21838886 Comment: -Mild -Corrected -Continue watchful waiting (3) Bipolar depression Current Visit: No Status: Acute Code(s): F31.30 - BIPOLAR DISORD, CRNT EPSD DEPRESS, MILD OR MOD SEVERT, UNSP SNOMED Code(s): 01633803 Comment: #Depression and anxiety: -Continue Buspirone, Lorazepam, Quetiapine, and Bupropion (4) Neuropathy Current Visit: Yes Status: Acute Code(s): G62.9 - POLYNEUROPATHY, UNSPECIFIED SNOMED Code(s): 101597882 Comment: -Continue Gabapentin (5) DVT prophylaxis Current Visit: Yes Status: Acute Code(s): [id number] - SNOMED Code(s): 343072693 Comment: -Continue SQ Lovenox Status and Disposition: -For STR placement
[2018-05-14] MEDS: QUEtiapine TAB* 100 MG PO SCH (20:14)
[2018-05-15] MEDS: traMADol TAB* 50 MG PO PRN ×2 (03:30→11:26)
[2018-05-15] MEDS: Mouth Piece, Nicotine* 1 EACH CARTRIDGE INH PRN (03:37)
[2018-05-15] MEDS: Nicotine Inhaler* 10 MG AMP INH PRN ×2 (03:37→21:24)
[2018-05-15 05:30] LABS: ABS Basophils 0.1 10^3/ul (0-0.2); ABS Eosinophils 0.3 10^3/ul (0-0.6); ABS Lymphocytes 2.1 10^3/ul (1.0-4.8); ABS Monocytes 0.7 10^3/ul (0-0.8); ABS Neutrophils 3.3 10^3/ul (1.5-7.7); ABS Nucleated RBC 0 10^3/ul; Eosinophil % 4.2 % (0-6); Hematocrit 35 % (35-47); Hemoglobin 12.1 g/dl (12.0-16.0); Lymphocyte % 33.3 % (25-47); Mean Corpuscular HGB Conc 35 g/dl (31-36); Mean Corpuscular Hemoglobin 32 pg (27-31); Mean Corpuscular Volume 91 fL (80-97); Mean Platelet Volume 7.4 um3 (7.4-10.4); Nucleated Red Blood Cells % 0; Platelet Count 193 10^3/ul (150-450); Red Blood Count 3.79 10^6/ul (4.00-5.40); Red Cell Distribution Width 14 % (10.5-15); White Blood Count 6.4 10^3/ul (3.5-10.8)
[2018-05-15 05:41] LABS: EGFR Non-African American 77.3 (>60)
[2018-05-15] MEDS: Fluticasone NASAL SPRAY 50MCG* 16 gm SPRAY BTL BOTH NARES SCH (08:04)
[2018-05-15] MEDS: Folic Acid TAB* 1 MG PO SCH (08:04)
[2018-05-15] MEDS: Omeprazole CAP* 20 MG PO SCH ×2 (08:04→21:23)
[2018-05-15] MEDS: Thiamine TAB* 100 MG TAB PO SCH (08:04)
[2018-05-15] MEDS: BuPROPion XL* 300 MG TAB.XL PO SCH (08:04)
[2018-05-15] MEDS: busPIRone TAB* 30 MG PO SCH ×2 (08:04→21:27)
[2018-05-15] MEDS: Gabapentin CAP(*) 300 MG PO SCH ×3 (08:05→21:23)
[2018-05-15] MEDS: Multivitamins/Minerals TAB PO SCH (08:05)
[2018-05-15] MEDS: Lactobacillus Acidophilus* 1 TAB PO SCH (08:05)
[2018-05-15] MEDS: Aspirin 81 mg CHEW TAB* 81 MG TAB.CHEW PO SCH (08:05)
[2018-05-15] MEDS: amLODIPine TAB* 5 MG PO SCH (08:05)
--- NOTE | 2018-05-15 10:31 | ED ---
[place] Angela, scribed for Sam Pederson MD on 05/12/18 at 1508 . Adult Trauma - HPI Summary HPI Summary: This pt is a 68 y/o female presenting to [facility] via EMS c/o left hip and left elbow pain s/p fall today. Pt reports she fell in the kitchen today while at home. Denies head strike or LOC. Pt notes she currently lives alone at home but will be moving in with her son next week. She states that in the past week she has fallen "a lot of times." PMHx includes CVA, depression, anxiety. - History of Current Complaint Chief Complaint: EDExtremityUpper Stated Complaint: FALL Time Seen by Provider: 05/12/18 14:49 Hx Obtained From: Patient Hx Last Menstrual Period: pt states age 30-42 yrs old Mechanism of Injury: Fall Loss of Consciousness: no loss of consciousness Onset/Duration: Started Minutes Ago, Still Present Onset of Pain: Immediate Current Severity: Severe Pain Intensity: 8 Pain Scale Used: 0-10 Numeric Location: Extremities - left elbow, Other - left hip Aggravating Factor(s): Movement Alleviating Factor(s): Rest Associated Signs & Symptoms: Negative: SOB, Chest Pain, Abdominal Pain, Fever - Additional Pertinent History Primary Care Physician: [id number] - Allergy/Home Medications Allergies/Adverse Reactions: Allergies Allergy/AdvReac Type Severity Reaction Status Date / Time ciprofloxacin Allergy Mild Itching Verified 01/11/18 09:08 Sulfa (Sulfonamide Allergy Mild Itching Verified 01/11/18 09:08 Antibiotics) PMH/Surg Hx/FS Hx/Imm Hx Endocrine/Hematology History: Reports: Hx Anemia - b12 shots Denies: Hx Diabetes, Hx Thyroid Disease Cardiovascular History: Reports: Hx Hypertension, Other Cardiovascular Problems/ Disorders - PT.STATES STROKE 2011 Denies: Hx Congestive Heart Failure, Hx Deep Vein Thrombosis, Hx Myocardial Infarction, Hx Pacemaker/ICD Respiratory History: Reports: Hx Asthma, Hx Chronic Obstructive Pulmonary Disease (COPD), Other Respiratory Problems/Disorders - COPD Denies: Hx Lung Cancer GI History: Reports: Other GI Disorders - DIVERTICULITIS Denies: Hx Gall Bladder Disease, Hx Gastrointestinal Bleed, Hx Ulcer, Hx Urosepsis History: Denies: Hx Kidney Stones, Hx Renal Disease Musculoskeletal History: Reports: Hx Arthritis, Hx Back Problems, Other Musculoskeletal History - L SHLDR REPAIR 12/2013 Sensory History: Reports: Hx Contacts or Glasses Denies: Hx Hearing Aid Opthamlomology History: Reports: Hx Contacts or Glasses Neurological History: Reports: Hx CVA - 2011, Hx Seizures Psychiatric History: Reports: Hx Anxiety, Hx Depression, Hx Panic Disorder, Hx Post Traumatic Stress Disorder, Hx Inpatient Treatment, Hx Community Mental Health Tx, Hx Bipolar Disorder, Hx Suicide Attempt, Hx of Violent Episodes Against Others, Hx Substance Abuse, Other Psychiatric Issues/Disorders - polysubstance abuse Denies: Hx Eating Disorder - Cancer History Hx Chemotherapy: No Hx Radiation Therapy: No - Surgical History Surgery Procedure, Year, and Place: LT SHOULDER REPLACEMENT 12/2013, ABD EXPLORATORY SURGERY, APPENDECTOMY Hx Anesthesia Reactions: No - Immunization History Date of Tetanus Vaccine: 12/03/13 Date of Influenza Vaccine: 2012 Infectious Disease History: No Infectious Disease History: Denies: Hx Hepatitis, Hx Human Immunodeficiency Virus (HIV), History Other Infectious Disease, Traveled Outside the [place] in Last 30 Days - Family History Known Family History: Positive: Hypertension, Respiratory Disease, Other - bipolar disorder, depression, alcohol abuse Negative: Cardiac Disease, Diabetes - Social History Alcohol Use: None 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, replaced Hx Substance Use: Yes Substance Use Type: Reports: None Substance Use Comment - Amount & Last Used: opiates Hx Tobacco Use: Yes Smoking Status (MU): Heavy Every Day Tobacco Smoker Type: Cigarettes Amount Used/How Often: 1 PPD Length of Time of Smoking/Using Tobacco: 30 years Have You Smoked in the Last Year: Yes Review of Systems Negative: Fever Negative: Chest Pain Negative: Shortness Of Breath Negative: Abdominal Pain Musculoskeletal: Other - left hip pain, left elbow pain Negative: Headache All Other Systems Reviewed And Are Negative: Yes Physical Exam - Summary Physical Exam Summary: VITAL SIGNS: Reviewed. GENERAL: Patient is a well-developed and nourished female who is lying comfortable in the stretcher. Patient is not in any acute respiratory distress. HEAD AND FACE: No signs of trauma. No ecchymosis, hematomas or skull depressions. No sinus tenderness. EYES: PERRLA, EOMI x 2, No injected conjunctiva, no nystagmus. EARS: Hearing grossly intact. Ear canals and tympanic membranes are within normal limits. MOUTH: Oropharynx within normal limits. NECK: Supple, trachea is midline, no adenopathy, no JVD, no carotid bruit, no c- spine tenderness, neck with full ROM. CHEST: Symmetric, no tenderness at palpation LUNGS: Clear to auscultation bilaterally. No wheezing or crackles. CVS: Regular rate and rhythm, S1 and S2 present, no murmurs or gallops appreciated. ABDOMEN: Soft, non-tender. No signs of distention. No rebound no guarding, and no masses palpated. Bowel sounds are normal. EXTREMITIES: FROM in all major joints, no edema, no cyanosis or clubbing. Tenderness in the left hip and left elbow. Good ROM in the left lower extremity. No deformity and no hematomas. NEURO: Alert and oriented x 3. No acute neurological deficits. Speech is normal and follows commands. SKIN: Dry and warm. Pt has 2 small ecchymosis in bilateral knees from prior falls. Triage Information Reviewed: Yes Vital Signs On Initial Exam: Initial Vitals Pulse Resp BP Pulse Ox 85 16 179/100 97 05/12/18 14:38 05/12/18 14:38 05/12/18 14:38 05/12/18 14:38 Vital Signs Reviewed: Yes Diagnostics - Vital Signs Vital Signs Temp Pulse Resp BP Pulse Ox 05/12/18 14:40 97.7 F 85 18 179/100 96 05/12/18 14:38 85 16 179/100 97 - Laboratory Result Diagrams: 05/12/18 15:09 05/12/18 15:09 Lab Statement: Any lab studies that have been ordered have been reviewed, and results considered in the medical decision making process. - Radiology Left elbow XR Xray Interpretation: No Acute Changes - IMPRESSION: No evidence for fracture. Dr. Pederson has reviewed this radiology report. Radiology Interpretation Completed By: Radiologist Left hip and pelvis XR Xray Interpretation: No Acute Changes - IMPRESSION: No radiographic evidence for LEFT hip fracture. The LEFT hip appears similar to the November 09, 2017 exam without concern. If there is persistent high clinical index of suspicion for potential occult fracture consider MRI or in setting of contraindication or restricted access to MRI consider CT for further assessment as deemed appropriate. Dr. Pederson has reviewed this radiology report. Radiology Interpretation Completed By: Radiologist - EKG 15:14 Cardiac Rate: NL - at 80 bpm EKG Rhythm: Sinus Rhythm EKG Interpretation: No ST elevations. Re-Evaluation - Re-Evaluation First Eval Re-Evaluation Time: 16:36 Change: Unchanged Comment: magazine worker to be consulted. Second Eval Re-Evaluation Time: 20:10 Change: Unchanged Comment: magazine worker recommends admission for intermediate care. Adult Trauma Course/Dx - Course Assessment/Plan: Pt is a 68 y/o female who presents with left hip and left elbow pain s/p fall today. Pt reports she fell in the kitchen today while at home. Denies head strike or LOC. Pt notes hx of frequent falls recently. Test results without any significant abnormalities except for potassium of 3.4, for which the pt was given potassium chloride, CRP of 32.3. Left elbow XR shows no evidence for fracture. Left hip and pelvis XR reveals no radiographic evidence for LEFT hip fracture. The LEFT hip appears similar to the November 09, 2017 exam without concern. If there is persistent high clinical index of suspicion for potential occult fracture consider MRI or in setting of contraindication or restricted access to MRI consider CT for further assessment as deemed appropriate. X-rays show no fracture or dislocation. We ambulated the pt in the ED and she does not have a steady walk. I contacted the social sciences instructor who recommends for the pt to be admitted as a intermediate admission. I discussed the case with Dr. Yin, hospitalist, who accepted the pt for admission. Pt is hemodynamically stable, alert and oriented x3. Dx: intermediate admission - Diagnoses Provider Diagnoses: Assistance needed for ambulation and movement - Physician Notifications Discussed Care Of Patient With: Jarvis Yin Time Discussed With Above Provider: 20:24 Instructed by Provider To: Admit As Inpatient Discharge - Sign-Out/Discharge Documenting (check all that apply): Discharge/Admit/Transfer - Admit - Discharge Plan Condition: Stable Disposition: ADMITTED TO [facility] Referrals: [facility] [Outside] The documentation as recorded by the [place] Angela accurately reflects the service I personally performed and the decisions made by me, Sam Pederson MD.
[2018-05-15] MEDS: cefTRIAXone(*) 1 GM in NS 0.9% 50 ML* 50 ML IVPB SCH (11:26)
[2018-05-15] MEDS: Enoxaparin(*) 40 MG/0.4 ML SYR SUBCUT SCH (16:36)
[2018-05-15] MEDS: Atorvastatin* 40 MG TAB PO SCH (16:36)
[2018-05-15] MEDS ORDERED: Thiamine IV* 100 MG/ML 2 ML VIAL IM ONE (20:20)
--- NOTE | 2018-05-15 21:03 | PN ---
Subjective Date of Service: 05/15/18 Interval History: Pt seen and examined. Meds and labs reviewed. ROS: Denied SUERO/dizziness, F/C, N/V, CP, SOB, increased cough, sputum production , abd pain, diarrhea, constipation, dysuria, myalgias, arthralgias, throat pain , and new skin lesions. The rest of the 14 point ROS are unremarkable. PHYSICAL EXAM: GEN APPEARANCE: Awake, not in acute distress HEENT: NC/AT, PERRLA, moist oral mucosa, (-) throat erythema NECK: Soft, supple, (-) cervical LAD, (-)JVD HEART: S1S2 WNL, RRR, No MRG CHEST: CTA, BL, GAE, No W/R/R ABD: Soft, ND/NT, NABS 4x Q EXT: No C/C/E SKIN: Warm to touch PSYCH: No active psychosis, hallucinations, depression, SI/HI Objective Active Medications: Acetaminophen (Tylenol Tab*) 650 mg PO Q4H PRN PRN Reason: FEVER/PAIN Amlodipine Besylate (Norvasc Tab*) 5 mg PO DAILY [facility] Last Admin: 05/15/18 08:05 Dose: 5 mg Aspirin (Aspirin 81 Mg Chew Tab*) 81 mg PO DAILY [facility] Last Admin: 05/15/18 08:05 Dose: 81 mg Atorvastatin Calcium (Lipitor*) 40 mg PO 1700 [facility] Last Admin: 05/15/18 16:36 Dose: 40 mg Bupropion HCl (Bupropion Xl*) 300 mg PO DAILY [facility] Last Admin: 05/15/18 08:04 Dose: 300 mg Buspirone HCl (Buspar Tab*) 30 mg PO BID [facility] Last Admin: 05/15/18 08:04 Dose: 30 mg Device (Nicotine Mouth Piece*) 1 each INH .USE WITH NICOTROL PRN PRN Reason: CRAVING Last Admin: 05/15/18 03:37 Dose: 1 each Docusate Sodium (Colace Cap*) 100 mg PO BID PRN PRN Reason: CONSTIPATION Last Admin: 05/15/18 08:05 Dose: 100 mg Enoxaparin Sodium (Lovenox(*)) 40 mg SUBCUT Q24H [facility] Last Admin: 05/15/18 16:36 Dose: 40 mg Fluticasone Propionate (Flonase Nasal [place] 50mcg*) 2 spray BOTH NARES DAILY [facility] Last Admin: 05/15/18 08:04 Dose: 2 spray Folic Acid (Folvite Tab*) 1 mg PO DAILY [facility] Last Admin: 05/15/18 08:04 Dose: 1 mg Gabapentin (Neurontin Cap(*)) 600 mg PO TID [facility] Last Admin: 05/15/18 13:04 Dose: 600 mg Ceftriaxone Sodium 1 gm/ (Sodium Chloride) 50 mls @ 200 mls/hr IVPB Q24H [facility] Last Admin: 05/15/18 11:26 Dose: 200 mls/hr Lactobacillus Rhamnosus (Lactobacillus Acidophilus*) 1 tab PO DAILY [facility] Stop: 05/18/18 12:59 Last Admin: 05/15/18 08:05 Dose: 1 tab Lorazepam (Ativan Tab(*)) 0 - 6 mg PO .PER [facility] PR[facility]OCOL [facility] PRN Reason: Protocol Multivitamins/Minerals (Theragran/Minerals Tab*) 1 tab PO DAILY [facility] Last Admin: 05/15/18 08:05 Dose: 1 tab Nicotine (Nicotine Inhaler*) 10 mg INH Q2H PRN PRN Reason: CRAVING Last Admin: 05/15/18 03:37 Dose: 10 mg Omeprazole (Prilosec Cap*) 20 mg PO BID [facility] Last Admin: 05/15/18 08:04 Dose: 20 mg Ondansetron HCl (Zofran Odt Tab*) 4 mg PO Q6H PRN PRN Reason: NAUSEA Quetiapine Fumarate (Seroquel Tab*) 100 mg PO BEDTIME [facility] Last Admin: 05/14/18 20:14 Dose: 100 mg Sertraline HCl (Zoloft*) 75 mg PO DAILY [facility] Thiamine HCl (Vitamin B-1 Tab*) 100 mg PO DAILY [facility] Last Admin: 05/15/18 08:04 Dose: 100 mg Tramadol HCl (Ultram*) 50 mg PO Q6HR PRN PRN Reason: PAIN Last Admin: 05/15/18 11:26 Dose: 50 mg Vital Signs - 8 hr 05/15/18 05/15/18 05/15/18 13:04 15:05 16:18 Temperature 97.8 F Pulse Rate 82 Respiratory 16 12 20 Rate Blood Pressure 120/61 (mmHg) O2 Sat by Pulse 100 Oximetry 05/15/18 05/15/18 19:36 20:19 Temperature 97.9 F Pulse Rate 87 Respiratory 24 22 Rate Blood Pressure 132/66 (mmHg) O2 Sat by Pulse 99 Oximetry Oxygen Devices in Use Now: None Result Diagrams: 05/15/18 05:00 05/15/18 05:00 Assess/Plan/Problems-Billing Assessment: - Patient Problems (1) Generalized weakness Current Visit: Yes Status: Acute Code(s): R53.1 - WEAKNESS SNOMED Code(s) : 54055274 Comment: -Likely due to UTI causing diarrhea vs. 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---mentions no longer have loose stools -U/A likely indicative of prema wilma UTI given suprapubic tenderness and pt history described from yesterdays note, accompanied by pts clinical improvement both by objective and subjective data when treated with antibiotic -Urine culture being negative is not necessarily evidence that UTI is not present given it is not as sensitive as U/A, although U/A is not as specific -Suprapubic tenderness present yesterday no longer appreciated -Continue Rocephin and transition to Vantin for total of 7-10 days given symptomatic presentation (2) Bipolar depression Current Visit: No Status: Acute Code(s): F31.30 - BIPOLAR DISORD, CRNT EPSD DEPRESS, MILD OR MOD SEVERT, UNSP SNOMED Code(s): 31369278 Comment: #Depression and anxiety: -Continue Buspirone, Lorazepam, Quetiapine, and Bupropion (3) Neuropathy Current Visit: Yes Status: Acute Code(s): G62.9 - POLYNEUROPATHY, UNSPECIFIED SNOMED Code(s): 204180715 Comment: -Continue Gabapentin (4) DVT prophylaxis Current Visit: Yes Status: Acute Code(s): [id number] - SNOMED Code(s): 931800900 Comment: -Continue SQ Lovenox Status and Disposition: -For STR placement
[2018-05-15] MEDS: QUEtiapine TAB* 100 MG PO SCH (21:23)
[2018-05-15] MEDS: Sertraline* 25 MG TAB PO SCH (21:24)
[2018-05-16] MEDS: Nicotine Inhaler* 10 MG AMP INH PRN ×2 (06:34→14:26)
--- NOTE | 2018-05-16 08:27 | PN ---
Subjective Date of Service: 05/16/18 Interval History: Pt is feeling ok. When I tell her I think she can go home or to rehab today she states she is nervous about going home because she has so much to do, but then she states she also does not want to go to rehab. She c/o mild R ankle pain and numbness. She thinks it is from when she fell. Objective Active Medications: Acetaminophen (Tylenol Tab*) 650 mg PO Q4H PRN PRN Reason: FEVER/PAIN Amlodipine Besylate (Norvasc Tab*) 5 mg PO DAILY [facility] Last Admin: 05/15/18 08:05 Dose: 5 mg Aspirin (Aspirin 81 Mg Chew Tab*) 81 mg PO DAILY [facility] Last Admin: 05/15/18 08:05 Dose: 81 mg Atorvastatin Calcium (Lipitor*) 40 mg PO 1700 [facility] Last Admin: 05/15/18 16:36 Dose: 40 mg Bupropion HCl (Bupropion Xl*) 300 mg PO DAILY [facility] Last Admin: 05/15/18 08:04 Dose: 300 mg Buspirone HCl (Buspar Tab*) 30 mg PO BID [facility] Last Admin: 05/15/18 21:27 Dose: 30 mg Device (Nicotine Mouth Piece*) 1 each INH .USE WITH NICOTROL PRN PRN Reason: CRAVING Last Admin: 05/15/18 03:37 Dose: 1 each Docusate Sodium (Colace Cap*) 100 mg PO BID PRN PRN Reason: CONSTIPATION Last Admin: 05/15/18 08:05 Dose: 100 mg Enoxaparin Sodium (Lovenox(*)) 40 mg SUBCUT Q24H [facility] Last Admin: 05/15/18 16:36 Dose: 40 mg Fluticasone Propionate (Flonase Nasal [place] 50mcg*) 2 spray BOTH NARES DAILY [facility] Last Admin: 05/15/18 08:04 Dose: 2 spray Folic Acid (Folvite Tab*) 1 mg PO DAILY [facility] Last Admin: 05/15/18 08:04 Dose: 1 mg Gabapentin (Neurontin Cap(*)) 600 mg PO TID [facility] Last Admin: 05/15/18 21:23 Dose: 600 mg Ceftriaxone Sodium 1 gm/ (Sodium Chloride) 50 mls @ 200 mls/hr IVPB Q24H [facility] Last Admin: 06/18/18 11:26 Dose: 200 mls/hr Lactobacillus Rhamnosus (Lactobacillus Acidophilus*) 1 tab PO DAILY [facility] Stop: 05/18/18 12:59 Last Admin: 05/15/18 08:05 Dose: 1 tab Lorazepam (Ativan Tab(*)) 0 - 6 mg PO .[facility] PROTOCOL STU PRN Reason: Protocol Multivitamins/Minerals (Theragran/Minerals Tab*) 1 tab PO DAILY [facility] Last Admin: 05/15/18 08:05 Dose: 1 tab Nicotine (Nicotine Inhaler*) 10 mg INH Q2H PRN PRN Reason: CRAVING Last Admin: 05/16/18 06:34 Dose: 10 mg Omeprazole (Prilosec Cap*) 20 mg PO BID [facility] Last Admin: 05/15/18 21:23 Dose: 20 mg Ondansetron HCl (Zofran Odt Tab*) 4 mg PO Q6H PRN PRN Reason: NAUSEA Quetiapine Fumarate (Seroquel Tab*) 100 mg PO BEDTIME [facility] Last Admin: 05/15/18 21:23 Dose: 100 mg Sertraline HCl (Zoloft*) 75 mg PO DAILY [facility] Last Admin: 05/15/18 21:24 Dose: 75 mg Thiamine HCl (Vitamin B-1 Tab*) 100 mg PO DAILY [facility] Last Admin: 05/15/18 08:04 Dose: 100 mg Tramadol HCl (Ultram*) 50 mg PO Q6HR PRN PRN Reason: PAIN Last Admin: 05/15/18 11:26 Dose: 50 mg Vital Signs - 8 hr 05/16/18 05/16/18 05/16/18 02:15 04:04 06:00 Temperature Pulse Rate 75 73 78 Respiratory 16 16 16 Rate Blood Pressure 115/53 136/60 121/55 (mmHg) O2 Sat by Pulse 95 97 100 Oximetry 05/16/18 07:45 Temperature 98.2 F Pulse Rate 84 Respiratory 18 Rate Blood Pressure 136/56 (mmHg) O2 Sat by Pulse 97 Oximetry Oxygen Devices in Use Now: None Appearance: Middle aged female sitting up in bed, NAD Eyes: No Scleral Icterus Ears/Nose/Mouth/Throat: Mucous Membranes Moist Respiratory: Symmetrical Chest Expansion and Respiratory Effort, Clear to Auscultation Cardiovascular: NL Sounds; No Murmurs; No JVD, RRR, No Edema Abdominal: NL Sounds; No Tenderness; No Distention Extremities: No Clubbing, Cyanosis Skin: No Nodules or Sclerosis Neurological: Alert and Oriented x 3 Result Diagrams: 05/15/18 05:00 05/15/18 05:00 Assess/Plan/Problems-Billing Ms Dewey is a 68 yo F who has a h/o COPD, HLD, HTN, bipolar disorder and chronic pain who presented to the ER wt c/o weakness and inability to care for herself at home. - Patient Problems (1) Generalized weakness Current Visit: Yes Status: Acute Code(s): R53.1 - WEAKNESS SNOMED Code(s) : 23328415 Comment: Possibly secondary to UTI. She did not speak of any diarrhea today. She reports she is walking better. She does think she needs a walker. I suspect she could manage at home but she is worried about going home. She has a bed offer for [facility]. She will be discharged today either home with [facility] or [facility]. (2) UTI (urinary tract infection) Current Visit: Yes Status: Acute Comment: Urine culture never grew anything. Given her symptoms and abnormal urinalysis she will be treated for 7 days total (4 more days). (3) Bipolar disorder Current Visit: Yes Status: Acute Onset Date: 04/25/15 Comment: Continue sertraline, buspar, wellbutrin and seroquel. (4) COPD (chronic obstructive pulmonary disease) Current Visit: Yes Status: Acute Code(s): J44.9 - CHRONIC OBSTRUCTIVE PULMONARY DISEASE, UNSPECIFIED SNOMED Code(s): 18232520 Comment: No signs of exacerbation. (5) DVT prophylaxis Current Visit: Yes Status: Acute Code(s): PSN8803 - SNOMED Code(s): 947264104 Comment: Lovenox (6) DVT prophylaxis Current Visit: Yes Status: Acute Code(s): BGK2835 - SNOMED Code(s): 747622513 Comment: lovenox (7) Full code status Current Visit: Yes Status: Acute Code(s): Z78.9 - OTHER SPECIFIED HEALTH STATUS SNOMED Code(s): 129378258 Status and Disposition: .
[2018-05-16] MEDS: Thiamine TAB* 100 MG TAB PO SCH (08:37)
[2018-05-16] MEDS: Sertraline* 25 MG TAB PO SCH (08:37)
[2018-05-16] MEDS: Fluticasone NASAL SPRAY 50MCG* 16 gm SPRAY BTL BOTH NARES SCH (08:37)
[2018-05-16] MEDS: amLODIPine TAB* 5 MG PO SCH (08:37)
[2018-05-16] MEDS: Lactobacillus Acidophilus* 1 TAB PO SCH (08:37)
[2018-05-16] MEDS: Gabapentin CAP(*) 300 MG PO SCH ×2 (08:38→14:26)
[2018-05-16] MEDS: Folic Acid TAB* 1 MG PO SCH (08:38)
[2018-05-16] MEDS: Aspirin 81 mg CHEW TAB* 81 MG TAB.CHEW PO SCH (08:38)
[2018-05-16] MEDS: Omeprazole CAP* 20 MG PO SCH (08:38)
[2018-05-16] MEDS: BuPROPion XL* 300 MG TAB.XL PO SCH (08:38)
[2018-05-16] MEDS: busPIRone TAB* 30 MG PO SCH (08:38)
[2018-05-16] MEDS: traMADol TAB* 50 MG PO PRN (08:38)
[2018-05-16] MEDS: Multivitamins/Minerals TAB PO SCH (08:38)
[2018-05-16] MEDS ORDERED: Folic Acid TAB* 1 MG PO SCH (09:00)
[2018-05-16] MEDS ORDERED: Multivitamins/Minerals TAB PO SCH (09:00)
[2018-05-16] MEDS ORDERED: Thiamine TAB* 100 MG TAB PO SCH (09:00)
[2018-05-16] MEDS: cefTRIAXone(*) 1 GM in NS 0.9% 50 ML* 50 ML IVPB SCH (12:15)
[2018-05-16 12:44] VITALS: BP 117/61
--- NOTE | 2018-05-16 14:22 | DS ---
DATE OF ADMISSION: 05/12/2018. DATE OF DISCHARGE: 05/16/2018. PRIMARY CARE PROVIDER: None. PRINCIPAL DIAGNOSIS: Weakness secondary to possible urinary tract infection. SECONDARY DIAGNOSES: 1. COPD. 2. Hypertension. 3. Hyperlipidemia. 4. Bipolar disorder. 5. Chronic pain. 6. GERD. DISCHARGE MEDICATIONS: 1. Sertraline 75 mg p.o. daily. 2. Tramadol 50 mg p.o. q.6 hours prn pain. 3. Hydroxyzine 50 mg p.o. q.6 hours prn anxiety. 4. BuSpar 30 mg p.o. b.i.d. 5. Amlodipine 5 mg p.o. daily. 6. Seroquel 100 mg p.o. at bedtime. 7. Zofran ODT 4 mg p.o. q.6 hours prn nausea. 8. Omeprazole 20 mg p.o. b.i.d. 9. Gabapentin 600 mg p.o. t.i.d. 10. Flonase two squirts both nostrils daily. 11. Colace 100 mg p.o. b.i.d. prn constipation. 12. Wellbutrin XL 300 mg p.o. daily. 13. Lipitor 40 mg p.o. daily. 14. Aspirin 81 mg p.o. daily. 15. Vantin 200 mg p.o. twice daily times 8 doses. HOSPITAL COURSE: Ms. Dewey is a 68-year-old female who presented to the emergency room with complaints of weakness and inability to take care of herself at home. She was admitted and found to have a possible urinary tract infection. She was treated with Ceftriaxone times four days IV. Her weakness has improved; however, when Physical Therapy evaluated the patient, it was felt that she could benefit from subacute rehab. The patient will be discharged to [facility] today, 05/16/2018. The patient will complete eight more doses of Vantin orally. This is to start tomorrow morning. She will receive physical therapy and occupational therapy as needed. FOLLOW-UP CONCERNS: The patient is being discharged to [facility] today, 05/16/2018. ACTIVITY LEVEL: As tolerated. DIET: Regular. CONDITION ON DISCHARGE: Stable. Thirty-five minutes were spent discharging this patient. [id number]/[facility] #: [id number] [facility]
== END 2018-05-16 15:20 | DRG 690 ==
LOC: ED 14:32 → MED 21:42 → OBSVTOIN 05-13 12:31 → MED 05-14 17:41
PROVIDERS: ADMIT Hospitalist; ATTEND Hospitalist
DX: N39.0 Urinary tract infection, site not specified (principal); F31.30 Bipolar disorder, current episode depressed, mild or moderate severity, unspecified; J44.9 Chronic obstructive pulmonary disease, unspecified; I10 Essential (primary) hypertension; E78.5 Hyperlipidemia, unspecified; G89.29 Other chronic pain; K21.9 Gastro-esophageal reflux disease without esophagitis; F41.9 Anxiety disorder, unspecified; Z86.73 Personal history of transient ischemic attack (TIA), and cerebral infarction without residual deficits; Z79.82 Long term (current) use of aspirin; Z79.899 Other long term (current) drug therapy; Z88.2 Allergy status to sulfonamides; Z88.8 Allergy status to other drugs, medicaments and biological substances; F17.210 Nicotine dependence, cigarettes, uncomplicated; E87.6 Hypokalemia; G62.9 Polyneuropathy, unspecified; R53.1 Weakness
CPT/HCPCS: 36415; 80053; 80320; 81003; 81015; 83605; 83735; 84100; 85025; 85027; 86140; 87086; 93005; 99283; A9270-GY; G0480; G8978-GP-CJ; G8979-GP-CI; G8987-GO-CK; G8988-GO-CI; G8989-GO-CI; J0696; J1650; J3411

== ENCOUNTER 2018-07-03 15:16 | Emergency (ER) | payer MEDICARE ==
[2018-07-03] MEDS ORDERED: LORazepam INJ* 2 MG/ML 1 ML VIAL IV PUSH ONE (15:33)
--- NOTE | 2018-07-03 16:58 | RAD ---
INDICATION: Fall. Back pain COMPARISON: CT brain August 30, 2017 TECHNIQUE: Noncontrast axial source images were acquired from the skull base to the vertex. FINDINGS: Ventricles/sulci: There is cortical atrophy with compensatory dilatation of the CSF spaces. Brain parenchyma: There is no acute focal parenchymal finding, evidence of intracranial mass, or intracranial mass effect. There is encephalomalacia in the left parietal lobe with compensatory dilatation of the ventricle. There is extensive periventricular leukomalacia, unchanged Intracranial hemorrhage:None. Extra-axial spaces: There are no abnormal extra axial fluid collections or evidence of extra-axial mass. Calvarium: There is no calvarial fracture or other calvarial abnormality. Scalp: There is no evidence of scalp or extracalvarial soft tissue abnormality. Paranasal sinuses/mastoid: The paranasal sinuses and mastoid air cells are clear. Other: None. IMPRESSION: ATROPHY. SEQUELA OF PRIOR VASCULAR INSULT. NO ACUTE INTRACRANIAL FINDINGS
--- NOTE | 2018-07-03 17:02 | RAD ---
Indication: Fall, back pain. CT of the lumbar spine was obtained in the axial plane. Sagittal and coronal reconstructed images were obtained. Comparison is made with previous exam dated May 23, 2017. The vertebral bodies appear normal in height. No compression fracture is noted. At L5-S1 broad-based protrusion flattens the thecal sac. Focal central disc protrusion indents the thecal sac. Facet arthropathy is noted. There is evidence of right laminotomy. At L4-L5 degenerative disc disease with broad-based protrusion flattens the thecal sac. Moderate degree of facet arthropathy is noted. No central or foraminal stenosis is noted. At L3-L4 there is broad-based disc protrusion flattening the thecal sac. Moderate facet hypertrophy is noted. No definite central or foraminal stenosis is noted. Template irregularities with retrolisthesis is noted at L2 on 3. Findings are similar to that seen on previous exam. No central or foraminal stenosis is noted. At L1-L2 the disc space appears grossly unremarkable. IMPRESSION: No compression fracture is noted. Retrolisthesis of L2 on 3 with endplate irregularity consistent with degenerative disc disease is noted unchanged from previous exam. At L4-L5 broad-based disc protrusion flattens the thecal sac with facet hypertrophy. At L5-S1 moderate-sized broad-based disc protrusion with focal protrusion indenting the thecal sac and facet hypertrophy is noted. There is evidence of right laminotomy. Overall no significant change is noted since May 23, 2017.
--- NOTE | 2018-07-03 17:17 | RAD ---
Indication: Back pain post fall. Comparison: May 27, 2017 PA and lateral chest radiographs. Technique: Noncontrast CT thoracic spine. Multiplanar reformation. Report: Motion artifact degrades image quality. Negative for pneumothorax or pleural effusions within the [id number]. Negative for thoracic vertebral body or posterior element fracture at any level. Mild RIGHT convex curve at the proximal to mid thoracic spine. Minimal grade 1 degenerative L1-S2 retrolisthesis noted. Negative for paravertebral hematoma. Multilevel predominant mild thoracic spine degenerative spondylosis and facet joint osteoarthritis. No CT evidence for significant acquired central canal stenosis at any level of the thoracic spine. Partially visualized more significant degenerative spondylosis noted at the C5-C6 and C6-C7 levels of the cervical spine. IMPRESSION: #. No evidence for thoracic spine fracture.
[2018-07-03 17:33] VITALS: BP 136/75
--- NOTE | 2018-07-05 07:03 | ED ---
Adult Trauma - HPI Summary HPI Summary: Patient is a 68-year-old female from [facility] presenting to the ED after a fall approximate 4:00 this morning. She states she is weak in her bilateral lower extremities at baseline. She states when she got up with her walker she fell down hitting her head. She does not recall where she hit her head. Denies any headache. She is concerned over her bilateral lower extremity weakness, however does endorse this is her baseline. She walks with a walker daily or is a 2 assist. She denies any other pain or injuries. Denies any headache, visual changes. Denies any confusion. Denies any LOC. - History of Current Complaint Chief Complaint: EDHeadInjury Stated Complaint: FALL Time Seen by Provider: 07/03/18 15:20 Hx Obtained From: Patient Hx Last Menstrual Period: pt states age 30-40 yrs old ?: No Mechanism of Injury: Blunt Trauma Ambulatory at the Scene: Yes Loss of Consciousness: no loss of consciousness Onset/Duration: Started Hours Ago Onset of Pain: Minutes Onset Severity: Moderate Current Severity: Moderate Pain Intensity: 0 Pain Scale Used: 0-10 Numeric Location: Head Character: Aching Aggravating Factor(s): Nothing Alleviating Factor(s): Nothing Associated Signs & Symptoms: Positive: Negative - Additional Pertinent History Primary Care Physician: [id number] - Allergy/Home Medications Allergies/Adverse Reactions: Allergies Allergy/AdvReac Type Severity Reaction Status Date / Time ciprofloxacin Allergy Mild Itching Verified 01/11/18 09:08 Sulfa (Sulfonamide Allergy Mild Itching Verified 01/11/18 09:08 Antibiotics) Home Medications: Home Medications Aspirin EC TAB* [Ecotrin EC Low Dose 81 MG*] 81 mg PO DAILY 07/03/18 [History Confirmed 07/03/18] Atorvastatin* [Lipitor*] 40 mg PO 1700 07/03/18 [History Confirmed 07/03/18] Bisacodyl SUPP* [Dulcolax Supp*] 10 mg IA DAILY PRN 07/03/18 [History Confirmed 07/03/18] Gabapentin TAB(NF) [Neurontin 600 mg TAB(NF)] 600 mg PO 0900,1500,2100 07/03/18 [History Confirmed 07/03/18] Magnesium Hydroxide LIQ* [Milk of Magnesia LIQ*] 30 ml PO DAILY PRN 07/03/18 [ History Confirmed 07/03/18] Menthol [Bengay Ultra Strength] 5 % TOPICAL 0807/03/18 [History Confirmed 05/15] Nicotine PATCH 21 MG/24 HR* 21 mg TRANSDERM DAILY 07/03/18 [History Confirmed ] Omeprazole CAP* [Prilosec CAP* 20 MG] 20 mg PO 0900,2100 07/03/18 [History Confirmed 07/03/18] Sertraline* [Zoloft*] 100 mg PO QAM 07/03/18 [History Confirmed 07/03/18] Sodium Phosphate ADULT ENEMA* [Fleet Enema*] 1 enema IA DAILY PRN 07/03/18 [ History Confirmed 07/03/18] busPIRone TAB* [Buspar *] 30 mg PO 0900,209907/03/18 [History Confirmed ] PMH/Surg Hx/FS Hx/Imm Hx Previously Healthy: Yes Endocrine/Hematology History: Reports: Hx Anemia - b12 shots Denies: Hx Diabetes, Hx Thyroid Disease Cardiovascular History: Reports: Hx Hypercholesterolemia, Hx Hypertension, Other Cardiovascular Problems/Disorders - PT.STATES STROKE 2011 Denies: Hx Congestive Heart Failure, Hx Deep Vein Thrombosis, Hx Myocardial Infarction, Hx Pacemaker/ICD Respiratory History: Reports: Hx Asthma, Hx Chronic Obstructive Pulmonary Disease (COPD), Other Respiratory Problems/Disorders - COPD Denies: Hx Lung Cancer GI History: Reports: Other GI Disorders - DIVERTICULITIS Denies: Hx Gall Bladder Disease, Hx Gastrointestinal Bleed, Hx Ulcer, Hx Urosepsis History: Denies: Hx Kidney Stones, Hx Renal Disease Musculoskeletal History: Reports: Hx Arthritis, Hx Back Problems, Other Musculoskeletal History - L SHLDR REPAIR 12/2013 Sensory History: Reports: Hx Contacts or Glasses Denies: Hx Hearing Aid Comment Only: Other Sensory Impairments - left glasses at home Opthamlomology History: Reports: Hx Contacts or Glasses Comment Only: Other Sensory Impairments - left glasses at home Neurological History: Reports: Hx CVA - 2011, Hx Seizures, Hx Transient Ischemic Attacks (TIA) Psychiatric History: Reports: Hx Anxiety, Hx Depression, Hx Panic Disorder, Hx Post Traumatic Stress Disorder, Hx Inpatient Treatment, Hx Community Mental Health Tx, Hx Bipolar Disorder, Hx Suicide Attempt, Hx of Violent Episodes Against Others, Hx Substance Abuse, Other Psychiatric Issues/Disorders - polysubstance abuse Denies: Hx Eating Disorder - Cancer History Hx Chemotherapy: No Hx Radiation Therapy: No - Surgical History Surgery Procedure, Year, and Place: LT SHOULDER REPLACEMENT 12/2013, ABD EXPLORATORY SURGERY, APPENDECTOMY Hx Anesthesia Reactions: No - Immunization History Date of Tetanus Vaccine: 12/03/13 Date of Influenza Vaccine: 2012 Hx Pertussis Vaccination: Yes Immunizations Up to Date: Yes Infectious Disease History: No Infectious Disease History: Denies: Hx Hepatitis, Hx Human Immunodeficiency Virus (HIV), History Other Infectious Disease, Traveled Outside the [place] in Last 30 Days - Family History Known Family History: Positive: Hypertension, Respiratory Disease, Other - bipolar disorder, depression, alcohol abuse Negative: Cardiac Disease, Diabetes - Social History Alcohol Use: None 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, replaced Hx Substance Use: Yes Substance Use Type: Reports: None Substance Use Comment - Amount & Last Used: opiates Hx Tobacco Use: Yes Smoking Status (MU): Heavy Every Day Tobacco Smoker Type: Cigarettes Amount Used/How Often: 1 PPD Length of Time of Smoking/Using Tobacco: 30 years Have You Smoked in the Last Year: Yes Review of Systems Constitutional: Negative Negative: Fever, Chills, Fatigue, Skin Diaphoresis Negative: Palpitations, Chest Pain Negative: Shortness Of Breath, Cough Genitourinary: Negative Positive: no symptoms reported, see HPI Negative: Rash, Bruising Positive: Weakness. Negative: Headache, Paresthesia, Numbness, Syncope Psychological: Normal All Other Systems Reviewed And Are Negative: Yes Physical Exam Triage Information Reviewed: Yes Vital Signs On Initial Exam: Initial Vitals Temp Pulse Resp BP Pulse Ox 98.0 F 87 18 146/75 98 07/03/18 15:21 07/03/18 15:21 07/03/18 15:21 07/03/18 15:21 07/03/18 15:21 Vital Signs Reviewed: Yes Appearance: Positive: Well-Appearing, Well-Nourished Skin: Positive: Warm, Skin Color Reflects Adequate Perfusion Head/Face: Positive: Normal Head/Face Inspection Eyes: Positive: EOMI, ISADORA, Conjunctiva Clear Neck: Positive: No Lymphadenopathy Respiratory/Lung Sounds: Positive: Clear to Auscultation, Breath Sounds Present Cardiovascular: Positive: RRR, Pulses are Symmetrical in both Upper and Lower Extremities Musculoskeletal: Positive: Other - weakness in the bilateral lower extremities Neurological: Positive: Speech Normal Psychiatric: Positive: Normal, Affect/Mood Appropriate AVPU Assessment: Alert Diagnostics - Vital Signs Vital Signs Temp Pulse Resp BP Pulse Ox 07/03/18 17:32 98.6 F 77 18 136/75 98 07/03/18 17:25 77 146/68 99 07/03/18 17:02 136/55 07/03/18 16:55 72 134/82 96 07/03/18 16:46 70 96 07/03/18 16:02 18 07/03/18 15:32 80 97 07/03/18 15:30 79 146/75 96 07/03/18 15:21 98.0 F 87 18 146/75 98 - Laboratory Lab Statement: Any lab studies that have been ordered have been reviewed, and results considered in the medical decision making process. Adult Trauma Course/Dx - Course Course Of Treatment: Physical examination, the patient appears well. EOMI. RRR. Lungs CTA. She is weak in her bilateral lower extremities at baseline. Reflexes intact. No acute findings on physical examination, including cephalohematoma, abrasions or signs of trauma. Brain CT obtained which shows no acute intracranial abnormalities. Labs obtained and are WNL. I discussed these findings with the patient and she is comfortable to return to [facility] and continue to follow up with her own PCP regarding her muscle weakness. - Diagnoses Differential Diagnosis/HQI/PQRI: Positive: Sprain, Strain Provider Diagnoses: Fall, Head injury Discharge - Sign-Out/Discharge Documenting (check all that apply): Patient Departure - Discharge Plan Condition: Stable Disposition: HOME Patient Education Materials: Fall Prevention (ED) Referrals: Cristina Funez MD [Primary Care Provider] - - Billing Disposition and Condition Condition: STABLE Disposition: Home
== END 2018-07-03 17:32 | disposition home or self-care (01) ==
LOC: ED 15:16
DX: S09.90XA Unspecified injury of head, initial encounter (principal); W19.XXXA Unspecified fall, initial encounter; Y92.9 Unspecified place or not applicable; M62.81 Muscle weakness (generalized); M43.16 Spondylolisthesis, lumbar region; M51.26 Other intervertebral disc displacement, lumbar region; F17.210 Nicotine dependence, cigarettes, uncomplicated; Z86.73 Personal history of transient ischemic attack (TIA), and cerebral infarction without residual deficits; Z88.3 Allergy status to other anti-infective agents; Z88.2 Allergy status to sulfonamides
CPT/HCPCS: 70450; 72128; 72131; 96374; 99283; J2060

== ENCOUNTER 2020-07-18 12:02 | Inpatient (IN) ==
[2020-07-18 13:04] LABS: ABS Basophils 0.1 10^3/ul (0-0.2); ABS Eosinophils 0.2 10^3/ul (0-0.6); ABS Lymphocytes 0.9 10^3/ul (1.0-4.8); ABS Monocytes 0.6 10^3/ul (0-0.8); ABS Neutrophils 7.1 10^3/ul (1.5-7.7); Eosinophil % 2.7 %; Hematocrit 40 % (35-47); Hemoglobin 13.5 g/dL (12.0-16.0); Lymphocyte % 10.2 %; Mean Corpuscular HGB Conc 34 g/dL (31-36); Mean Corpuscular Hemoglobin 29 pg (27-31); Mean Corpuscular Volume 86 fL (80-97); Platelet Count 233 10^3/uL (150-450); Red Blood Count 4.65 10^6 /uL (3.70-4.87); Red Cell Distribution Width 16 % (10-15)
[2020-07-18 13:21] LABS: Albumin 4.6 g/dL (3.2-5.2); Albumin/Globulin Ratio 1.5 (1-3); BUN/Creatinine Ratio 26.9 (8-20); Calcium 9.4 mg/dL (8.6-10.3); EGFR African American 72.5 (>60); Globulin 3.1 g/dL (2-4); Potassium 3.6 mmol/L (3.5-5.0); Total Bilirubin 0.7 mg/dL (0.2-1.0); Total Protein 7.7 g/dL (6.4-8.9)
[2020-07-18] MEDS ORDERED: Analgesic BALM 114 GM TOPICAL PRN (13:53)
[2020-07-18 13:58] LABS: TSH Ultra Thyroid Stim Horm 1.98 mcIU/mL (0.34-5.60)
[2020-07-18 14:00] LABS: Free T4 1.1 ng/dL (0.61-1.12)
[2020-07-18] MEDS ORDERED: Senna TAB 8.6 mg TAB PO PRN (16:13)
[2020-07-18] MEDS ORDERED: Polyethylene Glycol 3350 17 GM PACKET PO PRN (16:13)
[2020-07-18] MEDS ORDERED: Magnesium Hydroxide LIQ 30 ML UDC PO PRN (16:13)
[2020-07-18] MEDS: Lidocaine PATCH 5% PATCH TRANSDERM SCH (17:48)
[2020-07-18] MEDS: Heparin 5000 UNITS/ML 1 mL VIAL SUBCUT SCH ×2 (17:49→21:06)
[2020-07-18] MEDS ORDERED: Magnesium Hydroxide LIQ 30 ML UDC PO SCH (21:00)
[2020-07-18] MEDS: Senna TAB 8.6 mg TAB PO SCH (23:09)
[2020-07-19] MEDS: Mometasone/Formoter 200/5 MDI INH SCH ×3 (04:37→20:03)
[2020-07-19] MEDS: Heparin 5000 UNITS/ML 1 mL VIAL SUBCUT SCH ×3 (05:46→20:58)
[2020-07-19] MEDS: Lidocaine PATCH 5% PATCH TRANSDERM SCH ×2 (08:04→08:09)
[2020-07-19] MEDS: Polyethylene Glycol 3350 17 GM PACKET PO SCH (08:05)
[2020-07-19] MEDS: Aspirin EC 81 mg TAB.EC (enteric coated) PO SCH (08:09)
[2020-07-19] MEDS: Senna TAB 8.6 mg TAB PO SCH (21:05)
[2020-07-20] MEDS: Heparin 5000 UNITS/ML 1 mL VIAL SUBCUT SCH ×3 (05:44→20:51)
[2020-07-20] MEDS: Mometasone/Formoter 200/5 MDI INH SCH ×2 (08:21→19:37)
[2020-07-20] MEDS: Lidocaine PATCH 5% PATCH TRANSDERM SCH (09:21)
[2020-07-20] MEDS: Aspirin EC 81 mg TAB.EC (enteric coated) PO SCH (09:22)
[2020-07-20] MEDS: Polyethylene Glycol 3350 17 GM PACKET PO SCH (10:14)
[2020-07-20] MEDS: Senna TAB 8.6 mg TAB PO SCH (22:16)
[2020-07-21] MEDS: Heparin 5000 UNITS/ML 1 mL VIAL SUBCUT SCH ×2 (05:38→13:26)
[2020-07-21] MEDS: Aspirin EC 81 mg TAB.EC (enteric coated) PO SCH (08:42)
[2020-07-21] MEDS: Lidocaine PATCH 5% PATCH TRANSDERM SCH (08:45)
[2020-07-21] MEDS: Polyethylene Glycol 3350 17 GM PACKET PO SCH (08:48)
[2020-07-21 09:03] VITALS: BP 143/62
[2020-07-21] MEDS: Mometasone/Formoter 200/5 MDI INH SCH (09:18)
[2020-07-21 09:30] LABS: Urine Appearance Cloudy; Urine Bilirubin Negative (Negative); Urine Blood Negative (Negative); Urine Color Yellow; Urine Glucose Negative (Negative); Urine Ketones Negative (Negative); Urine Nitrite Positive (Negative); Urine Protein Negative (Negative); Urine Specific Gravity 1.015 (1.010-1.030); Urine Urobilinogen Negative (Negative)
[2020-07-21 09:31] LABS: Urine Bacteria 1+ (Absent); Urine Red Blood Cell Trace(0-2/hpf) (Absent); Urine Squamous Epithelial Cell Present (Absent); Urine White Blood Cell 1+(6-10/hpf) (Absent)
== END 2020-07-21 16:45 | DRG 57 ==
LOC: ED 12:02 → MED 15:47
PROVIDERS: ADMIT Internal Medicine; ATTEND Student in an Organized Health Care Education/Training Program